=== PATIENT | female | born 1945 | race Caucasian/White ===

== ENCOUNTER 2019-07-16 19:42 | Emergency (ER) | payer MEDICARE, BC, SELFPAY ==
[2019-07-16] VITALS (13 sets, daily range): BP systolic 113–130; BP diastolic 73–102; PULSE 90–108; RESP 17–30; TEMP 36.7–37.1; O2SAT 91–94; BMI 29.0
--- NOTE | 2019-07-16 19:50 | ED_ITS ---
Entered by Natalee Potts, acting as scribe for HPI - SOB/Dyspnea General: Chief Complaint: Shortness of Breath/Dyspnea Stated Complaint: DIFFICULTY BREATHING Time Seen by Provider: 07/16/19 19:49 Source: patient Mode of arrival: ambulatory Limitations: no limitations History of Present Illness: HPI Narrative: 73 yo f came to the er for shortness of breath. Onset was today. Pt states that she she at home cooking supper and it started to get really bad, she states that she did treatments and that did not help at all. Pt states that she has not had a cough, fever, nausea or vomiting at this time. Pt states that she gets real sob when she has a uti. Pt states that she is on O2 at home, she uses 3 liters. MD elicited complaint: shortness of breath Onset (ago): day(s) (1729 today) Timing: intermittent Severity: moderate Exacerbating factors: exertion Relieving factors: oxygen and rest Associated symptoms: Reports orthopnea; Deny chest pain, fever(s), nausea, polyuria or vomiting Treatment prior to arrival: oxygen and other (albuterol) Related Data: Home oxygen amount: 3 liters Review of Systems General: Reports: 10 or more systems reviewed and unremarkable except in HPI and below Const: Denies: fever or chills Eyes: Denies: change in vision ENMT: Denies: throat pain Card: Reports: shortness of breath on exertion and shortness of breath when lying down; Denies: chest pain Resp: Reports: shortness of breath; Denies: productive cough GI: Denies: nausea, vomiting or diarrhea : Denies: difficulty urinating or painful urination Musc: Denies: neck pain Skin/Breast: Denies: rash or itching Neuro: Denies: headache Psych: Denies: anxiety Endo: Denies: excessive urination Francisco/Lymph: Denies: easy bruising All/Imm: Denies: hives or acute wheezing PFSH ED PFSH: Statuses (acute, chronic, etc) shown below reflect problem list status as previously entered and may not be historically accurate Medical History Afib (Acute) Anxiety and depression (Acute) ASVD (arteriosclerotic vascular disease) (Acute) CHF (congestive heart failure) (Acute) Chronic gastritis (Chronic) Constipation (Chronic) COPD (chronic obstructive pulmonary disease) (Acute) H/O deep venous thrombosis (Acute) Hypertension (Acute) Osteoarthritis of hip (Acute) Oxygen dependent (Acute) Salivary calculus (Acute) has had surgery in the past UTI (urinary tract infection) (Acute) Surgical History H/O colonoscopy (Acute) 2015 Dr. French H/O esophagogastroduodenoscopy (Acute) 2015 Dr. French H/O right knee surgery (Acute) History of hysterectomy (Acute) total Hx of cholecystectomy (Acute) Family History Sister Anesthesia complication Son Anesthesia complication Grandmother Heart disease Mother Aneurysm Denies family history of Bleeding disorder Social History Smoking and tobacco status: former smoker Alcohol intake: never Household members: significant other Marital status: / Current occupational status: retired Physical Exam Const: COMMON NORMALS: no apparent distress and oriented x3 GENERAL APPEARANCE: cooperative ORIENTATION/CONSCIOUSNESS: Yes awake, Yes oriented to person, Yes oriented to place and Yes oriented to time HENMT: COMMON NORMALS: external ears normal and external nose normal HEAD & SCALP: normal to inspection NOSE: external nose normal EXTERNAL EAR: Yes external ears normal MOUTH: oral and palatal mucosa normal THROAT: posterior oropharynx normal Eye: COMMON NORMALS: PERRL and EOMs intact bilaterally PUPIL: Yes PERRL Neck/C-Spine: COMMON NORMALS: full ROM GENERAL: Yes trachea midline Lymph: LYMPHATIC: no lymphadenopathy noted Resp: EFFORT & INSPECTION: Yes tachypneic and Yes respiratory distress OTHER: Decreased air movement no crackles Cardio: COMMON NORMALS: regular rate and regular rhythm RATE: regular rate RHYTHM: regular rhythm GI: COMMON NORMALS: normal to inspection, nondistended, normoactive bowel sounds and soft to palpation AUSCULTATION: Yes normoactive bowel sounds PALPATION: Yes soft PERCUSSION: normal to percussion : COMMON NORMALS: Yes no CVA tenderness BLADDER/KIDNEY EXAM: Yes no CVA tenderness Back/Pelvis: COMMON NORMALS: no CVA tenderness Extremity: GENERAL: Yes normal exam except as noted Neuro: COMMON NORMALS: oriented x3 SENSORIUM/ORIENTATION: Yes oriented to person, Yes oriented to place and Yes oriented to time CRANIAL NERVES: Yes CN normal except as noted Psych: COMMON NORMALS: mental status grossly normal Skin: COMMON NORMALS: no rashes or lesions noted GENERAL SKIN EXAM: no rashes or lesions noted Course Vital Signs: Vital signs: Vital Signs Temperature 98.1 F 07/16/19 22:11 Pulse Rate 94 07/16/19 22:11 Respiratory Rate 17 07/16/19 22:34 Blood Pressure 113/82 07/16/19 23:11 Pulse Oximetry 91 07/16/19 23:11 MDM - SOB/Dyspnea MDM Narrative: Medical decision making narrative: 2319 reevaluated patient she is breathing much better sat is 93 to 94% on 2 L home O2 which she is on at home as well. Informed her she does have a UTI. We will start her on cefuroxime because of her allergies to Cipro Macrobid and sulfa. She is comfortable no respiratory distress no wheezing. We will also continue on short course of steroids. Lab Data: Attestation: I reviewed the patient's lab results. Labs: Lab Results 07/16/19 07/16/19 07/16/19 Range/Units 20:23 20:31 20:43 WBC 10.2 H (4.0-10.0) 10^3/ uL RBC 5.02 (4.1-5.3) 10^6/u L Hgb 14.5 (11.5-15.3) g/dL Hct 45.2 (37.0-47.0) % MCV 90.0 (81-99) fL MCH 28.9 (28.0-34.0) pg MCHC 32.1 (30.0-36.0) g/dL RDW 13.7 (12.1-15.1) % Plt Count 179 (130-400) 10^3/c mm MPV 9.8 (7.4-10.4) fL Total Counted 100 (0-100) Segmented Neutroph ils 86 % Band Neutrophils 3.0 % Lymphocytes (Manua l) 10 % Basophils (Manual) 1.0 % Absolute Basophils 0.1 (0.0-0.2) 10^3/c mm Smudge Cells 1+ H Platelet Estimate Normal (Normal) Giant Platelets Trace Anisocytosis Trace Specimen Type Arterial Sample Site Brachial, left ABG pH 7.43 (7.35-7.45) ABG pCO2 33.4 L (35-45) mmHg ABG pO2 59.5 L (80.0-100.0) mmH g ABG HCO3 22.4 (22-26) mmol/L ABG Base Excess -1.1 (-2.0-2.0) mmol/ L Reuben Test Pos Hematocrit 46.0 (37-47) % O2 Liters/Min 3.0 % Furnace Mechanic ID harkr Sodium (136-145) mmol/L Potassium (3.5-5.1) mmol/L Chloride (98-107) mmol/L Carbon Dioxide (22-29) mmol/L Anion Gap (5-19) BUN (8-23) mg/dL Creatinine (0.5-0.9) mg/dL Glucose (74-106) mg/dL Calcium (8.8-10.2) mg/Dl Total Bilirubin (0.15-1.2) mg/dL AST (0-32) U/L ALT (0-33) U/L Alkaline Phosphata se (35-105) IU/L Total Protein (6.6-8.7) g/dL Albumin (3.5-5.2) g/dL Globulin (1.3-4.6) g/dL Urine Color Yellow (Yellow) Urine Appearance Cloudy (CLEAR) Urine pH 5 (5-7) Ur Specific Gravit y 1.015 (1.005-1.030) Urine Protein Trace (Negative) Urine Glucose (UA) Norm (Normal) Urine Ketones Negative (Negative) Urine Occult Blood Neg (Negative) Urine Nitrate Positive H (Negative) Urine Bilirubin Neg (NEGATIVE) Urine Urobilinogen Norm (Negative) mg/dL Ur Leukocyte Carmen ase 1+ H (Negative) Urine RBC 0-4 H (0-2) /hpf Urine WBC >100 H (0-5) /hpf Ur Squamous Epith Cells 0-4 H (0-5) Urine Bacteria 2+ H (NONE) Influenza Type A A g (Negative) POC Influenza B Ag (Negative) 07/16/19 07/16/19 Range/Units 20:51 21:46 WBC (4.0-10.0) 10^3/ uL RBC (4.1-5.3) 10^6/u L Hgb (11.5-15.3) g/dL Hct (37.0-47.0) % MCV (81-99) fL MCH (28.0-34.0) pg MCHC (30.0-36.0) g/dL RDW (12.1-15.1) % Plt Count (130-400) 10^3/c mm MPV (7.4-10.4) fL Total Counted (0-100) Segmented Neutroph ils % Band Neutrophils % Lymphocytes (Manua l) % Basophils (Manual) % Absolute Basophils (0.0-0.2) 10^3/c mm Smudge Cells Platelet Estimate (Normal) Giant Platelets Anisocytosis Specimen Type Sample Site ABG pH (7.35-7.45) ABG pCO2 (35-45) mmHg ABG pO2 (80.0-100.0) mmH g ABG HCO3 (22-26) mmol/L ABG Base Excess (-2.0-2.0) mmol/ L Reuben Test Hematocrit (37-47) % O2 Liters/Min % Furnace Mechanic ID Sodium 137 (136-145) mmol/L Potassium 3.7 (3.5-5.1) mmol/L Chloride 102 (98-107) mmol/L Carbon Dioxide 22 (22-29) mmol/L Anion Gap 16.7 (5-19) BUN 17 (8-23) mg/dL Creatinine 0.8 (0.5-0.9) mg/dL Glucose 132 H (74-106) mg/dL Calcium 10.0 (8.8-10.2) mg/Dl Total Bilirubin 0.5 (0.15-1.2) mg/dL AST 18 (0-32) U/L ALT 18 (0-33) U/L Alkaline Phosphata se 86 (35-105) IU/L Total Protein 7.1 (6.6-8.7) g/dL Albumin 4.1 (3.5-5.2) g/dL Globulin 3.0 (1.3-4.6) g/dL Urine Color (Yellow) Urine Appearance (CLEAR) Urine pH (5-7) Ur Specific Gravit y (1.005-1.030) Urine Protein (Negative) Urine Glucose (UA) (Normal) Urine Ketones (Negative) Urine Occult Blood (Negative) Urine Nitrate (Negative) Urine Bilirubin (NEGATIVE) Urine Urobilinogen (Negative) mg/dL Ur Leukocyte Carmen ase (Negative) Urine RBC (0-2) /hpf Urine WBC (0-5) /hpf Ur Squamous Epith Cells (0-5) Urine Bacteria (NONE) Influenza Type A A g Negative (Negative) POC Influenza B Ag Negative (Negative) Imaging Data^: CXR: Attestation: I personally reviewed and interpreted this imaging study as follows: My impression: Normal chest no infiltrate EKG Data^: EKG 1: Attestation: I personally reviewed and interpreted this EKG as follows: EKG Interpretation Date: 07/16/19 EKG interpretation time: 20:45 Interpretation: Normal sinus rhythm rate 71 artifact secondary to respiratory pattern. Nonspecific ST changes Discharge Plan Discharge Patient Disposition: Home, Self-Care Clinical Impression: COPD exacerbation, Acute UTI Condition: Stable Prescriptions: New cefuroxime axetil 250 mg tablet 250 mg PO BID 7 Days Qty: 14 RF: 0 prednisone 20 mg tablet 20 mg PO BID 5 Days Qty: 10 RF: 0 No Action furosemide 20 mg tablet 20 mg PO QAM RF: 0 diclofenac sodium 75 mg tablet,delayed release (DR/EC) 75 mg PO BID RF: 0 pantoprazole [Protonix] 40 mg tablet,delayed release (DR/EC) 40 mg PO ONCE RF: 0 albuterol sulfate [Ventolin HFA] 90 mcg/actuation HFA aerosol inhaler 2 puff INHALATION Q6H PRNRF: 0 atenolol 50 mg tablet 25 mg PO ONCE RF: 0 clonazepam 0.5 mg tablet 0.25 mg PO ONCE PRNRF: 0 Discharge Orders: Discharge Order (Routine); Ordered 07/16/19 Ordered By: Maryse Hatch Referrals: Gem Bess DO [Primary Care Provider] - Patient Instructions: COPD, Urinary Tract Infection in Women (ED) Activity Restrictions/Additional Instructions: Return to the ER if worse in any way. Be sure to follow-up with your primary care doctor, call Friday for first available appointment tell them that it is an ER follow-up for COPD exacerbation and UTI. Coding Level of Care Code ED Research Editor for Chg Fwd Exam Problem Focused The documentation recorded by the Delroy echeverria Stephanie Lyn, accurately reflects the service I personally performed and the decisions made by , Maryse Hatch MD Jul 16, 2019 19:42
--- NOTE | 2019-07-16 19:57 | ECG_ITS ---
Measurements Intervals [place] Rate: 91 P: 107 WI: 170 QRS: 19 QRSD: 83 T: 89 QT: 357 QTc: 440 SINUS RHYTHM Nonspecific T wave changes Compared to ECG 01/04/2019 00:56:24 First degree AV block no longer present Electronically Signed On 07-17-2019 16:43:55 PLASTICS NURSE by Efrain Avelar M.D. [email or web address]
--- NOTE | 2019-07-16 19:57 | XRR_ITS ---
PROCEDURE INFORMATION: Exam: XR Chest, 1 View Exam date and time: 07/16/2019 8:05 PM Age: 73 years old Clinical indication: Shortness of breath; Additional info: SOA TECHNIQUE: Imaging protocol: XR of the chest Views: 1 view. COMPARISON: CR Chest 1 [place] [id number] 06/09/2019 6:16 PM FINDINGS: Lungs: Unremarkable. No consolidation. Unchanged hyperinflation with fibrosis of the lungs. Unchanged calcified granulomas. Pleural space: Unremarkable. No pleural effusion. No pneumothorax. Heart/Mediastinum: Unremarkable. No cardiomegaly. Bones/joints: Unremarkable. XR/XR chest 1V portable [id number] IMPRESSION: No acute findings.
[2019-07-16 20:38] LABS: Hematocrit 45.2 % (37.0-47.0); Hemoglobin 14.5 g/dL (11.5-15.3); Mean Corpuscular HGB Conc 32.1 g/dL (30.0-36.0); Mean Corpuscular Hemoglobin 28.9 pg (28.0-34.0); Mean Platelet Volume 9.8 fL (7.4-10.4); Platelet Count 179 10^3/cmm (130-400); Red Blood Count 5.02 10^6/uL (4.1-5.3); Red Cell Distribution Width 13.7 % (12.1-15.1); White Blood Count 10.2 10^3/uL (4.0-10.0)
[2019-07-16] MEDS: ipratropium-albuterol 3 mL Neb INHALATION ×2 (20:42→21:06)
--- NOTE | 2019-07-16 20:43 | PC.NURSE ---
Patient has been placed on vehicle monitor technician, blood pressure, and pulse ox
[2019-07-16 20:54] LABS: ABG PCO2 33.4 mmHg (35-45); ABG PH Result 7.43 (7.35-7.45); Base Excess ABG -1.1 mmol/L (-2.0-2.0); Blood Gas Allen Test Pos; Blood Gas Sample Site Brachial, left; Blood Gas Sample Type Arterial; HCO3 ABG 22.4 mmol/L (22-26); PO2 ABG 59.5 mmHg (80.0-100.0)
[2019-07-16 21:12] LABS: Urine Appearance Cloudy (CLEAR); Urine Color Yellow (Yellow)
[2019-07-16 21:13] LABS: Add Urine Microscopic? YES; Bilirubin Urine Neg (NEGATIVE); Blood Urine Neg (Negative); Glucose Urine UA Norm (Normal); Ketones Urine Negative (Negative); Leukocyte Esterase Urine 1+ (Negative); Nitrate Urine Positive (Negative); Protein Urine Trace (Negative); Specific Gravity, Urine 1.015 (1.005-1.030); Urobilinogen Urine Norm (Negative); pH Urine 5 (5-7)
[2019-07-16 21:14] LABS: Add Urine Culture? Yes; Bacteria Urine 2+; RBC Urine 0-4 /hpf (0-2); Squamous Epithelial Cell Urine 0-4 (0-5); WBC Urine >100 /hpf (0-5)
[2019-07-16 21:17] LABS: Alanine Aminotransferase 18 U/L (0-33); Albumin Level 4.1 g/dL (3.5-5.2); Alkaline Phosphatase 86 IU/L (35-105); Anion Gap 16.7 (5-19); Aspartate Amino Transferase 18 U/L (0-32); Blood Urea Nitrogen 17 mg/dL (8-23); Carbon Dioxide 22 mmol/L (22-29); Chloride 102 mmol/L (98-107); Glucose 132 mg/dL (74-106); Potassium 3.7 mmol/L (3.5-5.1); Sodium 137 mmol/L (136-145); Total Bilirubin 0.5 mg/dL (0.15-1.2); Total Protein 7.1 g/dL (6.6-8.7)
[2019-07-16 21:26] LABS: Absolute Segmented Neutrophil 8.7 10/cmm (1.6-7.1); Band Neutrophils Absolute 0.3 10^3/cmm (0.0-1.2); Basophils Absolute 0.1 10^3/cmm (0.0-0.2); Lymphocytes 10 %; Segmented Neutrophils 86 %; Total Cells Counted 100 (0-100)
[2019-07-16 21:27] LABS: Anisocytosis Trace; Smudge Cells 1+
[2019-07-16 21:28] LABS: Giant Platelets Trace; Platelet Estimate Normal (Normal)
--- NOTE | 2019-07-16 22:17 | PC.NURSE ---
urine output 300ml
[2019-07-16 22:57] LABS: Influenza A by IFA Negative (Negative)
[2019-07-16 22:58] LABS: Influenza B by IFA Negative (Negative)
[2019-07-16] MEDS: cefUROXime 250 mg Tablet PO (23:40)
[2019-07-17 13:43] LABS: Oxygen Device NC
== END 2019-07-16 23:41 | disposition home or self-care (01) ==
PROVIDERS: Emergency Provider Emergency Medicine; Family Provider Family Medicine; PCP Family Medicine
DX: J44.1 Chronic obstructive pulmonary disease with (acute) exacerbation (principal); N39.0 Urinary tract infection, site not specified; I48.91 Unspecified atrial fibrillation; I11.0 Hypertensive heart disease with heart failure; I50.9 Heart failure, unspecified; Z87.440 Personal history of urinary (tract) infections; Z87.891 Personal history of nicotine dependence
CPT/HCPCS: 36600; 71045; 80053; 81003; 82803; 85007; 85027; 87086; 87804; 93005; 94640; 96374; 96375; 99283; J2930

== ENCOUNTER → 2019-08-03 11:43 | Outpatient (BNVA) | payer MEDICARE, BC, SELFPAY | PROVIDERS: Family Provider Family Medicine; PCP Family Medicine; Visit Provider Nurse Practitioner Family | DX: N39.0 Urinary tract infection, site not specified (principal); J44.1 Chronic obstructive pulmonary disease with (acute) exacerbation | CPT/HCPCS: 81003; 87077; 87086; 87186 ==

== ENCOUNTER → 2019-08-12 12:22 | Outpatient (BNVA) | payer MEDICARE, BC, SELFPAY | PROVIDERS: Family Provider Family Medicine; PCP Family Medicine; Visit Provider Nurse Practitioner Family | DX: N39.0 Urinary tract infection, site not specified (principal) | CPT/HCPCS: 81001; 87077; 87086; 87186 ==

== ENCOUNTER → 2019-09-09 11:24 | Outpatient (BNVA) | payer MEDICARE, BC, SELFPAY | PROVIDERS: Family Provider Family Medicine; PCP Family Medicine; Visit Provider Family Medicine | DX: N39.0 Urinary tract infection, site not specified (principal) | CPT/HCPCS: 81003; 87077; 87086; 87186 ==

== ENCOUNTER 2019-09-12 15:11 | Emergency (ER) | payer MEDICARE, BC, SELFPAY ==
[2019-09-12 15:21] VITALS: BP 146/89; PULSE 98; RESP 24; TEMP 36.8; O2SAT 92; BMI 29.8
--- NOTE | 2019-09-12 15:28 | XR_ITS ---
WS: [id number] CHEST XRAY TECHNIQUE: Portable chest. CLINICAL INFORMATION: cough COMPARISON: July 16, 2019 FINDINGS: Heart: Cardiomegaly. Lungs: Lungs are clear. No consolidation or pleural effusion. Chronic emphysematous changes. Bones: Normal visualized bony structures. XR/XR chest 1V portable [id number] IMPRESSION: No acute chest findings
--- NOTE | 2019-09-12 15:28 | ED_ITS ---
Entered by Albania Salas, acting as scribe for Miesha Vaca HPI - SOB/Dyspnea General: Chief Complaint: Shortness of Breath/Dyspnea Stated Complaint: SOB Time Seen by Provider: 09/12/19 15:27 Source: patient Mode of arrival: wheelchair Limitations: no limitations History of Present Illness: HPI Narrative: 73 yo Female presents to ED with complaint of shortness of breath. Pt states that she is normally on 2 liters of oxygen at home. Pt states that she is on 3 liters now. Pt states that she has a lot of phlegm but she isn't getting it up. Pt states that she has been running a low fever. Pt states that her shortness of breath started days ago but just got worse today. MD elicited complaint: shortness of breath and cough Pertinent past history: COPD Onset (ago): day(s) Context: recent illness Timing: progressively worsening Severity: severe Exacerbating factors: lying flat, exertion and coughing Relieving factors: oxygen, bronchodilators and upright position Known history of: COPD Associated symptoms: Reports chest congestion, cough and fever(s); Deny abdominal pain, chest pain, dizziness, extremity pain, nausea, polydipsia or vomiting Treatment prior to arrival: oxygen Related Data: Home oxygen amount: 2 liters Review of Systems General: Reports: other (negative unless marked) Const: Reports: fever Eyes: Denies: change in vision or blurry vision ENMT: Denies: throat pain, painful swallowing, hoarseness, ear pain, ear discharge, Change in hearing or nasal discharge Card: Denies: chest pain Resp: Reports: shortness of breath, non-productive cough and chest congestion GI: Denies: abdominal pain, nausea, vomiting, vomiting blood, coffee grounds in vomit, diarrhea, constipation, cramping, blood in stool or black tarry stool : Denies: flank pain, painful urination, urinary frequency, urinary urgency, decreased urine ouput, urinary incontinence or blood in urine Musc: Denies: neck pain, back pain, extremity pain, extremity swelling, joint pain, joint swelling, joint warmth or joint stiffness Skin/Breast: Denies: rash, skin tenderness or yellow skin Neuro: Denies: headache, numbness in extremities, weakness in extremities, changes in sensation, lack of coordination, difficulty walking, dizziness, vertigo or confusion Endo: Denies: excessive thirst, tired all the time, cold intolerance, excessive sweating, flushing or hot flashes [place]/Lymph: Denies: easy bruising, easy bleeding, petechiae or enlarged lymph nodes All/Imm: Denies: hives, throat swelling, tongue swelling, facial swelling or acute wheezing PFSH ED PFSH: Medical History Afib Anxiety and depression ASVD (arteriosclerotic vascular disease) CHF (congestive heart failure) Chronic gastritis Constipation COPD (chronic obstructive pulmonary disease) H/O deep venous thrombosis Hypertension Osteoarthritis of hip Oxygen dependent Salivary calculus has had surgery in the past Surgical History H/O colonoscopy 2015 Dr. French H/O esophagogastroduodenoscopy 2015 Dr. French H/O right knee surgery History of hysterectomy total Hx of cholecystectomy Family History Sister Anesthesia complication Son Anesthesia complication Grandmother Heart disease Mother Aneurysm Denies family history of Bleeding disorder Social History Smoking and tobacco status: former smoker Alcohol intake: never Household members: significant other Marital status: / Current occupational status: retired History of recent travel: No Physical Exam Const: COMMON NORMALS: no apparent distress, oriented x3, no limitations, healthy appearing and well nourished EXAM LIMITATIONS: no altered mental status GENERAL APPEARANCE: cooperative, well kempt and well developed ORIENTATION/CONSCIOUSNESS: Yes awake HENMT: COMMON NORMALS: normocephalic, head/scalp atraumatic, hearing grossly normal bilaterally, external ears normal, EAC's normal, external nose normal and moist oral mucous membranes HEAD & SCALP: normal to inspection, normocephalic and atraumatic FACE & SINUS: normal facial exam and face symmetric NOSE: external nose normal and nares normal EXTERNAL EAR: Yes external ears normal EXTERNAL AUDITORY CANAL: EAC's normal MOUTH: oral and palatal mucosa normal and tongue normal Eye: COMMON NORMALS: PERRL, EOMs intact bilaterally, conjunctivae normal and no scleral icterus GENERAL EYE: normal appearance of both eyes and normal light reflex CONJUNCTIVA: Yes conjunctivae normal SCLERA: sclerae normal CORNEA: Yes corneas normal PUPIL: Yes PERRL DIRECT OPHTHALMOSCOPY: Yes normal light reflex Neck/C-Spine: COMMON NORMALS: full ROM, no lymphadenopathy, supple, no meningeal signs and no JVD GENERAL: Yes normal visual inspection and Yes trachea midline CERVICAL SPINE: Yes cervical ROM normal Chest: COMMONS NORMALS: inspection of chest normal and palpation of chest normal Resp: COMMON NORMALS: normal respiratory effort, no retractions, no use of accessory muscles and clear to auscultation bilaterally EFFORT & INSPECTION: Yes able to speak in complete sentences AUSCULTATION: clear to auscultation bilaterally Cardio: COMMON NORMALS: no JVD, regular rate, regular rhythm, S1 normal heart sound, S2 normal heart sound, no gallops, no clicks, no murmurs and no rub JUGULAR VENOUS DISTENTION: no JVD RATE: regular rate RHYTHM: regular rhythm HEART SOUNDS: S1 normal and S2 normal GI: COMMON NORMALS: soft to palpation, non-tender, no hepatosplenomegaly and no masses INSPECTION: Yes normal to inspection PALPATION: Yes soft and Yes no hepatosplenomegaly : COMMON NORMALS: Yes no CVA tenderness BLADDER/KIDNEY EXAM: Yes no CVA tenderness Back/Pelvis: COMMON NORMALS: no CVA tenderness, thoracic and lumbar spine normal to inspection, no thoracic nor lumbar tenderness and thoraco-lumbar ROM normal Extremity: COMMON NORMALS: normal to inspection, full ROM, normal capillary refill, no joint enlargement, no clubbing, cyanosis or edema and no calf tenderness Neuro: COMMON NORMALS: oriented x3, CN's II-XII intact bilaterally, moves all extremities, no focal motor deficits and no sensory deficits noted MENINGEAL SIGNS: Yes no meningeal signs Psych: COMMON NORMALS: mental status grossly normal, thought process normal, cooperative, affect normal, speech normal and activity/motor behavior normal APPEARANCE: Yes well kempt SPEECH: Yes normal speech THOUGHT PROCESS: normal thought process Skin: COMMON NORMALS: no rashes or lesions noted, skin turgor normal, no jaundice, no petechiae and no mottling GENERAL SKIN EXAM: no rashes or lesions noted and turgor normal Course Vital Signs: Vital signs: Vital Signs Temperature 98.3 F 09/12/19 15:21 Pulse Rate 98 09/12/19 18:10 Respiratory Rate 18 09/12/19 18:06 Blood Pressure 146/89 09/12/19 15:21 Pulse Oximetry 93 09/12/19 18:06 MDM - SOB/Dyspnea MDM Narrative: Medical decision making narrative: Patient comes in complaining of shortness of breath. She is had a dry cough. She feels like she is had a fever at home as well. She says she feels like she has congestion in her chest that she just cannot get out. She is tremendously better here after a short run of BiPAP with nebulizer treatments. Her EKG has some slight changes but her troponins are unremarkable. She is refusing admission for cardiac evaluation. Clinically she looks much better from her COPD and she wants to go home. She is encouraged to return should her symptoms change or worsen but at this time she is adamant she wants to be discharged. Patient states that she has a UTI and was tested and found to have this in the office but she was placed on Macrobid which she is allergic to so she stopped it. She has allergic to cephalosporins as well as for quinolones and sulfa's. I will give her a dose of fosfomycin to treat her UTI and I will also place her on Zithromax for her COPD exacerbation. Lab Data: Attestation: I reviewed the patient's lab results. Labs: Lab Results 09/12/19 09/12/19 09/12/19 Range/Units 15:43 15:43 15:43 WBC 5.4 (4.0-10.0) 10^3/ uL RBC 4.84 (4.1-5.3) 10^6/u L Hgb 14.0 (11.5-15.3) g/dL Hct 44.2 (37.0-47.0) % MCV 91.3 (81-99) fL MCH 28.9 (28.0-34.0) pg MCHC 31.7 (30.0-36.0) g/dL RDW 13.1 (12.1-15.1) % Plt Count 149 (130-400) 10^3/c mm MPV 9.8 (7.4-10.4) fL Neut % (Auto) 73.7 % Lymph % (Auto) 12.9 % [place] % (Auto) 11.1 % Eos % (Auto) 1.7 % Baso % (Auto) 0.4 % Neut # (Auto) 4.0 (1.8-7.7) 10^3/u L Lymph # (Auto) 0.7 L (0.8-4.8) 10^3/u L [place] # (Auto) 0.6 (0.2-0.9) 10^3/u L Eos # (Auto) 0.1 (0.0-0.8) 10^3/u L Baso # (Auto) 0.0 (0.0-0.1) 10^3/u L Nucleated RBC % (a uto) 0 % Nucleated RBCs # 0.0 /100WBC Sodium 138 (136-145) mmol/L Potassium 3.5 (3.5-5.1) mmol/L Chloride 100 (98-107) mmol/L Carbon Dioxide 24 (22-29) mmol/L Anion Gap 17.5 (5-19) BUN 12 (8-23) mg/dL Creatinine 0.8 (0.5-0.9) mg/dL Glucose 91 (65-115) mg/dL Calculated Osmolal ity 282 L (285-295) mOsm/k g Lactic Acid 1.0 (0.5-2.2) mmol/L Calcium 9.5 (8.5-10.5) mg/dL Total Bilirubin 0.3 (0.15-1.2) mg/dL AST 23 (0-32) U/L ALT 22 (0-33) U/L Alkaline Phosphata se 74 (35-105) IU/L Troponin T Baselin e (0-10) ng/mL Troponin T 120 Min [place] (0-10) ng/mL Delta Troponin T (0-10) ABS# NT-Pro-B Natriuret Pep 581 H (0-125) pg/mL Total Protein 7.4 (6.6-8.7) g/dL Albumin 3.8 (3.5-5.2) g/dL Globulin 3.6 (1.3-4.6) g/dL Influenza Type A A g (Negative) POC Influenza B Ag (Negative) 09/12/19 09/12/19 09/12/19 Range/Units 15:43 16:51 17:47 WBC (4.0-10.0) 10^3/ uL RBC (4.1-5.3) 10^6/u L Hgb (11.5-15.3) g/dL Hct (37.0-47.0) % MCV (81-99) fL MCH (28.0-34.0) pg MCHC (30.0-36.0) g/dL RDW (12.1-15.1) % Plt Count (130-400) 10^3/c mm MPV (7.4-10.4) fL Neut % (Auto) % Lymph % (Auto) % [place] % (Auto) % Eos % (Auto) % Baso % (Auto) % Neut # (Auto) (1.8-7.7) 10^3/u L Lymph # (Auto) (0.8-4.8) 10^3/u L [place] # (Auto) (0.2-0.9) 10^3/u L Eos # (Auto) (0.0-0.8) 10^3/u L Baso # (Auto) (0.0-0.1) 10^3/u L Nucleated RBC % (a uto) % Nucleated RBCs # /100WBC Sodium (136-145) mmol/L Potassium (3.5-5.1) mmol/L Chloride (98-107) mmol/L Carbon Dioxide (22-29) mmol/L Anion Gap (5-19) BUN (8-23) mg/dL Creatinine (0.5-0.9) mg/dL Glucose (65-115) mg/dL Calculated Osmolal ity (285-295) mOsm/k g Lactic Acid (0.5-2.2) mmol/L Calcium (8.5-10.5) mg/dL Total Bilirubin (0.15-1.2) mg/dL AST (0-32) U/L ALT (0-33) U/L Alkaline Phosphata se (35-105) IU/L Troponin T Baselin e 10 (0-10) ng/mL Troponin T 120 Min [place] 9.84 (0-10) ng/mL Delta Troponin T -0.16 L (0-10) ABS# NT-Pro-B Natriuret Pep (0-125) pg/mL Total Protein (6.6-8.7) g/dL Albumin (3.5-5.2) g/dL Globulin (1.3-4.6) g/dL Influenza Type A A g Negative (Negative) POC Influenza B Ag Negative (Negative) Imaging Data^: CXR: My impression: Cardiomegaly with prominent interstitial markings. Similar to previous. EKG Data^: EKG 1: Attestation: I personally reviewed and interpreted this EKG as follows: EKG Interpretation Date: 09/12/19 EKG interpretation time: 15:45 Prior EKG tracings: available for review Interpretation: Normal sinus rhythm at 93 beats a minute, normal intervals, no blocks, nonspecific ST and T wave changes, baseline wandering artifact. Similar to previous. EKG 2: Attestation: I personally reviewed and interpreted this EKG as follows: EKG Interpretation Date: 09/12/19 EKG interpretation time: 17:41 Interpretation: Normal sinus rhythm at 100 beats a minute, nonspecific ST-T wave changes, unchanged from previous. Discharge Plan Discharge Patient Disposition: Home, Self-Care Clinical Impression: Acute exacerbation of chronic obstructive airways disease Condition: Stable Prescriptions: New ipratropium-albuterol 0.5 mg-3 mg(2.5 mg base)/3 mL solution for nebulization 3 ml INHALATION Q6H Qty: 180 RF: 0 prednisone 10 mg tablets,dose pack See Rx Instructions .ROUTE .COMPLEX Qty: 21 RF: 0 Zithromax Z-Magdiel 250 mg tablet See Rx Instructions .ROUTE .COMPLEX Qty: 6 RF: 0 fosfomycin tromethamine 3 gram packet 3 gm PO Q3D Qty: 2 RF: 0 No Action pantoprazole 20 mg tablet,delayed release (DR/EC) 20 mg PO DAILY RF: 0 furosemide 20 mg tablet 20 mg PO QAM RF: 0 diclofenac sodium 75 mg tablet,delayed release (DR/EC) 75 mg PO BID RF: 0 albuterol sulfate [Ventolin HFA] 90 mcg/actuation HFA aerosol inhaler 2 puff INHALATION Q6H PRN (Reason: Shortness Of Breath) RF: 0 clonazepam 0.5 mg tablet 0.25 mg PO DAILY PRN (Reason: Anxiety) RF: 0 atenolol 50 mg tablet 25 mg PO DAILY RF: 0 Discharge Orders: Discharge Order (Routine); Ordered 09/12/19 Ordered By: Miesha Vaca Referrals: Lambert,Gem, DO [Primary Care Provider] - 1-3 days Discharge Diet: Advance as tolerated Discharge Activity: Increase activity as tolerated Patient Instructions: Chronic Obstructive Pulmonary Disease (ED) Activity Restrictions/Additional Instructions: Please return to the ER immediately for any of the signs or symptoms listed on your discharge instruction sheets, worsening/changing of your symptoms, you are not getting better as quickly as expected, or for ANY other cause or concerns. You have been offered further evaluation and care including admission to the hospital for evaluation of your heart and further treatment of your COPD but you have declined. If your symptoms change or worsen in any way or you simply change your mind you are more than welcome to return to the ER for recheck. Coding Level of Care Code ED Granulating Machine Operator for Chg Fwd Exam Comprehensive The documentation recorded by the Maritza echeverria Carmen, accurately reflects the service I personally performed and the decisions made by , Miesha Vaca Sep 12, 2019 15:11
--- NOTE | 2019-09-12 15:28 | ECG_ITS ---
Measurements Intervals [place] Rate: 93 P: 81 NC: 196 QRS: 37 QRSD: 85 T: 97 QT: 327 QTc: [address] DEVIATION AND MODERATE T-WAVE ABNORMALITY, CONSIDER LATERAL ISCHEMIA [-0.1+ mV mV T WAVE IN I/aVL/V5/V6] Compared to ECG 07/16/2019 20:38:21 Possible ischemia now present T-wave abnormality still present Electronically Signed On 09-12-2019 19:51:05 CDT by Lukas Steiner M.D. [id number] f
[2019-09-12 15:50] LABS: Basophils % 0.4 %; Eosinophils # 0.1 10^3/uL (0.0-0.8); Eosinophils % 1.7 %; Hematocrit 44.2 % (37.0-47.0); Lymphocytes # 0.7 10^3/uL (0.8-4.8); Lymphocytes % 12.9 %; Mean Corpuscular HGB Conc 31.7 g/dL (30.0-36.0); Mean Corpuscular Hemoglobin 28.9 pg (28.0-34.0); Mean Corpuscular Volume 91.3 fL (81-99); Mean Platelet Volume 9.8 fL (7.4-10.4); Monocytes # 0.6 10^3/uL (0.2-0.9); Monocytes % 11.1 %; Neutrophils % 73.7 %; Nucleated Red Blood Cells % 0 %; Platelet Count 149 10^3/cmm (130-400); Red Blood Count 4.84 10^6/uL (4.1-5.3); Red Cell Distribution Width 13.1 % (12.1-15.1); White Blood Count 5.4 10^3/uL (4.0-10.0)
[2019-09-12 15:58] VITALS: PULSE 94; PULSE 98; RESP 18; RESP 33; O2SAT 94; O2SAT 98
[2019-09-12] MEDS: ipratropium-albuterol 3 mL Neb 9 ML INHALATION (15:58)
[2019-09-12] MEDS: doxycycline 100 MG in sodium chloride 0.9% (plus) 100 ML IV (16:05)
[2019-09-12 16:15] LABS: Troponin(5th) Baseline 10 ng/mL (0-10)
[2019-09-12 16:19] LABS: Alanine Aminotransferase 22 U/L (0-33); Albumin Level 3.8 g/dL (3.5-5.2); Alkaline Phosphatase 74 IU/L (35-105); Anion Gap 17.5 (5-19); Blood Urea Nitrogen 12 mg/dL (8-23); Calcium 9.5 mg/dL (8.5-10.5); Carbon Dioxide 24 mmol/L (22-29); Chloride 100 mmol/L (98-107); Globulin 3.6 g/dL (1.3-4.6); Glucose 91 mg/dL (65-115); NT Pro B Type Natriuretic Pept 581 pg/mL (0-125); Osmolality Calculated 282 mOsm/kg (285-295); Potassium 3.5 mmol/L (3.5-5.1); Sodium 138 mmol/L (136-145); Total Bilirubin 0.3 mg/dL (0.15-1.2); Total Protein 7.4 g/dL (6.6-8.7)
[2019-09-12 16:25] VITALS: PULSE 102
[2019-09-12 16:27] LABS: Aspartate Amino Transferase 23 U/L (0-32)
[2019-09-12 17:22] LABS: Influenza A by IFA Negative (Negative); Influenza B by IFA Negative (Negative)
--- NOTE | 2019-09-12 17:28 | ECG_ITS ---
Measurements Intervals [place] Rate: 100 P: 68 CO: 186 QRS: 26 QRSD: 84 T: 81 QT: 329 QTc: [address] DEVIATION AND MODERATE T-WAVE ABNORMALITY, CONSIDER LATERAL ISCHEMIA [-0.1+ mV mV T WAVE IN I/aVL/V5/V6] Compared to ECG 07/16/2019 20:38:21 Possible ischemia now present Sinus rhythm no longer present T-wave abnormality still present Electronically Signed On 09-12-2019 19:52:00 CDT by Lukas Steiner M.D. [id number] hood
[2019-09-12] MEDS: predniSONE 20 mg Tablet 60 MG PO (17:32)
[2019-09-12 18:06] VITALS: PULSE 99; RESP 18; O2SAT 93
[2019-09-12] MEDS: levalbuterol 1.25 mg/3 mL Neb INHALATION (18:06)
[2019-09-12 18:10] VITALS: PULSE 98
[2019-09-12 18:13] LABS: Troponin 5 2HR 9.84 ng/mL (0-10)
[2019-09-12 18:17] LABS: Troponin 5 2HR Delta -0.16 ABS# (0-10)
[2019-09-12 18:50] VITALS: BP 120/74; PULSE 107; RESP 24; TEMP 37.3; O2SAT 95
[2019-09-14 16:50] LABS: ABG PCO2 38.2 mmHg (35-45); ABG PH Result 7.44 (7.35-7.45); Arterial Blood Gas Hematocrit 44.8 % (37-47); Base Excess ABG 1.5 mmol/L (-2.0-2.0); Blood Gas LPM 2.5 %; Blood Gas Sample Site Brachial, left; Blood Gas Sample Type Arterial; HCO3 ABG 25.7 mmol/L (22-26); Oxygen Device NC; PO2 ABG 67.4 mmHg (80.0-100.0)
== END 2019-09-12 18:51 | disposition home or self-care (01) ==
PROVIDERS: Emergency Provider Emergency Medicine; Family Provider Family Medicine; PCP Family Medicine
DX: J44.1 Chronic obstructive pulmonary disease with (acute) exacerbation (principal); N39.0 Urinary tract infection, site not specified; I48.91 Unspecified atrial fibrillation; I11.0 Hypertensive heart disease with heart failure; I50.9 Heart failure, unspecified; Z87.891 Personal history of nicotine dependence; Z88.2 Allergy status to sulfonamides; Z88.1 Allergy status to other antibiotic agents; Z99.81 Dependence on supplemental oxygen
CPT/HCPCS: 12345; 36415; 36600; 71045; 80053; 82803; 83605; 83880; 84484; 85025; 87040; 87804; 93005; 94640; 96365; 96375; 99283; 99285; J2930; J3490; J7050; J7512; J7614

== ENCOUNTER → 2019-11-09 10:41 | Outpatient (BNVA) | payer MEDICARE, BC, SELFPAY | PROVIDERS: Family Provider Family Medicine; PCP Family Medicine; Visit Provider Family Medicine | DX: J44.9 Chronic obstructive pulmonary disease, unspecified (principal); I10 Essential (primary) hypertension | CPT/HCPCS: 80048 ==

== ENCOUNTER → 2019-11-23 12:53 | Outpatient (BNVA) | payer MEDICARE, BC, SELFPAY | PROVIDERS: Family Provider Family Medicine; PCP Family Medicine; Visit Provider Family Medicine | DX: N30.00 Acute cystitis without hematuria (principal); K29.50 Unspecified chronic gastritis without bleeding | CPT/HCPCS: 80053; 81000; 87077; 87086; 87186 ==

== ENCOUNTER 2019-12-29 12:46 | Outpatient (CLI) | payer MEDICARE, BC, SELFPAY ==
[2019-12-29 13:50] VITALS: O2SAT 92
--- NOTE | 2019-12-29 14:15 | USCV_ITS ---
Mary Carmen Fuller Age: 74 Gender: F : 1945 Exam Date: 12/29/2019 13:41 Ordering Phys: Evert Ryan MD Technologist: Jennifer Bowen Exam Location: [facility] [place] Indication: shortness of breath BP: / HR: 62 Rhythm: Sinus Technical Quality: Adequate MEASUREMENTS (Male / Female) Normal Values 2D ECHO LV Diastolic Diameter PLAX 4.6 cm 4.2 - 5.9 / 3.9 - 5.3 cm LV Systolic Diameter PLAX 2.9 cm IVS Diastolic Thickness 0.9 cm 0.6 - 1.0 / 0.6 - 0.9 cm IVS Systolic Thickness 1.4 cm LVPW Diastolic Thickness 1.0 cm 0.6 - 1.0 / 0.6 - 0.9 cm LVPW Systolic Thickness 1.4 cm LVOT Diameter 2.0 cm LV Ejection Fraction 2D Teich 66.1 % LV Ejection Fraction MOD 2C 54.2 % LV Ejection Fraction 2C AL 55.7 % LA Diameter 3.2 cm LA Width 3.7 cm LA Height 5.7 cm RA Width 3.3 cm RA Height 4.8 cm M-MODE LV Diastolic Diameter MM 4.2 cm 4.2 - 5.9 / 3.9 - 5.3 cm LV Systolic Diameter MM 3.3 cm LV Ejection Fraction MM Teich 42.6 % IVS Diastolic Thickness MM 1.1 cm 0.6 - 1.0 / 0.6 - 0.9 cm IVS Systolic Thickness MM 0.9 cm LVPW Diastolic Thickness MM 0.8 cm 0.6 - 1.0 / 0.6 - 0.9 cm LVPW Systolic Thickness MM 1.3 cm Aortic Annulus Diameter 4.1 cm LA Ao Ratio MM 0.8 MV E Point Septal Separation 0.5 cm DOPPLER AV Peak Velocity 108.0 cm/s LVOT Peak Velocity 116.0 cm/s AV Area Cont Eq vti 3.5 cm squared AV Area Cont Eq pk 3.5 cm squared MV Peak Velocity 101.0 cm/s MV Area PHT 5.0 cm squared Mitral E to A Ratio 0.9 MV E' Velocity 6.0 cm/s Mitral E to MV E' Ratio 11.5 Mitral E to LV E' Lateral Ratio 12.5 Mitral E to LV E' Septal Ratio 10.9 TR Peak Velocity 276.0 cm/s TR Peak Gradient 30.4 mmHg Right Atrial Pressure 8.0 mmHg Pulmonary Artery Systolic Pressu 38.5 mmHg PV Peak Velocity 79.0 cm/s RV Acceleration Time 0.1 s FINDINGS Left Ventricle Normal left ventricular cavity size. Normal left ventricular systolic function. No regional wall motion abnormalities. Left ventricular ejection fraction is estimated at 60 %. Grade I/IV diastolic dysfunction (abnormal relaxation filling pattern), normal to mildly elevated filling pressures. Right Ventricle The right ventricle is normal in size and function. Mild pulmonary hypertension, RVSP 38.5 mmHg. Right Atrium Moderately increased right atrial size. Left Atrium The left atrium is normal in size. Mitral Valve Thickened mitral valve. No mitral valve stenosis. Moderate mitral valve regurgitation. Aortic Valve Moderate aortic valve calcification. No aortic valve stenosis. Mild aortic valve regurgitation. Tricuspid Valve [id number] tricuspid valve regurgitation. Pulmonic Valve Structurally normal pulmonic valve without significant stenosis. There is no pulmonic regurgitation. Pericardium Normal pericardium without effusion. Aorta Normal ascending aorta dimension. CONCLUSIONS 1-Normal left ventricular cavity size. Normal left ventricular systolic function. No regional wall motion abnormalities. Left ventricular ejection fraction is estimated at 60 %. Grade I/IV diastolic dysfunction (abnormal relaxation filling pattern), normal to mildly elevated filling pressures. 5-Bevj-aa-moderate tricuspid valve regurgitation. 3-Moderate aortic valve calcification. No aortic valve stenosis. Mild aortic valve regurgitation. 4-Thickened mitral valve. No mitral valve stenosis. Moderate mitral valve regurgitation. 5-The right ventricle is normal in size and function. Mild pulmonary hypertension, RVSP 38.5 mmHg. 6-There is no pericardial effusion. 7-Right atrial pressure is around 5 mm of mercury. 8-No significant change since the prior echocardiogram study of 10/28/2012. Lukas Steiner MD (Electronically Signed) Final Date: 29 December 2019 18:02 S
== END 2019-12-29 12:47 | disposition home or self-care (01) ==
LOC: RT 12:49
PROVIDERS: PCP Family Medicine; Visit Provider Internal Medicine Critical Care Medicine
DX: I50.9 Heart failure, unspecified (principal); J43.1 Panlobular emphysema; R06.02 Shortness of breath; I08.3 Combined rheumatic disorders of mitral, aortic and tricuspid valves; I27.20 Pulmonary hypertension, unspecified
CPT/HCPCS: 93306

== ENCOUNTER 2020-01-11 13:00 | Outpatient (CLI) | payer MEDICARE, BC, SELFPAY | END 2020-01-11 13:01 | disposition home or self-care (01) | LOC: SLEEP 01-13 10:03 | PROVIDERS: PCP Family Medicine; Visit Provider Internal Medicine Critical Care Medicine | DX: J44.9 Chronic obstructive pulmonary disease, unspecified (principal) | CPT/HCPCS: 94762 ==

== ENCOUNTER 2020-01-20 08:34 | Outpatient (CLI) | payer MEDICARE, BC, SELFPAY ==
--- NOTE | 2020-01-20 08:43 | MM_ITS ---
WS: [id number] Bilateral screening digital mammogram, 01/20/2020 Clinical Data: SCREENING Comparison: 10/28/2018, 10/27/2017, 10/22/2016, 10/12/2015, 09/30/2014, 09/29/2013, 11/11/2011, 10/12/2010, 08/21, 08/12/2008, 06/09/2007, 09/02/2006, 07/17/2006. Findings: The breast parenchymal pattern shows fibroglandular tissue. No spiculated masses or clustered calcifi cations are seen. There are no secondary signs of carcinoma. MM/[place] [id number] Impression: 1. Negative bilateral mammogram unchanged. 2. Recommend annual screening mammograms. BIRADS: 1-Negative FOLLOW UP: 1 Year Follow-up The CAD relay checker was used.
== END 2020-01-20 08:35 | disposition home or self-care (01) ==
LOC: RADSHAW 08:34
PROVIDERS: PCP Family Medicine; Visit Provider Family Medicine
DX: Z12.31 Encounter for screening mammogram for malignant neoplasm of breast (principal)
CPT/HCPCS: 77067

== ENCOUNTER → 2020-01-24 11:46 | Outpatient (BNVA) | payer MEDICARE, BC, SELFPAY | PROVIDERS: PCP Family Medicine; Visit Provider Urology | DX: N30.00 Acute cystitis without hematuria (principal) | CPT/HCPCS: 80053; 81001; 87077; 87086; 87186 ==

== ENCOUNTER → 2020-05-16 10:45 | Outpatient (BNVA) | payer MEDICARE, BC, SELFPAY | PROVIDERS: PCP Family Medicine; Visit Provider Nurse Practitioner Family | DX: N39.0 Urinary tract infection, site not specified (principal) | CPT/HCPCS: 81003 ==

== ENCOUNTER 2020-07-23 09:08 | Emergency (ER) | payer OTHER, SELFPAY ==
[2020-07-23 09:13] VITALS: BP 109/75; PULSE 76; RESP 18; TEMP 36.4; O2SAT 94; BMI 29.0
[2020-07-23 09:21] VITALS: BP 109/75; PULSE 70; RESP 16; O2SAT 96
--- NOTE | 2020-07-23 09:22 | XRR_ITS ---
PROCEDURE INFORMATION: Exam: XR Chest, 1 View Exam date and time: 07/23/2020 9:27 AM Age: 74 years old Clinical indication: Chest pain; Type not specified; Additional info: Cp TECHNIQUE: Imaging protocol: XR of the chest Views: 1 view. COMPARISON: CR XR chest 1V portable [id number] 09/12/2019 3:28 PM FINDINGS: Lungs: Unremarkable. No consolidation. Pleural space: Unremarkable. No pleural effusion. No pneumothorax. Heart/Mediastinum: Unremarkable. No cardiomegaly. Bones/joints: Unremarkable. XR/XR chest 1V portable [id number] IMPRESSION: No acute findings.
--- NOTE | 2020-07-23 09:23 | ECG_ITS ---
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 Measurements Intervals [place] Rate: 70 P: 74 [place]: 207 QRS: 54 QRSD: 99 T: 108 QT: 399 QTc: 431 Interpretive Statements SINUS RHYTHM LOW QRS VOLTAGE IN PRECORDIAL LEADS [QRS DEFLECTION < 1.0 mV IN CHEST LEADS] MODERATE ST DEPRESSION [0.05+ mV ST DEPRESSION] Compared to ECG 09/12/2019 17:41:43 Low QRS voltage now present ST (T wave) deviation now present Sinus tachycardia no longer present T-wave abnormality no longer present Possible ischemia no longer present Electronically Signed On 07-23-2020 20:19:50 OSTOMY RN by Efrain Avelar M.D. [id number] f
--- NOTE | 2020-07-23 09:34 | ED_ITS ---
HPI - Chest Pain General: Chief Complaint: Chest Pain Stated Complaint: CHEST TIGHTNESS, POSS HEART ATTACK ON FRIDAY Time Seen by Provider: 07/23/20 09:27 History of Present Illness: HPI narrative: The patient is a 74-year-old female who comes to the ER complaining of midsternal chest pain yesterday which was heavy and sharp in nature. The pain lasted for about 5 minutes and spontaneously resolved. She ate 2 aspirins at that time but sought no medical attention. This morning she said she also did not feel well and had multiple achy complaints such as back pain but says she did not feel well and was worried about her heart so she came to the ER for evaluation. She took a 325 mg aspirin prior to arrival. She is also suffering from a UTI taking cefdinir and has chronic COPD with 2 L nasal cannula as needed as needed activity. She denies cardiac history but says she does see Dr. Crabtree and has had a stress test approximately 2 years ago but she cannot remember the dates clearly. She says she also admits shortness of breath which is worse than usual but denies chest pain in the ER. MD complaint: chest heaviness Timing of current episode: episodic Prior episodes: No Onset: during rest and during exertion Pain location: substernal Pain radiation: none Severity: moderate Quality: heaviness and sharp Relieving factors: nothing Exacerbating factors: nothing Context: recent illness Associated symptoms: Deny abdominal pain, dyspnea or palpitations Treatment prior to arrival: aspirin Review of Systems General: Reports: 10 or more systems reviewed and unremarkable except in HPI and below Const: Denies: fatigue Eyes: Denies: change in vision, blurry vision or eye redness ENMT: Denies: throat pain, swelling of lips/tongue, ear or mastoid pain or nasal congestion Card: Denies: chest pain, palpitations, irregular heart rhythm, edema, dyspnea on exertion or orthopnea Resp: Denies: dyspnea, productive cough or non-productive cough GI: Denies: abdominal pain, diarrhea or GI cramping : Denies: flank pain, difficulty voiding, urinary frequency or urinary urgency Musc: Reports: back pain; Denies: neck pain, extremity pain, joint pain, joint redness, limited range of motion or muscle weakness Skin/Breast: Denies: rash, pruritus, erythema, skin pain or skin tenderness Neuro: Denies: headache(s), numbness in extremities, weakness in extremities, sensory changes, difficulty walking, dizziness, confusion or Slurred speech present Psych: Denies: anxiety or depression Endo: Denies: polyuria All/Imm: Denies: urticaria, throat swelling or tongue swelling PFSH ED PFSH: Medical History (Updated 07/23/20 @ 12:52 by Carlos Vera MD) Afib Anxiety and depression ASVD (arteriosclerotic vascular disease) CHF (congestive heart failure) Chronic gastritis Constipation COPD (chronic obstructive pulmonary disease) H/O deep venous thrombosis Hypertension Osteoarthritis of hip Oxygen dependent Salivary calculus has had surgery in the past Surgical History H/O colonoscopy 2015 Dr. French H/O esophagogastroduodenoscopy 2015 Dr. French H/O right knee surgery History of hysterectomy total Hx of cholecystectomy Family History Sister Anesthesia complication Son Anesthesia complication Grandmother Heart disease Mother Aneurysm Denies family history of Bleeding disorder Social History Smoking and tobacco status: former smoker Quit status (tobacco): has quit using tobacco Year quit tobacco: 1999 - 1PPD x 48 Years Second hand smoke exposure: No Alcohol intake: never Lives independently: Yes Household members: significant other Housing: House Marital status: / Current occupational status: retired History of recent travel: No Current gender identity: Female Physical Exam Const: COMMON NORMALS: no acute distress, average body habitus, patient oriented x3, no limitations, healthy appearing, alert and well nourished GENERAL APPEARANCE: cooperative, comfortable, well kempt and well developed ORIENTATION/CONSCIOUSNESS: Yes awake, Yes oriented to person, Yes oriented to place and Yes oriented to time HENMT: COMMON NORMALS: normocephalic, external ears normal and Normal external nose present HEAD & SCALP: normal to inspection and normocephalic NOSE: Normal external nose present EXTERNAL EAR: Yes external ears normal MOUTH: Normal oral and palatal mucosa present THROAT: posterior oropharynx normal Eye: COMMON NORMALS: Equal, round and reactive pupils present and EOMs intact bilaterally GENERAL EYE: appearance normal, both eyes and all related structures PUPIL: Yes Equal, round and reactive pupils present Neck/C-Spine: COMMON NORMALS: full ROM, no lymphadenopathy, no meningeal signs and no JVD GENERAL: Yes normal visual inspection Lymph: LYMPHATIC: no lymphadenopathy noted Chest: COMMONS NORMALS: normal inspection of the chest and normal palpation of entire chest wall Resp: COMMON NORMALS: normal respiratory effort, No retractions, No use of accessory muscles, clear to auscultation bilaterally and percussion normal EFFORT & INSPECTION: Yes able to speak in complete sentences AUSCULTATION: clear to auscultation bilaterally PERCUSSION: percussion normal Cardio: COMMON NORMALS: no JVD, regular rate, regular rhythm, S1 normal heart sound present, S2 normal heart sound present and Peripheral pulses 2+ throughout RATE: regular rate RHYTHM: regular rhythm HEART SOUNDS: S1 normal heart sound present and S2 normal heart sound present PERIPHERAL PULSES: Peripheral pulses 2+ throughout GI: COMMON NORMALS: Normal to inspection, nondistended, normoactive bowel sounds present, Soft to palpation, non-tender and no masses INSPECTION: Yes normal to inspection PALPATION: Yes Soft to palpation : COMMON NORMALS: Yes no CVA tenderness BLADDER/KIDNEY EXAM: Yes no CVA tenderness Back/Pelvis: COMMON NORMALS: no CVA tenderness, thoracic and lumbar spine normal to inspection, no thoracic nor lumbar tenderness and thoraco-lumbar ROM normal Extremity: COMMON NORMALS: normal to inspection, full ROM, capillary refill normal, no joint enlargement and no pedal edema GENERAL: Yes normal exam except as noted Neuro: COMMON NORMALS: patient oriented x3, CN's II-XII intact bilaterally, moves all extremities, no focal motor deficits, no sensory deficits noted and gait normal SENSORIUM/ORIENTATION: Yes alert, Yes oriented to person, Yes oriented to place and Yes oriented to time MENINGEAL SIGNS: Yes no meningeal signs Psych: COMMON NORMALS: mental status grossly normal, Normal thought process present, cooperative, normal affect and speech normal APPEARANCE: Yes well kempt ATTITUDE: Yes calm SPEECH: Yes normal speech THOUGHT PROCESS: Normal thought process present Skin: COMMON NORMALS: no rashes or lesions noted GENERAL SKIN EXAM: no rashes or lesions noted Course Vital Signs: Vital signs: Vital Signs Temperature 97.5 F L 07/23/20 09:13 Pulse Rate 65 07/23/20 12:50 Respiratory Rate 16 07/23/20 12:50 Blood Pressure 122/75 07/23/20 12:50 Pulse Oximetry 98 07/23/20 12:50 MDM - Chest Pain MDM Narrative: Medical decision making narrative: Her real chief complaint was shortness of breath. It is likely a COPD exacerbation. She was given prednisone and discharged with a steroid pack. She has an albuterol inhaler at home she can use and she wears oxygen. Recommended continuing to take those things as directed and follow-up with primary care physician in a couple days to monitor improvement of symptoms. Her chest pain is slightly atypical and possibly from coughing related to the COPD exacerbation. Recommended outpatient follow-up with cardroom attendant which she has an appointment within a week with Dr. Crabtree which is an appropriate time for follow-up. She may return to the ER with worsening symptoms of shortness of breath, chest pain, or any other worrisome symptoms. Lab Data: Labs: Lab Results 07/23/20 07/23/20 07/23/20 Range/Units 09:43 09:43 09:43 WBC 7.4 (4.0-10.0) 10^3/ uL RBC 5.20 (4.1-5.3) 10^6/u L Hgb 15.7 H (11.5-15.3) g/dL Hct 49.0 H (37.0-47.0) % MCV 94.2 (81-99) fL MCH 30.2 (28.0-34.0) pg MCHC 32.0 (30.0-36.0) g/dL RDW 12.8 (12.1-15.1) % Plt Count 200 (130-400) 10^3/c mm MPV 9.9 (7.4-10.4) fL Neut % (Auto) 61.0 % Lymph % (Auto) 28.0 % Kimble % (Auto) 7.7 % Eos % (Auto) 2.3 % Baso % (Auto) 0.7 % Neut # (Auto) 4.54 (1.8-7.7) 10^3/u L Lymph # (Auto) 2.1 (0.8-4.8) 10^3/u L Kimble # (Auto) 0.6 (0.2-0.9) 10^3/u L Eos # (Auto) 0.2 (0.0-0.8) 10^3/u L Baso # (Auto) 0.1 (0.0-0.1) 10^3/u L Nucleated RBC % (a uto) 0 % Nucleated RBCs # 0.0 /100WBC PT 12.20 (12.1-14.9) SECO NDS INR 0.88 (0.8-1.2) D-Dimer 0.52 (0-0.59) ug/mIFE U Sodium 140 (136-145) mmol/L Potassium 4.5 (3.5-5.1) mmol/L Chloride 103 (98-107) mmol/L Carbon Dioxide 27 (22-29) mmol/L Anion Gap 14.5 (5-19) BUN 19 (8-23) mg/dL Creatinine 0.8 (0.5-0.9) mg/dL GFR Calculation Not Reportable Glucose 120 H (65-115) mg/dL Calculated Osmolal ity 293 (285-295) mOsm/k g Calcium 9.4 (8.5-10.5) mg/dL Total Bilirubin 0.4 (0.15-1.2) mg/dL AST 21 (0-32) U/L ALT 21 (0-33) U/L Alkaline Phosphata se 81 (35-105) IU/L Troponin T Baselin e (0-10) ng/L Troponin T 120 Min [place] (0-10) ng/L Delta Troponin T (0-10) ABS# NT-Pro-B Natriuret Pep 154 H (0-125) pg/mL Total Protein 7.0 (6.6-8.7) g/dL Albumin 4.2 (3.5-5.2) g/dL Globulin 2.8 (1.3-4.6) g/dL Urine Color (Yellow) Urine Appearance (CLEAR) Urine pH (5-7) Ur Specific Gravit y (1.005-1.030) Urine Protein (Negative) Urine Glucose (UA) (Normal) Urine Ketones (Negative) Urine Blood (Negative) Urine Nitrate (Negative) Urine Bilirubin (Negative) Urine Urobilinogen (Negative) mg/dL Ur Leukocyte Carmen ase (Negative) SARS-CoV-2 Ag (Rap id) (Negative) 07/23/20 07/23/20 07/23/20 Range/Units 09:43 10:12 10:30 WBC (4.0-10.0) 10^3/ uL RBC (4.1-5.3) 10^6/u L Hgb (11.5-15.3) g/dL Hct (37.0-47.0) % MCV (81-99) fL MCH (28.0-34.0) pg MCHC (30.0-36.0) g/dL RDW (12.1-15.1) % Plt Count (130-400) 10^3/c mm MPV (7.4-10.4) fL Neut % (Auto) % Lymph % (Auto) % Kimble % (Auto) % Eos % (Auto) % Baso % (Auto) % Neut # (Auto) (1.8-7.7) 10^3/u L Lymph # (Auto) (0.8-4.8) 10^3/u L Kimble # (Auto) (0.2-0.9) 10^3/u L Eos # (Auto) (0.0-0.8) 10^3/u L Baso # (Auto) (0.0-0.1) 10^3/u L Nucleated RBC % (a uto) % Nucleated RBCs # /100WBC PT (12.1-14.9) SECO NDS INR (0.8-1.2) D-Dimer (0-0.59) ug/mIFE U Sodium (136-145) mmol/L Potassium (3.5-5.1) mmol/L Chloride (98-107) mmol/L Carbon Dioxide (22-29) mmol/L Anion Gap (5-19) BUN (8-23) mg/dL Creatinine (0.5-0.9) mg/dL GFR Calculation Glucose (65-115) mg/dL Calculated Osmolal ity (285-295) mOsm/k g Calcium (8.5-10.5) mg/dL Total Bilirubin (0.15-1.2) mg/dL AST (0-32) U/L ALT (0-33) U/L Alkaline Phosphata se (35-105) IU/L Troponin T Baselin e 12 H (0-10) ng/L Troponin T 120 Min [place] (0-10) ng/L Delta Troponin T (0-10) ABS# NT-Pro-B Natriuret Pep (0-125) pg/mL Total Protein (6.6-8.7) g/dL Albumin (3.5-5.2) g/dL Globulin (1.3-4.6) g/dL Urine Color Straw (Yellow) Urine Appearance Clear (CLEAR) Urine pH 5 (5-7) Ur Specific Gravit y 1.015 (1.005-1.030) Urine Protein Neg (Negative) Urine Glucose (UA) Norm (Normal) Urine Ketones Negative (Negative) Urine Blood Neg (Negative) Urine Nitrate Negative (Negative) Urine Bilirubin Neg (Negative) Urine Urobilinogen Norm (Negative) mg/dL Ur Leukocyte Carmen ase Negative (Negative) SARS-CoV-2 Ag (Rap id) Negative (Negative) 07/23/20 Range/Units 11:43 WBC (4.0-10.0) 10^3/ uL RBC (4.1-5.3) 10^6/u L Hgb (11.5-15.3) g/dL Hct (37.0-47.0) % MCV (81-99) fL MCH (28.0-34.0) pg MCHC (30.0-36.0) g/dL RDW (12.1-15.1) % Plt Count (130-400) 10^3/c mm MPV (7.4-10.4) fL Neut % (Auto) % Lymph % (Auto) % Kimble % (Auto) % Eos % (Auto) % Baso % (Auto) % Neut # (Auto) (1.8-7.7) 10^3/u L Lymph # (Auto) (0.8-4.8) 10^3/u L Kimble # (Auto) (0.2-0.9) 10^3/u L Eos # (Auto) (0.0-0.8) 10^3/u L Baso # (Auto) (0.0-0.1) 10^3/u L Nucleated RBC % (a uto) % Nucleated RBCs # /100WBC PT (12.1-14.9) SECO NDS INR (0.8-1.2) D-Dimer (0-0.59) ug/mIFE U Sodium (136-145) mmol/L Potassium (3.5-5.1) mmol/L Chloride (98-107) mmol/L Carbon Dioxide (22-29) mmol/L Anion Gap (5-19) BUN (8-23) mg/dL Creatinine (0.5-0.9) mg/dL GFR Calculation Glucose (65-115) mg/dL Calculated Osmolal ity (285-295) mOsm/k g Calcium (8.5-10.5) mg/dL Total Bilirubin (0.15-1.2) mg/dL AST (0-32) U/L ALT (0-33) U/L Alkaline Phosphata se (35-105) IU/L Troponin T Baselin e (0-10) ng/L Troponin T 120 Min [place] 10.68 H (0-10) ng/L Delta Troponin T -1.32 L (0-10) ABS# NT-Pro-B Natriuret Pep (0-125) pg/mL Total Protein (6.6-8.7) g/dL Albumin (3.5-5.2) g/dL Globulin (1.3-4.6) g/dL Urine Color (Yellow) Urine Appearance (CLEAR) Urine pH (5-7) Ur Specific Gravit y (1.005-1.030) Urine Protein (Negative) Urine Glucose (UA) (Normal) Urine Ketones (Negative) Urine Blood (Negative) Urine Nitrate (Negative) Urine Bilirubin (Negative) Urine Urobilinogen (Negative) mg/dL Ur Leukocyte Carmen ase (Negative) SARS-CoV-2 Ag (Rap id) (Negative) Discharge Plan Discharge Patient Disposition: Home Clinical Impression: COPD (chronic obstructive pulmonary disease), Chest pain Condition: Stable Prescriptions: New Medrol (Magdiel) 4 mg tablets,dose pack See Rx Instructions .ROUTE .COMPLEX Qty: 21 RF: 0 No Action fluticasone propionate [Flonase Allergy Relief] 50 mcg/actuation spray,suspension 1 spray INTRANASAL DAILY@0800 RF: 0 albuterol sulfate 2.5 mg/0.5 mL solution for nebulization 10 mg INHALATION Q4H PRN (Reason: copd) RF: 0 furosemide 20 mg tablet 10 mg PO DAILY@0800 RF: 0 dicyclomine 20 mg tablet 20 mg PO QID Qty: 360 RF: 1 Zyrtec 10 mg Tablet 10 mg PO DAILY PRN (Reason: Allergy Symptoms) RF: 0 Stool Softener (docusate bob) 240 mg Capsule 240 mg PO DAILY PRN (Reason: Constipation) RF: 0 atenolol 25 mg tablet 25 mg PO DAILY@1800 RF: 0 Norvasc 2.5 mg tablet 2.5 mg PO DAILY@0700 RF: 0 pantoprazole 40 mg tablet,delayed release (DR/EC) 40 mg PO DAILY@0800 RF: 0 diclofenac sodium 50 mg tablet,delayed release (DR/EC) 50 mg PO BID@0800 RF: 0 cefdinir 300 mg capsule 300 mg PO BID@0800,1800 RF: 0 Discharge Orders: Discharge ED (Routine); Ordered 07/23/20 Ordered By: Carlos Vera Referrals: Gem Bess DO [Primary Care Provider] - Discharge Diet: Advance as tolerated Discharge Activity: Resume usual activity Patient Instructions: Chronic Obstructive Pulmonary Disease (ED) Activity Restrictions/Additional Instructions: You are likely not feeling well because you are having a COPD exacerbation. Please take the prednisone and continue taking your antibiotics for your UTI until it is done. The reason you are having chest pain is unclear though it is possibly from coughing. It is still recommended to follow-up with a cardroom attendant and get an stress test or echocardiogram whenever they decide at the time of the visit. You may return to the ER at any time for further evaluation of your chest pain or any other worrisome symptoms. Please use the albuterol inhaler you have at home to help you with shortness of breath and continue to use your oxygen as you regularly do. If you get short of breath please come at anytime Coding Level of Care Code ED Sales Representative [employer]ing for [employer] Fwd Exam Comprehensive
[2020-07-23 10:12] LABS: Basophils # 0.1 10^3/uL (0.0-0.1); Basophils % 0.7 %; Eosinophils # 0.2 10^3/uL (0.0-0.8); Eosinophils % 2.3 %; Hemoglobin 15.7 g/dL (11.5-15.3); Lymphocytes # 2.1 10^3/uL (0.8-4.8); Mean Corpuscular Hemoglobin 30.2 pg (28.0-34.0); Mean Corpuscular Volume 94.2 fL (81-99); Mean Platelet Volume 9.9 fL (7.4-10.4); Monocytes # 0.6 10^3/uL (0.2-0.9); Monocytes % 7.7 %; Neutrophils # 4.54 10^3/uL (1.8-7.7); Nucleated Red Blood Cells % 0 %; Platelet Count 200 10^3/cmm (130-400); Red Cell Distribution Width 12.8 % (12.1-15.1); White Blood Count 7.4 10^3/uL (4.0-10.0)
[2020-07-23 10:39] LABS: Add Urine Microscopic? NO
[2020-07-23 10:40] LABS: INR 0.88 (0.8-1.2)
[2020-07-23 10:42] LABS: D Dimer 0.52 ug/mIFEU (0-0.59)
--- NOTE | 2020-07-23 10:43 | PC.NURSE ---
Read and agree with assessment.
[2020-07-23 10:50] LABS: Troponin(5th) Baseline 12 ng/L (0-10)
[2020-07-23 10:59] LABS: Alanine Aminotransferase 21 U/L (0-33); Albumin Level 4.2 g/dL (3.5-5.2); Alkaline Phosphatase 81 IU/L (35-105); Aspartate Amino Transferase 21 U/L (0-32); Blood Urea Nitrogen 19 mg/dL (8-23); Calcium 9.4 mg/dL (8.5-10.5); Carbon Dioxide 27 mmol/L (22-29); Chloride 103 mmol/L (98-107); Creatinine Clr Calc Pharmacy 68.4757; Globulin 2.8 g/dL (1.3-4.6); Glucose 120 mg/dL (65-115); NT Pro B Type Natriuretic Pept 154 pg/mL (0-125); Osmolality Calculated 293 mOsm/kg (285-295); Sodium 140 mmol/L (136-145); Total Bilirubin 0.4 mg/dL (0.15-1.2)
[2020-07-23 11:02] LABS: Anion Gap 14.5 (5-19)
[2020-07-23 11:03] LABS: Potassium 4.5 mmol/L (3.5-5.1)
[2020-07-23 11:04] LABS: Bilirubin Urine Neg (Negative); Blood Urine Neg (Negative); Glucose Urine UA Norm (Normal); Ketones Urine Negative (Negative); Leukocyte Esterase Urine Negative (Negative); Nitrate Urine Negative (Negative); Protein Urine Neg (Negative); Specific Gravity, Urine 1.015 (1.005-1.030); Urine Appearance Clear (CLEAR); Urine Color Straw (Yellow); Urobilinogen Urine Norm (Negative); pH Urine 5 (5-7)
[2020-07-23 11:18] LABS: SARS Covid-2 Antigen Negative (Negative)
--- NOTE | 2020-07-23 11:23 | ECG_ITS ---
[facility] Test Date: 2020-07-23 Pat Name: Mary Carmen Fluler Department: Room: Gender: Female Moshgiach: : 1945 Requested By: Carlos Vera Order Number: [id number] Joi MD: Efrain Avelar M.D. Measurements Intervals [place] Rate: 63 P: 78 MA: 204 QRS: 30 QRSD: 90 T: 103 QT: 425 QTc: 437 Interpretive Statements SINUS RHYTHM LOW QRS VOLTAGE IN PRECORDIAL LEADS [QRS DEFLECTION < 1.0 mV IN CHEST LEADS] MODERATE ST DEPRESSION [0.05+ mV ST DEPRESSION] ABNORMAL QRS-T ANGLE [QRS-T AXIS DIFFERENCE > 60] Compared to ECG 07/23/2020 09:17:47 No significant changes Electronically Signed On 07-23-2020 20:31:55 BRAILLE TYPIST by Efrain Avelar M.D. [id number]
[2020-07-23 12:33] VITALS: BP 122/75; PULSE 63; RESP 16; O2SAT 98
[2020-07-23 12:45] LABS: Troponin 5 2HR 10.68 ng/L (0-10)
[2020-07-23] MEDS: predniSONE 20 mg Tablet 40 MG PO (12:49)
[2020-07-23 12:50] VITALS: BP 122/75; PULSE 65; RESP 16; O2SAT 98
[2020-07-23 12:51] LABS: Troponin 5 2HR Delta -1.32 ABS# (0-10)
== END 2020-07-23 13:01 | disposition home or self-care (01) ==
PROVIDERS: Emergency Provider Family Medicine; PCP Family Medicine
DX: J44.9 Chronic obstructive pulmonary disease, unspecified (principal); R07.9 Chest pain, unspecified; I48.91 Unspecified atrial fibrillation; I11.0 Hypertensive heart disease with heart failure; I50.9 Heart failure, unspecified; Z87.891 Personal history of nicotine dependence
CPT/HCPCS: 12345; 36415; 71045; 80053; 81003; 83880; 84484; 85025; 85378; 85610; 87426; 93005; 99283; 99284; J7512

== ENCOUNTER → 2020-08-29 10:04 | Outpatient (BNVA) | payer OTHER, SELFPAY | PROVIDERS: PCP Family Medicine; Visit Provider Family Medicine | DX: R39.11 Hesitancy of micturition (principal) | CPT/HCPCS: 81000; 87077; 87086; 87184 ==

== ENCOUNTER 2020-11-05 14:27 | Emergency (ER) | payer MEDICARE, SELFPAY ==
--- NOTE | 2020-11-05 14:34 | ECG_ITS ---
[facility] Test Date: 2020-11-05 Pat Name: Mary Carmen Fuller Department: Room: Gender: Female Mysql Database Developer: : 1945 Requested By: Carlos Vera Order Number: [id number] Joi MD: GYPSY DUDLEY Measurements Intervals [place] Rate: 72 P: 113 ND: 194 QRS: 46 QRSD: 85 T: 87 QT: 394 QTc: 432 Interpretive Statements SINUS RHYTHM NONSPECIFIC ST & T-WAVE ABNORMALITY Compared to ECG 07/23/2020 11:26:29 T-wave abnormality now present ST (T wave) deviation no longer present Electronically Signed On 11-05-2020 22:23:17 CDT by GYPSY DUDLEY [id number]
--- NOTE | 2020-11-05 14:34 | XRR_ITS ---
PROCEDURE INFORMATION: Exam: XR Chest Exam date and time: 11/05/2020 2:49 PM Age: 75 years old Clinical indication: Chest pain; Additional info: Cp TECHNIQUE: Imaging protocol: XR of the chest. Views: 1 view. COMPARISON: CR (CHEST, ) 07/23/2020 9:25 AM FINDINGS: Lungs: There is scarring and/or atelectasis at the right lung base. Pleural spaces: Unremarkable. No pleural effusion. No pneumothorax. Heart/Mediastinum: Possible cardiomegaly. Heart size not optimally evaluated with a single AP view of the chest. Vasculature: Prominent aortic arch is similar to the prior study. Bones/joints: Unremarkable. XR/XR chest 1V portable [id number] IMPRESSION: Possible cardiomegaly.Heart size not optimally evaluated with a single AP view of the chest.
[2020-11-05 14:40] VITALS: BP 127/76; PULSE 75; RESP 24; TEMP 36.6; O2SAT 95; BMI 30.7
[2020-11-05 15:06] LABS: Basophils # 0.1 10^3/uL (0.0-0.1); Basophils % 0.7 %; Eosinophils # 0.2 10^3/uL (0.0-0.8); Eosinophils % 2.7 %; Hematocrit 46.8 % (37.0-47.0); Hemoglobin 15.6 g/dL (11.5-15.3); Lymphocytes % 26.9 %; Mean Corpuscular HGB Conc 33.3 g/dL (30.0-36.0); Mean Corpuscular Hemoglobin 30.8 pg (28.0-34.0); Mean Corpuscular Volume 92.3 fL (81-99); Mean Platelet Volume 9.8 fL (7.4-10.4); Monocytes # 0.6 10^3/uL (0.2-0.9); Monocytes % 7.8 %; Neutrophils # 4.51 10^3/uL (1.8-7.7); Neutrophils % 61.8 %; Nucleated Red Blood Cells % 0 %; Platelet Count 198 10^3/cmm (130-400); Red Blood Count 5.07 10^6/uL (4.1-5.3); Red Cell Distribution Width 12.8 % (12.1-15.1); White Blood Count 7.3 10^3/uL (4.0-10.0)
[2020-11-05 15:32] VITALS: PULSE 72
[2020-11-05 15:32] LABS: Troponin(5th) Baseline 10 ng/L (0-10)
[2020-11-05 15:38] LABS: D Dimer 0.39 ug/mIFEU (0-0.59)
[2020-11-05 15:41] LABS: Alanine Aminotransferase 16 U/L (0-33); Albumin Level 4.2 g/dL (3.5-5.2); Alkaline Phosphatase 72 IU/L (35-105); Blood Urea Nitrogen 16 mg/dL (8-23); Calcium 9.1 mg/dL (8.5-10.5); Carbon Dioxide 28 mmol/L (22-29); Chloride 106 mmol/L (98-107); Creatinine Clr Calc Pharmacy 69.2627; Globulin 2.4 g/dL (1.3-4.6); Glucose 119 mg/dL (65-115); NT Pro B Type Natriuretic Pept 187 pg/mL (0-125); Osmolality Calculated 298 mOsm/kg (285-295); Sodium 143 mmol/L (136-145); Total Bilirubin 0.3 mg/dL (0.15-1.2); Total Protein 6.6 g/dL (6.6-8.7)
[2020-11-05 15:49] LABS: Anion Gap 13.4 (5-19); Aspartate Amino Transferase 21 U/L (0-32); Potassium 4.4 mmol/L (3.5-5.1)
[2020-11-05] MEDS: ipratropium-albuterol 3 mL Neb INHALATION (16:11)
[2020-11-05 16:13] VITALS: PULSE 65; RESP 18; O2SAT 97
[2020-11-05 16:18] VITALS: PULSE 76
--- NOTE | 2020-11-05 16:34 | ECG_ITS ---
[facility] Test Date: 2020-11-05 Pat Name: Mary Carmen Fuller Department: Room: Gender: Female [employer] Architect: : 1945 Requested By: Carlos Vera Order Number: [id number] Reading MD: GYPSY DUDLEY Measurements Intervals [place] Rate: 66 P: 74 SC: 188 QRS: 32 QRSD: 87 T: 91 QT: 395 QTc: 414 Interpretive Statements SINUS RHYTHM NONSPECIFIC T-WAVE ABNORMALITY Compared to ECG 11/05/2020 14:37:27 No significant changes Electronically Signed On 11-05-2020 22:26:30 CDT by GYPSY DUDLEY [id number]
[2020-11-05 17:19] LABS: Troponin 5 2HR 9.07 ng/L (0-10)
[2020-11-05 17:21] LABS: Troponin 5 2HR Delta -0.93 ABS# (0-10)
[2020-11-05 17:24] LABS: Add Urine Microscopic? YES; Bilirubin Urine Neg (Negative); Blood Urine Neg (Negative); Glucose Urine UA Norm (Normal); Ketones Urine Negative (Negative); Leukocyte Esterase Urine Trace (Negative); Nitrate Urine Negative (Negative); Protein Urine Neg (Negative); Specific Gravity, Urine 1.015 (1.005-1.030); Urine Appearance Clear (CLEAR); Urine Color Straw (Yellow); Urobilinogen Urine Norm (Negative); pH Urine 5 (5-7)
[2020-11-05 17:25] LABS: Add Urine Culture? No; Bacteria Urine TRACE /hpf
[2020-11-05 17:53] VITALS: BP 134/74; PULSE 71; RESP 18; O2SAT 98
--- NOTE | 2020-11-05 17:53 | W.ED.CHESTPA ---
HPI - Chest Pain General: Chief Complaint: Chest Pain Stated Complaint: cp Time Seen by Provider: 11/05/20 14:34 History of Present Illness: HPI narrative: The patient is a 75-year-old female with past medical history COPD, hypertension, COPD on 2 L chronically, smoker, gastritis, frequent UTIs being treated with a cephalosporin currently. She comes to the ER complaining of mid back pain that radiated anteriorly towards her chest. The pain resolved prior to her getting it in ER bed. She has COPD and also feels short of breath and wheezy. After a nebulization she began to ask for discharge. She follows with cardiology and has a stress test scheduled for later this month. The chest pain was not related to exertion and did not come with her shortness of breath. Shortness of breath developed after she arrived and the chest pain had already resolved. She says it felt sharp and it went away quickly. Associated symptoms: Reports dyspnea; Deny abdominal pain or palpitations Review of Systems General: Reports: 10 or more systems reviewed and unremarkable except in HPI and below Const: Denies: fatigue Eyes: Denies: change in vision, blurry vision or eye redness ENMT: Denies: throat pain, swelling of lips/tongue, ear or mastoid pain or nasal congestion Card: Denies: chest pain, palpitations, irregular heart rhythm, edema, dyspnea on exertion or orthopnea Resp: Reports: dyspnea; Denies: productive cough or non-productive cough GI: Denies: abdominal pain, diarrhea or GI cramping : Denies: flank pain, difficulty voiding, urinary frequency or urinary urgency Musc: Denies: neck pain, back pain, extremity pain, joint pain, joint redness, limited range of motion or muscle weakness Skin/Breast: Denies: rash, pruritus, erythema, skin pain or skin tenderness Neuro: Denies: headache(s), numbness in extremities, weakness in extremities, sensory changes, difficulty walking, dizziness, confusion or Slurred speech present Psych: Denies: anxiety or depression Endo: Denies: polyuria All/Imm: Denies: urticaria, throat swelling or tongue swelling PFSH ED PFSH: Medical History Afib Anxiety and depression ASVD (arteriosclerotic vascular disease) CHF (congestive heart failure) Chronic gastritis Constipation COPD (chronic obstructive pulmonary disease) H/O deep venous thrombosis Hypertension Osteoarthritis of hip Oxygen dependent Salivary calculus has had surgery in the past Surgical History H/O colonoscopy 2015 Dr. French H/O esophagogastroduodenoscopy 2015 Dr. French H/O right knee surgery History of hysterectomy total Hx of cholecystectomy Family History Sister Anesthesia complication Son Anesthesia complication Grandmother Heart disease Mother Aneurysm Denies family history of Bleeding disorder Social History Smoking and tobacco status: former smoker Quit status (tobacco): has quit using tobacco Year quit tobacco: 1999 - 1PPD x 48 Years Second hand smoke exposure: No Alcohol intake: never Lives independently: Yes Household members: significant other Housing: House Marital status: / Current occupational status: retired History of recent travel: No Current gender identity: Female Physical Exam Const: COMMON NORMALS: no acute distress, average body habitus, patient oriented x3, no limitations, healthy appearing, alert and well nourished GENERAL APPEARANCE: cooperative, comfortable, well kempt and well developed ORIENTATION/CONSCIOUSNESS: Yes awake, Yes oriented to person, Yes oriented to place and Yes oriented to time HENMT: COMMON NORMALS: normocephalic, external ears normal and Normal external nose present HEAD & SCALP: normal to inspection and normocephalic NOSE: Normal external nose present EXTERNAL EAR: Yes external ears normal MOUTH: Normal oral and palatal mucosa present THROAT: posterior oropharynx normal Eye: COMMON NORMALS: Equal, round and reactive pupils present and EOMs intact bilaterally GENERAL EYE: appearance normal, both eyes and all related structures PUPIL: Yes Equal, round and reactive pupils present Neck/C-Spine: COMMON NORMALS: full ROM, no lymphadenopathy, no meningeal signs and no JVD GENERAL: Yes normal visual inspection Lymph: LYMPHATIC: no lymphadenopathy noted Chest: COMMONS NORMALS: normal inspection of the chest and normal palpation of entire chest wall Resp: COMMON NORMALS: normal respiratory effort, No retractions, No use of accessory muscles, clear to auscultation bilaterally and percussion normal EFFORT & INSPECTION: Yes able to speak in complete sentences AUSCULTATION: clear to auscultation bilaterally and wheezes PERCUSSION: percussion normal Cardio: COMMON NORMALS: no JVD, regular rate, regular rhythm, S1 normal heart sound present, S2 normal heart sound present and Peripheral pulses 2+ throughout RATE: regular rate RHYTHM: regular rhythm HEART SOUNDS: S1 normal heart sound present and S2 normal heart sound present PERIPHERAL PULSES: Peripheral pulses 2+ throughout GI: COMMON NORMALS: Normal to inspection, nondistended, normoactive bowel sounds present, Soft to palpation, non-tender and no masses INSPECTION: Yes normal to inspection PALPATION: Yes Soft to palpation : COMMON NORMALS: Yes no CVA tenderness BLADDER/KIDNEY EXAM: Yes no CVA tenderness Back/Pelvis: COMMON NORMALS: no CVA tenderness, thoracic and lumbar spine normal to inspection, no thoracic nor lumbar tenderness and thoraco-lumbar ROM normal Extremity: COMMON NORMALS: normal to inspection, full ROM, capillary refill normal, no joint enlargement and no pedal edema GENERAL: Yes normal exam except as noted Neuro: COMMON NORMALS: patient oriented x3, CN's II-XII intact bilaterally, moves all extremities, no focal motor deficits, no sensory deficits noted and gait normal SENSORIUM/ORIENTATION: Yes alert, Yes oriented to person, Yes oriented to place and Yes oriented to time MENINGEAL SIGNS: Yes no meningeal signs Psych: COMMON NORMALS: mental status grossly normal, Normal thought process present, cooperative, normal affect and speech normal APPEARANCE: Yes well kempt ATTITUDE: Yes calm SPEECH: Yes normal speech THOUGHT PROCESS: Normal thought process present Skin: COMMON NORMALS: no rashes or lesions noted GENERAL SKIN EXAM: no rashes or lesions noted Course Vital Signs: Vital signs: Vital Signs Temperature 97.9 F 11/05/20 14:40 Pulse Rate 71 11/05/20 17:53 Respiratory Rate 18 11/05/20 17:53 Blood Pressure 134/74 11/05/20 17:53 Pulse Oximetry 98 11/05/20 17:53 MDM - Chest Pain MDM Narrative: Medical decision making narrative: The patient came in complaining of a short episode of back pain that radiated to her chest which was atypical in nature however it resolved prior to her getting in a ED room. While she was here she developed shortness of breath and wheezing. She was given a nebulization and requested for discharge. Her EKG showed sinus rhythm with no ST changes. Troponin normal x2. Her chest pain was atypical in nature. She conveniently has a stress test scheduled for later this month. I suggested she call her ad operations specialist tomorrow to discuss that she had chest pain in the ER and return to the ER with any return of the chest pain. She was discharged with albuterol and a Medrol Dosepak. She is currently taking a cephalosporin for a UTI and I recommended she continue taking that as well. Lab Data: Labs: Lab Results 11/05/20 11/05/20 11/05/20 Range/Units 14:55 14:55 14:55 WBC 7.3 (4.0-10.0) 10^3/ uL RBC 5.07 (4.1-5.3) 10^6/u L Hgb 15.6 H (11.5-15.3) g/dL Hct 46.8 (37.0-47.0) % MCV 92.3 (81-99) fL MCH 30.8 (28.0-34.0) pg MCHC 33.3 (30.0-36.0) g/dL RDW 12.8 (12.1-15.1) % Plt Count 198 (130-400) 10^3/c mm MPV 9.8 (7.4-10.4) fL Neut % (Auto) 61.8 % Lymph % (Auto) 26.9 % [place] % (Auto) 7.8 % Eos % (Auto) 2.7 % Baso % (Auto) 0.7 % Neut # (Auto) 4.51 (1.8-7.7) 10^3/u L Lymph # (Auto) 2.0 (0.8-4.8) 10^3/u L [place] # (Auto) 0.6 (0.2-0.9) 10^3/u L Eos # (Auto) 0.2 (0.0-0.8) 10^3/u L Baso # (Auto) 0.1 (0.0-0.1) 10^3/u L Nucleated RBC % (a uto) 0 % Nucleated RBCs # 0.0 /100WBC D-Dimer 0.39 (0-0.59) ug/mIFE U Sodium 143 (136-145) mmol/L Potassium 4.4 (3.5-5.1) mmol/L Chloride 106 (98-107) mmol/L Carbon Dioxide 28 (22-29) mmol/L Anion Gap 13.4 (5-19) BUN 16 (8-23) mg/dL Creatinine 0.8 (0.5-0.9) mg/dL GFR Calculation Not Reportable Glucose 119 H (65-115) mg/dL Calculated Osmolal ity 298 H (285-295) mOsm/k g Calcium 9.1 (8.5-10.5) mg/dL Total Bilirubin 0.3 (0.15-1.2) mg/dL AST 21 (0-32) U/L ALT 16 (0-33) U/L Alkaline Phosphata se 72 (35-105) IU/L Troponin T Baselin e (0-10) ng/L Troponin T 120 Min [place] (0-10) ng/L Delta Troponin T (0-10) ABS# NT-Pro-B Natriuret Pep 187 H (0-125) pg/mL Total Protein 6.6 (6.6-8.7) g/dL Albumin 4.2 (3.5-5.2) g/dL Globulin 2.4 (1.3-4.6) g/dL Urine Color (Yellow) Urine Appearance (CLEAR) Urine pH (5-7) Ur Specific Gravit y (1.005-1.030) Urine Protein (Negative) Urine Glucose (UA) (Normal) Urine Ketones (Negative) Urine Blood (Negative) Urine Nitrate (Negative) Urine Bilirubin (Negative) Urine Urobilinogen (Negative) mg/dL Ur Leukocyte [place] (Negative) Urine RBC (0-2) /hpf Urine WBC (0-5) /hpf Ur Squamous Epith Cells (0-5) /hpf Amorphous Sediment Urine Bacteria (NONE) /hpf 11/05/20 11/05/20 11/05/20 Range/Units 14:55 16:34 16:56 WBC (4.0-10.0) 10^3/ uL RBC (4.1-5.3) 10^6/u L Hgb (11.5-15.3) g/dL Hct (37.0-47.0) % MCV (81-99) fL MCH (28.0-34.0) pg MCHC (30.0-36.0) g/dL RDW (12.1-15.1) % Plt Count (130-400) 10^3/c mm MPV (7.4-10.4) fL Neut % (Auto) % Lymph % (Auto) % [place] % (Auto) % Eos % (Auto) % Baso % (Auto) % Neut # (Auto) (1.8-7.7) 10^3/u L Lymph # (Auto) (0.8-4.8) 10^3/u L [place] # (Auto) (0.2-0.9) 10^3/u L Eos # (Auto) (0.0-0.8) 10^3/u L Baso # (Auto) (0.0-0.1) 10^3/u L Nucleated RBC % (a uto) % Nucleated RBCs # /100WBC D-Dimer (0-0.59) ug/mIFE U Sodium (136-145) mmol/L Potassium (3.5-5.1) mmol/L Chloride (98-107) mmol/L Carbon Dioxide (22-29) mmol/L Anion Gap (5-19) BUN (8-23) mg/dL Creatinine (0.5-0.9) mg/dL GFR Calculation Glucose (65-115) mg/dL Calculated Osmolal ity (285-295) mOsm/k g Calcium (8.5-10.5) mg/dL Total Bilirubin (0.15-1.2) mg/dL AST (0-32) U/L ALT (0-33) U/L Alkaline Phosphata se (35-105) IU/L Troponin T Baselin e 10 (0-10) ng/L Troponin T 120 Min [place] 9.07 (0-10) ng/L Delta Troponin T -0.93 L (0-10) ABS# NT-Pro-B Natriuret Pep (0-125) pg/mL Total Protein (6.6-8.7) g/dL Albumin (3.5-5.2) g/dL Globulin (1.3-4.6) g/dL Urine Color Straw (Yellow) Urine Appearance Clear (CLEAR) Urine pH 5 (5-7) Ur Specific Gravit y 1.015 (1.005-1.030) Urine Protein Neg (Negative) Urine Glucose (UA) Norm (Normal) Urine Ketones Negative (Negative) Urine Blood Neg (Negative) Urine Nitrate Negative (Negative) Urine Bilirubin Neg (Negative) Urine Urobilinogen Norm (Negative) mg/dL Ur Leukocyte [place] Trace H (Negative) Urine RBC None (0-2) /hpf Urine WBC 5-10 H (0-5) /hpf Ur Squamous Epith Cells 5-10 H (0-5) /hpf Amorphous Sediment Not Reportable Urine Bacteria Trace (NONE) /hpf Discharge Plan Discharge Patient Disposition: Home Clinical Impression: COPD (chronic obstructive pulmonary disease), Chest pain Condition: Stable Prescriptions: New Medrol (Magdiel) 4 mg tablets,dose pack See Rx Instructions .ROUTE .COMPLEX Qty: 21 RF: 0 albuterol sulfate 90 mcg/actuation HFA aerosol inhaler 2 inh inhalation Q6H PRN (Reason: shortness of breath or wheezing) Qty: 8.5 RF: 0 No Action fluticasone propionate [Flonase Allergy Relief] 50 mcg/actuation spray,suspension 1 spray INTRANASAL DAILY@0800 RF: 0 albuterol sulfate 2.5 mg/0.5 mL solution for nebulization 10 mg INHALATION Q4H PRN (Reason: copd) RF: 0 dicyclomine 20 mg tablet 20 mg PO QID Qty: 360 RF: 1 multivitamin Tablet 1 tab PO DAILY@0800 RF: 0 budesonide-formoterol [Symbicort] 160-4.5 mcg/actuation HFA aerosol inhaler 2 puff inhalation BID 30 Days Qty: 10.2 RF: 3 albuterol sulfate 90 mcg/actuation HFA aerosol inhaler 2 puff inhalation Q6H PRN (Reason: shortness of breath or wheezing) Qty: 8.5 RF: 4 atenolol 25 mg tablet 25 mg PO DAILY@1800 Qty: 90 RF: 0 pantoprazole 40 mg tablet,delayed release (DR/EC) 40 mg PO DAILY@0800 Qty: 90 RF: 1 furosemide 20 mg tablet 20 mg PO DAILY@0800 Qty: 90 RF: 0 cetirizine [Zyrtec] 10 mg Tablet 10 mg PO DAILY PRN (Reason: Allergy Symptoms) RF: 0 docusate calcium [Stool Softener (docusate bob)] 240 mg Capsule 240 mg PO DAILY PRN (Reason: Constipation) RF: 0 potassium chloride 10 mEq capsule, extended release 10 meq PO DAILY@0800 RF: 0 Incruse Ellipta 62.5 mcg/actuation blister with device 1 inh inhalation DAILY@0800 RF: 0 Discharge Orders: Discharge ED (Routine); Ordered 11/05/20 Ordered By: Carlos Vera Referrals: Gem Bess DO [Primary Care Provider] - Discharge Diet: Advance as tolerated Discharge Activity: Resume usual activity Patient Instructions: Chest Pain (ED), Chronic Obstructive Pulmonary Disease (ED), Opioid Safety Activity Restrictions/Additional Instructions: You have had an episode of chest pain which has resolved before he got to the room. You have also complained of shortness of breath and we have given you a nebulization which is improved to that. These likely represent your COPD causing your problem. I will discharge you with a steroid pack and albuterol inhaler to help with the symptoms. Please return to the ER with any more symptoms of chest pain and follow-up with cardiology. Please call your ad operations specialist tomorrow morning to discuss that you have been to the ER and had an episode of chest pain. It is convenient that you have a stress test scheduled later this month and please make sure you show up for that 1. Again discussed this with your ad operations specialist tomorrow and return to the ER with worsening symptoms. Coding Level of Care Code ED Airveyor Operator for Wale Serrano
== END 2020-11-05 18:06 | disposition home or self-care (01) ==
PROVIDERS: Emergency Provider Family Medicine; PCP Family Medicine
DX: R07.9 Chest pain, unspecified (principal); J44.9 Chronic obstructive pulmonary disease, unspecified; I48.91 Unspecified atrial fibrillation; I11.0 Hypertensive heart disease with heart failure; I50.9 Heart failure, unspecified; Z99.81 Dependence on supplemental oxygen; Z87.891 Personal history of nicotine dependence
CPT/HCPCS: 36415; 71045; 80053; 81001; 83880; 84484; 85025; 85378; 93005; 94640; 96374; 99284; 99291; J2930

== ENCOUNTER → 2020-11-08 09:36 | Outpatient (BNVA) | payer MEDICARE, SELFPAY | PROVIDERS: PCP Family Medicine; Visit Provider Internal Medicine Cardiovascular Disease | DX: R07.9 Chest pain, unspecified (principal); I50.9 Heart failure, unspecified; I11.0 Hypertensive heart disease with heart failure | CPT/HCPCS: 80048; 83735; 83880 ==

== ENCOUNTER 2020-12-24 08:22 | Emergency (ER) | payer MEDICARE, SELFPAY ==
[2020-12-24 08:42] VITALS: BP 129/84; PULSE 73; RESP 18; TEMP 36.7; O2SAT 91; BMI 30.7
[2020-12-24 08:59] VITALS: BP 127/84; PULSE 64; RESP 16; O2SAT 95
--- NOTE | 2020-12-24 09:06 | ECG_ITS ---
[facility] Test Date: 2020-12-24 Pat Name: Mary Carmen Fuller Department: Room: Gender: Female Dietitian Chief: : 1945 Requested By: Dimitrios Villela Order Number: [id number] Reading MD: Efrain Avelar M.D. Measurements Intervals [place] Rate: 66 P: 81 WI: 194 QRS: 9 QRSD: 89 T: 69 QT: 417 QTc: 438 Interpretive Statements SINUS RHYTHM NONSPECIFIC T-WAVE ABNORMALITY Poor R wave progression Compared to ECG 11/05/2020 16:48:38 No significant changes Electronically Signed On 12-24-2020 19:08:55 CDT by Efrain Avelar M.D. [email or web address]
--- NOTE | 2020-12-24 09:06 | XRR_ITS ---
PROCEDURE INFORMATION: Exam: XR Chest Exam date and time: 12/24/2020 9:06 AM Age: 75 years old Clinical indication: Dyspnea; Additional info: Weakness TECHNIQUE: Imaging protocol: XR of the chest. Views: 1 view. COMPARISON: CR XR chest 1V portable [id number] 11/05/2020 2:45 PM FINDINGS: Lungs: Emphysema Mild interstitial prominence lung bases suggested. Lungs are otherwise well aerated. Pleural spaces: Unremarkable. No pleural effusion. No pneumothorax. Heart/Mediastinum: Unremarkable. No cardiomegaly. Bones/joints: Unremarkable. XR/XR chest 1V portable [id number] IMPRESSION: Mild interstitial prominence lung bases suggested. Lungs are otherwise well aerated.
--- NOTE | 2020-12-24 09:12 | CTR_ITS ---
PROCEDURE INFORMATION: Exam: CT Abdomen And Pelvis With Contrast Exam date and time: 12/24/2020 9:12 AM Age: 75 years old Clinical indication: Abdominal pain; Generalized; Prior surgery; Surgery date: 6+ months; Surgery type: Gb; Additional info: Abdominal pain and bloating TECHNIQUE: Imaging protocol: Computed tomography of the abdomen and pelvis with contrast. Radiation optimization: All CT scans at this facility use at least one of these dose optimization techniques: automated exposure control; mA and/or kV adjustment per patient size (includes targeted exams where dose is matched to clinical indication); or iterative reconstruction. Contrast material: OMNIPAQUE 300; Contrast volume: 95 ml; Contrast route: INTRAVENOUS (IV); COMPARISON: CT Abdomen/Pelvis w IV* [id number] 06/24/2019 8:07 PM RADIATION DOSE METRICS: Total DLP (mGy-cm): 1617.84 FINDINGS: Lungs: visualized portions of the lung bases normal. Liver: Normal. No mass. Gallbladder and bile ducts: Surgical clips are present in the region of the gallbladder fossa. Pancreas: Normal. No ductal dilation. Spleen: Normal. No splenomegaly. Adrenal glands: Normal. No mass. Kidneys and ureters: Scarring right kidney 1 cm cyst lower pole right kidney Scarring right kidney Stomach and bowel: Periampullary diverticulum. Appendix: No evidence of appendicitis. Intraperitoneal space: No free fluid within the pelvis or within the dependent portions of the peritoneum. Vasculature: Calcification of the aorta. Flow within the superior mesenteric artery, celiac trunk and inferior mesenteric arteries. Atheromatous disease including mural thrombus within the aorta Lymph nodes: Numerous small subcentimeter lymph nodes in the aorta caval region. Urinary bladder: Unremarkable as visualized. Reproductive: Prior hysterectomy. Bones/joints: osseous structures are unremarkable other than mild degenerative disk disease. No fracture. Soft tissues: Unremarkable. Other findings: No acute intra-abdominal process. No inflammatory process. No obstruction. CT/CT abdomen pelvis w con* [id number] IMPRESSION: 1. No acute intra-abdominal process. No inflammatory process. No obstruction. 2. No free fluid within the pelvis or within the dependent portions of the peritoneum. COMMENTS: Consistent with the [employer]'s Incidental Findings Committee white paper (J Am Jason Radiol 2018): Any incidental renal lesion less than 1 cm or classified as too small to characterize, or any incidental cystic renal lesion characterized as simple-appearing, is likely benign. No follow-up imaging is recommended for these lesions per consensus recommendations based on imaging criteria. Radiation Dose CTDIVOL = (mGy): DLP = 1617.84 (mGy-cm)
--- NOTE | 2020-12-24 09:13 | ED_ITS ---
HPI - Weakness General: Chief complaint: Weakness Stated complaint: weakness Time Seen by Provider: 12/24/20 09:06 History of Present Illness: HPI Narrative: This pleasant lady states that her abdomen is hurting since yesterday. She has been feeling weak all week long. Said she has had multiple bowel movements last couple days. Does have a history of irritable bowel syndrome. Also is having some urinary hesitancy. Said this usually happens when she has a bladder infection but she did not feel like she does. She has been able to eat and drink fine but she says her abdomen is what is really bothering her. Complaint: generalized weakness Onset (ago): day(s) Duration: constant and progressively worsening Severity: similar to previous episodes Associated symptoms: Reports dysuria; Denies chest pain, chills, easy bruising, fever(s), headache(s), nausea or vomiting Review of Systems Const: Denies: fever(s), chills or body aches Eyes: Denies: change in vision or blurry vision ENMT: Denies: throat pain or nasal congestion Card: Denies: chest pain or dyspnea on exertion Resp: Denies: dyspnea, productive cough or non-productive cough GI: Reports: abdominal pain; Denies: nausea or vomiting : Reports: dysuria, urinary frequency and urinary hesitancy Musc: Denies: extremity pain Skin/Breast: Denies: rash Neuro: Denies: headache(s) Psych: Denies: anxiety or depression Francisco/Lymph: Denies: easy bruising PFSH ED PFSH: Medical History Afib Anxiety and depression ASVD (arteriosclerotic vascular disease) CHF (congestive heart failure) Chronic gastritis Constipation COPD (chronic obstructive pulmonary disease) H/O deep venous thrombosis Hypertension Osteoarthritis of hip Oxygen dependent Salivary calculus has had surgery in the past Surgical History H/O colonoscopy 2015 Dr. French H/O esophagogastroduodenoscopy 2016 Dr. French H/O right knee surgery History of hysterectomy total Hx of cholecystectomy Family History Sister Anesthesia complication Son Anesthesia complication Grandmother Heart disease Mother Aneurysm Denies family history of Bleeding disorder Social History Smoking and tobacco status: former smoker Quit status (tobacco): has quit using tobacco Year quit tobacco: 1999 - 1PPD x 48 Years Second hand smoke exposure: No Alcohol intake: never Lives independently: Yes Household members: significant other Housing: House Marital status: / Current occupational status: retired History of recent travel: No Current gender identity: Female Physical Exam Const: COMMON NORMALS: no acute distress, average body habitus and patient oriented x3 HENMT: COMMON NORMALS: normocephalic HEAD & SCALP: normal to inspection and normocephalic FACE & SINUS: normal facial exam Eye: COMMON NORMALS: conjunctivae normal GENERAL EYE: appearance normal, both eyes and all related structures CONJUNCTIVA: Yes conjunctivae normal Neck/C-Spine: COMMON NORMALS: no JVD Chest: COMMONS NORMALS: normal inspection of the chest Resp: COMMON NORMALS: normal respiratory effort and clear to auscultation bilaterally AUSCULTATION: clear to auscultation bilaterally Cardio: COMMON NORMALS: no JVD, regular rate and regular rhythm RATE: regular rate RHYTHM: regular rhythm GI: COMMON NORMALS: Normal to inspection, nondistended, normoactive bowel sounds present PALPATION: Yes Tenderness to palpation present (GI) (Generalized) Extremity: COMMON NORMALS: normal to inspection and full ROM Neuro: COMMON NORMALS: patient oriented x3 Course Vital Signs: Vital signs: Vital Signs Temperature 98.0 F 12/24/20 08:42 Pulse Rate 63 12/24/20 10:41 Respiratory Rate 16 12/24/20 10:41 Blood Pressure 139/78 12/24/20 10:41 Pulse Oximetry 94 12/24/20 10:41 MDM - Weakness MDM Narrative: Medical decision making narrative: Labs radiology negative for any concerns. Patient did much better with the Reglan. Prescription will be given patient will follow primary care provider and discuss ongoing treatment of irritable bowel syndrome Lab Data: Labs: Lab Results 12/24/20 12/24/20 12/24/20 Range/Units 09:03 09:10 09:10 WBC 6.2 (4.0-10.0) 10^3/ uL RBC 5.46 H (4.1-5.3) 10^6/u L Hgb 16.3 H (11.5-15.3) g/dL Hct 49.6 H (37.0-47.0) % MCV 90.8 (81-99) fL MCH 29.9 (28.0-34.0) pg MCHC 32.9 (30.0-36.0) g/dL RDW 12.9 (12.1-15.1) % Plt Count 186 (130-400) 10^3/c mm MPV 9.7 (7.4-10.4) fL Neut % (Auto) 59.5 % Lymph % (Auto) 30.6 % [place] % (Auto) 6.9 % Eos % (Auto) 2.2 % Baso % (Auto) 0.5 % Neut # (Auto) 3.71 (1.8-7.7) 10^3/u L Lymph # (Auto) 1.9 (0.8-4.8) 10^3/u L [place] # (Auto) 0.4 (0.2-0.9) 10^3/u L Eos # (Auto) 0.1 (0.0-0.8) 10^3/u L Baso # (Auto) 0.0 (0.0-0.1) 10^3/u L Nucleated RBC % (a uto) 0 % Nucleated RBCs # 0.0 /100WBC Sodium 142 (136-145) mmol/L Potassium 4.3 (3.5-5.1) mmol/L Chloride 105 (98-107) mmol/L Carbon Dioxide 31 H (22-29) mmol/L Anion Gap 10.3 (5-19) BUN 16 (8-23) mg/dL Creatinine 0.8 (0.5-0.9) mg/dL GFR Calculation Not Reportable Glucose 97 (65-115) mg/dL Calculated Osmolal ity 295 (285-295) mOsm/k g Lactate (0.5-2.2) mmol/L Calcium 9.1 (8.5-10.5) mg/dL Total Bilirubin 0.6 (0.15-1.2) mg/dL AST 17 (0-32) U/L ALT 16 (0-33) U/L Alkaline Phosphata se 72 (35-105) IU/L Total Protein 7.1 (6.6-8.7) g/dL Albumin 4.1 (3.5-5.2) g/dL Globulin 3.0 (1.3-4.6) g/dL Urine Color Yellow (Yellow) Urine Appearance Clear (CLEAR) Urine pH 5 (5-7) Ur Specific Gravit y 1.005 (1.005-1.030) Urine Protein Neg (Negative) Urine Glucose (UA) Norm (Normal) Urine Ketones Negative (Negative) Urine Blood Neg (Negative) Urine Nitrate Negative (Negative) Urine Bilirubin Neg (Negative) Urine Urobilinogen Norm (Negative) mg/dL Ur Leukocyte Carmen ase Negative (Negative) 12/24/20 Range/Units 09:10 WBC (4.0-10.0) 10^3/ uL RBC (4.1-5.3) 10^6/u L Hgb (11.5-15.3) g/dL Hct (37.0-47.0) % MCV (81-99) fL MCH (28.0-34.0) pg MCHC (30.0-36.0) g/dL RDW (12.1-15.1) % Plt Count (130-400) 10^3/c mm MPV (7.4-10.4) fL Neut % (Auto) % Lymph % (Auto) % [place] % (Auto) % Eos % (Auto) % Baso % (Auto) % Neut # (Auto) (1.8-7.7) 10^3/u L Lymph # (Auto) (0.8-4.8) 10^3/u L [place] # (Auto) (0.2-0.9) 10^3/u L Eos # (Auto) (0.0-0.8) 10^3/u L Baso # (Auto) (0.0-0.1) 10^3/u L Nucleated RBC % (a uto) % Nucleated RBCs # /100WBC Sodium (136-145) mmol/L Potassium (3.5-5.1) mmol/L Chloride (98-107) mmol/L Carbon Dioxide (22-29) mmol/L Anion Gap (5-19) BUN (8-23) mg/dL Creatinine (0.5-0.9) mg/dL GFR Calculation Glucose (65-115) mg/dL Calculated Osmolal ity (285-295) mOsm/k g Lactate 0.8 (0.5-2.2) mmol/L Calcium (8.5-10.5) mg/dL Total Bilirubin (0.15-1.2) mg/dL AST (0-32) U/L ALT (0-33) U/L Alkaline Phosphata se (35-105) IU/L Total Protein (6.6-8.7) g/dL Albumin (3.5-5.2) g/dL Globulin (1.3-4.6) g/dL Urine Color (Yellow) Urine Appearance (CLEAR) Urine pH (5-7) Ur Specific Gravit y (1.005-1.030) Urine Protein (Negative) Urine Glucose (UA) (Normal) Urine Ketones (Negative) Urine Blood (Negative) Urine Nitrate (Negative) Urine Bilirubin (Negative) Urine Urobilinogen (Negative) mg/dL Ur Leukocyte Carmen ase (Negative) EKG Data^: EKG 1: EKG interpretation date: 12/24/20 EKG interpretation time: 09:25 Computer generated interpretation: Sinus rhythm ventricular rate 66 bpm SC interval 194 ms QRS duration 89 ms QT intervals 417 ms Discharge Plan Discharge Patient Disposition: Home Clinical Impression: History of IBS Condition: Stable Prescriptions: New Reglan 5 mg tablet 5 mg PO Q6H PRN (Reason: nausea . abdominal pain) Qty: 14 RF: 0 No Action fluticasone propionate [Flonase Allergy Relief] 50 mcg/actuation spray,suspension 1 spray INTRANASAL DAILY@0800 RF: 0 albuterol sulfate 2.5 mg/0.5 mL solution for nebulization 10 mg INHALATION Q4H PRN (Reason: copd) RF: 0 dicyclomine 20 mg tablet 20 mg PO QID Qty: 360 RF: 1 pantoprazole 40 mg tablet,delayed release (DR/EC) 40 mg PO DAILY@0800 Qty: 90 RF: 1 furosemide 20 mg tablet 20 mg PO DAILY@0800 Qty: 90 RF: 0 atenolol 25 mg tablet 25 mg PO DAILY@1800 Qty: 90 RF: 0 budesonide-formoterol [Symbicort] 160-4.5 mcg/actuation HFA aerosol inhaler See Rx Instructions .ROUTE .COMPLEX Qty: 10.2 RF: 3 cetirizine [Zyrtec] 10 mg Tablet 10 mg PO DAILY PRN (Reason: Allergy Symptoms) RF: 0 docusate calcium [Stool Softener (docusate bob)] 240 mg Capsule 240 mg PO DAILY PRN (Reason: Constipation) RF: 0 potassium chloride 10 mEq capsule, extended release 10 meq PO DAILY@0800 RF: 0 Incruse Ellipta 62.5 mcg/actuation blister with device 1 inh inhalation DAILY@0800 RF: 0 albuterol sulfate 90 mcg/actuation HFA aerosol inhaler 2 inh inhalation Q6H PRN (Reason: shortness of breath or wheezing) Qty: 8.5 RF: 0 Discharge Orders: Discharge ED (Routine); Ordered 12/24/20 Ordered By: Dimitrios Villela Referrals: Gem Bess DO [Primary Care Provider] - Discharge Diet: Usual diet Discharge Activity: Resume usual activity Patient Instructions: Irritable Bowel Syndrome (ED) Activity Restrictions/Additional Instructions: Follow-up with medical provider as directed. Take medications as prescribed. Return to the ER or your medical provider if condition worsens. Please read and understand discharge instructions. If any questions ask please. Coding Level of Care Code ED Quality Review Specialist for Wale Fwd Exam Comprehensive
[2020-12-24 09:20] LABS: Add Urine Microscopic? NO; Charge for UA Resulting for Rev
[2020-12-24] MEDS: metoclopramide 5 mg/mL SDV 2 mL 10 MG IVP (09:23)
[2020-12-24 09:38] LABS: Blood Urine Neg (Negative); Glucose Urine UA Norm (Normal); Ketones Urine Negative (Negative); Nitrate Urine Negative (Negative); Protein Urine Neg (Negative); Specific Gravity, Urine 1.005 (1.005-1.030); Urine Appearance Clear (CLEAR); Urine Color Yellow (Yellow); pH Urine 5 (5-7)
[2020-12-24 09:39] LABS: Basophils % 0.5 %; Eosinophils # 0.1 10^3/uL (0.0-0.8); Eosinophils % 2.2 %; Hematocrit 49.6 % (37.0-47.0); Hemoglobin 16.3 g/dL (11.5-15.3); Lymphocytes # 1.9 10^3/uL (0.8-4.8); Lymphocytes % 30.6 %; Mean Corpuscular HGB Conc 32.9 g/dL (30.0-36.0); Mean Corpuscular Hemoglobin 29.9 pg (28.0-34.0); Mean Corpuscular Volume 90.8 fL (81-99); Mean Platelet Volume 9.7 fL (7.4-10.4); Monocytes # 0.4 10^3/uL (0.2-0.9); Monocytes % 6.9 %; Neutrophils # 3.71 10^3/uL (1.8-7.7); Neutrophils % 59.5 %; Nucleated Red Blood Cells % 0 %; Platelet Count 186 10^3/cmm (130-400); Red Blood Count 5.46 10^6/uL (4.1-5.3); Red Cell Distribution Width 12.9 % (12.1-15.1); White Blood Count 6.2 10^3/uL (4.0-10.0)
[2020-12-24 09:39] LABS: Bilirubin Urine Neg (Negative); Leukocyte Esterase Urine Negative (Negative); Urobilinogen Urine Norm (Negative)
[2020-12-24 09:48] LABS: Alanine Aminotransferase 16 U/L (0-33); Albumin Level 4.1 g/dL (3.5-5.2); Alkaline Phosphatase 72 IU/L (35-105); Anion Gap 10.3 (5-19); Aspartate Amino Transferase 17 U/L (0-32); Blood Urea Nitrogen 16 mg/dL (8-23); Calcium 9.1 mg/dL (8.5-10.5); Carbon Dioxide 31 mmol/L (22-29); Chloride 105 mmol/L (98-107); Creatinine Clr Calc Pharmacy 69.2627; Glucose 97 mg/dL (65-115); Osmolality Calculated 295 mOsm/kg (285-295); Potassium 4.3 mmol/L (3.5-5.1); Sodium 142 mmol/L (136-145); Total Bilirubin 0.6 mg/dL (0.15-1.2); Total Protein 7.1 g/dL (6.6-8.7)
[2020-12-24 09:49] LABS: Lactate (Lactic Acid level) 0.8 mmol/L (0.5-2.2)
--- NOTE | 2020-12-24 10:21 | PC.NURSE ---
PT TAKEN TO CT.
[2020-12-24] MEDS: iohexol 300 mg/mL 100 mL Btl IV (10:28)
[2020-12-24 10:41] VITALS: BP 139/78; PULSE 63; RESP 16; O2SAT 94
== END 2020-12-24 12:26 | disposition home or self-care (01) ==
PROVIDERS: Emergency Provider Nurse Practitioner Family; PCP Family Medicine
DX: R53.1 Weakness (principal); K58.9 Irritable bowel syndrome, unspecified; I11.0 Hypertensive heart disease with heart failure; I50.9 Heart failure, unspecified; J44.9 Chronic obstructive pulmonary disease, unspecified; Z99.81 Dependence on supplemental oxygen; Z87.891 Personal history of nicotine dependence
CPT/HCPCS: 71045; 74177; 80053; 81003; 83605; 85025; 93005; 96374; 99283; J2765; Q9967

== ENCOUNTER → 2020-12-27 09:07 | Outpatient (BNVA) | payer MEDICARE, SELFPAY | PROVIDERS: PCP Family Medicine; Visit Provider Family Medicine Adult Medicine | DX: N39.0 Urinary tract infection, site not specified (principal); R39.11 Hesitancy of micturition; K58.9 Irritable bowel syndrome, unspecified; Z87.19 Personal history of other diseases of the digestive system; I10 Essential (primary) hypertension; R19.5 Other fecal abnormalities | CPT/HCPCS: 80053; 81000 ==

== ENCOUNTER → 2021-01-23 10:25 | Outpatient (BNVA) | payer MEDICARE, SELFPAY | PROVIDERS: PCP Family Medicine; Visit Provider Urology | DX: N39.0 Urinary tract infection, site not specified (principal) | CPT/HCPCS: 81003 ==

== ENCOUNTER 2021-02-23 09:22 | Outpatient (CLI) | payer MEDICARE, SELFPAY ==
--- NOTE | 2021-02-23 09:27 | MM_ITS ---
WS: [id number] Bilateral screening digital mammogram, 02/23/2021 Clinical Data: SCREENING Comparison: 04/21/2020, 10/28/2018, 10/27/2014, 10/22/2016, 10/12/2015, 09/30/2014, 09/01/2013, 11/11/2011, , 08/21/2009, 2005 2008, 06/09/2007, 09/02/2006, 07/17/2006. Findings: The breast parenchymal pattern shows fibroglandular tissue No spiculated masses or clustered calcific ations are seen. There are no secondary signs of carcinoma. MM/[place] [id number] Impression: 1. Negative bilateral mammogram unchanged. 2. Recommend annual screening mammograms. BIRADS: 1-Negative FOLLOW UP: 1 Year Follow-up The CAD formula checker was used.
== END 2021-02-23 09:23 | disposition home or self-care (01) ==
PROVIDERS: PCP Family Medicine; Visit Provider Family Medicine
DX: Z12.31 Encounter for screening mammogram for malignant neoplasm of breast (principal)
CPT/HCPCS: 77067

== ENCOUNTER → 2021-03-13 10:31 | Outpatient (BNVA) | payer MEDICARE, SELFPAY | PROVIDERS: PCP Family Medicine; Visit Provider Family Medicine Adult Medicine | DX: E04.1 Nontoxic single thyroid nodule (principal); R25.2 Cramp and spasm; G47.62 Sleep related leg cramps | CPT/HCPCS: 84439; 84443 ==

== ENCOUNTER → 2021-03-21 13:19 | Outpatient (BNVA) | payer MEDICARE, SELFPAY | PROVIDERS: PCP Family Medicine; Visit Provider Nurse Practitioner Family | DX: N39.0 Urinary tract infection, site not specified (principal) | CPT/HCPCS: 81003; 87086 ==

== ENCOUNTER → 2021-04-05 13:36 | Outpatient (BNVA) | payer MEDICARE, SELFPAY | PROVIDERS: PCP Family Medicine; Visit Provider Nurse Practitioner Family | DX: N30.00 Acute cystitis without hematuria (principal) | CPT/HCPCS: 81003 ==

== ENCOUNTER → 2021-05-09 09:38 | Outpatient (BNVA) | payer MEDICARE, SELFPAY | PROVIDERS: PCP Family Medicine; Visit Provider Urology | DX: N39.0 Urinary tract infection, site not specified (principal) | CPT/HCPCS: 81003 ==

== ENCOUNTER → 2021-05-18 12:24 | Outpatient (BNVA) | payer MEDICARE, SELFPAY | PROVIDERS: PCP Family Medicine; Visit Provider Family Medicine | DX: I10 Essential (primary) hypertension (principal) | CPT/HCPCS: 80053; 81000; 85025 ==

== ENCOUNTER 2021-05-25 09:26 | Emergency (ER) | payer MEDICARE, SELFPAY ==
[2021-05-25 09:36] VITALS: BP 153/88; PULSE 72; RESP 23; TEMP 36.4; O2SAT 94; BMI 30.8
--- NOTE | 2021-05-25 09:49 | CT_ITS ---
WS: [id number] CT ABDOMEN AND PELVIS WITH CONTRAST HISTORY: worsening abd pain over 10 days TECHNIQUE: Imaging performed of the abdomen and pelvis with IV contrast. Single phase imaging of the abdomen. Coronal and sagittal reformats are submitted. All CT scans at [facility] use at [facility] one of these dose optimization techniques: automated exposure control; mA and/or kV adjustment per patient size (includes targeted exams where dose is matched to clinical indication); or iterative re construction. IV CONTRAST: Omnipaque 300; 95 mL IV. Oral contrast: No DLP: 1518.38 mGy.cm COMPARISON: 12/24/2020 Lower thorax: Subsegmental atelectasis at the RIGHT lung base. Heart is normal size. Small hiatal her shayy. Liver/biliary system: Normal size with no intrahepatic dilatation. Gallbladder: Status post cholecystectomy. Pancreas: Normal size pancreas and pancreatic duct. No adjacent inflammation. Spleen: Normal size spleen. No mass or infarct. Adrenal glands: Normal. Right kidney: Mild atrophy with a few areas of cortical thinning. Benign stable 13 mm cyst in the low er pole. Left kidney: Mild atrophy with a few too small to characterize hypodensities. No obstruction. Aorta: Atherosclerotic plaque. There is intimal thickening along the posterior aorta similar to the p rior study. Lymphadenopathy: None. Free fluid: None. GI tract: The appendix is not identified but there are no secondary findings of appendicitis. Moderat e fecal retention. There are numerous diverticula in the descending and sigmoid colon. No acute infla mmation. Focal outpouching extending medially from the sigmoid colon measures 2.5 cm consistent with a large diverticulum filled with fecal material. Abdominal wall: Unremarkable abdominal wall. No hernia. Pelvis: Prior hysterectomy. No pelvic mass or fluid. Urinary bladder is normal. Bones: Mild increase in the lumbar lordosis. Mild narrowing of the hip joints. CT/CT abdomen pelvis w con* [id number] IMPRESSION: 1. No acute abdominal or pelvic abnormalities are identified. 2. Status post cholecystectomy and hysterectomy. 3. Moderate atherosclerotic plaque, both noncalcified and calcified plaque wit hin the aorta, similar to 12/24/2020. 4. Large sigmoid diverticulum filled with fecal material. No obstruction or in flammation at this time. 5. Extensive descending and sigmoid diverticulosis without acute diverticuliti s.
--- NOTE | 2021-05-25 09:49 | XR_ITS ---
WS: [id number] Exam: XR chest 1V portable [id number] Date/Time of Exam: 05/25/2021 9:53 AM Reason For Exam: copd, abdominal pain Comparison 12/24/2020. The lungs are hyperinflated and clear. Heart size is top limits normal. The mediastinum and bony thor ax are unremarkable. No pleural effusions. XR/XR chest 1V portable [id number] IMPRESSION: 1. Pulmonary hyperinflation which might indicate obstructive lung disease. No a cute process.
--- NOTE | 2021-05-25 09:51 | ECG_ITS ---
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 Measurements Intervals [place] Rate: 61 P: 96 IN: 193 QRS: 36 QRSD: 80 T: 87 QT: 409 QTc: 415 Interpretive Statements SINUS RHYTHM Compared to ECG 12/24/2020 09:21:24 T-wave abnormality no longer present Poor R-wave progression no longer present Electronically Signed On 05-25-2021 16:06:53 RETAIL PHARMACY MANAGER by Justina Crabtree M.D. [id number]
--- NOTE | 2021-05-25 09:53 | W.ED.ABDPA2 ---
HPI - Abdominal Pain General: Chief Complaint: Abdominal Pain Stated Complaint: Upper abdominal pain for multiple days Time Seen by Provider: 05/25/21 09:49 History of Present Illness: HPI narrative: Patient complains about intermittent abdominal discomfort over the last 10 days. States bowels are working very well. Did have a couple bowel movements this morning and has been having some diarrhea. Denies any increased shortness of breath chest pain fever chills. Is currently being treated for chronic UTI. MD elicited complaint: abdominal pain Pertinent past history: constipation and other (Chronic UTI and COPD) Onset (ago): day(s) Pain Consistency: intermittent Location: Diffuse Severity: mild Quality: fullness and other (Bloating) Radiation: none Exacerbating factors: eating Relieving factors: nothing Associated Symptoms: Reports constipation, diarrhea and nausea; Denies chills and fever(s) Review of Systems Const: Denies: fever(s), chills or body aches Eyes: Denies: change in vision or blurry vision ENMT: Denies: throat pain or nasal congestion Card: Denies: chest pain or dyspnea on exertion Resp: Reports: dyspnea (Chronic in nature); Denies: productive cough or non-productive cough GI: Reports: abdominal pain, nausea, diarrhea and constipation Musc: Denies: extremity pain Skin/Breast: Denies: rash Neuro: Denies: headache(s) Psych: Denies: anxiety or depression Francisco/Lymph: Denies: easy bruising PFSH ED PFSH: Medical History Acute cystitis Afib Anxiety and depression ASVD (arteriosclerotic vascular disease) CHF (congestive heart failure) Chronic gastritis Chronic respiratory failure with hypoxia Constipation COPD (chronic obstructive pulmonary disease) H/O deep venous thrombosis Hypertension Loose bowel movements Nocturnal hypoxia Nocturnal leg cramps Oral pharyngeal candidiasis Osteoarthritis of hip Oxygen dependent Perineal irritation Pulmonary nodule Salivary calculus has had surgery in the past Thyroid nodule Tinea of perianal region Surgical History H/O colonoscopy 2016 Dr. French H/O esophagogastroduodenoscopy 2016 Dr. French H/O right knee surgery History of hysterectomy total Hx of cholecystectomy Family History Sister Anesthesia complication Son Anesthesia complication Grandmother Heart disease Mother Aneurysm Denies family history of Bleeding disorder Social History Smoking and tobacco status: former smoker Quit status (tobacco): has quit using tobacco Year quit tobacco: 1999 - 1PPD x 48 Years Second hand smoke exposure: No Alcohol intake: never Housing: House Marital status: / Current occupational status: retired History of recent travel: No Physical Exam Const: COMMON NORMALS: no acute distress, average body habitus and patient oriented x3 HENMT: COMMON NORMALS: normocephalic HEAD & SCALP: normal to inspection and normocephalic FACE & SINUS: normal facial exam Eye: COMMON NORMALS: conjunctivae normal GENERAL EYE: appearance normal, both eyes and all related structures CONJUNCTIVA: Yes conjunctivae normal Neck/C-Spine: COMMON NORMALS: no JVD Chest: COMMONS NORMALS: normal inspection of the chest Resp: COMMON NORMALS: normal respiratory effort and clear to auscultation bilaterally AUSCULTATION: clear to auscultation bilaterally Cardio: COMMON NORMALS: no JVD, regular rate and regular rhythm RATE: regular rate RHYTHM: regular rhythm GI: AUSCULTATION: Yes Hypoactive bowel sounds present PALPATION: Yes Tenderness to palpation present (GI) (Upper abdomen) PERCUSSION: tympanic to percussion Extremity: COMMON NORMALS: normal to inspection and full ROM Neuro: COMMON NORMALS: patient oriented x3 Course Vital Signs: Vital signs: Vital Signs Temperature 97.6 F 05/25/21 09:36 Pulse Rate 76 05/25/21 10:20 Respiratory Rate 18 05/25/21 10:20 Blood Pressure 153/88 05/25/21 09:36 Pulse Oximetry 90 05/25/21 10:20 MDM - Abdominal Pain MDM Narrative: Medical decision making narrative: Patient comes in with abdominal bloating and discomfort over the last 10 days its been intermittent. Patient just started with MiraLAX yesterday and had 3 soft bowel movements today. Patient says she does feel a bit better. Patient currently on antibiotics for chronic UTI per Dr. Selby's office. Patient is 90 fever chills vomiting. Laboratory studies were negative CT just shows fecal material in the large sigmoid diverticulum no inflammation noted no evidence acute diverticulitis. Patient encouraged high-fiber diet drink plenty liquids follow-up primary care provider take prescription as directed as needed. Lab Data: Labs: Lab Results 05/25/21 05/25/21 05/25/21 10:05 10:05 10:20 WBC 8.5 10^3/uL 10^3/ uL (4.0-10.0) RBC 5.05 10^6/uL 10^6 /uL (4.1-5.3) Hgb 15.0 g/dL g/dL (11.5-15.3) Hct 46.7 % % (37.0-47.0) MCV 92.5 fl fl (81-99) MCH 29.7 pg pg (28.0-34.0) MCHC 32.1 g/dL g/dL (30.0-36.0) RDW 13.2 % % (12.1-15.1) Plt Count 205 10^3/cmm 10^3 /cmm (130-400) MPV 9.7 fL fL (7.4-10.4) Neut % (Auto) 62.4 % % Lymph % (Auto) 26.1 % % [place] % (Auto) 8.0 % % Eos % (Auto) 2.7 % % Baso % (Auto) 0.6 % % Neut # (Auto) 5.27 10^3/uL 10^3 /uL (1.8-7.7) Lymph # (Auto) 2.2 10^3/uL 10^3/ uL (0.8-4.8) [place] # (Auto) 0.7 10^3/uL 10^3/ uL (0.2-0.9) Eos # (Auto) 0.2 10^3/uL 10^3/ uL (0.0-0.8) Baso # (Auto) 0.1 10^3/uL 10^3/ uL (0.0-0.1) Nucleated RBC % (a uto) 0 % % Nucleated RBCs # 0.0 /100WBC /100W BC Sodium 142 mmol/L mmol/L (136-145) Potassium 4.5 mmol/L mmol/L (3.5-5.1) Chloride 106 mmol/L mmol/L (98-107) Carbon Dioxide 28 mmol/L mmol/L (22-29) Anion Gap 12.5 (5-19) BUN 15 mg/dL mg/dL (8-23) Creatinine 0.8 mg/dL mg/dL (0.5-0.9) GFR Calculation Not Reportable Glucose 82 mg/dL mg/dL (65-115) Calculated Osmolal ity 294 mOsm/kg mOsm/ kg (285-295) Calcium 9.2 mg/dL mg/dL (8.5-10.5) Total Bilirubin 0.3 mg/dL mg/dL (0.15-1.2) AST 20 U/L U/L (0-32) ALT 18 U/L U/L (0-33) Alkaline Phosphata se 72 IU/L IU/L (35-105) Total Protein 6.7 g/dL g/dL (6.6-8.7) Albumin 4.0 g/dL g/dL (3.5-5.2) Globulin 2.7 g/dL g/dL (1.3-4.6) Lipase 38 U/L U/L (13-60) Urine Color Straw (Yellow) Urine Appearance Clear (CLEAR) Urine pH 6 (5-7) Ur Specific Gravit y 1.010 (1.005-1.030) Urine Protein Neg (Negative) Urine Glucose (UA) Norm (Normal) Urine Ketones Negative (Negative) Urine Blood Neg (Negative) Urine Nitrate Negative (Negative) Urine Bilirubin Neg (Negative) Urine Urobilinogen Norm mg/dL mg/dL (Negative) Ur Leukocyte Carmen ase Negative (Negative) EKG Data ^: EKG 1: EKG interpretation date: 05/25/21 EKG interpretation time: 10:33 Computer generated interpretation: Normal sinus rhythm. Ventricular rate 61 bpm [place] interval 193 ms QRS durations 80 ms QT is 409 ms Discharge Plan Discharge Patient Disposition: Home Clinical Impression: Constipation Qualifiers: Constipation type: slow transit constipation Qualified Code(s): K59.01 - Slow transit constipation Condition: Stable Prescriptions: New lactulose 20 gram/30 mL solution 20 g PO DAILY PRN (Reason: constipation) Qty: 1200 RF: 0 No Action fluticasone propionate [Flonase Allergy Relief] 50 mcg/actuation spray,suspension 1 - 2 spray INTRANASAL DAILY PRN (Reason: Allergy Symptoms) RF: 0 Incruse Ellipta 62.5 mcg/actuation blister with device 1 inh inhalation DAILY@0800 Qty: 30 RF: 5 magnesium oxide 400 mg magnesium tablet 400 mg PO DAILY RF: 0 fluconazole [Diflucan] 150 mg tablet 150 mg PO Q3D Qty: 4 RF: 0 clotrimazole 1 % cream 1 applic topical BID 28 Days Qty: 90 RF: 0 doxycycline hyclate 100 mg tablet 100 mg PO BID Qty: 60 RF: 2 dicyclomine 20 mg tablet 20 mg PO QID Qty: 360 RF: 1 atenolol 25 mg tablet 25 mg PO DAILY@1800 90 Days Qty: 90 RF: 0 pantoprazole 40 mg tablet,delayed release (DR/EC) 40 mg PO DAILY@0800 Qty: 90 RF: 0 cetirizine [Zyrtec] 10 mg Tablet 10 mg PO DAILY PRN (Reason: Allergy Symptoms) RF: 0 albuterol sulfate 2.5 mg /3 mL (0.083 %) Solution For Nebulization 2.5 mg INHALATION Q4H PRN (Reason: Shortness Of Breath) RF: 0 diclofenac sodium 50 mg tablet,delayed release (DR/EC) 50 mg PO DAILY RF: 0 Probiotic 1 cap PO DAILY RF: 0 albuterol sulfate 90 mcg/actuation HFA aerosol inhaler 2 puff inhalation Q6H PRN (Reason: Shortness Of Breath) RF: 0 Symbicort 160-4.5 mcg/actuation HFA aerosol inhaler 2 puff inhalation BID RF: 0 Discharge Orders: Discharge ED (Routine); Ordered 05/25/21 Ordered By: Dimitrios Villela Referrals: Gem Bess DO [Primary Care Provider] - Discharge Diet: As Directed Discharge Activity: Resume usual activity Patient Instructions: Constipation (ED) Activity Restrictions/Additional Instructions: Make sure you drink plenty of liquids. Eat a high-fiber diet. Use prescription laxity for next 3 to 4 days. Follow-up your family medical provider or return here if worsening symptoms. Coding Level of Care Code ED Housekeeping Aide for Justyng Fwd Exam Comprehensive
[2021-05-25] MEDS: iohexol 300 mg/mL 100 mL Btl IV (10:12)
[2021-05-25 10:13] LABS: Basophils # 0.1 10^3/uL (0.0-0.1); Basophils % 0.6 %; Eosinophils # 0.2 10^3/uL (0.0-0.8); Eosinophils % 2.7 %; Hematocrit 46.7 % (37.0-47.0); Lymphocytes # 2.2 10^3/uL (0.8-4.8); Lymphocytes % 26.1 %; Mean Corpuscular HGB Conc 32.1 g/dL (30.0-36.0); Mean Corpuscular Hemoglobin 29.7 pg (28.0-34.0); Mean Corpuscular Volume 92.5 fl (81-99); Mean Platelet Volume 9.7 fL (7.4-10.4); Monocytes # 0.7 10^3/uL (0.2-0.9); Neutrophils # 5.27 10^3/uL (1.8-7.7); Neutrophils % 62.4 %; Nucleated Red Blood Cells % 0 %; Platelet Count 205 10^3/cmm (130-400); Red Blood Count 5.05 10^6/uL (4.1-5.3); Red Cell Distribution Width 13.2 % (12.1-15.1); White Blood Count 8.5 10^3/uL (4.0-10.0)
[2021-05-25 10:20] VITALS: PULSE 76; RESP 18; O2SAT 90
[2021-05-25] MEDS: sodium chloride 0.9% 1,000 ML 999 ML IV (10:27)
[2021-05-25 10:29] LABS: Alanine Aminotransferase 18 U/L (0-33); Alkaline Phosphatase 72 IU/L (35-105); Anion Gap 12.5 (5-19); Aspartate Amino Transferase 20 U/L (0-32); Blood Urea Nitrogen 15 mg/dL (8-23); Calcium 9.2 mg/dL (8.5-10.5); Carbon Dioxide 28 mmol/L (22-29); Chloride 106 mmol/L (98-107); Globulin 2.7 g/dL (1.3-4.6); Glucose 82 mg/dL (65-115); Lipase 38 U/L (13-60); Osmolality Calculated 294 mOsm/kg (285-295); Potassium 4.5 mmol/L (3.5-5.1); Sodium 142 mmol/L (136-145); Total Bilirubin 0.3 mg/dL (0.15-1.2); Total Protein 6.7 g/dL (6.6-8.7)
[2021-05-25] MEDS: ondansetron 2 mg/ML SDV 2 mL 4 MG IVP (10:29)
[2021-05-25 10:30] LABS: Add Urine Microscopic? NO; Charge for UA Resulting for Rev
[2021-05-25 10:35] LABS: Bilirubin Urine Neg (Negative); Blood Urine Neg (Negative); Glucose Urine UA Norm (Normal); Ketones Urine Negative (Negative); Leukocyte Esterase Urine Negative (Negative); Nitrate Urine Negative (Negative); Protein Urine Neg (Negative); Urine Appearance Clear (CLEAR); Urine Color Straw (Yellow); Urobilinogen Urine Norm (Negative); pH Urine 6 (5-7)
== END 2021-05-25 12:19 | disposition home or self-care (01) ==
PROVIDERS: Emergency Provider Nurse Practitioner Family; PCP Family Medicine
DX: K59.01 Slow transit constipation (principal); I11.0 Hypertensive heart disease with heart failure; I50.9 Heart failure, unspecified; J44.9 Chronic obstructive pulmonary disease, unspecified; Z99.81 Dependence on supplemental oxygen; Z87.891 Personal history of nicotine dependence
CPT/HCPCS: 71045; 74177; 80053; 81003; 83690; 85025; 93005; 96361; 96374; 99284; J2405; J7030; Q9967

== ENCOUNTER → 2021-07-23 15:12 | Outpatient (BNVA) | payer MEDICARE, SELFPAY | PROVIDERS: PCP Family Medicine; Visit Provider Nurse Practitioner Family | DX: R30.0 Dysuria (principal); N39.0 Urinary tract infection, site not specified | CPT/HCPCS: 81003 ==

== ENCOUNTER → 2021-09-18 10:17 | Outpatient (BNVA) | payer MEDICARE, SELFPAY | PROVIDERS: PCP Family Medicine; Visit Provider Family Medicine | DX: K58.9 Irritable bowel syndrome, unspecified (principal); I10 Essential (primary) hypertension; J44.9 Chronic obstructive pulmonary disease, unspecified | CPT/HCPCS: 80053; 80061; 84443; 85025 ==

== ENCOUNTER → 2021-10-04 09:40 | Outpatient (BNVA) | payer MEDICARE, SELFPAY | PROVIDERS: PCP Family Medicine; Visit Provider Urology | DX: R39.11 Hesitancy of micturition (principal) | CPT/HCPCS: 81003 ==

== ENCOUNTER → 2021-10-05 10:18 | Outpatient (BNVA) | payer MEDICARE, SELFPAY | PROVIDERS: PCP Family Medicine; Visit Provider Family Medicine | DX: M25.532 Pain in left wrist (principal) | CPT/HCPCS: 73110 ==

== ENCOUNTER → 2021-11-19 09:41 | Outpatient (BNVA) | payer MEDICARE, SELFPAY | PROVIDERS: PCP Family Medicine; Visit Provider Internal Medicine Critical Care Medicine | DX: J44.9 Chronic obstructive pulmonary disease, unspecified (principal); J96.11 Chronic respiratory failure with hypoxia; Z87.891 Personal history of nicotine dependence; Z99.81 Dependence on supplemental oxygen | CPT/HCPCS: 99214 ==

== ENCOUNTER → 2021-11-29 13:23 | Outpatient (BNVA) | payer MEDICARE, SELFPAY | PROVIDERS: PCP Family Medicine; Visit Provider Nurse Practitioner Family | DX: K62.5 Hemorrhage of anus and rectum (principal); R19.5 Other fecal abnormalities; K29.50 Unspecified chronic gastritis without bleeding | CPT/HCPCS: 81003; 87077; 87086; 87186; 99203 ==

== ENCOUNTER 2021-12-01 09:29 | Emergency (ER) | payer MEDICARE, SELFPAY ==
[2021-12-01 09:36] VITALS: BP 137/86; PULSE 72; RESP 15; TEMP 36.7; O2SAT 94; BMI 30.9
--- NOTE | 2021-12-01 09:52 | CTR_ITS ---
PROCEDURE INFORMATION: Exam: CT Abdomen And Pelvis With Contrast Exam date and time: 12/01/2021 11:41 AM Age: 76 years old Clinical indication: Right-sided abdominal pain. Prior cholecystectomy and hernia repair. TECHNIQUE: Imaging protocol: Computed tomography of the abdomen and pelvis with contrast. Radiation optimization: All CT scans at this facility use at least one of these dose optimization techniques: automated exposure control; mA and/or kV adjustment per patient size (includes targeted exams where dose is matched to clinical indication); or iterative reconstruction. Contrast material: OMNIPAQUE 300; Contrast volume: 50 ml; Contrast route: INTRAVENOUS (IV); COMPARISON: CT abdomen pelvis w con* [id number] 05/25/2021 10:08 AM RADIATION DOSE METRICS: Total DLP (mGy-cm): 1512.46 FINDINGS: Lungs: Subsegmental atelectasis or scarring at the lung bases. Coronary arterial calcifications are noted. No pericardial effusion. No hiatal hernia. There is aneurysmal dilatation of the distal thoracic aorta measuring 4.1 x 3.9 cm. There is no gross evidence of rupture or dissection. Liver: The liver is enlarged measuring 18.2 cm. Gallbladder and bile ducts: The gallbladder has been removed. Extrahepatic biliary ductal dilatation is noted. This is common following cholecystectomy. Pancreas: There is mild dilatation of the pancreatic duct measuring up to 4.8 mm. Spleen: The spleen is unremarkable. Adrenal glands: The adrenal glands are unremarkable. Kidneys and ureters: Minimal prominence of the renal collecting system, bilaterally. There is no obstructive stone or lesion identified. There is an indeterminate lesion in the lower pole of the right kidney measuring 1.8 cm. This appears similar since at least December 2020. This is likely benign. Stomach and bowel: Prominent duodenal diverticulum. Colonic diverticulosis with slight stranding adjacent to a large sigmoid diverticulum. This could reflect early/mild diverticulitis. No perforation. No abscess. Appendix: The appendix is not identified. Intraperitoneal space: No free intraperitoneal air is seen. Vasculature: There is an infrarenal abdominal aortic aneurysm measuring 3.2 x 3.2 cm. There is eccentric atheromatous plaque in the aneurysm sac. There is no gross evidence of rupture or gross dissection. Lymph nodes: A periportal lymph node measures 1.1 x 2.2 cm. Urinary bladder: Mild prominence of the bladder wall. Trace gas in the bladder may reflect instrumentation. Correlate with urinalysis to assess for cystitis. Reproductive: Status post hysterectomy. 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 No acute fracture is seen. CT/CT abdomen pelvis w con* [id number] IMPRESSION: 1. Colonic diverticulosis with slight stranding adjacent to a large sigmoid diverticulum. This could reflect early/mild diverticulitis. No perforation. No abscess. 2. There is aneurysmal dilatation of the distal thoracic aorta measuring 4.1 x 3.9 cm. There is no gross evidence of rupture or dissection. There is an infrarenal abdominal aortic aneurysm measuring 3.2 x 3.2 cm. There is eccentric atheromatous plaque in the aneurysm sac. There is no gross evidence of rupture or gross dissection. 3. Mild prominence of the bladder wall. Trace gas in the bladder may reflect instrumentation. Correlate with urinalysis to assess for cystitis. 4. Minimal prominence of the renal collecting system, bilaterally. There is no obstructive stone or lesion identified. 5. There is mild dilatation of the pancreatic duct measuring up to 4.8 mm. No definite obstructive mass is identified. Recommend nonemergent pancreatic protocol MR abdomen with and without contrast with concurrent MRCP to further assess. 6. There is an indeterminate lesion in the lower pole of the right kidney measuring 1.8 cm. This appears similar since at least December 2020. This is likely benign. This will likely be better assessed on MRI. 7. Coronary artery disease.
[2021-12-01 10:08] VITALS: BP 119/80; PULSE 67; RESP 16; O2SAT 98
[2021-12-01] MEDS: ondansetron 2 mg/ML SDV 2 mL 4 MG IVP (10:16)
[2021-12-01] MEDS: ketorolac 30 mg/mL INJ 15 MG IVP (10:16)
[2021-12-01] MEDS: sodium chloride 0.9% 1,000 ML 999 ML IV (10:17)
[2021-12-01 10:43] LABS: Basophils % 0.6 %; Eosinophils # 0.2 10^3/uL (0.0-0.8); Eosinophils % 2.6 %; Hematocrit 49.7 % (37.0-47.0); Hemoglobin 16.1 g/dL (11.5-15.3); Lymphocytes # 1.6 10^3/uL (0.8-4.8); Mean Corpuscular HGB Conc 32.4 g/dL (30.0-36.0); Mean Corpuscular Hemoglobin 29.8 pg (28.0-34.0); Mean Corpuscular Volume 91.9 fl (81-99); Mean Platelet Volume 11.2 fL (7.4-10.4); Monocytes # 0.5 10^3/uL (0.2-0.9); Monocytes % 7.2 %; Neutrophils # 4.62 10^3/uL (1.8-7.7); Neutrophils % 66.3 %; Nucleated Red Blood Cells % 0 %; Platelet Count 181 10^3/cmm (130-400); Red Blood Count 5.41 10^6/uL (4.1-5.3)
[2021-12-01 10:59] LABS: Alanine Aminotransferase 17 U/L (0-33); Albumin Level 4.2 g/dL (3.5-5.2); Alkaline Phosphatase 85 IU/L (35-105); Blood Urea Nitrogen 19 mg/dL (8-23); Calcium 9.7 mg/dL (8.5-10.5); Carbon Dioxide 27 mmol/L (22-29); Chloride 104 mmol/L (98-107); Globulin 3.6 g/dL (1.3-4.6); Glucose 97 mg/dL (65-115); Lipase 36 U/L (13-60); Osmolality Calculated 296 mOsm/kg (285-295); Sodium 142 mmol/L (136-145); Total Bilirubin 0.3 mg/dL (0.15-1.2); Total Protein 7.8 g/dL (6.6-8.7)
[2021-12-01 11:00] LABS: Lactate (Lactic Acid level) 0.7 mmol/L (0.5-2.2)
[2021-12-01 11:01] LABS: Add Urine Microscopic? YES; Bilirubin Urine Neg (Negative); Blood Urine Neg (Negative); Glucose Urine UA Norm (Normal); Ketones Urine Negative (Negative); Leukocyte Esterase Urine Trace (Negative); Nitrate Urine Positive (Negative); Protein Urine Neg (Negative); Specific Gravity, Urine 1.025 (1.005-1.030); Urine Appearance Hazy (CLEAR); Urine Color Yellow (Yellow); Urobilinogen Urine Norm (Negative); pH Urine 5 (5-7)
[2021-12-01 11:02] LABS: Bacteria Urine 4+ /hpf; WBC Urine 25-40 /hpf (0-5)
[2021-12-01 11:03] LABS: Add Urine Culture? Yes
--- NOTE | 2021-12-01 11:13 | ED_ITS ---
HPI - Nausea/Vomiting/Diarrhea General: Chief complaint: Nausea/Vomiting/Diarrhea Stated complaint: SOB; Nausea Time Seen by Provider: 12/01/21 09:45 History of Present Illness: Patient comes in with abdominal pain, nausea, vomiting, and diarrhea. States that it started over the last couple of days. States she has a history of chronic abdominal pain, however this is different. She states it is epigastric, sharp, constant. Associated nausea: Yes Associated symtoms: Reports nausea; Denies anxiety, change in vision, chest pain, dysuria, headache(s) or palpitations Review of Systems Const: Denies: fever(s) or body aches Eyes: Denies: change in vision or blurry vision ENMT: Denies: throat pain or odynophagia Card: Denies: chest pain or palpitations Resp: Denies: dyspnea or productive cough GI: Reports: abdominal pain, nausea, vomiting and diarrhea : Denies: flank pain or dysuria Musc: Denies: neck pain or back pain Skin/Breast: Denies: rash or pruritus Neuro: Denies: headache(s) or numbness in extremities Psych: Denies: anxiety or change in appetite Endo: Denies: polyuria or excessive sweating PFSH ED PFSH: Medical History Acute cystitis Afib Anxiety and depression ASVD (arteriosclerotic vascular disease) Cellulitis of fifth toe of right foot CHF (congestive heart failure) Chronic gastritis Chronic respiratory failure with hypoxia Constipation COPD (chronic obstructive pulmonary disease) Corns of multiple toes H/O deep venous thrombosis Hypertension Loose bowel movements Nocturnal hypoxia Nocturnal leg cramps Oral pharyngeal candidiasis Osteoarthritis of hip Oxygen dependent Perineal irritation Pulmonary nodule Salivary calculus has had surgery in the past Thyroid nodule Tinea of perianal region Surgical History H/O colonoscopy 2015 Dr. French H/O esophagogastroduodenoscopy 2016 Dr. French H/O right knee surgery History of hysterectomy total Hx of cholecystectomy Family History Sister Anesthesia complication Son Anesthesia complication Grandmother Heart disease Mother , at age 73 Aneurysm Father , age 73 Cancer stomach Denies family history of Bleeding disorder Social History Smoking and tobacco status: never smoked Quit status (tobacco): has quit using tobacco Year quit tobacco: 1999 - 1PPD x 48 Years Second hand smoke exposure: No Alcohol intake: never Household members: significant other Housing: House Marital status: / Current occupational status: retired History of recent travel: No Physical Exam Const: COMMON NORMALS: no acute distress, patient oriented x3, healthy appearing and alert HENMT: COMMON NORMALS: normocephalic and atraumatic HEAD & SCALP: normocephalic and atraumatic Eye: COMMON NORMALS: Equal, round and reactive pupils present and EOMs intact bilaterally PUPIL: Yes Equal, round and reactive pupils present Neck/C-Spine: COMMON NORMALS: full ROM and supple Resp: COMMON NORMALS: normal respiratory effort, No retractions and No use of accessory muscles Cardio: COMMON NORMALS: regular rate and regular rhythm RATE: regular rate RHYTHM: regular rhythm GI: OTHER: Epigastric tenderness to palpation, abdomen soft, nondistended Back/Pelvis: COMMON NORMALS: thoracic and lumbar spine normal to inspection and no thoracic nor lumbar tenderness Extremity: COMMON NORMALS: normal to inspection and full ROM Neuro: COMMON NORMALS: patient oriented x3 SENSORIUM/ORIENTATION: Yes alert Psych: COMMON NORMALS: mental status grossly normal and cooperative Skin: COMMON NORMALS: no rashes or lesions noted and no wounds GENERAL SKIN EXAM: no rashes or lesions noted Course Vital Signs: Vital signs: Vital Signs Temperature 98.0 F 12/01/21 09:36 Pulse Rate 67 12/01/21 10:08 Respiratory Rate 16 12/01/21 10:08 Blood Pressure 119/80 12/01/21 10:08 Pulse Oximetry 98 12/01/21 10:08 MDM - Nausea/Vomiting/Diarrhea Medical Decision Making Patient comes in with abdominal pain, nausea, vomiting, and diarrhea. States that it started over the last couple of days. 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 She states it is epigastric, sharp, constant. On physical exam she has epigastric tenderness to palpation. Will check labs, give IV fluids, treat nausea with IV Zofran, CT scan, and reassess. On reassessment I talked to the patient about the test results. We will place her on Augmentin for diverticulitis and her UTI, and discharged with precautions return for worsening or changing symptoms. The patient states she knows about the aneurysms. Lab Data : 12/01/21 10:09 12/01/21 10:09 Radiology Impressions Abdomen/Pelvis CT 12/01/21 09:52 IMPRESSION: 1. Colonic diverticulosis with slight stranding adjacent to a large sigmoid diverticulum. This could reflect early/mild diverticulitis. No perforation. No abscess. 2. There is aneurysmal dilatation of the distal thoracic aorta measuring 4.1 x 3.9 cm. There is no gross evidence of rupture or dissection. There is an infrarenal abdominal aortic aneurysm measuring 3.2 x 3.2 cm. There is eccentric atheromatous plaque in the aneurysm sac. There is no gross evidence of rupture or gross dissection. 3. Mild prominence of the bladder wall. Trace gas in the bladder may reflect instrumentation. Correlate with urinalysis to assess for cystitis. 4. Minimal prominence of the renal collecting system, bilaterally. There is no obstructive stone or lesion identified. 5. There is mild dilatation of the pancreatic duct measuring up to 4.8 mm. No definite obstructive mass is identified. Recommend nonemergent pancreatic protocol MR abdomen with and without contrast with concurrent MRCP to further assess. 6. There is an indeterminate lesion in the lower pole of the right kidney measuring 1.8 cm. This appears similar since at least December 2020. This is likely benign. This will likely be better assessed on MRI. 7. Coronary artery disease. ADDENDUM: 12/01/21 1212 Findings discussed with Elijah Multani at 12/01/2021 12:09 PM CDT. Laboratory Results WBC 7.0 10^3/uL (4.0-10.0) 12/01/21 10:09 RBC 5.41 10^6/uL (4.1-5.3) H 12/01/21 10:09 Hgb 16.1 g/dL (11.5-15.3) H 12/01/21 10:09 Hct 49.7 % (37.0-47.0) H 12/01/21 10:09 MCV 91.9 fl (81-99) 12/01/21 10:09 MCH 29.8 pg (28.0-34.0) 12/01/21 10:09 MCHC 32.4 g/dL (30.0-36.0) 12/01/21 10:09 RDW 13.0 % (12.1-15.1) 12/01/21 10:09 Plt Count 181 10^3/cmm (130-400) 12/01/21 10:09 MPV 11.2 fL (7.4-10.4) H 12/01/21 10:09 Neut % (Auto) 66.3 % 12/01/21 10:09 Lymph % (Auto) 23.0 % 12/01/21 10:09 Alger % (Auto) 7.2 % 12/01/21 10:09 Eos % (Auto) 2.6 % 12/01/21 10:09 Baso % (Auto) 0.6 % 12/01/21 10:09 Neut # (Auto) 4.62 10^3/uL (1.8-7.7) 12/01/21 10:09 Lymph # (Auto) 1.6 10^3/uL (0.8-4.8) 12/01/21 10:09 Alger # (Auto) 0.5 10^3/uL (0.2-0.9) 12/01/21 10:09 Eos # (Auto) 0.2 10^3/uL (0.0-0.8) 12/01/21 10:09 Baso # (Auto) 0.0 10^3/uL (0.0-0.1) 12/01/21 10:09 Nucleated RBC % (auto) 0 % 12/01/21 10:09 Nucleated RBCs # 0.0 /100WBC 12/01/21 10:09 Sodium 142 mmol/L (136-145) 12/01/21 10:09 Potassium 4.6 mmol/L (3.5-5.1) 12/01/21 10:09 Chloride 104 mmol/L (98-107) 12/01/21 10:09 Carbon Dioxide 27 mmol/L (22-29) 12/01/21 10:09 Anion Gap 15.6 (5-19) 12/01/21 10:09 BUN 19 mg/dL (8-23) 12/01/21 10:09 Creatinine 0.9 mg/dL (0.5-0.9) 12/01/21 10:09 GFR Calculation Not Reportable 12/01/21 10:09 Glucose 97 mg/dL (65-115) 12/01/21 10:09 Calculated Osmolality 296 mOsm/kg (285-295) H 12/01/21 10:09 Lactate 0.7 mmol/L (0.5-2.2) 12/01/21 10:09 Calcium 9.7 mg/dL (8.5-10.5) 12/01/21 10:09 Total Bilirubin 0.3 mg/dL (0.15-1.2) 12/01/21 10:09 AST 23 U/L (0-32) 12/01/21 10:09 ALT 17 U/L (0-33) 12/01/21 10:09 Alkaline Phosphatase 85 IU/L (35-105) 12/01/21 10:09 Total Protein 7.8 g/dL (6.6-8.7) 12/01/21 10:09 Albumin 4.2 g/dL (3.5-5.2) 12/01/21 10:09 Globulin 3.6 g/dL (1.3-4.6) 12/01/21 10:09 Lipase 36 U/L (13-60) 12/01/21 10:09 Urine Color Yellow (Yellow) 12/01/21 10:09 Urine Appearance Hazy (CLEAR) A 12/01/21 10:09 Urine pH 5 (5-7) 12/01/21 10:09 Ur Specific Vanderbilt 1.025 (1.005-1.030) 12/01/21 10:09 Urine Protein Neg (Negative) 12/01/21 10:09 Urine Glucose (UA) Norm (Normal) 12/01/21 10:09 Urine Ketones Negative (Negative) 12/01/21 10:09 Urine Blood Neg (Negative) 12/01/21 10:09 Urine Nitrate Positive (Negative) H 12/01/21 10:09 Urine Bilirubin Neg (Negative) 12/01/21 10:09 Urine Urobilinogen Norm mg/dL (Negative) 12/01/21 10:09 Ur Leukocyte Esterase Trace (Negative) H 12/01/21 10:09 Urine RBC None /hpf (0-2) 12/01/21 10:09 Urine WBC 25-40 /hpf (0-5) H 12/01/21 10:09 Ur Squamous Epith Cells 5-10 /hpf (0-5) H 12/01/21 10:09 Amorphous Sediment Not Reportable 12/01/21 10:09 Urine Bacteria 4+ /hpf (NONE) H 12/01/21 10:09 Discharge Plan Discharge Patient Disposition: Home Clinical Impression: Diverticulitis, UTI (urinary tract infection) Condition: Stable Prescriptions: New ondansetron 4 mg tablet,disintegrating 4 mg PO TID PRN (Reason: nausea and vomiting) Qty: 20 0RF Augmentin 500-125 mg tablet 1 tab PO BID Qty: 14 0RF No Action fluticasone propionate [Flonase Allergy Relief] 50 mcg/actuation spray,suspension 1 - 2 spray INTRANASAL DAILY PRN (Reason: Allergy Symptoms) 0RF Rx Instructions: administer into each nostril budesonide-formoterol [Symbicort] 160-4.5 mcg/actuation HFA aerosol inhaler 2 puff inhalation BID 30 Days Qty: 10.2 6RF Incruse Ellipta 62.5 mcg/actuation blister with device 1 inh inhalation Q24H 30 Days Qty: 30 6RF loratadine [Allergy Relief (loratadine)] 10 mg tablet 10 mg PO DAILY 0RF nystatin 100,000 unit/gram cream 1 applic topical BID Qty: 30 1RF dicyclomine 20 mg tablet 20 mg PO QID 0RF fosfomycin tromethamine [Monurol] 3 gram packet 1 packet PO Q3D Qty: 3 1RF diclofenac sodium 50 mg tablet,delayed release (DR/EC) See Rx Instructions .ROUTE .COMPLEX Qty: 60 2RF Dose Instruction: TAKE 1 TABLET BY MOUTH TWO TIMES DAILY Rx Instructions: TAKE 1 TABLET BY MOUTH TWO TIMES DAILY doxycycline hyclate 100 mg capsule See Rx Instructions .ROUTE .COMPLEX Qty: 60 2RF Dose Instruction: TAKE ONE CAPSULE BY MOUTH TWICE DAILY Rx Instructions: TAKE ONE CAPSULE BY MOUTH TWICE DAILY diclofenac sodium [Voltaren Arthritis Pain] 1 % gel 2 g topical QID Qty: 100 1RF Rx Instructions: apply to single elbow, wrist or hand; for hand includes palm/fingers/back of hand pantoprazole 40 mg tablet,delayed release (DR/EC) 40 mg PO DAILY@0800 Qty: 90 0RF clotrimazole 1 % cream 1 applic topical BID 28 Days Qty: 90 0RF albuterol sulfate 90 mcg/actuation HFA aerosol inhaler 2 puff inhalation Q6H PRN (Reason: Shortness Of Breath) Qty: 8.5 5RF atenolol 25 mg tablet 25 mg PO DAILY@1800 90 Days Qty: 90 1RF albuterol sulfate 2.5 mg /3 mL (0.083 %) Solution For Nebulization 2.5 mg INHALATION Q4H PRN (Reason: Shortness Of Breath) 0RF Probiotic 1 cap PO DAILY 0RF lactulose 20 gram/30 mL solution 20 g PO DAILY PRN (Reason: constipation) Qty: 1200 0RF Discharge Orders: Discharge ED (Routine); Ordered 12/01/21 Ordered By: Elijah Multani Referrals: Dolly Peralta MD [Primary Care Provider] - Patient Instructions: Diverticulitis (ED) Coding Level of Care Code ED Medical Assistant Prn for Chg Fwd Exam Comprehensive
[2021-12-01 11:14] LABS: Anion Gap 15.6 (5-19)
[2021-12-01 11:15] LABS: Aspartate Amino Transferase 23 U/L (0-32); Potassium 4.6 mmol/L (3.5-5.1)
[2021-12-01] MEDS: iohexol 300 mg/mL 100 mL Btl IV (11:45)
[2021-12-01 12:40] VITALS: BP 149/81; PULSE 68; O2SAT 91
== END 2021-12-01 12:41 | disposition home or self-care (01) ==
PROVIDERS: Emergency Provider Emergency Medicine; PCP Family Medicine
DX: K57.92 Diverticulitis of intestine, part unspecified, without perforation or abscess without bleeding (principal); N39.0 Urinary tract infection, site not specified; R11.2 Nausea with vomiting, unspecified; R10.9 Unspecified abdominal pain; Z90.49 Acquired absence of other specified parts of digestive tract
CPT/HCPCS: 74177; 80053; 81001; 83605; 83690; 85025; 87077; 87086; 87186; 96361; 96374; 96375; 99284; J1885; J2405; J7030; Q9967

== ENCOUNTER → 2022-01-08 09:05 | Outpatient (BNVA) | payer MEDICARE, SELFPAY | PROVIDERS: PCP Family Medicine; Visit Provider Urology | DX: N30.80 Other cystitis without hematuria (principal); R30.0 Dysuria | CPT/HCPCS: 52000; 81003; 87086; 99214 ==

== ENCOUNTER 2022-01-10 06:53 | Day surgery (SDC) | payer MEDICARE, SELFPAY ==
[2022-01-09 10:22] VITALS: BMI 30.7
[2022-01-10 07:22] VITALS: BP 132/83; PULSE 66; RESP 20; TEMP 36.1; O2SAT 95
[2022-01-10] MEDS: sodium chloride 0.9% 1,000 ML 30 ML IV (07:39)
--- NOTE | 2022-01-10 08:01 | P.HP_ITS ---
Same Day Surgery H&P Indication for Procedure/HPI DATE OF PROCEDURE: January 10, 2022 CHIEF COMPLAINT/INDICATIONFOR SURGICAL PROCEDURE: Blood in stool PREOP DIAGNOSIS: Blood in stool PLANNED PROCEDURE: Operation Date: 01/10/22 08:30 Proposed Procedures p EGD(Not Applicable) - Javid Weinberg MD s Colonoscopy(Not Applicable) - Javid Weinberg MD 11/29/2021 This is a pleasant 76 years old female patient with history of obesity and associated multiple medical comorbidities.? In the form of UTI, candidiasis of breast, left wrist pain, rectus diastases, vaginal candidiasis, dysuria, nocturnal leg cramps, thyroid nodule, tinea perianal region, generalized anxiety disorder, urinary hesitancy, bradycardia, A. fib, IBS, osteoarthritis of hip, use taking tube dysfunction, congestive heart failure, hypertension, recurrent UTI, COPD and chronic gastritis. Patient is referred to my practice with history of blood in stool.? That has been for quite some time had a colonoscopy back in 2016 and polyps were found.? Patient does not require blood transfusion. 01/10/2022 Patient comes today for diagnostic EGD and colonoscopy because of blood in stool ROS All systems have been reviewed negative except as for the above or per problem list. Medications/Allergies* Home Medications Medication Instructions Recorded Confirmed Type fluticasone propionate 50 1 - 2 spray INTRANASAL DAILY PRN 12/01/19 01/09/22 His tory mcg/actuation nasal spray,suspension (Flonase Allergy Relief) Probiotic 1 cap PO DAILY 05/25/21 01/09/22 History albuterol sulfate 2.5 mg INHALATION Q4H PRN 05/25/21 01/09/22 History loratadine 10 mg tablet (Allergy 10 mg PO DAILY 09/18/21 01/09/22 History Relief (loratadine)) dicyclomine 20 mg tablet 20 mg PO QID PRN 11/29/21 01/09/22 History conjugated estrogens 0.625 mg/gram 0.625 mg TOPICAL DAILY PRN 01/09/22 01/09/22 History vaginal cream diclofenac sodium 1 % topical gel 2 g TOPICAL QID PRN 01/09/22 01/09/22 History (Voltaren Arthritis Pain) diclofenac sodium 50 mg 50 mg PO BID PRN 01/09/22 01/10/22 History tablet,delayed release Allergies/Adverse Reactions Allergy/AdvReac Type Severity Reaction Status Date / Time cefuroxime Allergy Intermediate Shortness Verified 01/10/22 08:02 of breath, lightheadedness fluticasone furoate Allergy Intermediate Unknown Verified 01/10/22 08:02 [From Trelegy Ellipta] umeclidinium Allergy Intermediate Unknown Verified 01/10/22 08:02 [From Trelegy Ellipta] vilanterol Allergy Intermediate Unknown Verified 01/10/22 08:02 [From Trelegy Ellipta] methenamine Allergy Mild ALGY-Difficulty Verified 01/10/22 08:02 Breathing ciprofloxacin [From Cipro] Allergy ADR/ALGY-Fl Verified 01/10/22 08:02 ushing codeine Allergy ALGY-Rash Verified 01/10/22 08:02 nitrofurantoin Allergy ALGY-Difficulty Verified 01/10/22 08:02 [From Macrobid] Breathing Weivvog-XHI-OdS Reductase Allergy ALGY-Joint Verified 01/10/22 08:02 Inhibitor Pain [Tpmbmvz-Mjz-Ibk Reductase Inhibitor] Sulfa (Sulfonamide Allergy ALGY-Difficulty Verified 01/10/22 08:02 Antibiotics) Breathing lisinopril AdvReac Mild cough Verified 01/10/22 08:02 losartan AdvReac Mild diarrhea Verified 01/10/22 08:02 amoxicillin [From Augmentin] AdvReac SHORT OF Verified 01/10/22 08:02 BREATH clavulanic acid AdvReac SHORT OF Verified 01/10/22 08:02 [From Augmentin] BREATH Current Medications: Generic Name Dose Route Start Last Admin Trade Name Freq PRN Reason Stop Dose Admin Sodium Chloride 1,000 mls @ 30 mls/hr 01/10/22 07:15 01/10/22 07:39 Sodium Chloride 0.9% IV 01/11/22 07:14 30 mls/hr .Q24H NATHALIA Administration Pertinent History/Comorbid Conditions* Medical History (Updated 01/08/22 @ 10:06 by Hipolito Selby MD) Acute cystitis Afib Anxiety and depression ASVD (arteriosclerotic vascular disease) Cellulitis of fifth toe of right foot CHF (congestive heart failure) Chronic gastritis Chronic respiratory failure with hypoxia Constipation COPD (chronic obstructive pulmonary disease) Corns of multiple toes H/O deep venous thrombosis Hypertension Loose bowel movements Nocturnal hypoxia Nocturnal leg cramps Oral pharyngeal candidiasis Osteoarthritis of hip Oxygen dependent Perineal irritation Pulmonary nodule Salivary calculus has had surgery in the past Thyroid nodule Tinea of perianal region Surgical History (Updated 07/08/19 @ 14:47 by Scout Narayanan MD) H/O colonoscopy 2015 Dr. French H/O esophagogastroduodenoscopy 2016 Dr. French H/O right knee surgery History of hysterectomy total Hx of cholecystectomy Family History (Updated 10/04/21 @ 09:53 by Kiersten Preston LPN) Father, age 73 Mother, at age 73 Aneurysm Mother Heart disease Grandmother Anesthesia complication Sister Son Cancer Father stomach Denies family history of Bleeding disorder Social History Smoking and tobacco status: never smoked Quit status (tobacco): has quit using tobacco Year quit tobacco: 1999 - 1PPD x 48 Years Second hand smoke exposure: No Alcohol intake: never Household members: significant other Housing: House Marital status: / Current occupational status: retired History of recent travel: No Pertinent Exam Findings alert, oriented x 3, regular rate & rhythm and procedure specific exam findings (Abdominal exam nontender nondistended soft) Recommendations Surgery/Procedure today (EGD and colonoscopy with possible biopsy) Coding Level of Care Code Acute Machine Cloth Trimmer for Justyng Fwd
--- NOTE | 2022-01-10 08:05 | ANES.PREANE2 ---
Pre-Anesthetic Assessment Height/Weight: Height 1.68 m Weight 86.183 kg Temp Pulse Resp BP Pulse Ox 97 F L 66 20 H 132/83 95 01/10/22 07:22 01/10/22 07:22 01/10/22 07:22 01/10/22 07:22 01/10/22 07:22 Preop Diagnosis: Blood in stool Operation Date: 01/10/22 08:30 Proposed Procedures p EGD(Not Applicable) - Javid Weinberg MD s Colonoscopy(Not Applicable) - Javid Weinberg MD Familial anesthetic complications: none Was Beta Fabio taken within 24 hours: Yes Was Clonidine taken within 24 hours: N/A Last intake: Intake Last Liquid Date 01/09/22 Last Liquid Time 20:30 Last Solid Date 01/08/22 Last Solid Time 17:00 Social No alcohol and No tobacco (h/o smoking) Exam alert, oriented x 3, clear to auscultation bilaterally and regular rate & rhythm Airway Submandibular: within normal limits Cervical ROM: within normal limits Mallampati: Class II Dentition: false Pulmonary Chronic Obstructive Pulmonary Disease (Home O2 2L) CV/HEM Atrial Fibrillation, Anemia, Arrythmia, Congestive Heart Failure and Hypertension GI Gastroesophageal Reflux Disease Neuropsych Anxiety Anesthetic Plan ASA status: 3 Anesthesia: MAC Medications/Allergies Home Medications Medication Instructions Recorded Confirmed Last Taken Type fluticasone propionate 50 1 - 2 spray INTRANASAL DAILY PRN 12/01/19 01/09/22 01/09/22 History mcg/actuation nasal spray,suspension (Flonase Allergy Relief) Probiotic 1 cap PO DAILY 05/25/21 01/09/22 01/08/22 History albuterol sulfate 2.5 mg INHALATION Q4H PRN 05/25/21 01/09/22 01/09/22 History lactulose 20 gram/30 mL oral 20 g (30 mL) PO DAILY PRN #1200 ml 05/25/21 01/09/22 Unknown Rx solution loratadine 10 mg tablet (Allergy 10 mg PO DAILY 09/18/21 01/09/22 01/08/22 History Relief (loratadine)) pantoprazole 40 mg tablet,delayed 40 mg PO DAILY@0800 #90 tab 10/10/21 01/09/22 01/08/22 Rx release albuterol sulfate 90 mcg/actuation 2 puff INHALATION Q6H PRN #8.5 g 11/08/21 01/09/22 01/09/22 Rx aerosol inhaler budesonide-formoterol HFA 160 2 puff INHALATION BID 30 Days 11/19/21 01/09/22 01/09/22 Rx mcg-4.5 mcg/actuation aerosol #10.2 g inhaler (Symbicort) umeclidinium 62.5 mcg/actuation 1 inh INHALATION Q24H 30 Days #30 11/19/21 01/09/22 Unknown Rx blister powder for inhalation ea (Incruse Ellipta) dicyclomine 20 mg tablet 20 mg PO QID PRN 11/29/21 01/09/22 01/08/22 History atenolol 25 mg tablet 25 mg PO DAILY@1800 90 Days #90 tab 11/30/21 01/09/22 01/09/22 Rx budesonide 160 mcg-glycopyr 9 2 inh INHALATION BID #10.7 g 12/05/21 01/09/22 01/09/22 Rx mcg-formot 4.8 mcg/actuation HFA inhaler (Breztri Aerosphere) fosfomycin tromethamine 3 gram 1 packet PO Q3D #10 ea 01/08/22 01/09/22 01/08/22 Rx oral packet (Monurol) conjugated estrogens 0.625 mg/gram 0.625 mg TOPICAL DAILY PRN 01/09/22 01/09/22 01/08/22 History vaginal cream diclofenac sodium 1 % topical gel 2 g TOPICAL QID PRN 01/09/22 01/09/22 Unknown History (Voltaren Arthritis Pain) diclofenac sodium 50 mg 50 mg PO BID PRN 01/09/22 01/10/22 01/09/22 History tablet,delayed release Allergies Allergy/AdvReac Type Severity Reaction Status Date / Time cefuroxime Allergy Intermediate Shortness Verified 01/10/22 08:02 of breath, lightheadedness fluticasone furoate Allergy Intermediate Unknown Verified 01/10/22 08:02 [From Trelegy Ellipta] umeclidinium Allergy Intermediate Unknown Verified 01/10/22 08:02 [From Trelegy Ellipta] vilanterol Allergy Intermediate Unknown Verified 01/10/22 08:02 [From Trelegy Ellipta] methenamine Allergy Mild ALGY-Difficulty Verified 01/10/22 08:02 Breathing ciprofloxacin [From Cipro] Allergy ADR/ALGY-Fl Verified 01/10/22 08:02 ushing codeine Allergy ALGY-Rash Verified 01/10/22 08:02 nitrofurantoin Allergy ALGY-Difficulty Verified 01/10/22 08:02 [From Macrobid] Breathing Ltfxgtt-RNI-AgI Reductase Allergy ALGY-Joint Verified 01/10/22 08:02 Inhibitor Pain [Dlazpzk-Qen-Wrw Reductase Inhibitor] Sulfa (Sulfonamide Allergy ALGY-Difficulty Verified 01/10/22 08:02 Antibiotics) Breathing lisinopril AdvReac Mild cough Verified 01/10/22 08:02 losartan AdvReac Mild diarrhea Verified 01/10/22 08:02 amoxicillin [From Augmentin] AdvReac SHORT OF Verified 01/10/22 08:02 BREATH clavulanic acid AdvReac SHORT OF Verified 01/10/22 08:02 [From Augmentin] BREATH Current Medications Generic Name Dose Route Start Last Admin Trade Name Freq PRN Reason Stop Dose Admin Sodium Chloride 1,000 mls @ 30 mls/hr 01/10/22 07:15 01/10/22 07:39 Sodium Chloride 0.9% IV 01/11/22 07:14 30 mls/hr .Q24H NATHALIA Administration PFSH Anesthesia Medical History Acute cystitis Afib Anxiety and depression ASVD (arteriosclerotic vascular disease) Cellulitis of fifth toe of right foot CHF (congestive heart failure) Chronic gastritis Chronic respiratory failure with hypoxia Constipation COPD (chronic obstructive pulmonary disease) Corns of multiple toes H/O deep venous thrombosis Hypertension Loose bowel movements Nocturnal hypoxia Nocturnal leg cramps Oral pharyngeal candidiasis Osteoarthritis of hip Oxygen dependent Perineal irritation Pulmonary nodule Salivary calculus has had surgery in the past Thyroid nodule Tinea of perianal region Surgical History H/O colonoscopy 2015 Dr. French H/O esophagogastroduodenoscopy 2016 Dr. French H/O right knee surgery History of hysterectomy total Hx of cholecystectomy Family History Sister Anesthesia complication Son Anesthesia complication Grandmother Heart disease Mother , at age 73 Aneurysm Father , age 73 Cancer stomach Denies family history of Bleeding disorder Social History Smoking and tobacco status: never smoked Quit status (tobacco): has quit using tobacco Year quit tobacco: 1999 - PD x 48 Years Second hand smoke exposure: No Alcohol intake: never Household members: significant other Housing: House Marital status: / Current occupational status: retired History of recent travel: No Data Anesthesia Cardiac Studies: Echocardiogram Ultrasound 12/29/19
[2022-01-10 09:00] VITALS: BP 121/66; PULSE 64; RESP 16; TEMP 36.1; O2SAT 93
--- NOTE | 2022-01-10 09:03 | ANE.PACU2 ---
Inpatient post-anesthesia follow up: Airway intact: Yes Vital signs: Temperature 97 F Pulse Rate 66 Respiratory Rate 20 Blood Pressure 132/83 Pulse Oximetry 95 Oxygen Delivery Me thod Nasal Cannula Oxygen Flow Rate 2 Fraction of Inspir ed Oxygen Hydration adequate: Yes Nausea and vomiting: No Pain level: 1 Mental status: Baseline
== END 2022-01-10 09:30 | disposition home or self-care (01) ==
PROVIDERS: PCP Family Medicine; Visit Provider Surgery
PROC: 0DJ08ZZ Inspection of Upper Intestinal Tract, Via Natural or Artificial Opening Endoscopic (ICD-10-PCS; CPT 43235; principal; 2022-01-10 08:30)
PROC: 0DJD8ZZ Inspection of Lower Intestinal Tract, Via Natural or Artificial Opening Endoscopic (ICD-10-PCS; CPT 45378; 2022-01-10 08:30)
DX: K92.1 Melena (principal); K29.70 Gastritis, unspecified, without bleeding; K57.30 Diverticulosis of large intestine without perforation or abscess without bleeding; Z86.010 Personal history of colon polyps; I48.91 Unspecified atrial fibrillation; F41.9 Anxiety disorder, unspecified; F32.9 Major depressive disorder, single episode, unspecified; I11.0 Hypertensive heart disease with heart failure; I50.9 Heart failure, unspecified; J44.9 Chronic obstructive pulmonary disease, unspecified; Z86.718 Personal history of other venous thrombosis and embolism
CPT/HCPCS: 43239; 45378; 88305; J2704; J7030

== ENCOUNTER → 2022-01-17 16:21 | Outpatient (BNVA) | payer MEDICARE, SELFPAY | PROVIDERS: PCP Family Medicine; Visit Provider Surgery | DX: Z09 Encounter for follow-up examination after completed treatment for conditions other than malignant neoplasm (principal); K57.31 Diverticulosis of large intestine without perforation or abscess with bleeding; K29.50 Unspecified chronic gastritis without bleeding | CPT/HCPCS: 99212 ==

== ENCOUNTER → 2022-01-23 00:01 | Outpatient (BNVA) | payer MEDICARE, SELFPAY | PROVIDERS: PCP Family Medicine; Visit Provider Family Medicine | DX: L65.9 Nonscarring hair loss, unspecified (principal); A04.8 Other specified bacterial intestinal infections | CPT/HCPCS: 82607; 84443 ==

== ENCOUNTER → 2022-02-05 08:32 | Outpatient (BNVA) | payer MEDICARE, SELFPAY | PROVIDERS: PCP Family Medicine; Visit Provider Surgery | DX: A04.8 Other specified bacterial intestinal infections (principal); R19.7 Diarrhea, unspecified; K92.1 Melena | CPT/HCPCS: 87338; 99213 ==

== ENCOUNTER 2022-03-01 11:46 | Outpatient (CLI) | payer MEDICARE, SELFPAY ==
--- NOTE | 2022-03-01 11:59 | MM_ITS ---
WS: [id number] SCREENING DIGITAL BREAST TOMOSYNTHESIS MAMMOGRAM WITH CAD HISTORY: SCREENING COMPARISON: 10/12/2015, 02/23/2021 and 01/20/2020 Bilateral CC and MLO with tomosynthesis and synthetic mammography submitted. Computer aided detection analyzed. Breast composition: The breasts are heterogeneously dense, which may obscure small masses. Asymmetry in the upper outer quadrant of the RIGHT breast. May be superimposed fibroglandular densiti es but not seen on prior studies. There is also a new circumscribed nodule measuring 6 mm in the ante rior LEFT breast just posterior to the nipple. Mass in the central lateral RIGHT breast has decreased in size. Benign calcifications in each breast. MM/[place] [id number] IMPRESSION: BI-RADS: 0-Incomplete: Need additional imaging evaluation FOLLOW UP: Need Additional Imaging RIGHT breast: Spot compression views (CC and MLO). True ML. Ultrasound to follo w if abnormality persists. LEFT breast ultrasound, subareolar.
== END 2022-03-01 11:47 | disposition home or self-care (01) ==
LOC: RAD 11:48
PROVIDERS: PCP Family Medicine; Visit Provider Family Medicine
DX: Z12.31 Encounter for screening mammogram for malignant neoplasm of breast (principal)
CPT/HCPCS: 77063; 77067

== ENCOUNTER → 2022-03-15 10:50 | Outpatient (BNVA) | payer MEDICARE, SELFPAY | PROVIDERS: PCP Family Medicine; Visit Provider Urology | DX: R33.9 Retention of urine, unspecified (principal); N30.80 Other cystitis without hematuria | CPT/HCPCS: 81003; 99213 ==

== ENCOUNTER 2022-04-17 10:26 | Outpatient (CLI) | payer MEDICARE, SELFPAY ==
--- NOTE | 2022-04-17 10:46 | MM_ITS ---
WS: [id number] ADDITIONAL VIEWS RIGHT MAMMOGRAM WITH DIGITAL BREAST TOMOSYNTHESIS. Bilateral BREAST ULTRASOUND HISTORY: R92.8 - Other abnormal and inconclusive findings screening mammogram. COMPARISON: 03/01/2022, 02/23/2021 and 01/20/2020 RIGHT MAMMOGRAM: Spot compression views and true ML with digital breast tomosynthesis and SM. Asymmetry persists in the upper outer quadrant but nearly completely resolves. Ultrasound will be per formed. RIGHT BREAST ULTRASOUND 2-D and color Doppler imaging submitted. No soft tissue abnormality or mass is identified within the upper-outer quadrant of the RIGHT breast. There is a small cluster of cysts at 9:00, 2 cm from the nipple measuring 7 x 4 x 8 mm. LEFT breast ultrasound There is a small cyst posterior to the LEFT nipple measuring 4 x 5 x 5 mm. This corresponds to the ma mmographic abnormality. MM/[place] [id number] IMPRESSION: BI-RADS: 2-Benign FOLLOW UP: 1 Year Follow-up Patient to return to annual screening mammography.
== END 2022-04-17 10:27 | disposition home or self-care (01) ==
PROVIDERS: PCP Family Medicine; Visit Provider Family Medicine
DX: N60.02 Solitary cyst of left breast (principal)
CPT/HCPCS: 76642; 77061

== ENCOUNTER → 2022-04-22 14:11 | Outpatient (BNVA) | payer MEDICARE, SELFPAY | PROVIDERS: PCP Family Medicine; Visit Provider Family Medicine | DX: R53.1 Weakness (principal); N39.0 Urinary tract infection, site not specified | CPT/HCPCS: 81003 ==

== ENCOUNTER → 2022-04-24 15:55 | Outpatient (BNVA) | payer MEDICARE, SELFPAY | PROVIDERS: PCP Family Medicine; Visit Provider Urology | DX: N30.80 Other cystitis without hematuria (principal) | CPT/HCPCS: 87077; 87086; 87184 ==

== ENCOUNTER → 2022-05-17 09:07 | Outpatient (BNVA) | payer MEDICARE, SELFPAY | PROVIDERS: PCP Family Medicine; Visit Provider Internal Medicine Pulmonary Disease | DX: R07.9 Chest pain, unspecified (principal); I48.0 Paroxysmal atrial fibrillation; J44.9 Chronic obstructive pulmonary disease, unspecified; Z87.891 Personal history of nicotine dependence; I10 Essential (primary) hypertension; J96.11 Chronic respiratory failure with hypoxia; Z99.81 Dependence on supplemental oxygen | CPT/HCPCS: 99214 ==

== ENCOUNTER → 2022-05-21 15:31 | Outpatient (BNVA) | payer MEDICARE, SELFPAY | PROVIDERS: PCP Family Medicine; Visit Provider Nurse Practitioner Family | DX: N39.0 Urinary tract infection, site not specified (principal); R53.1 Weakness; R55 Syncope and collapse; H60.91 Unspecified otitis externa, right ear; J44.1 Chronic obstructive pulmonary disease with (acute) exacerbation; I10 Essential (primary) hypertension | CPT/HCPCS: 80053 ==

== ENCOUNTER → 2022-06-11 09:50 | Outpatient (BNVA) | payer MEDICARE, SELFPAY | PROVIDERS: PCP Family Medicine; Visit Provider Urology | DX: N30.80 Other cystitis without hematuria (principal) | CPT/HCPCS: 81003; 99213 ==

== ENCOUNTER → 2022-07-25 10:46 | Outpatient (BNVA) | payer MEDICARE, SELFPAY | PROVIDERS: PCP Family Medicine; Visit Provider Nurse Practitioner Family | DX: R10.13 Epigastric pain (principal) | CPT/HCPCS: 74018 ==

== ENCOUNTER 2022-08-20 09:00 | Outpatient (CLI) | payer MEDICARE, SELFPAY ==
--- NOTE | 2022-08-20 09:30 | CT_ITS ---
WS: [id number] CT SINUSES TECHNIQUE: Noncontrast CT of the paranasal sinuses with coronal and sagittal reformatted images. CLINICAL INFORMATION: chronic sinus infection COMPARISON: None. DLP: 378.[address] scans at [facility] use at least one of these dose optimization techniques: automated e xposure control; mA and/or kV adjustment per patient size (includes targeted exams where dose is matc hed to clinical indication); or iterative reconstruction. FINDINGS: Mild RIGHT to LEFT nasal septal deviation measuring 5 mm. Paranasal sinuses are well aerated. Normal posterior nasopharynx. Normal parapharyngeal fat. Mastoid air cells are well aerated. Cavernous carot id calcification. Mild narrowing of the ostiomeatal units bilaterally which remain patent. Frontal si nuses are well aerated. Frontal ethmoidal recesses are patent. Mild mucosal thickening ethmoid air ce lls. Cavernous carotid calcification. CT/CT sinus wo con* [id number] IMPRESSION: 1. Mild nasal septal deviation RIGHT to LEFT measuring 5 mm. 2. Paranasal sinuses are well aerated. 3. Mastoid air cells well aerated. Normal posterior nasopharynx. 4. Normal visualized soft tissues.
== END 2022-08-20 09:01 | disposition home or self-care (01) ==
LOC: RAD 09:02
PROVIDERS: PCP Family Medicine; Visit Provider Nurse Practitioner Family
DX: J32.9 Chronic sinusitis, unspecified (principal); J34.2 Deviated nasal septum
CPT/HCPCS: 70486

== ENCOUNTER 2022-10-26 16:20 | Emergency (ER) | payer MEDICARE, SELFPAY ==
[2022-10-26] VITALS (8 sets, daily range): BP systolic 137–175; BP diastolic 76–100; PULSE 65–82; RESP 18–21; TEMP 36.4; O2SAT 95–97
--- NOTE | 2022-10-26 16:26 | ECG_ITS ---
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 Measurements Intervals [place] Rate: 71 P: 80 NM: 195 QRS: 43 QRSD: 90 T: 89 QT: 391 QTc: 425 Interpretive Statements SINUS RHYTHM MINIMAL ST DEPRESSION [0.025+ mV ST DEPRESSION] Compared to ECG 05/25/2021 10:33:53 ST (T wave) deviation now present Electronically Signed On 10-27-2022 9:42:09 CDT by [place] M.D. [id number] f
--- NOTE | 2022-10-26 17:00 | ED_ITS ---
HPI - Chest Pain General: Chief Complaint: Chest Pain Stated Complaint: CP Time Seen by Provider: 10/26/22 17:00 History of Present Illness: Ms Fuller is a 77-year-old lady presented to the emergency department for abdominal symptoms. She reports onset approximately 1 week ago of constipation without known specific provoking event. She reports trying home treatment and on managed to have mostly liquid bowel movements however once again today and yesterday only and very very minimal stool output. She endorses generalized abdominal cramping, denies urinary symptoms, nausea, vomiting. She does have a history of cholecystectomy. No other specific changes in health, e xacerbating, or alleviating factors identified. Onset (ago): day(s) Onset: during rest Quality: fullness and other Review of Systems General: Reports: 10 or more systems reviewed and unremarkable except in HPI and below PFSH ED PFSH: Medical History Acute cystitis Afib Anxiety and depression ASVD (arteriosclerotic vascular disease) Cellulitis of fifth toe of right foot CHF (congestive heart failure) Chronic gastritis Chronic respiratory failure with hypoxia Constipation COPD (chronic obstructive pulmonary disease) Corns of multiple toes H/O deep venous thrombosis Hypertension Loose bowel movements Nocturnal hypoxia Nocturnal leg cramps Oral pharyngeal candidiasis Osteoarthritis of hip Oxygen dependent Perineal irritation Pulmonary nodule Salivary calculus has had surgery in the past Thyroid nodule Tinea of perianal region Surgical History H/O colonoscopy 2015 Dr. French H/O esophagogastroduodenoscopy 2016 Dr. French H/O right knee surgery History of hysterectomy total Hx of cholecystectomy Family History Sister Anesthesia complication Son Anesthesia complication Grandmother Heart disease Mother , at age 73 Aneurysm Father , age 73 Cancer stomach Denies family history of Bleeding disorder Social History Smoking and tobacco status: former smoker Quit status (tobacco): has quit using tobacco Year quit tobacco: 2009 - 1PPD x 48 Years Second hand smoke exposure: No Alcohol intake: never Substance/Drug Use: never Caregiver/support person: Yes Lives independently: Yes Household members: significant other Housing: House Marital status: / service: No Current occupational status: retired Do you think of yourself as: Straight/Heterosexual Current gender identity: Female Special shawna needs: No Agree to transfusion: Yes Physical Exam Const: COMMON NORMALS: alert GENERAL APPEARANCE: cooperative and well developed HENMT: COMMON NORMALS: normocephalic and atraumatic HEAD & SCALP: normocephalic and atraumatic Eye: COMMON NORMALS: conjunctivae normal CONJUNCTIVA: Yes conjunctivae normal SCLERA: sclerae normal Neck/C-Spine: COMMON NORMALS: supple GENERAL: Yes trachea midline Resp: COMMON NORMALS: clear to auscultation bilaterally EFFORT & INSPECTI ON: Yes able to speak in complete sentences AUSCULTATION: clear to auscultation bilaterally Cardio: COMMON NORMALS: regular rate and regular rhythm RATE: regular rate RHYTHM: regular rhythm GI: COMMON NORMALS: Soft to palpation PALPATION: Yes Soft to palpation, Yes Tenderness to palpation present (GI), No Guarding due to palpation present (GI) and No Rigid due to palpation Extremity: GENERAL: Yes normal exam except as noted and No edema Neuro: COMMON NORMALS: moves all extremities SENSORIUM/ORIENTATION: Yes alert and No Orientation impaired Psych: COMMON NORMALS: mental status grossly normal and Normal thought process present THOUGHT PROCESS: Normal thought process present Course Vital Signs: Vital signs: Vital Signs Temperature 97.6 F 10/26/22 16:24 Pulse Rate 69 10/26/22 20:01 Respiratory Rate 21 H 10/26/22 20:01 Blood Pressure 137/76 10/26/22 20:01 Pulse Oximetry 95 10/26/22 19:24 Oxygen Delivery Me thod Nasal Cannula 10/26/22 19:24 Oxygen Flow Rate 2 10/26/22 18:00 MDM - Chest Pain Medical Decision Making 77-year-old lady presenting due to abdominal symptoms. Patient is nontoxic in appearance and there is no evidence of acute surgical abdomen. Exam as above. EKG demonstrates sinus rhythm with first-degree AV block, normal axis and intervals with the exception of CO interval, no STEMI. Labs notable for mild hemoconcentration, no leukocytosis. Metabolic panel with dehydration reflected in hyponatremia and hypochloremia. Negative range delta troponin.. Urinalysis without evidence of urinary tract infection. Chest x-ray with no lobar consolidation or pneumothorax. CT abdomen pelvis with no acute finding. Incidental findings including renal lesion and aortic findings discussed with patient. Chief complaint erroneously entered as chest pain. Patient denies chest pain however may have reported to nurse, given discrepancy cardiac evaluation was included the low clinical suspicion upon further discussion with patient. Patient improved with RT treatment and IV fluids. Most likely etiology of symptoms is unclear, unspecified abdominal pain and dehydration. The results of ED evaluation were discussed with the patient including prescriptions and/or symptomatic cares (if applicable) including appropriate and responsible use, followup plan, and return precautions. The patient verbalized understanding and felt safe for discharge. Medical Records I reviewed the patient's medical records. Lab Data I reviewed the patient's lab results. 10/26/22 16:43 10/26/22 16:43 Radiology Impressions Abdomen/Pelvis CT 10/26/22 17:33 IMPRESSION: 1. No acute findings. 2. Diverticulosis of the colon without diverticulitis. 3. Slightly larger 1.9 cm indeterminate right renal lesion. Recommend non-emergent MRI without and with contrast or non-emergent CT without and with contrast. MRI is preferred for masses under 1.5 cm. 4. 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 COMMENTS: Consistent with the [employer]'s Incidental Findings Committee white paper (J Am Jason Radiol 2018): Any incidental renal lesion less than 1 cm or classified as too small to characterize, or any incidental cystic renal lesion characterized as simple-appearing, is likely benign. No follow-up imaging is recommended for these lesions per consensus recommendations based on imaging criteria. Chest X-Ray 10/26/22 18:30 IMPRESSION: No acute findings. Laboratory Results WBC 8.0 10^3/uL (4.0-10.0) 10/26/22 16:43 RBC 5.19 10^6/uL (4.1-5.3) 10/26/22 16:43 Hgb 15.4 g/dL (11.5-15.3) H 10/26/22 16:43 Hct 47.6 % (37.0-47.0) H 10/26/22 16:43 MCV 91.7 fl (81-99) 10/26/22 16:43 MCH 29.7 pg (28.0-34.0) 10/26/22 16:43 MCHC 32.4 g/dL (30.0-36.0) 10/26/22 16:43 RDW 13.0 % (12.1-15.1) 10/26/22 16:43 Plt Count 196 10^3/cmm (130-400) 10/26/22 16:43 MPV 9.9 fL (7.4-10.4) 10/26/22 16:43 Neut % (Auto) 62.6 % 10/26/22 16:43 Lymph % (Auto) 27.0 % 10/26/22 16:43 [place] % (Auto) 7.0 % 10/26/22 16:43 Eos % (Auto) 2.6 % 10/26/22 16:43 Baso % (Auto) 0.5 % 10/26/22 16:43 Neut # (Auto) 5.01 10^3/uL (1.8-7.7) 10/26/22 16:43 Lymph # (Auto) 2.2 10^3/uL (0.8-4.8) 10/26/22 16:43 [place] # (Auto) 0.6 10^3/uL (0.2-0.9) 10/26/22 16:43 Eos # (Auto) 0.2 10^3/uL (0.0-0.8) 10/26/22 16:43 Baso # (Auto) 0.0 10^3/uL (0.0-0.1) 10/26/22 16:43 Nucleated RBC % (auto) 0 % 10/26/22 16:43 Nucleated RBCs # 0.0 /100WBC 10/26/22 16:43 Sodium 130 mmol/L (136-145) L 10/26/22 16:43 Potassium 3.8 mmol/L (3.5-5.1) 10/26/22 16:43 Chloride 97 mmol/L (98-107) L 10/26/22 16:43 Carbon Dioxide 26 mmol/L (22-29) 10/26/22 16:43 Anion Gap 10.8 (5-19) 10/26/22 16:43 BUN 12 mg/dL (8-23) 10/26/22 16:43 Creatinine 0.6 mg/dL (0.5-0.9) 10/26/22 16:43 GFR Calculation Not Reportable 10/26/22 16:43 Glucose 98 mg/dL (65-115) 10/26/22 16:43 Calculated Osmolality 270 mOsm/kg (285-295) L 10/26/22 16:43 Lactate 0.9 mmol/L (0.5-2.2) 10/26/22 16:43 Calcium 9.3 mg/dL (8.5-10.5) 10/26/22 16:43 Total Bilirubin 0.3 mg/dL (0.15-1.2) 10/26/22 16:43 AST 18 U/L (0-32) 10/26/22 16:43 ALT 21 U/L (0-33) 10/26/22 16:43 Alkaline Phosphatase 72 U/L (35-105) 10/26/22 16:43 Troponin T Baseline 12 ng/L (0-10) H 10/26/22 16:43 Troponin T 120 Minute 10.14 ng/L (0-10) H 10/26/22 19:10 Delta Troponin T -1.86 ABS# (0-10) L 10/26/22 19:10 NT-Pro-B Natriuret Pep 235 pg/mL (0-450) 10/26/22 16:43 Total Protein 7.2 g/dL (6.6-8.7) 10/26/22 16:43 Albumin 4.2 g/dL (3.5-5.2) 10/26/22 16:43 Globulin 3.0 g/dL (1.3-4.6) 10/26/22 16:43 Lipase 35 U/L (13-60) 10/26/22 16:43 Urine Color Yellow (Yellow) 10/26/22 17:24 Urine Appearance Clear (CLEAR) 10/26/22 17:24 Urine pH 6.5 (5-7) 10/26/22 17:24 Ur Specific [place] 1.005 (1.005-1.030) 10/26/22 17:24 Urine Protein Neg (Negative) 10/26/22 17:24 Urine Glucose (UA) Norm (Normal) 10/26/22 17:24 Urine Ketones Negative (Negative) 10/26/22 17:24 Urine Blood Neg (Negative) 10/26/22 17:24 Urine Nitrate Negative (Negative) 10/26/22 17:24 Urine Bilirubin Neg (Negative) 10/26/22 17:24 Urine Urobilinogen Norm mg/dL (Negative) 10/26/22 17:24 Ur Leukocyte Esterase Negative (Negative) 10/26/22 17:24 Discharge Plan Discharge Patient Disposition: Home Clinical Impression: Abdominal pain, Dehydration Condition: Stable Prescriptions: No Action fluticasone propionate [Flonase Allergy Relief] 50 mcg/actuation spray,suspension 1 - 2 spray INTRANASAL DAILY PRN (Reason: Allergy Symptoms) Rx Instructions: administer into each nostril dicyclomine 20 mg tablet 20 mg PO QID budesonide 0.5 mg/2 mL suspension for nebulization 0.25 mg inhalation BID Qty: 60 6RF formoterol fumarate [Perforomist] 20 mcg/2 mL solution for nebulization 2 ml inhalation BID Qty: 120 6RF Yupelri 175 mcg/3 mL solution for nebulization 175 mcg inhalation DAILY Qty: 90 6RF prenat.vits,bob,mzc-dyrj-ntpsv Tablet 1 tab PO DAILY 90 Days Qty: 90 1RF Breztri Aerosphere 160-9-4.8 mcg/actuation HFA aerosol inhaler 2 inh inhalation BID Qty: 10.7 11RF diclofenac sodium 50 mg tablet,delayed release (DR/EC) 50 mg PO BID PRN (Reason: Pain) Qty: 60 3RF Hold Instructions: Resume on 01/16/22. Rx Instructions: TAKE 1 TABLET BY MOUTH TWO TIMES DAILY albuterol sulfate 2.5 mg /3 mL (0.083 %) solution for nebulization 2.5 mg INHALATION Q4H PRN (Reason: Shortness Of Breath) Qty: 90 0RF pantoprazole 40 mg tablet,delayed release (DR/EC) See Rx Instructions .ROUTE .COMPLEX Qty: 90 1RF Dose Instruction: TAKE ONE TABLET BY MOUTH daily AT 8:00am Rx Instructions: TAKE ONE TABLET BY MOUTH daily AT 8:00am atenolol 25 mg tablet See Rx Instructions .ROUTE .COMPLEX Qty: 90 1RF Dose Instruction: TAKE ONE TABLET BY MOUTH EVERY DAY AT 6pm Rx Instructions: TAKE ONE TABLET BY MOUTH EVERY DAY AT 6pm albuterol sulfate 90 mcg/actuation HFA aerosol inhaler 2 puff inhalation Q6H PRN (Reason: Shortness Of Breath) Qty: 8.5 5RF fosfomycin tromethamine 3 gram packet 1 packet PO Q3D Qty: 4 3RF cholecalciferol (vitamin D3) 50 mcg (2,000 unit) capsule 50 mcg PO DAILY 90 Days Qty: 90 1RF Probiotic 3 billion cell Capsule 3,000 mmu cells PO DAILY Qty: 0 Rx Instructions: administer with a meal clonazepam 0.5 mg tablet 0.5 mg PO BID PRN (Reason: Anxiety) conjugated estrogens 0.625 mg/gram cream 0.625 mg topical .TIW PRN (Reason: dryness) Rx Instructions: Massage a peas sized amount into the tissues 3 times week diclofenac sodium [Voltaren Arthritis Pain] 1 % gel 2 g topical QID PRN (Reason: Pain) Rx Instructions: apply to single elbow, wrist or hand; for hand includes palm/fingers/back of hand Discharge Orders: Discharge ED (Routine); Ordered 10/26/22 Ordered By: Dinesh Donahue Referrals: Dolly Peralta MD [Primary Care Provider] - Discharge Diet: Advance as tolerated and Clear Liquid Discharge Activity: Increase activity as tolerated Patient Instructions: Dehydration (ED), Abdominal Pain (ED) Activity Restrictions/Additional Instructions: Thank you for visiting the emergency department. You were seen and evaluated for abdominal pain with change in bowel habits. The exact cause of your symp toms is unclear however does not appear to need hospitalization at this time. You do have mild dehydration, please ensure that you are staying hydrated. Please follow-up with your primary care provider. Return to the emergency department for worsening or uncontrolled symptoms or anything else that you are concerned about and feel needs emergency department evaluation. Incidental findings on CT include: Slightly larger 1.9 cm indeterminate right renal lesion. Recommend non-emergent MRI without and with contrast or non-emergent CT without and with contrast. MRI is preferred for masses under 1.5 cm. 3.8 cm aneurysmal dilatation of the distal descending thoracic aorta. No dissect ion. 3.4 cm aneurysm of the proximal abdominal aorta. Further follow-up can be arranged by your primary care provider. Coding Level of Care Code ED Plate And Frame Filter Operator for Wale Serrano
[2022-10-26 17:14] LABS: Basophils % 0.5 %; Eosinophils # 0.2 10^3/uL (0.0-0.8); Eosinophils % 2.6 %; Hematocrit 47.6 % (37.0-47.0); Hemoglobin 15.4 g/dL (11.5-15.3); Lymphocytes # 2.2 10^3/uL (0.8-4.8); Mean Corpuscular HGB Conc 32.4 g/dL (30.0-36.0); Mean Corpuscular Hemoglobin 29.7 pg (28.0-34.0); Mean Corpuscular Volume 91.7 fl (81-99); Mean Platelet Volume 9.9 fL (7.4-10.4); Monocytes # 0.6 10^3/uL (0.2-0.9); Neutrophils # 5.01 10^3/uL (1.8-7.7); Neutrophils % 62.6 %; Nucleated Red Blood Cells % 0 %; Platelet Count 196 10^3/cmm (130-400); Red Blood Count 5.19 10^6/uL (4.1-5.3)
[2022-10-26 17:27] LABS: Alanine Aminotransferase 21 U/L (0-33); Albumin Level 4.2 g/dL (3.5-5.2); Alkaline Phosphatase 72 U/L (35-105); Anion Gap 10.8 (5-19); Aspartate Amino Transferase 18 U/L (0-32); Blood Urea Nitrogen 12 mg/dL (8-23); Calcium 9.3 mg/dL (8.5-10.5); Carbon Dioxide 26 mmol/L (22-29); Chloride 97 mmol/L (98-107); Glucose 98 mg/dL (65-115); Lipase 35 U/L (13-60); Osmolality Calculated 270 mOsm/kg (285-295); Potassium 3.8 mmol/L (3.5-5.1); Sodium 130 mmol/L (136-145); Total Bilirubin 0.3 mg/dL (0.15-1.2); Total Protein 7.2 g/dL (6.6-8.7)
[2022-10-26 17:27] LABS: Add Urine Microscopic? NO; Charge for UA Resulting for Rev
[2022-10-26 17:28] LABS: Lactate (Lactic Acid level) 0.9 mmol/L (0.5-2.2)
[2022-10-26 17:30] LABS: Bilirubin Urine Neg (Negative); Blood Urine Neg (Negative); Glucose Urine UA Norm (Normal); Ketones Urine Negative (Negative); Leukocyte Esterase Urine Negative (Negative); Nitrate Urine Negative (Negative); Protein Urine Neg (Negative); Specific Gravity, Urine 1.005 (1.005-1.030); Urine Appearance Clear (CLEAR); Urine Color Yellow (Yellow); Urobilinogen Urine Norm (Negative); pH Urine 6.5 (5-7)
--- NOTE | 2022-10-26 17:33 | CTR_ITS ---
PROCEDURE INFORMATION: Exam: CT Abdomen And Pelvis With Contrast Exam date and time: 10/26/2022 5:43 PM Age: 77 years old Clinical indication: Abdominal pain; Prior surgery; Surgery type: Hernia; Hyst; [place]; Additional info: Abd cramping, constipation/diarrhea, ? obstruction TECHNIQUE: Imaging protocol: Computed tomography of the abdomen and pelvis with contrast. Radiation optimization: All CT scans at this facility use at least one of these dose optimization techniques: automated exposure control; mA and/or kV adjustment per patient size (includes targeted exams where dose is matched to clinical indication); or iterative reconstruction. Contrast material: OMNI 350; Contrast volume: 100 ml; Contrast route: INTRAVENOUS (IV); REPORTING DATA: Count of CT and Cardiac NM exams in prior 12 months: This patient has received 2 known CTs and 0 known cardiac nuclear medicine studies in the 12 months prior to the current study. COMPARISON: CT abdomen pelvis w con* [id number] 12/01/2021 11:41 AM RADIATION DOSE METRICS: Total DLP (mGy-cm): 807.93 FINDINGS: Liver: Round hypodensity in the right liver lobe is too small to characterize but is most likely a cyst. Gallbladder and bile ducts: Cholecystectomy. The bile ducts are normal. Pancreas: Normal. No ductal dilation. Spleen: Normal. No splenomegaly. Adrenal glands: Normal. No mass. Kidneys and ureters: Slightly larger 1.9 cm cortical lesion in the inferior right kidney, Hounsfield units 26. Hypodensity in the left kidney is too small to characterize but is most likely a cyst. Stomach and bowel: Large duodenal diverticulum. Diverticulosis of the colon. No diverticulitis. The stomach and small bowel are otherwise unremarkable. No obstruction. Appendix: The appendix is not visualized. No secondary signs of appendicitis. Intraperitoneal space: Unremarkable. No free air. No significant fluid collection. Vasculature: 3.8 cm aneurysmal dilatation of the distal descending thoracic aorta. No dissection. 3.4 cm aneurysm of the proximal abdominal aorta. Arterial calcifications. Lymph nodes: Unremarkable. No enlarged lymph nodes. Urinary bladder: Unremarkable as visualized. Reproductive: The uterus is absent. Normal small ovaries. Bones/joints: Degenerative changes of the spine and left hip. No fracture. Soft tissues: Unremarkable. CT/CT abdomen pelvis w con* [id number] IMPRESSION: 1. No acute findings. 2. Diverticulosis of the colon without diverticulitis. 3. Slightly larger 1.9 cm indeterminate right renal lesion. Recommend non-emergent MRI without and with contrast or non-emergent CT without and with contrast. MRI is preferred for masses under 1.5 cm. 4. 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 COMMENTS: Consistent with the [employer]'s Incidental Findings Committee white paper (J Am Jason Radiol 2018): Any incidental renal lesion less than 1 cm or classified as too small to characterize, or any incidental cystic renal lesion characterized as simple-appearing, is likely benign. No follow-up imaging is recommended for these lesions per consensus recommendations based on imaging criteria.
[2022-10-26] MEDS: iohexol 350 mg/mL 500 mL Btl (per mL) IV (17:53)
[2022-10-26] MEDS: sodium chloride 0.9% 500 ML IV (18:03)
--- NOTE | 2022-10-26 18:30 | XRR_ITS ---
PROCEDURE INFORMATION: Exam: XR Chest Exam date and time: 10/26/2022 6:34 PM Age: 77 years old Clinical indication: Shortness of breath; Patient HX: Copd; Additional info: SOB TECHNIQUE: Imaging protocol: Radiologic exam of the chest. Views: 1 view. COMPARISON: CR XR chest 1V portable [id number] 05/25/2021 9:55 AM FINDINGS: Lungs: Emphysema. Chronic interstitial prominence in the lung bases. No consolidation. Pleural spaces: Unremarkable. No pleural effusion. No pneumothorax. Heart/Mediastinum: Mild cardiomegaly. Bones/joints: Unremarkable. XR/XR chest 1V portable [id number] IMPRESSION: No acute findings.
[2022-10-26] MEDS: albuterol 2.5 mg/3 mL Neb INHALATION (18:43)
[2022-10-26 19:07] LABS: Troponin(5th) Baseline 12 ng/L (0-10)
[2022-10-26 19:15] LABS: NT Pro B Type Natriuretic Pept 235 pg/mL (0-450)
--- NOTE | 2022-10-26 19:24 | PC.NURSE ---
Rounded on pt, pt sitting in bed with at bedside. Pt does not appear to be in distress and denies pain at this time. Pt denies any needs at this time.
--- NOTE | 2022-10-26 19:33 | ECG_ITS ---
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 Measurements Intervals [place] Rate: 70 P: 87 [place]: 210 QRS: 17 QRSD: 86 T: 90 QT: 398 QTc: 431 Interpretive Statements SINUS RHYTHM WITH FIRST DEGREE AV BLOCK Compared to ECG 10/26/2022 16:34:01 First degree AV block now present ST (T wave) deviation no longer present Electronically Signed On 10-27-2022 9:42:45 CDT by [place] M.D. [id number]
[2022-10-26 19:42] LABS: Troponin 5 2HR 10.14 ng/L (0-10)
[2022-10-26 19:56] LABS: Troponin 5 2HR Delta -1.86 ABS# (0-10)
== END 2022-10-26 20:04 | disposition home or self-care (01) ==
PROVIDERS: Emergency Provider Emergency Medicine; PCP Family Medicine
DX: R10.9 Unspecified abdominal pain (principal); E86.0 Dehydration; Z87.891 Personal history of nicotine dependence; K57.90 Diverticulosis of intestine, part unspecified, without perforation or abscess without bleeding; I11.0 Hypertensive heart disease with heart failure; I50.9 Heart failure, unspecified; J44.9 Chronic obstructive pulmonary disease, unspecified; Z99.81 Dependence on supplemental oxygen
CPT/HCPCS: 36415; 71045; 74177; 80053; 81003; 83605; 83690; 83880; 84484; 85025; 93005; 94640; 99285; J7040; J7613; Q9967

== ENCOUNTER → 2022-10-28 14:52 | Outpatient (BNVA) | payer MEDICARE, SELFPAY | PROVIDERS: PCP Family Medicine; Visit Provider Nurse Practitioner Family | DX: L40.9 Psoriasis, unspecified (principal); R53.1 Weakness; R53.83 Other fatigue | CPT/HCPCS: 80053; 82306; 82607; 82746 ==

== ENCOUNTER → 2022-11-13 10:32 | Outpatient (BNVA) | payer MEDICARE, SELFPAY | PROVIDERS: PCP Family Medicine; Visit Provider Internal Medicine Pulmonary Disease | DX: J44.9 Chronic obstructive pulmonary disease, unspecified (principal); Z87.891 Personal history of nicotine dependence; J96.11 Chronic respiratory failure with hypoxia; Z99.81 Dependence on supplemental oxygen | CPT/HCPCS: 99214 ==

== ENCOUNTER 2022-11-18 13:01 | Emergency (ER) | payer MEDICARE, SELFPAY ==
--- NOTE | 2022-11-18 13:13 | ECG_ITS ---
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 Measurements Intervals [place] Rate: 72 P: -4 [place]: 142 QRS: 17 QRSD: 89 T: 150 QT: 382 QTc: 418 Interpretive Statements SINUS RHYTHM NONSPECIFIC ST & T-WAVE ABNORMALITY INTERPRETATION BASED ON A DEFAULT AGE OF 40 YEARS Compared to ECG 10/26/2022 19:33:35 T-wave abnormality now present First degree AV block no longer present Electronically Signed On 11-19-2022 0:09:46 CDT by Efrain Avelar M.D. [id number]
[2022-11-18 13:18] VITALS: BP 120/74; PULSE 72; TEMP 36.4; O2SAT 93; BMI 29.0
== END 2022-11-18 14:30 | disposition left against medical advice (07) ==
PROVIDERS: Emergency Provider Family Medicine; PCP Nurse Practitioner Family
DX: Z53.21 Procedure and treatment not carried out due to patient leaving prior to being seen by health care provider (principal)
CPT/HCPCS: 93005

== ENCOUNTER 2022-11-22 10:41 | Outpatient (CLI) | payer MEDICARE, SELFPAY ==
--- NOTE | 2022-11-22 11:15 | CT_ITS ---
WS: [id number] LDCT LUNG CANCER SCREENING HISTORY: lung screen TECHNIQUE: Axial imaging performed from the apices to 1 cm below the costophrenic angles. Coronal and sagittal reformats are submitted with axial MIP series. All CT scans at [facility] use at least one of these dose optimization techniques: automated exposure control; mA and/or kV adjustment per patient size (includes targeted exams where dose is matched to clinical indication); or iterativ e reconstruction. DLP: 87.02 mGy.cm DIvol: Mean CTDIvol: 1.90 (mGy) COMPARISON: 10/13/2018 Diagnostic quality: Satisfactory Lungs: Severe centrilobular emphysema. No pulmonary nodule or mass. No endobronchial lesions. Heart: Mild cardiomegaly. Scattered coronary artery calcifications. No effusion. Other findings: Mild atherosclerosis aorta with ectasia. Minimal prominence of the ascending aorta to 4.2 cm. Pulmonary artery is mildly prominent. No adenopathy. No adrenal mass. CT/CT lung screening [id number] IMPRESSION: LUNG-RADS: 1-Negative FOLLOW UP: 12 Month: Continue annual screening with LDCT OTHER FINDINGS (S MODIFIER): None.
== END 2022-11-22 10:42 | disposition home or self-care (01) ==
LOC: RAD 10:45
PROVIDERS: PCP Nurse Practitioner Family; Visit Provider Internal Medicine Pulmonary Disease
DX: Z12.2 Encounter for screening for malignant neoplasm of respiratory organs (principal); J43.2 Centrilobular emphysema; Z87.891 Personal history of nicotine dependence
CPT/HCPCS: 71271

== ENCOUNTER → 2022-12-12 09:23 | Outpatient (BNVA) | payer MEDICARE, SELFPAY | PROVIDERS: PCP Nurse Practitioner Family; Visit Provider Urology | DX: N39.0 Urinary tract infection, site not specified (principal) | CPT/HCPCS: 81003; 99213 ==

== ENCOUNTER → 2022-12-16 10:20 | Outpatient (BNVA) | payer MEDICARE, SELFPAY | PROVIDERS: PCP Nurse Practitioner Family; Visit Provider Family Medicine | DX: I10 Essential (primary) hypertension (principal); Z13.6 Encounter for screening for cardiovascular disorders; I48.0 Paroxysmal atrial fibrillation; Z00.00 Encounter for general adult medical examination without abnormal findings | CPT/HCPCS: 80053; 80061; 84443 ==

== ENCOUNTER 2023-03-31 10:27 | Outpatient (CLI) | payer MEDICARE, SELFPAY ==
--- NOTE | 2023-03-31 10:45 | MM_ITS ---
WS: [id number] BILATERAL SCREENING DIGITAL TOMOSYNTHESIS MAMMOGRAM WITH CAD HISTORY: SCREENING COMPARISON: 04/17/2022 and 03/01/2022 and 02/23/2021 Bilateral CC and MLO views with tomosynthesis and synthetic mammography submitted. Computer aided det ection analyzed. Breast composition: The breasts are heterogeneously dense, which may obscure small masses. No suspici ous masses, microcalcifications or architectural distortion. Benign, stable masses and calcifications within each breast. IMPRESSION: MM/[place] [id number] BI-RADS: 2-Benign FOLLOW UP: 1 Year Follow-up
== END 2023-03-31 10:28 | disposition home or self-care (01) ==
PROVIDERS: PCP Nurse Practitioner Family; Visit Provider Family Medicine
DX: Z12.31 Encounter for screening mammogram for malignant neoplasm of breast (principal)
CPT/HCPCS: 77063; 77067

== ENCOUNTER → 2023-04-09 09:45 | Outpatient (BNVA) | payer MEDICARE, SELFPAY | PROVIDERS: PCP Nurse Practitioner Family; Visit Provider Nurse Practitioner Family | DX: Z87.440 Personal history of urinary (tract) infections (principal); I10 Essential (primary) hypertension; K21.9 Gastro-esophageal reflux disease without esophagitis; R60.9 Edema, unspecified; R14.0 Abdominal distension (gaseous); N39.0 Urinary tract infection, site not specified | CPT/HCPCS: 80053; 80061 ==

== ENCOUNTER 2023-04-15 09:53 | Emergency (ER) | payer MEDICARE, SELFPAY ==
[2023-04-15 09:53] VITALS: BP 168/105; PULSE 64; RESP 23; TEMP 36.7; O2SAT 97; BMI 29.0
--- NOTE | 2023-04-15 09:54 | XRR_ITS ---
PROCEDURE INFORMATION: Exam: XR Chest Exam date and time: 04/15/2023 10:29 AM Age: 77 years old Clinical indication: Pain; Angina pectoris; Additional info: Cp TECHNIQUE: Imaging protocol: Radiologic exam of the chest. Views: 1 view. COMPARISON: 1. CT lung screening [id number] 11/22/2022 11:00 AM 2. CR XR chest 1V portable [id number] 10/26/2022 6:34 PM 3. CR XR chest 1V portable [id number] 05/25/2021 9:55 AM FINDINGS: Lungs: Emphysema. Mild linear atelectasis versus scarring in the lung bases. No consolidation. Pleural spaces: Unremarkable. No pleural effusion. No pneumothorax. Heart/Mediastinum: Stable cardiomegaly. Bones/joints: Degenerative changes along the spine and acromioclavicular joints. XR/XR chest 1V portable [id number] IMPRESSION: No acute findings.
--- NOTE | 2023-04-15 09:59 | ECG_ITS ---
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 Measurements Intervals [place] Rate: 63 P: 51 [place]: 189 QRS: 49 QRSD: 85 T: 90 QT: 417 QTc: 430 Interpretive Statements SINUS RHYTHM WITH OCCASIONAL VENTRICULAR PREMATURE COMPLEXES MODERATE T-WAVE ABNORMALITY, CONSIDER ANTERIOR ISCHEMIA [-0.1+ mV T-WAVE IN V3/V4] Compared to ECG 11/18/2022 13:13:16 Ventricular premature complex(es) now present Possible ischemia now present T-wave abnormality still present Electronically Signed On 04-15-2023 11:45:44 CDT by Willem Guadarrama M.D. [id number]
--- NOTE | 2023-04-15 10:05 | ED_ITS ---
HPI - SOB/Dyspnea General: Chief Complaint: Shortness of Breath/Dyspnea Stated Complaint: chest pain/back pain Time Seen by Provider: 04/15/23 09:56 Source: patient Mode of arrival: ambulatory History of Present Illness: HPI Narrative: 77-year-old female presents emergency room complaining of shortness of breath difficulty breathing. She has a history of COPD she is chronically on 2 L by nasal cannula she is increased that to 4 L on arrival here. She having some chest and back pain this began yesterday morning around 2:30 AM she did several nebulizers yesterday that seem to relieve it. The chest. Began this morning. She has no known history of coronary artery disease. She is states its mostly radiates into her back. Patient has significan use of accessory respiratory muscles audible wheezing. She denies a significant change in baseline cough however. No fever sweats or chills. MD elicited complaint: shortness of breath and cough Pertinent past history: COPD Onset (ago): day(s) (1) Timing: constant Severity: severe Exacerbating factors: exertion and coughing Relieving factors: oxygen, rest and bronchodilators Known history of: COPD Associated symptoms: Reports chest congestion, chest pain and cough; Deny abdominal pain, diaphoresis, dizziness, extremity pain, fever(s), hemoptysis, lightheadedness, myalgias, nausea, orthopnea, palpitations, paresthesias, polydipsia, polyuria, rash, sense of impending doom, syncope, vomi ting or other Treatment prior to arrival: oxygen and bronchodilator Review of Systems Const: Reports: fatigue and malaise; Denies: fever(s), chills or diaphoresis Card: Reports: chest pain; Denies: palpitations, irregular heart rhythm, edema, lightheadedness, syncope or orthopnea Resp: Reports: dyspnea, non-productive cough, wheezing and chest congestion; Denies: hemoptysis GI: Denies: abdominal pain, nausea or vomiting : Denies: flank pain, dysuria, urinary frequency or urinary urgency Musc: Reports: back pain; Denies: neck pain or extremity pain Skin/Breast: Denies: rash Neuro: Denies: dizziness Endo: Denies: polyuria or polydipsia PFS ED PFSH: Medical History Acute cystitis Afib Anxiety and depression ASVD (arteriosclerotic vascular disease) Cellulitis of fifth toe of right foot CHF (congestive heart failure) Chronic gastritis Chronic respiratory failure with hypoxia Constipation COPD (chronic obstructive pulmonary disease) Corns of multiple toes H/O deep venous thrombosis Hypertension Loose bowel movements Nocturnal hypoxia Nocturnal leg cramps Oral pharyngeal candidiasis Osteoarthritis of hip Oxygen dependent Perineal irritation Pulmonary nodule Salivary calculus has had surgery in the past Thyroid nodule Tinea of perianal region Surgical History H/O colonoscopy 2015 Dr. French H/O esophagogastroduodenoscopy 2015 Dr. French H/O right knee surgery History of hysterectomy total Hx of cholecystectomy Family History Sister Anesthesia complication Son Anesthesia complication Grandmother Heart disease Mother , at age 73 Aneurysm Father , age 73 Cancer stomach Denies family history of Bleeding disorder Social History Smoking and tobacco status: former smoker Quit status (tobacco): has quit using tobacco Year quit tobacco: 2009 - 1PPD x 48 Years Second hand smoke exposure: No Alcohol intake: never Substance/Drug Use: never Caregiver/support person: Yes Lives independently: Yes Household members: significant other Housing: House Marital status: / service: No Current occupational status: retired Do you think of yourself as: Straight/Heterosexual Current gender identity: Female Special shawna needs: No Agree to transfusion: Yes Physical Exam Const: GENERAL APPEARANCE: cooperative and comfortable ORIENTATION/CONSCIOUSNESS: Yes awake, Yes oriented to person, Yes oriented to place and Yes oriented to time HENMT: COMMON NORMALS: normocephalic, atraumatic and hearing grossly normal bilaterally HEAD & SCALP: normocephalic and atraumatic Resp: EFFORT & INSPECTION: Yes uses accessory muscles AUSCULTATION: rhonchi and wheezes Cardio: COMMON NORMALS: regular rate, regular rhythm and No murmurs present (Cardio) RATE: regular rate RHYTHM: regular rhythm GI: COMMON NORMALS: Soft to palpation and No hepatosplenomegaly present AUSCULTATION: Yes normoactive bowel sounds PALPATION: Yes Soft to palpation, No Tenderness to palpation present (GI), No Guarding due to palpation present (GI) and Yes No hepatosplenomegaly present Extremity: COMMON NORMALS: normal to inspection, capillary refill normal, no clubbing, cyanosis or edema, no calf tenderness and no pedal edema Neuro: SENSORIUM/ORIENTATION: Yes oriented to person, Yes oriented to place and Yes oriented to time Skin: COMMON NORMALS: no rashes or lesions noted GENERAL SKIN EXAM: no rashes or lesions noted Course Vital Signs: Vital signs: Vital Signs Temperature 98.1 F 04/15/23 09:53 Pulse Rate 61 04/15/23 11:04 Respiratory Rate 15 04/15/23 11:04 Blood Pressure 129/76 04/15/23 11:04 Pulse Oximetry 97 04/15/23 11:04 Oxygen Delivery Me thod Room Air 04/15/23 11:04 Oxygen Flow Rate 2 04/15/23 10:17 MDM - SOB/Dyspnea Medical Decision Making Patient significantly improved after dexamethasone and nebulizer. She is back to her baseline O2 liters per minute. We will discharge her home with DuoNebs to use as needed start oral steroids tomorrow we will switch her from clindamycin to doxycycline. She was prescribed Diflucan yesterday continue to take as prescribed it was given to her once daily for 7 days. Differential Diagnosis Likely acute exacerbation of chronic obstructive airways disease, congestive heart failure and community acquired pneumonia Medical Records I reviewed the patient's medical records. Lab Data I reviewed the patient's lab results. 04/15/23 10:06 04/15/23 10:06 Labs/Radiology: Radiology Impressions Chest X-Ray 04/15/23 09:54 IMPRESSION: No acute findings. Laboratory Results WBC 7.10 10^3/uL (3.29-11.43) 04/15/23 10:06 RBC 5.25 10^6/uL (3.85-5.65) 04/15/23 10:06 Hgb 15.80 g/dL (11.27-16.99) 04/15/23 10:06 Hct 49.3 % (36-47) H 04/15/23 10:06 MCV 93.9 fl (85-98) 04/15/23 10:06 MCH 30.1 pg (27-33) 04/15/23 10:06 MCHC 32.0 g/dL (30-55) 04/15/23 10:06 RDW 13.2 % (12.1-15.1) 04/15/23 10:06 Plt Count 166 10^3/cmm (157-399) 04/15/23 10:06 MPV 9.2 fL (7.4-10.4) 04/15/23 10:06 Neut % (Auto) 67.2 % 04/15/23 10:06 Lymph % (Auto) 19.9 % 04/15/23 10:06 [place] % (Auto) 9.3 % 04/15/23 10:06 Eos % (Auto) 2.8 % 04/15/23 10:06 Baso % (Auto) 0.7 % 04/15/23 10:06 Neut # (Auto) 4.77 10^3/uL (1.8-7.7) 04/15/23 10:06 Lymph # (Auto) 1.4 10^3/uL (0.8-4.8) 04/15/23 10:06 [place] # (Auto) 0.7 10^3/uL (0.2-0.9) 04/15/23 10:06 Eos # (Auto) 0.2 10^3/uL (0.0-0.8) 04/15/23 10:06 Baso # (Auto) 0.1 10^3/uL (0.0-0.1) 04/15/23 10:06 Nucleated RBC % (auto) 0 % 04/15/23 10:06 Nucleated RBCs # 0.0 /100WBC 04/15/23 10:06 Specimen Type Arterial 04/15/23 10:19 Sample Site Brachial, left 04/15/23 10:19 ABG pH 7.39 (7.35-7.45) 04/15/23 10:19 ABG pCO2 47.3 mmHg (35-45) H 04/15/23 10:19 ABG pO2 74.0 mmHg (80.0-100.0) L 04/15/23 10:19 ABG HCO3 28.4 mmol/L (22-26) H 04/15/23 10:19 ABG O2 Saturation 95.7 04/15/23 10:19 ABG Base Excess 2.5 mmol/L (-2.0-2.0) H 04/15/23 10:19 Reuben Test Pos 04/15/23 10:19 A-a O2 Gradient 8.7 mmHg (5-10) 04/15/23 10:19 Hematocrit 46.6 % (37-47) 04/15/23 10:19 Hgb O2 Saturation 94.0 % (95-100) L 04/15/23 10:19 Carboxyhemoglobin 1.4 %THgb (0.4-20.1) 04/15/23 10:19 Methemoglobin 0.4 % (0.4-1.5) 04/15/23 10:19 Total Hemoglobin 15.2 g/dL (12-16) 04/15/23 10:19 Sodium 139.0 mmol/L (131-143) 04/15/23 10:19 Potassium 3.8 mmol/L (3.5-5.0) 04/15/23 10:19 Glucose 106.0 mg/dL (70-115) 04/15/23 10:19 Ionized Calcium 1.3 mmol/L (1.1-1.4) 04/15/23 10:19 O2 Delivery Device Nc 04/15/23 10:19 O2 Liters/Min 2.0 % 04/15/23 10:19 FiO2 28.0 % 04/15/23 10:19 Hand Bootmaker ID Cak 04/15/23 10:19 Sodium 141 mmol/L (136-145) 04/15/23 10:06 Potassium 4.5 mmol/L (3.5-5.1) 04/15/23 10:06 Chloride 104 mmol/L (98-107) 04/15/23 10:06 Carbon Dioxide 30 mmol/L (22-29) H 04/15/23 10:06 Anion Gap 11.5 (5-19) 04/15/23 10:06 BUN 13 mg/dL (8-23) 04/15/23 10:06 Creatinine 0.8 mg/dL (0.5-0.9) 04/15/23 10:06 GFR Calculation Not Reportable 04/15/23 10:06 Glucose 98 mg/dL (65-115) 04/15/23 10:06 Calculated Osmolality 292 mOsm/kg (285-295) 04/15/23 10:06 Calcium 9.3 mg/dL (8.5-10.5) 04/15/23 10:06 Total Bilirubin 0.6 mg/dL (0.15-1.2) 04/15/23 10:06 AST 24 U/L (0-32) 04/15/23 10:06 ALT 24 U/L (0-33) 04/15/23 10:06 Alkaline Phosphatase 67 U/L (35-105) 04/15/23 10:06 Troponin T Baseline 12 ng/L (0-10) H 04/15/23 10:06 NT-Pro-B Natriuret Pep 437 pg/mL (0-450) 04/15/23 10:06 Total Protein 7.1 g/dL (6.6-8.7) 04/15/23 10:06 Albumin 4.0 g/dL (3.5-5.2) 04/15/23 10:06 Globulin 3.1 g/dL (1.3-4.6) 04/15/23 10:06 Lipase 36 U/L (13-60) 04/15/23 10:06 All radiology interpretation(s) finalized by discharge Discharge Plan Discharge Patient Disposition: Home Clinical Impression: Acute exacerbation of chronic obstructive airways disease Condition: Stable Prescriptions: New doxycycline hyclate 100 mg capsule 100 mg PO BID 10 Days Qty: 20 0RF prednisone 20 mg tablet 20 mg PO TID Qty: 15 0RF Rx Instructions: 1 p.o. 3 times daily x3 days, 1 p.o. twice daily x2 days, 1 p.o. daily x2 days ipratropium-albuterol 0.5 mg-3 mg(2.5 mg base)/3 mL solution for nebulization 3 ml inhalation Q4H PRN (Reason: shortness of breath or wheezing) Qty: 180 0RF Discontinued clindamycin HCl 300 mg capsule 300 mg PO TID 7 Days Qty: 21 0RF Rx Instructions: for 7 days (rx filled 04/14/23) No Action fluticasone propionate [Flonase Allergy Relief] 50 mcg/actuation spray,suspension 1 - 2 spray INTRANASAL DAILY PRN (Reason: Allergy Symptoms) Rx Instructions: administer into each nostril omeprazole 40 mg capsule,delayed release(DR/EC) 40 mg PO BID 90 Days Qty: 180 0RF ascorbic acid (vitamin C) 1,000 mg capsule 1 g PO QAM fluconazole [Diflucan] 100 mg tablet 100 mg PO DAILY 7 Days Qty: 7 0RF Rx Instructions: FOR 7 DAYS (RX FILLED 04/14/23) prednisone 5 mg tablets,dose pack See Rx Instructions PO PER PKG DIR Qty: 21 0RF Rx Instructions: PO PER PKG DIR (NOT STARTED OF 04/15/23) atenolol 25 mg tablet 25 mg PO BID 90 Days Qty: 180 0RF clonazepam 0.5 mg tablet 0.5 mg PO BID PRN (Reason: Anxiety) 30 Days Qty: 60 0RF albuterol sulfate 2.5 mg /3 mL (0.083 %) solution for nebulization 2.5 mg INHALATION Q4H PRN (Reason: Shortness Of Breath) Qty: 90 0RF albuterol sulfate 90 mcg/actuation HFA aerosol inhaler 2 puff inhalation Q6H PRN (Reason: Shortness Of Breath) Qty: 8.5 5RF diclofenac sodium 1 % gel See Rx Instructions .ROUTE .COMPLEX Qty: 100 1RF Dose Instruction: APPLY TWO grams topically FOUR TIMES DAILY, APPLY TO single elbow, wrist OR HAND; FOR HAND includes palm/fingers/back of HAND Rx Instructions: APPLY TWO GRAMS TOPICALLY FOUR TIMES DAILY NEEDED, APPLY TO single elbow, wrist OR HAND; FOR HAND includes palm/fingers/back of HAND conjugated estrogens 0.625 mg/gram cream See Rx Instructions .ROUTE .COMPLEX Rx Instructions: apply as directed two to three times a week Tylenol Ex Str Rapid Release 500 mg Tablet 1,000 mg PO Q6H PRN (Reason: Pain) M- Plus 27 mg iron- 1 mg tablet 1 tab PO DAILY PRN (Reason: UNKNOWN) Probiotic Blend 2 billion cell-50 mg Capsule 1 cap PO DAILY Rx Instructions: give with meal/snack Breztri Aerosphere 160-9-4.8 mcg/actuation HFA aerosol inhaler 2 inh INHALATION BID bumetanide 2 mg tablet 2 mg PO BID PRN (Reason: Edema) Carafate 1 gram tablet 1 g PO TID PRN (Reason: UNKNOWN) dicyclomine 20 mg tablet 20 mg PO QID budesonide 0.5 mg/2 mL suspension for nebulization 0.5 mg inhalation Q12H PRN (Reason: copd) diclofenac sodium 50 mg tablet,delayed release (DR/EC) 50 mg PO DAILY@12 clobetasol 0.05 % ointment 1 applic topical DAILY PRN (Reason: Rash) Rx Instructions: apply daily till rash is gone. cholecalciferol (vitamin D3) 50 mcg (2,000 unit) capsule 50 mcg PO QAM Phazyme 500 mg capsule 500 mg PO QAM Discharge Orders: Discharge ED (Routine); Ordered 04/15/23 Ordered By: Matthias Whittington Referrals: Janette Whittaker NP [Primary Care Provider] - Discharge Diet: Usual diet Discharge Activity: Increase activity as tolerated Patient Instructions: COPD (Chronic Obstructive Pulmonary Disease) (ED), Opioid Safety, Pain Management Activity Restrictions/Additional Instructions: Follow-up with your doctor in 2 to 3 days Coding Level of Care Code ED Manager Proposal for Wale Serrano
[2023-04-15] MEDS: dexamethasone 10 mg/mL INJ IVP (10:10)
[2023-04-15 10:14] LABS: Basophils # 0.1 10^3/uL (0.0-0.1); Basophils % 0.7 %; Eosinophils # 0.2 10^3/uL (0.0-0.8); Eosinophils % 2.8 %; Hematocrit 49.3 % (36-47); Lymphocytes # 1.4 10^3/uL (0.8-4.8); Lymphocytes % 19.9 %; Mean Corpuscular Hemoglobin 30.1 pg (27-33); Mean Corpuscular Volume 93.9 fl (85-98); Mean Platelet Volume 9.2 fL (7.4-10.4); Monocytes # 0.7 10^3/uL (0.2-0.9); Monocytes % 9.3 %; Neutrophils # 4.77 10^3/uL (1.8-7.7); Neutrophils % 67.2 %; Nucleated Red Blood Cells % 0 %; Platelet Count 166 10^3/cmm (157-399); Red Blood Count 5.25 10^6/uL (3.85-5.65); Red Cell Distribution Width 13.2 % (12.1-15.1)
[2023-04-15] MEDS: ipratropium-albuterol 3 mL Neb INHALATION (10:15)
[2023-04-15 10:17] VITALS: PULSE 67; RESP 22; O2SAT 97
[2023-04-15 10:26] VITALS: PULSE 62
[2023-04-15 10:30] LABS: ABG PCO2 47.3 mmHg (35-45); ABG PH Result 7.39 (7.35-7.45); Alveolar-Arterial Oxygen Gradi 8.7 mmHg (5-10); Arterial Blood Gas Hematocrit 46.6 % (37-47); Base Excess ABG 2.5 mmol/L (-2.0-2.0); Blood Gas Allen Test Pos; Blood Gas Operator Identificat CAK; Blood Gas Sample Site Brachial, left; Blood Gas Sample Type Arterial; Carboxyhemoglobin 1.4 %THgb (0.4-20.1); HCO3 ABG 28.4 mmol/L (22-26); Ionized Calcium Level - ABG 1.3 mmol/L (1.1-1.4); Methemoglobin 0.4 % (0.4-1.5); Oxygen Device NC; Oxygen Saturation ABG 95.7; Potassium Level - ABG 3.8 mmol/L (3.5-5.0); Total Hemoglobin 15.2 g/dL (12-16)
[2023-04-15 10:38] LABS: Troponin(5th) Baseline 12 ng/L (0-10)
[2023-04-15 10:45] LABS: Alanine Aminotransferase 24 U/L (0-33); Alkaline Phosphatase 67 U/L (35-105); Anion Gap 11.5 (5-19); Aspartate Amino Transferase 24 U/L (0-32); Blood Urea Nitrogen 13 mg/dL (8-23); Calcium 9.3 mg/dL (8.5-10.5); Carbon Dioxide 30 mmol/L (22-29); Chloride 104 mmol/L (98-107); Globulin 3.1 g/dL (1.3-4.6); Glucose 98 mg/dL (65-115); Lipase 36 U/L (13-60); NT Pro B Type Natriuretic Pept 437 pg/mL (0-450); Osmolality Calculated 292 mOsm/kg (285-295); Potassium 4.5 mmol/L (3.5-5.1); Sodium 141 mmol/L (136-145); Total Bilirubin 0.6 mg/dL (0.15-1.2); Total Protein 7.1 g/dL (6.6-8.7)
--- NOTE | 2023-04-15 11:00 | PC.PHAR ---
PT STATES SHE TAKES CARE OF HER OWN MEDICATIONS-PT STATES THE DR INCREASED HER ATENOLOL 25MG TO BID EXT SHOWS LAST FILLED 01/31/23 90D/S 25MG DAILY-PT STATES SHE TAKES BUMETANIDE 2MG BID PRN EXT SHOWS LAST FILLED 01/06/23 30D/S 2MG BID-PT STATES SHE HASNT STARTED THE PREDNISONE DOSE [place] WRITTEN ON 04/14/23-PT STATES THE DR TOLD HER TO RESTART THE ESTROGEN CREAM PT STATES SHE IS USING TWO TO THREE TIMES A WEEK-PT STATES SHE TAKES DICLOFENAC 50MG DAILY AT NOON EXT SHOWS LAST FILLED 03/24/23 30D/S 50MG BID PRN-PT STATES SHE TAKES HER CARAFATE 1G TID PRN EXT SHOWS LAST FILLED 1G TID 04/09/23 30D/S-PT STATES SHE STILL USES BREZTRI EXT SHOWS LAST FILLED 08/26/22 30D/S-PT STATES SHE FINISHED FOSFOMYCIN 04/10/23 RX FILLED 03/31/23 9D/S-NOTES ARE MADE IN THE PHARMACY COMMENTS
[2023-04-15 11:04] VITALS: BP 129/76; PULSE 61; RESP 15; O2SAT 97
== END 2023-04-15 11:38 | disposition home or self-care (01) ==
PROVIDERS: Emergency Medicine; Emergency Provider Family Medicine; PCP Nurse Practitioner Family
DX: J44.1 Chronic obstructive pulmonary disease with (acute) exacerbation (principal); Z87.891 Personal history of nicotine dependence; I11.0 Hypertensive heart disease with heart failure; I50.9 Heart failure, unspecified; Z99.81 Dependence on supplemental oxygen
CPT/HCPCS: 36600; 71045; 80051; 80053; 82330; 82805; 83690; 83880; 84484; 85025; 93005; 94640; 96374; 99285; J1100

== ENCOUNTER → 2023-05-06 09:44 | Outpatient (BNVA) | payer MEDICARE, SELFPAY | PROVIDERS: PCP Nurse Practitioner Family; Visit Provider Otolaryngology | DX: R43.2 Parageusia (principal); R43.0 Anosmia | CPT/HCPCS: 99203; 99204 ==

== ENCOUNTER 2023-05-13 07:36 | Outpatient (CLI) | payer MEDICARE, SELFPAY ==
--- NOTE | 2023-05-13 08:00 | CT_ITS ---
WS: [id number] CT PARANASAL SINUSES HISTORY: anosmia and sinus TECHNIQUE: Contiguous 2.0 mm axial images obtained through the sinuses. Images are reconstructed in s agittal and coronal planes. All CT scans at [facility] use at least one of these dose optimiz ation techniques: automated exposure control; mA and/or kV adjustment per patient size (includes targ eted exams where dose is matched to clinical indication); or iterative reconstruction. DLP: 353.64 mGy.cm COMPARISON: None available. Frontal sinuses: Normal. Sphenoid sinus: Normal Ethmoid sinuses: Normal. Maxillary sinus: Normal. No air-fluid levels. Ostiomeatal unit: Patent. Very slight leftward deviation of the nasal septum. Mild flattening of the condylar heads of the mandible from chronic TMJ disease. Moderate plaque in the cavernous carotid arteries IMPRESSION: 1. No air-fluid levels within the paranasal sinuses. 2. No mass or mucoperiosteal thickening. 3. Patent ostiomeatal units.
== END 2023-05-13 07:37 | disposition home or self-care (01) ==
LOC: RAD 07:36
PROVIDERS: PCP Nurse Practitioner Family; Visit Provider Otolaryngology
DX: R43.0 Anosmia (principal); R43.2 Parageusia
CPT/HCPCS: 70486

== ENCOUNTER → 2023-05-28 15:06 | Outpatient (BNVA) | payer MEDICARE, SELFPAY | PROVIDERS: PCP Nurse Practitioner Family; Visit Provider Nurse Practitioner Family | DX: N39.0 Urinary tract infection, site not specified (principal) | CPT/HCPCS: 81000 ==

== ENCOUNTER → 2023-06-16 10:28 | Outpatient (BNVA) | payer MEDICARE, SELFPAY | PROVIDERS: PCP Nurse Practitioner Family; Visit Provider Nurse Practitioner Family | DX: N39.0 Urinary tract infection, site not specified (principal) | CPT/HCPCS: 87077; 87086; 87184 ==

== ENCOUNTER → 2023-09-03 09:40 | Outpatient (BNVA) | payer MEDICARE, SELFPAY | PROVIDERS: PCP Nurse Practitioner Family; Visit Provider Family Medicine | DX: I10 Essential (primary) hypertension (principal); R30.0 Dysuria; F41.1 Generalized anxiety disorder; J44.9 Chronic obstructive pulmonary disease, unspecified | CPT/HCPCS: 80053; 80061; 81000; 84443; 85025 ==

== ENCOUNTER → 2023-10-14 13:31 | Outpatient (BNVA) | payer MEDICARE, SELFPAY | PROVIDERS: PCP Family Medicine; Visit Provider Family Medicine | DX: R35.0 Frequency of micturition (principal); R05.9 Cough, unspecified | CPT/HCPCS: 81003; 87400; 87426 ==

== ENCOUNTER → 2023-11-05 16:07 | Outpatient (BNVA) | payer MEDICARE, SELFPAY | PROVIDERS: PCP Family Medicine; Visit Provider Nurse Practitioner Family | DX: I48.0 Paroxysmal atrial fibrillation (principal); I10 Essential (primary) hypertension; T78.40XA Allergy, unspecified, initial encounter | CPT/HCPCS: 80053; 80061; 82785; 84443; 85025; 86001; 86003 ==

== ENCOUNTER → 2023-11-25 15:40 | Outpatient (BNVA) | payer MEDICARE, SELFPAY | PROVIDERS: PCP Family Medicine; Visit Provider Family Medicine | DX: R35.0 Frequency of micturition (principal); R05.9 Cough, unspecified | CPT/HCPCS: 81000; 87400; 87426 ==

== ENCOUNTER 2023-12-30 08:56 | Outpatient (CLI) | payer MEDICARE, SELFPAY ==
--- NOTE | 2023-12-30 09:30 | CTR_ITS ---
PROCEDURE INFORMATION: Exam: CT Abdomen And Pelvis With Contrast Exam date and time: 12/30/2023 10:02 AM Age: 78 years old Clinical indication: Abdominal pain; Prior surgery; Surgery date: 6+ months; Surgery type: Gb, partial hyst; Patient HX: Epigastric pain and bloating x 15 years, getting worse, constipation; Additional info: R10.9 - unspecified abdominal pain TECHNIQUE: Imaging protocol: Computed tomography of the abdomen and pelvis with contrast. Radiation optimization: All CT scans at this facility use at least one of these dose optimization techniques: automated exposure control; mA and/or kV adjustment per patient size (includes targeted exams where dose is matched to clinical indication); or iterative reconstruction. Contrast material: OMNI 350; Contrast volume: 100 ml; Contrast route: INTRAVENOUS (IV); COMPARISON: CT abdomen pelvis w con* [id number] 10/26/2022 5:43 PM RADIATION DOSE METRICS: Total DLP (mGy-cm): 621.57 FINDINGS: Liver: Normal. No mass. Gallbladder and biliary ducts: Previous cholecystectomy. Pancreas: Normal. No ductal dilation. Spleen: Normal. No splenomegaly. Adrenal glands: Normal. No mass. Kidneys and ureters: Exophytic cyst involving lower pole of right kidney as previously. No further surveillance is warranted. Stomach and bowel: Colonic diverticulosis without evidence of diverticulitis. Appendix: No evidence of appendicitis. Intraperitoneal space: Unremarkable. No free air. No significant fluid collection. Vasculature: Increase in mural hematoma involving distal descending thoracic aorta and abdominal aorta in comparison to 10/26/2022. 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 Lymph nodes: Unremarkable. No enlarged lymph nodes. Urinary bladder: Unremarkable as visualized. Reproductive: Unremarkable as visualized. Bones/joints: Unremarkable. No acute fracture. Soft tissues: Unremarkable. CT/CT abdomen pelvis w con* [id number] IMPRESSION: 1. Increase in mural hematoma involving distal descending thoracic aorta and abdominal aorta in comparison to 10/26/2022. 2. No acute abnormality of abdominal viscera.
[2023-12-30] MEDS: iohexol 350 mg/mL 500 mL Btl (per mL) PO (09:52)
--- NOTE | 2023-12-30 10:00 | CT_ITS ---
WS: [id number] LDCT LUNG CANCER SCREENING TECHNIQUE: Noncontrast CT of the chest with coronal and sagittal reformatted images. CLINICAL INFORMATION: Cancer Screen COMPARISON: None. DLP: 84.28 mGy.cm DIvol: Mean CTDIvol: 1.70 (mGy) All CT scans at [facility] use at least one of these dose optimization techniques: automat ed exposure control; mA and/or kV adjustment per patient size (includes targeted exams where dose is matched to clinical indication); or iterative reconstruction. FINDINGS: Advanced centrilobular emphysematous changes. No new suspicious pulmonary parenchymal abnormalities. Cardiomegaly. Coronary calcification. Ectatic calcified aorta. Ascending thoracic aorta measures 4.2 cm unchanged. No basilar hilar lymphadenopathy. Adrenal glands are normal. Normal GE junction. Mild t horacic kyphosis. CT/CT lung screening [id number] IMPRESSION: LUNG-RADS: 2-Benign Appearance or Behavior FOLLOW UP: 12 Month: Continue annual screening with LDCT
[2023-12-30] MEDS: iohexol 350 mg/mL 500 mL Btl (per mL) IV (10:07)
== END 2023-12-30 08:57 | disposition home or self-care (01) ==
LOC: RAD 08:56
PROVIDERS: PCP Family Medicine; Visit Provider Family Medicine
DX: Z12.2 Encounter for screening for malignant neoplasm of respiratory organs (principal); R10.9 Unspecified abdominal pain; Z87.891 Personal history of nicotine dependence; J43.2 Centrilobular emphysema; I51.7 Cardiomegaly; I77.819 Aortic ectasia, unspecified site
CPT/HCPCS: 71271; 74177; Q9967

== ENCOUNTER → 2024-01-26 11:03 | Outpatient (BNVA) | payer MEDICARE, SELFPAY | PROVIDERS: PCP Family Medicine; Visit Provider Family Medicine | DX: N90.89 Other specified noninflammatory disorders of vulva and perineum (principal) | CPT/HCPCS: 86592; 86695; 86696; 87491; 87591 ==

== ENCOUNTER → 2024-02-03 11:49 | Outpatient (BNVA) | payer MEDICARE, SELFPAY | PROVIDERS: PCP Family Medicine; Visit Provider Family Medicine | DX: Z13.6 Encounter for screening for cardiovascular disorders (principal); I10 Essential (primary) hypertension; I48.0 Paroxysmal atrial fibrillation | CPT/HCPCS: 80053; 80061; 84443; 85025 ==

== ENCOUNTER → 2024-03-01 11:29 | Outpatient (BNVA) | payer MEDICARE, SELFPAY | PROVIDERS: PCP Family Medicine; Visit Provider Family Medicine | DX: R53.83 Other fatigue (principal); I48.0 Paroxysmal atrial fibrillation; L40.9 Psoriasis, unspecified | CPT/HCPCS: 82306; 82607; 83540; 85025 ==

== ENCOUNTER 2024-03-10 08:47 | Observation (INO) | payer MEDICARE, SELFPAY ==
[2024-03-10] VITALS (23 sets, daily range): BP systolic 129–180; BP diastolic 72–123; PULSE 58–78; RESP 13–28; TEMP 36.4–36.6; O2SAT 92–98; BMI 28.2; BMI 29.0
--- NOTE | 2024-03-10 08:50 | XR_ITS ---
WS: [id number] Examination: XR chest 1V portable [id number] Reason for Exam: chest pain Date: 03/10/2024 Comparison: 04/15/2023 Findings: The cardiac silhouette is significantly enlarged. The lungs appear hyperinflated There is no pulmonary edema or large pleural effusion. There is no dense consolidation. Basilar scarr ing is suspected. XR/XR chest 1V portable [id number] Impression: There is significant cardiomegaly without evidence of edema. Chronic changes ar e present.
--- NOTE | 2024-03-10 08:50 | ECG_ITS ---
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 Measurements Intervals [place] Rate: 62 P: 85 [place]: 220 QRS: 57 QRSD: 95 T: 79 QT: 428 QTc: 437 Interpretive Statements SINUS RHYTHM WITH FIRST DEGREE AV BLOCK Nonspecific T wave changes Compared to ECG 04/15/2023 09:59:02 First degree AV block now present Ventricular premature complex(es) no longer present Possible ischemia is still present Electronically Signed On 03-10-2024 17:36:26 CDT by Efrain Avelar M.D. [id number]
[2024-03-10] MEDS: aspirin 81 mg Chew Tablet 324 MG PO (09:00)
[2024-03-10 09:09] LABS: Basophils % 0.5 %; Eosinophils # 0.2 10^3/uL (0.0-0.8); Eosinophils % 2.5 %; Hematocrit 46.8 % (36-47); Lymphocytes # 1.9 10^3/uL (0.8-4.8); Lymphocytes % 25.2 %; Mean Corpuscular HGB Conc 32.3 g/dL (30-55); Mean Corpuscular Hemoglobin 30.2 pg (27-33); Mean Corpuscular Volume 93.6 fl (85-98); Mean Platelet Volume 9.7 fL (7.4-10.4); Monocytes # 0.7 10^3/uL (0.2-0.9); Neutrophils # 4.72 10^3/uL (1.8-7.7); Neutrophils % 62.5 %; Nucleated Red Blood Cells % 0 %; Platelet Count 210 10^3/cmm (157-399); Red Cell Distribution Width 13.8 % (12.1-15.1); White Blood Count 7.55 10^3/uL (3.29-11.43)
[2024-03-10 09:27] LABS: Alanine Aminotransferase 15 U/L (0-33); Albumin Level 3.8 g/dL (3.5-5.2); Alkaline Phosphatase 84 U/L (35-105); Blood Urea Nitrogen 11 mg/dL (8-23); Calcium 8.9 mg/dL (8.5-10.5); Carbon Dioxide 25 mmol/L (22-29); Chloride 104 mmol/L (98-107); Globulin 3.2 g/dL (1.3-4.6); Glucose 98 mg/dL (65-115); Osmolality Calculated 291 mOsm/kg (285-295); Sodium 141 mmol/L (136-145); Total Bilirubin 0.5 mg/dL (0.15-1.2); Troponin(5th) Baseline 13 ng/L (0-10)
[2024-03-10 09:48] LABS: Anion Gap 16.6 (5-19); Aspartate Amino Transferase 20 U/L (0-32); Potassium 4.6 mmol/L (3.5-5.1)
--- NOTE | 2024-03-10 09:50 | ED_ITS ---
HPI - Chest Pain 2 General: Chief Complaint: Chest Pain Stated Complaint: CP Time Seen by Provider: 03/10/24 08:50 History of Present Illness: 78-year-old female presents emergency ro om complaining of headache and severe shortness of breath. Some mild chest discomfort but that has resolved she had only lasted a few seconds. She denies any shortness of breath she has limited swelling in her legs she has some chronic orthopnea but has not really changed. She is chronically on 3 L by nasal cannula and is had increased to 4 L. No chest pain at this time no abdominal pain no dysuria urgency or frequency or fevers. No productive cough. Associated symptoms: Reports dyspnea; Deny abdominal pain or fever(s) Related Data Home Medications Medication Instructions Recorded Confirmed ascorbic acid (vitamin C) 1,000 mg 1 g PO QAM 12/12/22 03/10/24 capsule acetaminophen 500 mg tablet 1,000 mg PO Q6H PRN Pain 04/15/23 03/10/24 albuterol sulfate 90 mcg/actuation 2 puff inhalation Q6H PRN 03/10/24 03/10/24 aerosol inhaler Shortness Of Breath aspirin 81 mg tablet,delayed 81 mg PO DAILY 03/10/24 03/10/24 release atenolol 50 mg tablet 50 mg PO BID 03/10/24 03/10/24 budesonide 160 mcg-glycopyr 9 2 inh inhalation BID 03/10/24 03/10/24 mcg-formot 4.8 mcg/actuation HFA inhaler (Breztri Aerosphere) diclofenac sodium 1 % topical gel See Rx Instructions .Route 03/10/24 03/10/24 .COMPLEX PRN joint pain dicyclomine 20 mg tablet 20 mg PO QID PRN spasticity 03/10/24 03/10/24 pantoprazole 40 mg tablet,delayed 40 mg PO BID 03/10/24 03/10/24 release Previous Rx's Medication Instructions Recorded albuterol sulfate 2.5 mg/3 mL 2.5 mg (3 mL) inhalation Q4H PRN 05/29/22 (0.083 %) solution for nebulization Shortness Of Breath #90 mL diclofenac sodium 50 mg 50 mg PO DAILY@12 #60 tabs 01/06/24 tablet,delayed release clonazepam 0.5 mg tablet 0.5 mg PO BID PRN Anxiety 30 days 01/09/24 #60 tabs ipratropium 0.5 mg-albuterol 3 mg 3 ml inhalation Q4H PRN wheezing 03/01/24 (2.5 mg base)/3 mL nebulization #90 mL soln sertraline 50 mg tablet (Zoloft) 50 mg PO DAILY #30 tabs 03/01/24 Allergies Allergy/AdvReac Type Severity Reaction Status Date / Time cefuroxime Allergy Intermediate Shortness Verified 03/10/24 08:58 of breath, lightheadedness fluticasone furoate Allergy Intermediate Unknown Verified 03/10/24 08:58 [From Trelegy Ellipta] umeclidinium Allergy Intermediate Unknown Verified 03/10/24 08:58 [From Trelegy Ellipta] vilanterol Allergy Intermediate Unknown Verified 03/10/24 08:58 [From Trelegy Ellipta] methenamine Allergy Mild ALGY-Difficulty Verified 03/10/24 08:58 Breathing cephalexin Allergy ALGY-Difficulty Verified 03/10/24 08:58 Breathing ciprofloxacin [From Cipro] Allergy ADR/ALGY-Fl Verified 03/10/24 08:58 ushing clindamycin Allergy ADR-Gastrointestinal Verified 03/10/24 08:58 Upset codeine Allergy ALGY-Rash Verified 03/10/24 08:58 levofloxacin [From Levaquin] Allergy ALGY-Difficulty Verified 03/10/24 08:58 Breathing nitrofurantoin Allergy ALGY-Difficulty Verified 03/10/24 08:58 [From Macrobid] Breathing Jtjudsg-BSI-LwF Reductase Allergy ALGY-Joint Verified 03/10/24 08:58 Inhibitor Pain [Jnwtrgj-Keb-Unn Reductase Inhibitor] Sulfa (Sulfonamide Allergy ALGY-Difficulty Verified 03/10/24 08:58 Antibiotics) Breathing fosfomycin AdvReac Intermediate ADR-Gastrointestinal Verified 03/10/24 08:58 Upset lisinopril AdvReac Mild cough Verified 03/10/24 08:58 losartan AdvReac Mild diarrhea Verified 03/10/24 08:58 amoxicillin [From Augmentin] AdvReac SHORT OF Verified 03/10/24 08:58 BREATH clavulanic acid AdvReac SHORT OF Verified 03/10/24 08:58 [From Augmentin] BREATH erythromycin AdvReac Severe ALGY-Difficulty Uncoded 03/10/24 08:58 Breathing Review of Systems 2 Const: Denies: fever(s) or chills Card: Denies: chest pain Resp: Reports: dyspnea, non-productive cough and wheezing GI: Denies: abdominal pain : Denies: dysuria, urinary frequency or urinary urgency Musc: Denies: neck pain or back pain Skin/Breast: Denies: rash PFSH ED 2 PFSH: Medical History COPD exacerbation Abdominal pain of unknown cause Enrolled in chronic care management Cellulitis of fifth toe of right foot Corns of multiple toes Nocturnal leg cramps Thyroid nodule Tinea of perianal region Loose bowel movements Oral pharyngeal candidiasis Chronic respiratory failure with hypoxia Pulmonary nodule Nocturnal hypoxia Perineal irritation Acute cystitis Salivary calculus has had surgery in the past Constipation Anxiety and depression Oxygen dependent ASVD (arteriosclerotic vascular disease) Afib Osteoarthritis of hip COPD (chronic obstructive pulmonary disease) CHF (congestive heart failure) Chronic gastritis Hypertension H/O deep venous thrombosis Surgical History H/O colonoscopy 2016 Dr. French H/O esophagogastroduodenoscopy 2016 Dr. French Hx of cholecystectomy History of hysterectomy total H/O right knee surgery Family History Sister Anesthesia complication Son Anesthesia complication Grandmother Heart disease Mother , at age 73 Aneurysm Father , age 73 Cancer stomach Denies family history of Bleeding disorder Social History Smoking and tobacco/nicotine status: never used tobacco/nicotine Quit status (tobacco/nicotine): has quit using Year quit tobacco: 2009 - 1PPD x 48 Years Second hand smoke exposure: No Alcohol intake: never Substance/Drug Use: never Caregiver/support person: Yes Lives independently: Yes Household members: significant other Housing: House Marital status: / service: No Current occupational status: retired Do you think of yourself as: Straight/Heterosexual Current gender identity: Female Special shawna needs: No Agree to transfusion: Yes Female Reproductive History: Para: 4 Physical Exam 2 Const: GENERAL APPEARANCE: cooperative ORIENTATION/CONSCIOUSNESS: Yes awake, Yes oriented to person, Yes oriented to place and Yes oriented to time HENMT: COMMON NORMALS: normocephalic, atraumatic and hearing grossly normal bilaterally HEAD & SCALP: normocephalic and atraumatic Resp: EFFORT & INSPECTION: Yes tachypneic AUSCULTATION: wheezes Cardio: COMMON NORMALS: regular rate, regular rhythm and No murmurs present (Cardio) RATE: regular rate RHYTHM: regular rhythm GI: COMMON NORMALS: Soft to palpation and No hepatosplenomegaly present A USCULTATION: Yes normoactive bowel sounds PALPATION: Yes Soft to palpation, No Tenderness to palpation present (GI), No Guarding due to palpation present (GI) and Yes No hepatosplenomegaly present Extremity: COMMON NORMALS: normal to inspection, capillary refill normal, no clubbing, cyanosis or edema, no calf tenderness and no pedal edema Neuro: SENSORIUM/ORIENTATION: Yes oriented to person, Yes oriented to place and Yes oriented to time Skin: COMMON NORMALS: no rashes or lesions noted GENERAL SKIN EXAM: no rashes or lesions noted Course 2 Vital Signs: Vital signs: Vital Signs Temperature 97.8 F 03/10/24 08:49 Pulse Rate 63 03/10/24 10:55 Respiratory Rate 15 03/10/24 10:55 Blood Pressure 149/121 03/10/24 10:55 Pulse Oximetry 96 03/10/24 10:55 Oxygen Delivery Me thod Nasal Cannula 03/10/24 10:33 Oxygen Flow Rate 5 03/10/24 10:33 MDM - Chest Pain Medical Decision Making Exacerbation of COPD. Chest x-ray read as no acute. Looks like there is some increased markings at the base with the patient is rotated. Blood pressure has improved. Medications were given. Wheezing did improve with nebulizers. Will admit for COPD exacerbation blood pressure control discussed with hospitalist orders written Medical Records I reviewed the patient's medical records. Lab Data I reviewed the patient's lab results. 03/10/24 08:57 03/10/24 08:57 Radiology Impressions Chest X-Ray 03/10/24 08:50 Impression: There is significant cardiomegaly without evidence of edema. Chronic changes are present. Laboratory Results WBC 7.55 10^3/uL (3.29-11.43) 03/10/24 08:57 RBC 5.00 10^6/uL (3.85-5.65) 03/10/24 08:57 Hgb 15.10 g/dL (11.27-16.99) 03/10/24 08:57 Hct 46.8 % (36-47) 03/10/24 08:57 MCV 93.6 fl (85-98) 03/10/24 08:57 MCH 30.2 pg (27-33) 03/10/24 08:57 MCHC 32.3 g/dL (30-55) 03/10/24 08:57 RDW 13.8 % (12.1-15.1) 03/10/24 08:57 Plt Count 210 10^3/cmm (157-399) 03/10/24 08:57 MPV 9.7 fL (7.4-10.4) 03/10/24 08:57 Neut % (Auto) 62.5 % 03/10/24 08:57 Lymph % (Auto) 25.2 % 03/10/24 08:57 [place] % (Auto) 9.0 % 03/10/24 08:57 Eos % (Auto) 2.5 % 03/10/24 08:57 Baso % (Auto) 0.5 % 03/10/24 08:57 Neut # (Auto) 4.72 10^3/uL (1.8-7.7) 03/10/24 08:57 Lymph # (Auto) 1.9 10^3/uL (0.8-4.8) 03/10/24 08:57 [place] # (Auto) 0.7 10^3/uL (0.2-0.9) 03/10/24 08:57 Eos # (Auto) 0.2 10^3/uL (0.0-0.8) 03/10/24 08:57 Baso # (Auto) 0.0 10^3/uL (0.0-0.1) 03/10/24 08:57 Nucleated RBC % (auto) 0 % 03/10/24 08:57 Nucleated RBCs # 0.0 /100WBC 03/10/24 08:57 Sodium 141 mmol/L (136-145) 03/10/24 08:57 Potassium 4.6 mmol/L (3.5-5.1) 03/10/24 08:57 Chloride 104 mmol/L (98-107) 03/10/24 08:57 Carbon Dioxide 25 mmol/L (22-29) 03/10/24 08:57 Anion Gap 16.6 (5-19) 03/10/24 08:57 BUN 11 mg/dL (8-23) 03/10/24 08:57 Creatinine 0.7 mg/dL (0.5-0.9) 03/10/24 08:57 GFR Calculation Not Reportable 03/10/24 08:57 Glucose 98 mg/dL (65-115) 03/10/24 08:57 Calculated Osmolality 291 mOsm/kg (285-295) 03/10/24 08:57 Calcium 8.9 mg/dL (8.5-10.5) 03/10/24 08:57 Total Bilirubin 0.5 mg/dL (0.15-1.2) 03/10/24 08:57 AST 20 U/L (0-32) 03/10/24 08:57 ALT 15 U/L (0-33) 03/10/24 08:57 Alkaline Phosphatase 84 U/L (35-105) 03/10/24 08:57 Troponin T Baseline 13 ng/L (0-10) H 03/10/24 08:57 Troponin T 120 Minute 11.74 ng/L (0-10) H 03/10/24 10:45 Delta Troponin T -1.26 ABS# (0-10) L 03/10/24 10:45 Total Protein 7.0 g/dL (6.6-8.7) 03/10/24 08:57 Albumin 3.8 g/dL (3.5-5.2) 03/10/24 08:57 Globulin 3.2 g/dL (1.3-4.6) 03/10/24 08:57 Urine Color Yellow (Yellow) 03/10/24 10:05 Urine Appearance Clear (CLEAR) 03/10/24 10:05 Urine pH 6.0 (5-7) 03/10/24 10:05 Ur Specific [place] 1.012 (1.005-1.030) 03/10/24 10:05 Urine Protein Trace (Negative) A 03/10/24 10:05 Urine Glucose (UA) Negative (Normal) 03/10/24 10:05 Urine Ketones Negative (Negative) 03/10/24 10:05 Urine Blood Negative (Negative) 03/10/24 10:05 Urine Nitrate Negative (Negative) 03/10/24 10:05 Urine Bilirubin Negative (Negative) 03/10/24 10:05 Urine Urobilinogen 2.0 mg/dL (Negative) H 03/10/24 10:05 Ur Leukocyte Esterase 1+ (Negative) A 03/10/24 10:05 Urine RBC 0-4 /hpf (0-2) H 03/10/24 10:05 Urine WBC 5-10 /hpf (0-5) H 03/10/24 10:05 Ur Squamous Epith Cells 5-10 /hpf (0-5) H 03/10/24 10:05 Amorphous Sediment Not Reportable 03/10/24 10:05 Urine Bacteria Trace /hpf (NONE) 03/10/24 10:05 Hyaline Casts 0-4 /lpf H 03/10/24 10:05 Urine Mucus Trace /hpf 03/10/24 10:05 All radiology interpretation(s) finalized by discharge Discharge Plan Discharge Patient Disposition: Admitted As Inpatient Clinical Impression: COPD exacerbation, Hypertension Condition: Stable Prescriptions: No Action ascorbic acid (vitamin C) 1,000 mg capsule 1 g PO QAM sertraline [Zoloft] 50 mg tablet 50 mg PO DAILY Qty: 30 3RF ipratropium-albuterol 0.5 mg-3 mg(2.5 mg base)/3 mL solution for nebulization 3 ml inhalation Q4H PRN (Reason: wheezing) Qty: 90 0RF albuterol sulfate 2.5 mg /3 mL (0.083 %) solution for nebulization 2.5 mg INHALATION Q4H PRN (Reason: Shortness Of Breath) Qty: 90 0RF diclofenac sodium 50 mg tablet,delayed release (DR/EC) 50 mg PO DAILY@12 Qty: 60 2RF clonazepam 0.5 mg tablet 0.5 mg PO BID PRN (Reason: Anxiety) 30 Days Qty: 60 0RF acetaminophen [Tylenol Ex Str Rapid Release] 500 mg Tablet 1,000 mg PO Q6H PRN (Reason: Pain) Aspir-81 81 mg Tablet,Delayed Release (Dr/Ec) 81 mg PO DAILY pantoprazole 40 mg tablet,delayed release (DR/EC) 40 mg PO BID dicyclomine 20 mg tablet 20 mg PO QID PRN (Reason: spasticity) albuterol sulfate 90 mcg/actuation HFA aerosol inhaler 2 puff inhalation Q6H PRN (Reason: Shortness Of Breath) atenolol 50 mg tablet 50 mg PO BID diclofenac sodium 1 % gel See Rx Instructions .ROUTE .COMPLEX PRN (Reason: joint pain) Rx Instructions: APPLY TWO GRAMS TOPICALLY FOUR TIMES DAILY NEEDED, APPLY TO single elbow, wrist OR HAND; FOR HAND includes palm/fingers/back of HAND Breztri Aerosphere 160-9-4.8 mcg/actuation HFA aerosol inhaler 2 inh inhalation BID Referrals: Dolly Peralta MD [Primary Care Provider] - Coding Level of Care Code ED Pocket Setter Lockstitch for Wale Serrano
[2024-03-10 10:15] LABS: Charge for UA Resulting for Rev
[2024-03-10] MEDS: hyDRALAzine 20 mg/mL INJ 1 mL 5 MG IVP (10:16)
[2024-03-10] MEDS: amlodipine 5 mg Tablet PO (10:16)
[2024-03-10 10:23] LABS: Bilirubin Urine Negative (Negative); Blood Urine Negative (Negative); Glucose Urine UA Negative (Normal); Ketones Urine Negative (Negative); Leukocyte Esterase Urine 1+ (Negative); Nitrate Urine Negative (Negative); Protein Urine Trace (Negative); Specific Gravity, Urine 1.012 (1.005-1.030); Urine Appearance Clear (CLEAR); Urine Color Yellow (Yellow)
[2024-03-10 10:28] LABS: UA Manual Slide Review YES; UA Slide Review UA Slide Review Perf
[2024-03-10] MEDS: ipratropium-albuterol 3 mL Neb INHALATION ×3 (10:29→20:29)
[2024-03-10 10:32] LABS: Add Urine Culture? No; Bacteria Urine TRACE /hpf; Hyaline Casts Urine 0-4 /lpf; Mucus Urine TRACE /hpf; RBC Urine 0-4 /hpf (0-2)
--- NOTE | 2024-03-10 10:43 | ECG_ITS ---
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 Measurements Intervals [place] Rate: 67 P: 93 [place]: 212 QRS: 65 QRSD: 87 T: 98 QT: 393 QTc: 416 Interpretive Statements SINUS RHYTHM WITH FIRST DEGREE AV BLOCK MODERATE ST DEPRESSION [0.05+ mV ST DEPRESSION] Compared to ECG 03/10/2024 08:50:48 ST (T wave) deviation now present Electronically Signed On 03-10-2024 17:44:19 CDT by Efrain Avelar M.D. [id number]
[2024-03-10 11:12] LABS: Troponin 5 2HR 11.74 ng/L (0-10)
[2024-03-10 11:13] LABS: Troponin 5 2HR Delta -1.26 ABS# (0-10)
--- NOTE | 2024-03-10 11:43 | PC.PHAR ---
pt states is not taking the Sertraline 50mg from Dolly Peralta.
[2024-03-10] MEDS: methylPREDNISolone sod succ 125 mg/2 mL INJ IVP (12:29)
--- NOTE | 2024-03-10 12:31 | P.HP_ITS ---
Providers/Chief Complaint 2 Primary Care Provider: Dolly Peralta MD Chief Complaint: CP History of Present Illness Mary Carmen Fuller is a 78 year old female presented to hospital for worsening of shortness of breath. She uses 3 L of oxygen at baseline carries history of CHF. She has multiple listed allergies. No active chest pain. CBC BMP unremarkable in the ER, troponin without significant delta EKG without ischemic or infarctive changes. Chest x-ray showing mild congestion. Patient is stating that her shortness of breath has been getting worse for last few months but it has gotten worse in last 2 weeks No fever nausea vomiting or chest pain. Patient is endorsing swelling of her legs, does not take Lasix at baseline. In the ER she was given treatment for wheezing at the time of evaluation she is doing well on 4 L nasal cannula without any active wheeze. I have requested IV Lasix 20 mg & echo Review of Systems 2 Const: Reports: chills Eyes: Denies: change in vision ENMT: Denies: throat pain Card: Denies: chest pain Resp: Reports: dyspnea GI: Denies: abdominal pain : Denies: flank pain Musc: Denies: neck pain Skin/Breast: Denies: rash Medications/Allergies Home Medications Medication Instructions Recorded Confirmed Last Taken Type albuterol sulfate 2.5 mg/3 mL 2.5 mg (3 mL) inhalation Q4H PRN 05/29/22 03/10/24 Unknown Rx (0.083 %) solution for nebulization Shortness Of Breath #90 mL ascorbic acid (vitamin C) 1,000 mg 1 g PO QAM 12/12/22 03/10/24 Unknown History capsule acetaminophen 500 mg tablet 1,000 mg PO Q6H PRN Pain 04/15/23 03/10/24 Unknown History diclofenac sodium 50 mg 50 mg PO DAILY@12 #60 tabs 01/06/24 03/10/24 03/09/24 Rx tablet,delayed release clonazepam 0.5 mg tablet 0.5 mg PO BID PRN Anxiety 30 days 01/09/24 03/10/24 Unknown Rx #60 tabs ipratropium 0.5 mg-albuterol 3 mg 3 ml inhalation Q4H PRN wheezing 03/01/24 03/10/24 Unknown Rx (2.5 mg base)/3 mL nebulization #90 mL soln sertraline 50 mg tablet (Zoloft) 50 mg PO DAILY #30 tabs 03/01/24 03/10/24 Unknown Rx albuterol sulfate 90 mcg/actuation 2 puff inhalation Q6H PRN 03/10/24 03/10/24 Unknown History aerosol inhaler Shortness Of Breath aspirin 81 mg tablet,delayed 81 mg PO DAILY 03/10/24 03/10/24 03/10/24 History release atenolol 50 mg tablet 50 mg PO BID 03/10/24 03/10/24 03/10/24 History budesonide 160 mcg-glycopyr 9 2 inh inhalation BID 03/10/24 03/10/24 Unknown History mcg-formot 4.8 mcg/actuation HFA inhaler (Breztri Aerosphere) diclofenac sodium 1 % topical gel See Rx Instructions .Route 03/10/24 03/10/24 Unknown History .COMPLEX PRN joint pain dicyclomine 20 mg tablet 20 mg PO QID PRN spasticity 03/10/24 03/10/24 Unknown History pantoprazole 40 mg tablet,delayed 40 mg PO BID 03/10/24 03/10/24 03/10/24 History release Allergies Allergy/AdvReac Type Severity Reaction Status Date / Time cefuroxime Allergy Intermediate Shortness Verified 03/10/24 08:58 of breath, lightheadedness fluticasone furoate Allergy Intermediate Unknown Verified 03/10/24 08:58 [From Trelegy Ellipta] umeclidinium Allergy Intermediate Unknown Verified 03/10/24 08:58 [From Trelegy Ellipta] vilanterol Allergy Intermediate Unknown Verified 03/10/24 08:58 [From Trelegy Ellipta] methenamine Allergy Mild ALGY-Difficulty Verified 03/10/24 08:58 Breathing cephalexin Allergy ALGY-Difficulty Verified 03/10/24 08:58 Breathing ciprofloxacin [From Cipro] Allergy ADR/ALGY-Fl Verified 03/10/24 08:58 ushing clindamycin Allergy ADR-Gastrointestinal Verified 03/10/24 08:58 Upset codeine Allergy ALGY-Rash Verified 03/10/24 08:58 levofloxacin [From Levaquin] Allergy ALGY-Difficulty Verified 03/10/24 08:58 Breathing nitrofurantoin Allergy ALGY-Difficulty Verified 03/10/24 08:58 [From Macrobid] Breathing Bdfwaif-QWV-IgM Reductase Allergy ALGY-Joint Verified 03/10/24 08:58 Inhibitor Pain [Idfrmsi-Cgd-Aix Reductase Inhibitor] Sulfa (Sulfonamide Allergy ALGY-Difficulty Verified 03/10/24 08:58 Antibiotics) Breathing fosfomycin AdvReac Intermediate ADR-Gastrointestinal Verified 03/10/24 08:58 Upset lisinopril AdvReac Mild cough Verified 03/10/24 08:58 losartan AdvReac Mild diarrhea Verified 03/10/24 08:58 amoxicillin [From Augmentin] AdvReac SHORT OF Verified 03/10/24 08:58 BREATH clavulanic acid AdvReac SHORT OF Verified 03/10/24 08:58 [From Augmentin] BREATH erythromycin AdvReac Severe ALGY-Difficulty Uncoded 03/10/24 08:58 Breathing PFSH Acute 2 PFSH: Medical History COPD exacerbation Abdominal pain of unknown cause Enrolled in chronic care management Cellulitis of fifth toe of right foot Corns of multiple toes Nocturnal leg cramps Thyroid nodule Tinea of perianal region Loose bowel movements Oral pharyngeal candidiasis Chronic respiratory failure with hypoxia Pulmonary nodule Nocturnal hypoxia Perineal irritation Acute cystitis Salivary calculus has had surgery in the past Constipation Anxiety and depression Oxygen dependent ASVD (arteriosclerotic vascular disease) Afib Osteoarthritis of hip COPD (chronic obstructive pulmonary disease) CHF (congestive heart failure) Chronic gastritis Hypertension H/O deep venous thrombosis Surgical History H/O colonoscopy 2016 Dr. French H/O esophagogastroduodenoscopy 2016 Dr. French Hx of cholecystectomy History of hysterectomy total H/O right knee surgery Family History Sister Anesthesia complication Son Anesthesia complication Grandmother Heart disease Mother , at age 73 Aneurysm Father , age 73 Cancer stomach Denies family history of Bleeding disorder Social History Smoking and tobacco/nicotine status: never used tobacco/nicotine Quit status (tobacco/nicotine): has quit using Year quit tobacco: 2009 - 1PPD x 48 Years Second hand smoke exposure: No Alcohol intake: never Substance/Drug Use: never Caregiver/support person: Yes Lives independently: Yes Household members: significant other Housing: House Marital status: / service: No Current occupational status: retired Do you think of yourself as: Straight/Heterosexual Current gender identity: Female Special shawna needs: No Agree to transfusion: Yes Female Reproductive History: Para: 4 Vitals/I&O/Wt Last Vital Signs Temp 97.8 F 03/10/24 08:49 Pulse 63 03/10/24 10:55 Resp 15 03/10/24 10:55 BP 149/121 03/10/24 10:55 Pulse Ox 96 03/10/24 10:55 O2 Del Method Nasal Cannula 03/10/24 10:33 O2 Flow Rate 5 03/10/24 10:33 Weight last 48 hrs Weight 79.379 kg Physical Exam 2 Narrative: Clinically patient does not look fluid overloaded Lower extremity mild swelling No active wheezing Currently on 4 L nasal cannula Sitting on the bedside commode No active chest pain or shortness of breath Pleasant cooperative Nonfocal neuroexam is at the bedside Data 03/10/24 08:57 03/10/24 08:57 A&P Assessment and plan (1) COPD exacerbation: (2) Allergies: Qualifiers: Encounter type: initial encounter Qualified Code(s): T78.40XA - Allergy, unspecified, initial encounter (3) SAMRA (generalized anxiety disorder): (4) Situational anxiety: (5) Hypertension: Qualifiers: Hypertension type: essential hypertension Qualified Code(s): I10 - Essential (primary) hypertension Plan Mild COPD exacerbation Currently requiring 4 L of oxygen, uses 3 L of oxygen at home Combination of cardiac and COPD with wheezing Add steroids Add anti-inflammatory medication/antibiotic azithromycin Mild CHF exacerbation new onset, Endorsing orthopnea and PND Will request echo I do not have a previous echo to report EF Will give her low-dose Lasix Multiple drug allergies listed and reviewed Generalized anxiety disorder continue anxiolytics Full code Cardiac diet DVT prophylaxis added Attestations 2 Medical Necessity Statement*: Anticipating discharge within 48 hours Diagnoses COPD exacerbation J44.1 Allergy, initial encounter T78.40XA Encounter type: initial encounter SAMRA (generalized anxiety disorder) F41.1 Situational anxiety F41.8 Essential hypertension I10 Hypertension type: essential hypertension
[2024-03-10] MEDS: FUROsemide 10 mg/mL SDV 2mL 20 MG IVP (14:16)
--- NOTE | 2024-03-10 14:51 | ECG_ITS ---
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 Measurements Intervals [place] Rate: 65 P: 94 MI: 200 QRS: 56 QRSD: 85 T: 90 QT: 419 QTc: 437 Interpretive Statements SINUS RHYTHM Compared to ECG 03/10/2024 10:43:32 First degree AV block no longer present ST (T wave) deviation no longer present Electronically Signed On 03-10-2024 17:45:02 CDT by Efrain Avelar M.D. [id number]
[2024-03-10 15:31] LABS: Troponin 5 6HR 11.19 ng/L (0-10)
[2024-03-10 15:33] LABS: Troponin 5 6HR Delta -1.81 ng/L (0-12)
--- NOTE | 2024-03-10 15:41 | USCV_ITS ---
Mary Carmen Fuller Age: 78 Gender: F : 1945 Exam Date: 03/10/2024 16:33 Ordering Phys: Lukas Calloway MD Technologist: CT [place] [facility] [place]: chf BP: 111 / 79 HR: 65 Rhythm: Sinus Technical Quality: Adequate MEASUREMENTS (Male / Female) Normal Values 2D ECHO LVOT Diameter 2.1 cm LV Ejection Fraction MOD 4C 70.3 % LV Ejection Fraction MOD 2C 68.5 % LV Ejection Fraction 2C AL 68.9 % LA Diameter 3.4 cm RA Systolic Volume 4C AL 76.6 ml RA Systolic Volume 4C MOD 73.7 ml LA Sys Volume AL 45.2 cm cubed LA Sys Volume Index AL 22.9 cm cubed/m squared Aorta at Sinotubular Diameter 3.5 cm IVC Diameter 2.3 cm DOPPLER AV Peak Velocity 120.0 cm/s LVOT Peak Velocity 115.0 cm/s AV Area Cont Eq vti 3.6 cm squared AV Area Cont Eq pk 3.2 cm squared MV Peak Velocity 98.0 cm/s MV Area PHT 3.7 cm squared Mitral E to A Ratio 1.1 TR Peak Velocity 260.0 cm/s TR Peak Gradient 27.0 mmHg TV Peak E Velocity 55.0 cm/s Right Atrial Pressure 8.0 mmHg Pulmonary Artery Systolic Pressu 35.0 mmHg PV Peak Velocity 91.5 cm/s FINDINGS Left Ventricle Left ventricle is normal in size. LV systolic function is normal with EF of 55 to 60%. No regional wall motion abnormalities are seen. Right Ventricle Normal in size and function Right Atrium Dilated Left Atrium Normal in size Mitral Valve Mild mitral annular calcification. Mild mitral regurgitation. Aortic Valve Structurally normal aortic valve. No significant stenosis or regurgitation. Tricuspid Valve Mild tricuspid regurgitation. Insufficient TR jet to calculate RVSP. Pulmonic Valve Not well visualized Pericardium Normal Aorta Normal in size IVC Not well visualized CONCLUSIONS LV systolic function is normal with EF of 55 to 60%. Right atrial dilation. Mild mitral regurgitation. Mild tricuspid regurgitation. Compared to prior echocardiogram from 2019, no significant changes are seen Willem Guadarrama MD (Electronically Signed) Final Date: 11 March 2024 09:26 S
[2024-03-10 16:59] LABS: Vitamin B12 398 pg/mL (232-1245)
[2024-03-10] MEDS: enoxaparin 40 mg/0.4 mL Syringe SUBCUT (17:11)
[2024-03-10] MEDS: atenolol 50 mg Tablet PO (17:11)
[2024-03-10] MEDS: pantoprazole DR 40 mg Tablet PO (17:11)
[2024-03-10] MEDS: CLONazepam 0.5 mg Tablet PO (20:25)
[2024-03-10] MEDS: methylPREDNISolone sod succ 40 mg/mL INJ IVP (20:27)
--- NOTE | 2024-03-10 20:34 | XRR_ITS ---
PROCEDURE INFORMATION: Exam: XR Chest Exam date and time: 03/10/2024 8:57 PM Age: 78 years old Clinical indication: Shortness of breath; Additional info: SOB TECHNIQUE: Imaging protocol: Radiologic exam of the chest. Views: 1 view. COMPARISON: CR XR chest 1V portable [id number] 03/10/2024 9:14 AM FINDINGS: Lungs: Hyperinflated lungs with flattening of the hemidiaphragms. Grossly similar patchy opacities in the bilateral lower lobe. Pleural spaces: No pleural effusion. No pneumothorax. Heart/Mediastinum: Stable cardiomegaly. Bones/joints: No acute findings. XR/XR chest 1V portable [id number] IMPRESSION: 1. Similar patchy opacities in the bilateral lower lobe could represent chronic interstitial changes with small superimposed infiltrate difficult to exclude. 2. Background COPD/emphysema.
[2024-03-10 20:49] LABS: ABG PCO2 50.9 mmHg (35-45); ABG PH Result 7.37 (7.35-7.45); Arterial Blood Gas Hematocrit 49.9 % (37-47); Base Excess ABG 2.7 mmol/L (-2.0-2.0); Blood Gas Sample Site Brachial, right; Blood Gas Sample Type Arterial; HCO3 ABG 29.3 mmol/L (22-26); Oxygen Device BIPAP; PO2 FiO2 Ratio Arterial Blood 297
[2024-03-10 21:13] LABS: NT Pro B Type Natriuretic Pept 775 pg/mL (0-450); Procalcitonin 0.04 ng/mL (0-0.5)
[2024-03-10 21:24] LABS: C Reactive Protein 9.4 mg/L (0.0-4.9)
--- NOTE | 2024-03-10 21:37 | PC.NURSE ---
Respiratory Distress: LOZENGE MAKER HELPER came to notify policy writer at 2029 that the pt oxygen would not come up above 90%. Upon entering the room found the pt to be sitting up in bed on her NC and appeared to be very short of breath. Tachypenic, unable to speak except in single words, writhing from side to side. O2 was 89%, placed on oxy mask at 6L and notified respiratory. Very diminished lung sounds noted by pt care nurse. Scheduled solu-medrol given. Breathing treatment given. Physician notified and orders received for Lasix, Bipap, ABG, CXR, olivera. Pt is resting more comfortable now on Bipap, family is at the bedside.
--- NOTE | 2024-03-10 21:44 | CTR_ITS ---
PROCEDURE INFORMATION: Exam: CTA Chest With Contrast Exam date and time: 03/10/2024 10:39 PM Age: 78 years old Clinical indication: Shortness of breath; Additional info: Acute hypoxia TECHNIQUE: Imaging protocol: Computed tomographic angiography of the chest with contrast. Exam focused on the arteries. 3D rendering (Not supervised by radiologist): MIP and/or 3D reconstructed images were created by the technologist. Radiation optimization: All CT scans at this facility use at least one of these dose optimization techniques: automated exposure control; mA and/or kV adjustment per patient size (includes targeted exams where dose is matched to clinical indication); or iterative reconstruction. Contrast material: OMNI 350; Contrast volume: 80 ml; Contrast route: INTRAVENOUS (IV); COMPARISON: 1. CT lung screening 12/30/2023 10:[address] abdomen and pelvis dated 12/30/2023. RADIATION DOSE METRICS: Total DLP (mGy-cm): 427.25 FINDINGS: Pulmonary arteries: No pulmonary emboli. Aorta: Thoracic aortic aneurysm x 4.4 cm. Persistent and similar mural hematoma involving the anterior aspect of the distal descending thoracic aorta and abdominal aorta compared to prior exam from 12/30/2023. There is also a component posteriorly at the descending thoracic aorta which is only partially visualized on the prior exam. Lungs: Similar background of emphysema with bilateral thickening. No mass or consolidation. Pleural spaces: No pneumothorax. No pleural effusion. Heart: Cardiomegaly. No significant pericardial effusion. Lymph nodes: No enlarged lymph nodes. Bones/joints: No acute fracture. Soft tissues: Unremarkable. CT/CT angio chest PE protcl [id number] IMPRESSION: 1. No pulmonary embolism. 2. Persistent mural hematoma involving the descending thoracic and abdominal aortas. 3. Background of emphysema with bronchial wall thickening. Correlate for bronchitis. COMMENTS: The presence of pulmonary emphysema on CT is an independent risk factor for lung cancer. In the absence of a history or active diagnosis of lung cancer, it is recommended that this patient with emphysema be evaluated for enrollment in a low dose CT lung cancer screening program.
[2024-03-10] MEDS: FUROsemide 10 mg/mL SDV 4mL 40 MG IVP (22:06)
[2024-03-10 22:18] LABS: D Dimer 1.33 ug/mLFEU (0-0.59)
[2024-03-10] MEDS: iohexol 350 mg/mL 500 mL Btl (per mL) IV (22:50)
[2024-03-11] VITALS (9 sets, daily range): BP systolic 105–125; BP diastolic 68–80; PULSE 65–77; RESP 17–24; TEMP 36.3–36.6; O2SAT 94–97
[2024-03-11 00:15] LABS: Adenovirus Not Detected (NOT DETECT); Chlamydia Pneumoniae Not Detected (NOT DETECT); Coronavirus 229E,HKU1,NL63,OC4 Not Detected (NOT DETECT); Human Metapneumovirus Not Detected (NOT DETECT); Human Rhinovirus/Enterovirus Not Detected (NOT DETECT); Influenza A Not Detected (NOT DETECT); Influenza A H1 Not Detected (NOT DETECT); Influenza A H1-2009 Not Detected (NOT DETECT); Influenza A H3 Not Detected (NOT DETECT); Influenza B Not Detected (NOT DETECT); Mycoplasma Pneumoniae Not Detected (NOT DETECT); Parainfluenza Virus Type 1 Not Detected (NOT DETECT); Parainfluenza Virus Type 2 Not Detected (NOT DETECT); Parainfluenza Virus Type 3 Not Detected (NOT DETECT); Parainfluenza Virus Type 4 Not Detected (NOT DETECT); Respiratory Syncytial Virus A Not Detected (NOT DETECT); Respiratory Syncytial Virus B Not Detected (NOT DETECT); SARS-COV-2 Not Detected (NOT DETECT)
[2024-03-11] MEDS: ipratropium-albuterol 3 mL Neb INHALATION (01:53)
[2024-03-11 03:49] LABS: Basophils % 0.1 %; Hematocrit 47.9 % (36-47); Lymphocytes % 13.6 %; Mean Corpuscular HGB Conc 32.4 g/dL (30-55); Mean Corpuscular Hemoglobin 29.8 pg (27-33); Mean Corpuscular Volume 91.9 fl (85-98); Mean Platelet Volume 9.4 fL (7.4-10.4); Monocytes # 0.2 10^3/uL (0.2-0.9); Monocytes % 2.4 %; Neutrophils # 5.86 10^3/uL (1.8-7.7); Neutrophils % 83.6 %; Nucleated Red Blood Cells % 0 %; Platelet Count 210 10^3/cmm (157-399); Red Blood Count 5.21 10^6/uL (3.85-5.65); Red Cell Distribution Width 13.8 % (12.1-15.1); White Blood Count 7.01 10^3/uL (3.29-11.43)
[2024-03-11 04:10] LABS: Anion Gap 16.8 (5-19); Blood Urea Nitrogen 19 mg/dL (8-23); C Reactive Protein 8.4 mg/L (0.0-4.9); Carbon Dioxide 27 mmol/L (22-29); Chloride 102 mmol/L (98-107); Creatinine Clr Calc Pharmacy 57.2201; Glucose 148 mg/dL (65-115); Magnesium 2.1 mg/dL (1.7-2.3); Osmolality Calculated 299 mOsm/kg (285-295); Potassium 3.8 mmol/L (3.5-5.1); Sodium 142 mmol/L (136-145)
[2024-03-11] MEDS: acetaminophen 500 mg Tablet PO (07:52)
[2024-03-11] MEDS: CLONazepam 0.5 mg Tablet PO (08:55)
[2024-03-11] MEDS: pantoprazole DR 40 mg Tablet PO (08:55)
[2024-03-11] MEDS: aspirin 81 mg EC Tablet PO (08:55)
[2024-03-11] MEDS: methylPREDNISolone sod succ 40 mg/mL INJ IVP (08:56)
[2024-03-11] MEDS: atenolol 50 mg Tablet PO (08:56)
--- NOTE | 2024-03-11 09:48 | P.PN_ITS ---
Subjective 2 Subjective: Overnight patient became short of breath, BiPAP was applied, CT chest did not show any PE or pneumonia or heart failure It is showing mural thrombus with thoracic aortic aneurysm 4.4 cm, in October it was around 3.4 cm secondary to change in dimensions I have reached out to cardiothoracic/vascular surgery at [facility] Awaiting their phone call, uploaded images PMHx of paroxysmal atrial fibrillation diagnosed in 2012 on event monitor not on anticoagulating agent for unknown reason, hypertension since 2007, with h/o cardiac catheterization in 2012- was told to have no blockages- by Dr Buchanan Brief synopsis: 78-year-old female with history of advan ekaterina COPD, uses 3 L of oxygen at baseline, ex-smoker, history of thoracic AA, 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 that was detected in October of this year, CTA chest done today showing 4.4 cm dimensions with mural thrombus, patient has remained hemodynamically stable no drop in hemoglobin, she has been kept off anticoagulating agent, she is not endorsing any chest pain, her main complaint at the time of admission to the hospital was shortness of breath which was related to COPD and mild CHF exacerbation she was given 1 dose of Lasix in the ER along DuoNeb, IV steroids, she has multiple drug allergies, her blood pressure is 118/68 mmHg, heart rate below 80, afebrile, currently on OxyMask 3 to 4 L Vitals/I&O/Wt Last Vital Signs Temp 97.8 F 03/11/24 08:00 Pulse 77 03/11/24 08:00 Resp 24 H 03/11/24 08:00 BP 118/68 03/11/24 08:00 Pulse Ox 97 03/11/24 08:00 O2 Del Method Oxymask 03/11/24 08:00 O2 Flow Rate 4 03/11/24 08:00 FiO2 40 03/11/24 00:35 03/10/24 03/11/24 03/11/24 22:59 06:59 14:59 Intake Total 600 / 600 Output Total 300 / 300 1200 / 1500 Balance 300 / 300 -1200 / -900 Weight last 48 hrs Weight 78.982 kg Weight 81.448 kg Weight 79.379 kg Physical Exam 2 Narrative: Patient is on OxyMask No active sign of shortness of breath or chest pain No radial radial delay Blood pressure is stable No active wheezing Diminished airflow bilaterally No conversational dyspnea Family at the bedside Sarcopenia muscle mass loss Nonfocal neuroexam S1, S2 Urinary Catheter Management: [place]: Cath Placed During This Visit: yes Reason for Continuing Indwelling Catheter: Accurate Measurement of Urinary Output in Critically Ill Patients Urinary Catheter Date of Insertion: 03/10/24 Urinary Catheter Time of Insertion: 20:30 Data 03/11/24 03:34 03/11/24 03:34 A&P Assessment and plan (1) SAMRA (generalized anxiety disorder): (2) Panic attack due to exceptional stress: (3) Hypertension: Qualifiers: Hypertension type: essential hypertension Qualified Code(s): I10 - Essential (primary) hypertension (4) CHF (congestive heart failure): Qualifiers: Heart failure type: diastolic Heart failure chronicity: chronic Qualified Code(s): I50.32 - Chronic diastolic (congestive) heart failure (5) COPD exacerbation: (6) Thoracic aortic aneurysm: Plan Acute COPD exacerbation Patient required BiPAP overnight Continue steroids and DuoNeb CTA chest did not show any PE or significant pneumonia related changes COVID-negative At home uses 3 L currently requiring 4 L via oxime mask Mild CHF preserved ejection fraction heart failure exacerbation Continue low-dose diuresis Clinically patient does not look extremely fluid overloaded EF 55 to 60% Thoracic aortic aneurysm Changing dimensions Reached out to [facility] cardiothoracic/vascular surgery Awaiting phone call We have uploaded images to the cloud She is hemodynamically stable No active chest pain History of paroxysmal A-fib currently she is in sinus rhythm off anticoagulating agent SCDs: For DVT prophylaxis Generalized anxiety would use anxiolytics on as-needed basis Full code Patient and family updated about my concerns related to thoracic aortic aneurysm Attestations 2 Medical Necessity Statement*: Continue medical management Diagnoses SAMRA (generalized anxiety disorder) F41.1 Panic attack due to exceptional stress F41.0; F43.0 Essential hypertension I10 Hypertension type: essential hypertension Chronic diastolic congestive heart failure I50.32 Heart failure type: diastolic Heart failure chronicity: chronic COPD exacerbation J44.1 Thoracic aortic aneurysm I71.20
--- NOTE | 2024-03-11 10:08 | PC.CHAP ---
Pastoral Care Encounter/Spiritual Assessment Type of Contact [] Declined flour worker visit [] Patient/Family/Request visit [] Outpatient visit [] Follow-up visit [] Physician referral [] Code/Alert [x] Routine visit [] Staff referral [] Actively dying [] Patient sleeping [x] Family support [] [] Out of room [] Palliative care [] [] Receiving care in room [] Pre-surgical visit [] Trauma [] Long length of stay [] ICU visit [] Other: Relational/Emotional Strength [x] Patient feels connected with others/family/visitors/staff [] Distress [] Loneliness/isolation [] Abandonment Spirituality of Patient [x] Person of Tamera [] Attends Protestant of their Tamera [x] Believes in Prayer [] Reads Bible or Shinto materials [] There are Spiritual issues to be addressed Dag Coater Interventions [x] Prayer [x] Active listening [] Non-anxious presence [x] Spiritual/emotional support [] Crisis/trauma care [] Spiritual counseling [] Bereavement support [] Provided bereavement packet [] Provided Bible/devotional materials [] Provided toy/stuffed animal, coloring book to patient or family member [] Provided Communion [] Anointing/[place] [] Salvation [x] Completed spiritual assessment [] Other: Impact on Illness or Injury [] Angry [] Fearful [] Anxious [] Often cries [] Exhaustion [] Unable to work [] Unable to attend hinduism [] Unable to walk/stand [] Unable to read [] Unable to drive [] Unable to eat/drink [] Unable to sleep [] Unable to be with family [] Patient intubated [] Other: Summary Time spent with patient 5 min
--- NOTE | 2024-03-11 12:17 | PM.DCS ---
Discharge Providers Date of Admission: 03/10/24 15:10 Date of Discharge: March 11, 2024 Attending Provider at Admission: Lukas Calloway MD Attending Provider at Discharge: Lukas Calloway MD Primary Care Provider: Dolly Peralta MD Diagnoses at Discharge Discharge Diagnosis (1) SAMRA (generalized anxiety disorder): Status: Acute (2) Panic attack due to exceptional stress: Status: Acute (3) Hypertension: Status: Chronic Qualifiers: Hypertension type: essential hypertension Qualified Code(s): I10 - Essential (primary) hypertension (4) CHF (congestive heart failure): Status: Chronic Qualifiers: Heart failure type: diastolic Heart failure chronicity: chronic Qualified Code(s): I50.32 - Chronic diastolic (congestive) heart failure (5) COPD exacerbation: Status: Acute (6) Thoracic aortic aneurysm: Status: Acute Reason for Visit Reason for Visit: CP Hospital Course Hospital Course 78-year-old female with history of advanced COPD, uses 3 L of oxygen at baseline, ex-smoker, history of thoracic AA, 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 that was detected in October of this year, CTA chest done today showing 4.4 cm dimensions with mural thrombus, patient has remained hemodynamically stable no drop in hemoglobin, she has been kept off anticoagulating agent, she is not endorsing any chest pain, her main complaint at the time of admission to the hospital was shortness of breath which was related to COPD and mild CHF exacerbation she was given 1 dose of Lasix in the ER along DuoNeb, IV steroids, she has multiple drug allergies, her blood pressure is 118/68 mmHg, heart rate below 80, afebrile, currently on OxyMask 3 to 4 L [facility] reviewd images and recommended Outpatient evaluation with Dr. Myers. Pt does not qualify for bipap at this time Physical Exam Urinary Catheter Management: [place]: Cath Placed During This Visit: yes Reason for Continuing Indwelling Catheter: Accurate Measurement of Urinary Output in Critically Ill Patients Urinary Catheter Date of Insertion: 03/10/24 Urinary Catheter Time of Insertion: 20:30 Discharge Data Studies Completed and Pending Completed Studies During Hospitalization Category Date Time Status CT angio chest PE protcl [id number] Stat Cat Scan 03/10/24 21:44 Completed XR chest 1V portable [id number] Routine Exams 03/10/24 20:34 Completed XR chest 1V portable [id number] Stat Exams 03/10/24 08:50 Completed CV. echo complete* [id number] Routine Ultrasound 03/10/24 15:41 Completed Pending at discharge Category Date Time Status Basic Metabolic Panel AM LABS Lab 03/12/24 04:00 Ordered Complete Blood Count w/Auto AM LABS Lab 03/12/24 04:00 Ordered Radiology Impressions Chest X-Ray 03/10/24 20:34 IMPRESSION: 1. Similar patchy opacities in the bilateral lower lobe could represent chronic interstitial changes with small superimposed infiltrate difficult to exclude. 2. Background COPD/emphysema. Chest CTA 03/10/24 21:44 IMPRESSION: 1. No pulmonary embolism. 2. Persistent mural hematoma involving the descending thoracic and abdominal aortas. 3. Background of emphysema with bronchial wall thickening. Correlate for bronchitis. COMMENTS: The presence of pulmonary emphysema on CT is an independent risk factor for lung cancer. In the absence of a history or active diagnosis of lung cancer, it is recommended that this patient with emphysema be evaluated for enrollment in a low dose CT lung cancer screening program. Laboratory Results WBC 7.01 10^3/uL (3.29-11.43) 03/11/24 03:34 RBC 5.21 10^6/uL (3.85-5.65) 03/11/24 03:34 Hgb 15.50 g/dL (11.27-16.99) 03/11/24 03:34 Hct 47.9 % (36-47) H 03/11/24 03:34 MCV 91.9 fl (85-98) 03/11/24 03:34 MCH 29.8 pg (27-33) 03/11/24 03:34 MCHC 32.4 g/dL (30-55) 03/11/24 03:34 RDW 13.8 % (12.1-15.1) 03/11/24 03:34 Plt Count 210 10^3/cmm (157-399) 03/11/24 03:34 MPV 9.4 fL (7.4-10.4) 03/11/24 03:34 Neut % (Auto) 83.6 % 03/11/24 03:34 Lymph % (Auto) 13.6 % 03/11/24 03:34 [place] % (Auto) 2.4 % 03/11/24 03:34 Eos % (Auto) 0.0 % 03/11/24 03:34 Baso % (Auto) 0.1 % 03/11/24 03:34 Neut # (Auto) 5.86 10^3/uL (1.8-7.7) 03/11/24 03:34 Lymph # (Auto) 1.0 10^3/uL (0.8-4.8) 03/11/24 03:34 [place] # (Auto) 0.2 10^3/uL (0.2-0.9) 03/11/24 03:34 Eos # (Auto) 0.0 10^3/uL (0.0-0.8) 03/11/24 03:34 Baso # (Auto) 0.0 10^3/uL (0.0-0.1) 03/11/24 03:34 Nucleated RBC % (auto) 0 % 03/11/24 03:34 Nucleated RBCs # 0.0 /100WBC 03/11/24 03:34 D-Dimer 1.33 ug/mLFEU (0-0.59) H 03/10/24 21:45 Specimen Type Arterial 03/10/24 20:39 Sample Site Brachial, right 03/10/24 20:39 ABG pH 7.37 (7.35-7.45) 03/10/24 20:39 ABG pCO2 50.9 mmHg (35-45) H 03/10/24 20:39 ABG pO2 119.0 mmHg (80.0-100.0) H 03/10/24 20:39 ABG PO2/FiO2 Ratio 297 03/10/24 20:39 ABG HCO3 29.3 mmol/L (22-26) H 03/10/24 20:39 ABG Base Excess 2.7 mmol/L (-2.0-2.0) H 03/10/24 20:39 Reuben Test N/a 03/10/24 20:39 Hematocrit 49.9 % (37-47) H 03/10/24 20:39 O2 Delivery Device Bipap 03/10/24 20:39 FiO2 40.0 % 03/10/24 20:39 Biodiesel Processing Technician ID [email or web address] 03/10/24 20:39 Sodium 142 mmol/L (136-145) 03/11/24 03:34 Potassium 3.8 mmol/L (3.5-5.1) 03/11/24 03:34 Chloride 102 mmol/L (98-107) 03/11/24 03:34 Carbon Dioxide 27 mmol/L (22-29) 03/11/24 03:34 Anion Gap 16.8 (5-19) 03/11/24 03:34 BUN 19 mg/dL (8-23) 03/11/24 03:34 Creatinine 0.9 mg/dL (0.5-0.9) 03/11/24 03:34 GFR Calculation Not Reportable 03/11/24 03:34 Glucose 148 mg/dL (65-115) H 03/11/24 03:34 Calculated Osmolality 299 mOsm/kg (285-295) H 03/11/24 03:34 Calcium 9.0 mg/dL (8.5-10.5) 03/11/24 03:34 Phosphorus 4.0 mg/dL (2.5-4.5) 03/11/24 03:34 Magnesium 2.1 mg/dL (1.7-2.3) 03/11/24 03:34 Total Bilirubin 0.5 mg/dL (0.15-1.2) 03/10/24 08:57 AST 20 U/L (0-32) 03/10/24 08:57 ALT 15 U/L (0-33) 03/10/24 08:57 Alkaline Phosphatase 84 U/L (35-105) 03/10/24 08:57 Troponin T Baseline 13 ng/L (0-10) H 03/10/24 08:57 Troponin T 120 Minute 11.74 ng/L (0-10) H 03/10/24 10:45 Delta Troponin T -1.26 ABS# (0-10) L 03/10/24 10:45 Troponin T Hi Sens 6Hr 11.19 ng/L (0-10) H 03/10/24 15:01 Troponin T Hi Sens 6Hr Delta -1.81 ng/L (0-12) L 03/10/24 15:01 C-Reactive Protein 8.4 mg/L (0.0-4.9) H 03/11/24 03:34 NT-Pro-B Natriuret Pep 775 pg/mL (0-450) H 03/10/24 15:01 Total Protein 7.0 g/dL (6.6-8.7) 03/10/24 08:57 Albumin 3.8 g/dL (3.5-5.2) 03/10/24 08:57 Globulin 3.2 g/dL (1.3-4.6) 03/10/24 08:57 Vitamin B12 398 pg/mL (232-1245) 03/10/24 15:01 Procalcitonin 0.04 ng/mL (0-0.5) 03/10/24 15:01 Urine Color Yellow (Yellow) 03/10/24 10:05 Urine Appearance Clear (CLEAR) 03/10/24 10:05 Urine pH 6.0 (5-7) 03/10/24 10:05 Ur Specific [place] 1.012 (1.005-1.030) 03/10/24 10:05 Urine Protein Trace (Negative) A 03/10/24 10:05 Urine Glucose (UA) Negative (Normal) 03/10/24 10:05 Urine Ketones Negative (Negative) 03/10/24 10:05 Urine Blood Negative (Negative) 03/10/24 10:05 Urine Nitrate Negative (Negative) 03/10/24 10:05 Urine Bilirubin Negative (Negative) 03/10/24 10:05 Urine Urobilinogen 2.0 mg/dL (Negative) H 03/10/24 10:05 Ur Leukocyte Esterase 1+ (Negative) A 03/10/24 10:05 Urine RBC 0-4 /hpf (0-2) H 03/10/24 10:05 Urine WBC 5-10 /hpf (0-5) H 03/10/24 10:05 Ur Squamous Epith Cells 5-10 /hpf (0-5) H 03/10/24 10:05 Amorphous Sediment Not Reportable 03/10/24 10:05 Urine Bacteria Trace /hpf (NONE) 03/10/24 10:05 Hyaline Casts 0-4 /lpf H 03/10/24 10:05 Urine Mucus Trace /hpf 03/10/24 10:05 Adenovirus (PCR) Not detected (NOT DETECT) 03/10/24 22:10 C. pneumoniae DNA (PCR) Not detected (NOT DETECT) 03/10/24 22:10 Coronavirus 229E (PCR) Not detected (NOT DETECT) 03/10/24 22:10 Human Metapneumovir PCR Not detected (NOT DETECT) 03/10/24 22:10 Influenza A (H1) PCR Not detected (NOT DETECT) 03/10/24 22:10 Influ A (H1/09) PCR Not detected (NOT DETECT) 03/10/24 22:10 Influenza A (H3) PCR Not detected (NOT DETECT) 03/10/24 22:10 Influenza Type A (PCR) Not detected (NOT DETECT) 03/10/24 22:10 Influenza Type B (PCR) Not detected (NOT DETECT) 03/10/24 22:10 M. pneumoniae (PCR) Not detected (NOT DETECT) 03/10/24 22:10 Parainfluenza 1 (PCR) Not detected (NOT DETECT) 03/10/24 22:10 Parainfluenza 2 (PCR) Not detected (NOT DETECT) 03/10/24 22:10 Parainfluenza 3 (PCR) Not detected (NOT DETECT) 03/10/24 22:10 Parainfluenza 4 (PCR) Not detected (NOT DETECT) 03/10/24 22:10 RSV Type A (PCR) Not detected (NOT DETECT) 03/10/24 22:10 RSV Type B (PCR) Not detected (NOT DETECT) 03/10/24 22:10 Entero/Rhino (PCR) Not detected (NOT DETECT) 03/10/24 22:10 SARS-CoV-2 (PCR) Not detected (NOT DETECT) 03/10/24 22:10 Vitals Last Vital Signs Temp 97.4 F L 03/11/24 11:55 Pulse 65 03/11/24 11:55 Resp 22 H 03/11/24 11:55 BP 105/72 03/11/24 11:55 Pulse Ox 97 03/11/24 11:55 O2 Del Method BiPAP 03/11/24 11:55 O2 Flow Rate 4 03/11/24 08:00 FiO2 40 03/11/24 10:17 Discharge Plan Discharge Patient Disposition: Home Condition: Stable Prescriptions: New methylprednisolone [Medrol (Magdiel)] 4 mg tablets,dose pack See Rx Instructions .ROUTE .COMPLEX Qty: 21 0RF Rx Instructions: orally per package directions Spiriva Respimat 2.5 mcg/actuation mist 2 inh inhalation DAILY Qty: 4 4RF Continued ascorbic acid (vitamin C) 1,000 mg capsule 1 g PO QAM sertraline [Zoloft] 50 mg tablet 50 mg PO DAILY Qty: 30 3RF albuterol sulfate 2.5 mg /3 mL (0.083 %) solution for nebulization 2.5 mg INHALATION Q4H PRN (Reason: Shortness Of Breath) Qty: 90 0RF diclofenac sodium 50 mg tablet,delayed release (DR/EC) 50 mg PO DAILY@12 Qty: 60 2RF clonazepam 0.5 mg tablet 0.5 mg PO BID PRN (Reason: Anxiety) 30 Days Qty: 60 0RF acetaminophen [Tylenol Ex Str Rapid Release] 500 mg Tablet 1,000 mg PO Q6H PRN (Reason: Pain) Aspir-81 81 mg Tablet,Delayed Release (Dr/Ec) 81 mg PO DAILY pantoprazole 40 mg tablet,delayed release (DR/EC) 40 mg PO BID dicyclomine 20 mg tablet 20 mg PO QID PRN (Reason: spasticity) albuterol sulfate 90 mcg/actuation HFA aerosol inhaler 2 puff inhalation Q6H PRN (Reason: Shortness Of Breath) atenolol 50 mg tablet 50 mg PO BID diclofenac sodium 1 % gel See Rx Instructions .ROUTE .COMPLEX PRN (Reason: joint pain) Rx Instructions: APPLY TWO GRAMS TOPICALLY FOUR TIMES DAILY NEEDED, APPLY TO single elbow, wrist OR HAND; FOR HAND includes palm/fingers/back of HAND ipratropium-albuterol 0.5 mg-3 mg(2.5 mg base)/3 mL solution for nebulization 3 ml inhalation Q4H PRN (Reason: wheezing) Qty: 90 3RF Changed Breztri Aerosphere 160-9-4.8 mcg/actuation HFA aerosol inhaler 2 inh inhalation BID Qty: 5.9 4RF Discharge Orders: Discharge Order (Routine); Ordered 03/11/24 Ordered By: Lukas Calloway Referrals: Ren Myers DO [Referring] - 1-3 days (T AA 4.4 cm) Giuliano Simmons MD [Referring] - None (AAA 4.4cm) Dolly Peralta MD [Primary Care Provider] - Nicol Kinney MD [Physician] - 1-3 days Discharge Diet: Cardiac Discharge Activity: Increase activity as tolerated Patient Instructions: Opioid Safety Activity Restrictions/Additional Instructions: Please call Dr Myers's office for anerysm evaluation Discharge Attestations Time Spent in Discharge Care*: greater than 30 min Quality Metrics Clinical Quality Measures [ No reported AMI, CVA or VTE this stay] Coding Level of Care Code Acute Code for Chg Fwd Diagnoses SAMRA (generalized anxiety disorder) F41.1 Panic attack due to exceptional stress F41.0; F43.0 Essential hypertension I10 Hypertension type: essential hypertension Chronic diastolic congestive heart failure I50.32 Heart failure type: diastolic Heart failure chronicity: chronic COPD exacerbation J44.1 Thoracic aortic aneurysm I71.20
== END 2024-03-11 15:12 | disposition home or self-care (01) ==
LOC: ER 13:01 → MEDSURG 21:59
PROVIDERS: Family Medicine; Admitting Provider Internal Medicine; Emergency Provider Family Medicine; PCP Family Medicine; Visit Provider Internal Medicine
DX: J44.1 Chronic obstructive pulmonary disease with (acute) exacerbation (principal); I11.0 Hypertensive heart disease with heart failure; I50.32 Chronic diastolic (congestive) heart failure; F41.1 Generalized anxiety disorder; F43.0 Acute stress reaction; I71.20 Thoracic aortic aneurysm, without rupture, unspecified; Z88.8 Allergy status to other drugs, medicaments and biological substances; Z88.2 Allergy status to sulfonamides; Z88.0 Allergy status to penicillin; Z88.1 Allergy status to other antibiotic agents; Z79.899 Other long term (current) drug therapy; Z79.82 Long term (current) use of aspirin; Z99.81 Dependence on supplemental oxygen
CPT/HCPCS: 36415; 36600; 51702; 71045; 71275; 80048; 80053; 81003; 81015; 82607; 82803; 83735; 83880; 84100; 84145; 84484; 85025; 85378; 86140; 87486; 87581; 87633; 93005; 93306; 94640; 94660; 94664; 96372; 96374; 96375; 96376; 99285; G0378; J0360; J1650; J1940; J2919

== ENCOUNTER → 2024-03-25 14:11 | Outpatient (BNVA) | payer MEDICARE, SELFPAY | PROVIDERS: PCP Family Medicine; Visit Provider Family Medicine | DX: N39.0 Urinary tract infection, site not specified (principal); R35.0 Frequency of micturition | CPT/HCPCS: 81003; 87086 ==

== ENCOUNTER 2024-04-01 09:52 | Outpatient (CLI) | payer MEDICARE, SELFPAY ==
--- NOTE | 2024-04-01 09:57 | MM_ITS ---
WS: [id number] BILATERAL SCREENING DIGITAL TOMOSYNTHESIS MAMMOGRAM WITH CAD HISTORY: SCREENING COMPARISON: 03/31/2023, 04/17/2022, Bilateral CC and MLO views with tomosynthesis and synthetic mammography submitted. Computer aided det ection analyzed. Breast composition: There are scattered areas of fibroglandular density. No suspicious masses, microc alcifications or architectural distortion. Asymmetry in the upper outer quadrant of the RIGHT breast remains stable over several prior years. No suspicious mass or calcification. MM/MM scr BI tomosynthesis [id number] IMPRESSION: BI-RADS: 2 - Benign. FOLLOW UP: 1 Year Follow-up
== END 2024-04-01 09:53 | disposition home or self-care (01) ==
LOC: RAD 09:53
PROVIDERS: PCP Family Medicine; Visit Provider Family Medicine
DX: Z12.31 Encounter for screening mammogram for malignant neoplasm of breast (principal); R92.323 Mammographic fibroglandular density, bilateral breasts; N64.89 Other specified disorders of breast
CPT/HCPCS: 77063; 77067

== ENCOUNTER 2024-04-01 19:49 | Observation (INO) | payer MEDICARE, SELFPAY ==
[2024-04-01 19:55] VITALS: BP 163/85; PULSE 63; RESP 18; TEMP 36.7; O2SAT 97; BMI 28.2
[2024-04-01 19:59] VITALS: PULSE 66; RESP 16; O2SAT 94
--- NOTE | 2024-04-01 20:08 | ED_ITS ---
HPI - Abdominal Pain 2 General: Chief Complaint: Abdominal Pain Stated Complaint: allergic reaction SOB Time Seen by Provider: 04/01/24 20:05 History of Present Illness: 78-year-old female with a history of num erous drug allergies, recurrent urinary tract infections and COPD who presents emergency room with concerns about an antibiotic she is taking for urinary tract infection. Apparently she was diagnosed with a pseudomonal UTI recently. She has a Levaquin allergy and her doctor put her on clindamycin with Benadryl. She said she took her first dose and now her stomach is rumbling and she is nauseous and she think she is about to start having diarrhea. Says she was told to come to the emergency room to get IV antibiotics if she did not tolerate Cipro. She has been having some dysuria. Related Data Home Medications Medication Instructions Recorded Confirmed ascorbic acid (vitamin C) 1,000 mg 1 g PO QAM 12/12/22 03/22/24 capsule acetaminophen 500 mg tablet 1,000 mg PO Q6H PRN Pain 04/15/23 03/22/24 albuterol sulfate 90 mcg/actuation 2 puff inhalation Q6H PRN 03/10/24 03/22/24 aerosol inhaler Shortness Of Breath aspirin 81 mg tablet,delayed 81 mg PO DAILY 03/10/24 03/22/24 release diclofenac sodium 1 % topical gel See Rx Instructions .Route 03/10/24 03/22/24 .COMPLEX PRN joint pain dicyclomine 20 mg tablet 20 mg PO QID PRN spasticity 03/10/24 03/22/24 Previous Rx's Medication Instructions Recorded albuterol sulfate 2.5 mg/3 mL 2.5 mg (3 mL) inhalation Q4H PRN 05/29/22 (0.083 %) solution for nebulization Shortness Of Breath #90 mL diclofenac sodium 50 mg 50 mg PO DAILY@12 #60 tabs 01/06/24 tablet,delayed release sertraline 50 mg tablet (Zoloft) 50 mg PO DAILY #30 tabs 03/01/24 budesonide 160 mcg-glycopyr 9 2 inh inhalation BID #5.9 grams 03/11/24 mcg-formot 4.8 mcg/actuation HFA inhaler (Breztri Super Derivativesphere) ipratropium 0.5 mg-albuterol 3 mg 3 ml inhalation Q4H PRN wheezing 03/11/24 (2.5 mg base)/3 mL nebulization #90 mL soln methylprednisolone 4 mg tablets in See Rx Instructions PO .COMPLEX 03/11/24 a dose pack (Medrol (Magdiel)) #21 ea tiotropium bromide 2.5 2 inh inhalation DAILY #4 grams 03/11/24 mcg/actuation mist for inhalation (Spiriva Respimat) clonazepam 0.5 mg tablet 0.5 mg PO BID PRN Anxiety 30 days 03/24/24 #60 tabs atenolol 50 mg tablet See Rx Instructions .Route 03/25/24 .COMPLEX #180 tabs fosfomycin tromethamine 3 gram 1 packet PO Q3D 3 doses #3 ea 03/25/24 oral packet pantoprazole 40 mg tablet,delayed 40 mg PO BID #60 tabs 03/26/24 release ciprofloxacin HCl 500 mg tablet 500 mg PO BID #10 tabs 03/31/24 Allergies Allergy/AdvReac Type Severity Reaction Status Date / Time cefuroxime Allergy Intermediate Shortness Verified 03/22/24 10:24 of breath, lightheadedness fluticasone furoate Allergy Intermediate Unknown Verified 03/22/24 10:24 [From Trelegy Ellipta] umeclidinium Allergy Intermediate Unknown Verified 03/22/24 10:24 [From Trelegy Ellipta] vilanterol Allergy Intermediate Unknown Verified 03/22/24 10:24 [From Trelegy Ellipta] methenamine Allergy Mild ALGY-Difficulty Verified 03/22/24 10:24 Breathing cephalexin Allergy ALGY-Difficulty Verified 03/22/24 10:24 Breathing clindamycin Allergy ADR-Gastrointestinal Verified 03/22/24 10:24 Upset codeine Allergy ALGY-Rash Verified 03/22/24 10:24 levofloxacin [From Levaquin] Allergy ALGY-Difficulty Verified 03/22/24 10:24 Breathing nitrofurantoin Allergy ALGY-Difficulty Verified 03/22/24 10:24 [From Macrobid] Breathing Copygfx-NVT-FmY Reductase Allergy ALGY-Joint Verified 03/22/24 10:24 Inhibitor Pain [Uwvprcy-Ioi-Ofl Reductase Inhibitor] Sulfa (Sulfonamide Allergy ALGY-Difficulty Verified 03/22/24 10:24 Antibiotics) Breathing fosfomycin AdvReac Intermediate ADR-Gastrointestinal Verified 03/22/24 10:24 Upset lisinopril AdvReac Mild cough Verified 03/22/24 10:24 losartan AdvReac Mild diarrhea Verified 03/22/24 10:24 amoxicillin [From Augmentin] AdvReac SHORT OF Verified 03/22/24 10:24 BREATH clavulanic acid AdvReac SHORT OF Verified 03/22/24 10:24 [From Augmentin] BREATH erythromycin AdvReac Severe ALGY-Difficulty Uncoded 03/10/24 08:58 Breathing Review of Systems 2 Narrative: Constitutional symptoms: Negative except as documented in HPI. Skin symptoms: Negative except as documented in HPI. Eye symptoms: Negative except as documented in HPI. ENMT symptoms: Negative except as documented in HPI. Respiratory symptoms: Negative except as documented in HPI. Cardiovascular symptoms: Negative except as documented in HPI. Gastrointestinal symptoms: Negative except as documented in HPI. Genitourinary symptoms: Negative except as documented in HPI. Musculoskeletal symptoms: Negative except as documented in HPI. Neurologic symptoms: Negative except as documented in HPI. Psychiatric symptoms: Negative except as documented in HPI. Endocrine symptoms: Negative except as documented in HPI. PFSH ED 2 PFSH: Medical History (Updated 04/01/24 @ 23:05 by Samanta Wiseman MD) CHF (congestive heart failure) Hypertension Thoracic aortic aneurysm COPD exacerbation Allergies Situational anxiety Panic attack due to exceptional stress SAMRA (generalized anxiety disorder) COPD exacerbation Abdominal pain of unknown cause Enrolled in chronic care management Cellulitis of fifth toe of right foot Corns of multiple toes Nocturnal leg cramps Thyroid nodule Tinea of perianal region Loose bowel movements Oral pharyngeal candidiasis Chronic respiratory failure with hypoxia Pulmonary nodule Nocturnal hypoxia Perineal irritation Acute cystitis Salivary calculus has had surgery in the past Constipation Anxiety and depression Oxygen dependent ASVD (arteriosclerotic vascular disease) Afib Osteoarthritis of hip COPD (chronic obstructive pulmonary disease) Chronic gastritis H/O deep venous thrombosis Surgical History H/O colonoscopy 2016 Dr. French H/O esophagogastroduodenoscopy 2016 Dr. French Hx of cholecystectomy History of hysterectomy total H/O right knee surgery Family History Sister Anesthesia complication Son Anesthesia complication Grandmother Heart disease Mother , at age 73 Aneurysm Father , age 73 Cancer stomach Denies family history of Bleeding disorder Social History Smoking and tobacco/nicotine status: never used tobacco/nicotine Quit status (tobacco/nicotine): has quit using Year quit tobacco: 2009 - 1PPD x 48 Years Second hand smoke exposure: No Alcohol intake: never Substance/Drug Use: never Caregiver/support person: Yes Lives independently: Yes Household members: significant other Housing: House Marital status: / service: No Current occupational status: retired Do you think of yourself as: Straight/Heterosexual Current gender identity: Female Special shawna needs: No Agree to transfusion: Yes Female Reproductive History: Para: 4 Physical Exam 2 Narrative: EXAM NARRATIVE: General: Alert, no acute distress. Skin: Warm, dry. Head: Normocephalic, atraumatic. Neck: Supple, trachea midline. Eye: Extraocular movements are intact. Ears, nose, mouth and throat: mucosa moist. Cardiovascular: Regular, Normal peripheral perfusion. Respiratory: Lungs are clear to auscultation, respirations are non-labored, breath sounds are equal, Symmetrical chest wall expansion. Gastrointestinal: Soft, Nontender, Non distended Musculoskeletal: Normal ROM, no deformity. Neurological: Alert and oriented, No focal neurological deficit observed. Psychiatric: Cooperative, appropriate mood & affect. Course 2 Vital Signs: Vital signs: Vital Signs Temperature 98.1 F 04/01/24 19:55 Pulse Rate 59 L 04/01/24 23:24 Respiratory Rate 18 04/01/24 23:24 Blood Pressure 164/97 04/01/24 23:24 Pulse Oximetry 92 04/01/24 23:24 Oxygen Delivery Me thod Room Air 04/01/24 21:00 Oxygen Flow Rate 4 04/01/24 19:55 MDM - Abdominal Pain Medical Decision Making Lab Review: Laboratory results were reviewed and interpreted by myself the emergency room physician. No leukocytosis. No anemia. No renal failure. Urine still does show some signs of infection. I reviewed the patient's medical record. Patient does have a fairly pansensitive pseudomonal urinary tract infection. This is sensitive to clinda and Merrem. Given that she is not tolerating clinda and getting her dose of Merrem here Reexamination: Patient remained stable. No increased work of breathing. No altered mental status. No focal motor deficits. Assessment and plan: Urinary tract infection Multiple drug allergies -I discussed the patient with the hospitalist on-call who is admitting the patient. - Discussed findings and plan with patient. Answered any questions. - All laboratory values were reviewed and interpreted personally by myself, the ER physician - All imaging was reviewed and interpreted personally by myself, the ER physician. - Evaluation and treatment of this problem were appropriate in the emergency setting Lab Data 04/01/24 20:35 04/01/24 20:35 Labs/Radiology: Laboratory Results WBC 7.63 10^3/uL (3.29-11.43) 04/01/24 20:35 RBC 5.06 10^6/uL (3.85-5.65) 04/01/24 20:35 Hgb 15.20 g/dL (11.27-16.99) 04/01/24 20:35 Hct 47.6 % (36-47) H 04/01/24 20:35 MCV 94.1 fl (85-98) 04/01/24 20:35 MCH 30.0 pg (27-33) 04/01/24 20:35 MCHC 31.9 g/dL (30-55) 04/01/24 20:35 RDW 13.8 % (12.1-15.1) 04/01/24 20:35 Plt Count 173 10^3/cmm (157-399) 04/01/24 20:35 MPV 9.7 fL (7.4-10.4) 04/01/24 20:35 Neut % (Auto) 55.5 % 04/01/24 20:35 Lymph % (Auto) 29.9 % 04/01/24 20:35 [place] % (Auto) 8.9 % 04/01/24 20:35 Eos % (Auto) 4.7 % 04/01/24 20:35 Baso % (Auto) 0.7 % 04/01/24 20:35 Neut # (Auto) 4.24 10^3/uL (1.8-7.7) 04/01/24 20:35 Lymph # (Auto) 2.3 10^3/uL (0.8-4.8) 04/01/24 20:35 [place] # (Auto) 0.7 10^3/uL (0.2-0.9) 04/01/24 20:35 Eos # (Auto) 0.4 10^3/uL (0.0-0.8) 04/01/24 20:35 Baso # (Auto) 0.1 10^3/uL (0.0-0.1) 04/01/24 20:35 Nucleated RBC % (auto) 0 % 04/01/24 20:35 Nucleated RBCs # 0.0 /100WBC 04/01/24 20:35 Sodium 140 mmol/L (136-145) 04/01/24 20:35 Potassium 4.0 mmol/L (3.5-5.1) 04/01/24 20:35 Chloride 104 mmol/L (98-107) 04/01/24 20:35 Carbon Dioxide 28 mmol/L (22-29) 04/01/24 20:35 Anion Gap 12.0 (5-19) 04/01/24 20:35 BUN 13 mg/dL (8-23) 04/01/24 20:35 Creatinine 0.7 mg/dL (0.5-0.9) 04/01/24 20:35 GFR Calculation Not Reportable 04/01/24 20:35 Glucose 107 mg/dL (65-115) 04/01/24 20:35 Calculated Osmolality 291 mOsm/kg (285-295) 04/01/24 20:35 Lactic Acid 1.0 mmol/L (0.5-2.2) 04/01/24 20:35 Calcium 9.2 mg/dL (8.5-10.5) 04/01/24 20:35 Total Bilirubin 0.4 mg/dL (0.15-1.2) 04/01/24 20:35 AST 18 U/L (0-32) 04/01/24 20:35 ALT 17 U/L (0-33) 04/01/24 20:35 Alkaline Phosphatase 69 U/L (35-105) 04/01/24 20:35 C-Reactive Protein 10.3 mg/L (0.0-4.9) H 04/01/24 20:35 Total Protein 7.0 g/dL (6.6-8.7) 04/01/24 20:35 Albumin 3.9 g/dL (3.5-5.2) 04/01/24 20:35 Globulin 3.1 g/dL (1.3-4.6) 04/01/24 20:35 Urine Color Yellow (Yellow) 04/01/24 20:25 Urine Appearance Clear (CLEAR) 04/01/24 20:25 Urine pH 6.5 (5-7) 04/01/24 20:25 Ur Specific [place] 1.007 (1.005-1.030) 04/01/24 20:25 Urine Protein Trace (Negative) A 04/01/24 20:25 Urine Glucose (UA) Negative (Normal) 04/01/24 20:25 Urine Ketones Negative (Negative) 04/01/24 20: Urine Blood 1+ (Negative) A 04/01/24 20: Urine Nitrate Negative (Negative) 04/01/24 20: Urine Bilirubin Negative (Negative) 04/01/24 20: Urine Urobilinogen 1.0 mg/dL (Negative) 04/01/24 20:25 Ur Leukocyte Esterase 1+ (Negative) A 04/01/24 20:25 Urine RBC 0-2 /hpf (0-2) 04/01/24 20:25 Urine WBC 11-20 /hpf (0-5) H 04/01/24 20:25 Ur Squamous Epith Cells 6-10 /hpf (0-5) 04/01/24 20:25 Amorphous Sediment Not Reportable 04/01/24 20:25 Urine Bacteria None seen /hpf (NONE) 04/01/24 20:25 Hyaline Casts 0.81 /lpf 04/01/24 20:25 No radiology studies performed this visit Discharge Plan Discharge Patient Disposition: Placed in Observation Admit Provider: Uriel Matthews Clinical Impression: Recurrent UTI, Multiple drug allergies, Pseudomonas infection Coding Level of Care Code ED Paper Stripper for Wale Serrano
[2024-04-01 20:29] VITALS: PULSE 65; RESP 18; O2SAT 95
[2024-04-01 20:52] LABS: Basophils # 0.1 10^3/uL (0.0-0.1); Basophils % 0.7 %; Eosinophils # 0.4 10^3/uL (0.0-0.8); Eosinophils % 4.7 %; Hematocrit 47.6 % (36-47); Lymphocytes # 2.3 10^3/uL (0.8-4.8); Lymphocytes % 29.9 %; Mean Corpuscular HGB Conc 31.9 g/dL (30-55); Mean Corpuscular Volume 94.1 fl (85-98); Mean Platelet Volume 9.7 fL (7.4-10.4); Monocytes # 0.7 10^3/uL (0.2-0.9); Monocytes % 8.9 %; Neutrophils # 4.24 10^3/uL (1.8-7.7); Neutrophils % 55.5 %; Nucleated Red Blood Cells % 0 %; Platelet Count 173 10^3/cmm (157-399); Red Blood Count 5.06 10^6/uL (3.85-5.65); Red Cell Distribution Width 13.8 % (12.1-15.1); White Blood Count 7.63 10^3/uL (3.29-11.43)
[2024-04-01 20:57] LABS: Alanine Aminotransferase 17 U/L (0-33); Albumin Level 3.9 g/dL (3.5-5.2); Alkaline Phosphatase 69 U/L (35-105); Aspartate Amino Transferase 18 U/L (0-32); Blood Urea Nitrogen 13 mg/dL (8-23); Calcium 9.2 mg/dL (8.5-10.5); Carbon Dioxide 28 mmol/L (22-29); Chloride 104 mmol/L (98-107); Globulin 3.1 g/dL (1.3-4.6); Glucose 107 mg/dL (65-115); Osmolality Calculated 291 mOsm/kg (285-295); Sodium 140 mmol/L (136-145); Total Bilirubin 0.4 mg/dL (0.15-1.2)
[2024-04-01 20:59] VITALS: BP 191/103; PULSE 57; RESP 20; O2SAT 97
[2024-04-01 21:00] VITALS: PULSE 61; RESP 19; O2SAT 95
[2024-04-01 21:17] LABS: C Reactive Protein 10.3 mg/L (0.0-4.9)
[2024-04-01 22:01] LABS: Bilirubin Urine Negative (Negative); Blood Urine 1+ (Negative); Glucose Urine UA Negative (Normal); Ketones Urine Negative (Negative); Leukocyte Esterase Urine 1+ (Negative); Nitrate Urine Negative (Negative); Protein Urine Trace (Negative); Specific Gravity, Urine 1.007 (1.005-1.030); Urine Appearance Clear (CLEAR); Urine Color Yellow (Yellow); pH Urine 6.5 (5-7)
[2024-04-01 22:05] LABS: Bacteria Urine None Seen /hpf; Hyaline Casts Urine 0.81 /lpf; RBC Urine 0-2 /hpf (0-2)
[2024-04-01 23:24] VITALS: BP 164/97; PULSE 59; RESP 18; O2SAT 92
[2024-04-01] MEDS: meropenem 500 mg SDV IVP (23:27)
--- NOTE | 2024-04-01 23:53 | XRR_ITS ---
PROCEDURE INFORMATION: Exam: XR Chest Exam date and time: 04/02/2024 12:51 AM Age: 78 years old Clinical indication: Dyspnea TECHNIQUE: Imaging protocol: Radiologic exam of the chest. Views: 1 view. COMPARISON: CT angio chest PE protcl [id number] 03/10/2024 10:39 PM FINDINGS: Lungs: Hyperinflated lungs with flattening of the hemidiaphragms. No consolidation. Pleural spaces: No pleural effusion. No pneumothorax. Heart/Mediastinum: Stable cardiomegaly. Bones/joints: No acute findings. XR/XR chest 1V portable [id number] IMPRESSION: Background of emphysema/COPD without consolidation.
[2024-04-02] VITALS (16 sets, daily range): BP systolic 112–164; BP diastolic 68–97; PULSE 59–87; RESP 15–20; TEMP 36.5–36.8; O2SAT 92–96
[2024-04-02 00:26] LABS: D Dimer 1.26 ug/mLFEU (0-0.59)
[2024-04-02 00:49] LABS: Covid PCR NEGATIVE (Negative); Influenza A NEGATIVE (Negative); Influenza B NEGATIVE (Negative); Respiratory Syncytial Virus Ce NEGATIVE (Negative)
--- NOTE | 2024-04-02 01:09 | CTR_ITS ---
PROCEDURE INFORMATION: Exam: CTA Chest With Contrast Exam date and time: 04/02/2024 1:25 AM Age: 78 years old Clinical indication: Dyspnea and shortness of breath; Additional info: Assess for pe TECHNIQUE: Imaging protocol: Computed tomographic angiography of the chest with contrast. Exam focused on the arteries. 3D rendering (Not supervised by radiologist): MIP and/or 3D reconstructed images were created by the technologist. Radiation optimization: All CT scans at this facility use at least one of these dose optimization techniques: automated exposure control; mA and/or kV adjustment per patient size (includes targeted exams where dose is matched to clinical indication); or iterative reconstruction. Contrast material: OMNI 350; Contrast volume: 75 ml; Contrast route: INTRAVENOUS (IV); COMPARISON: CT angio chest PE protcl [id number] 03/10/2024 10:39 PM RADIATION DOSE METRICS: Total DLP (mGy-cm): 409.17 FINDINGS: Pulmonary arteries: Enlargement of the pulmonary trunk which could be a manifestation of pulmonary hypertension. No pulmonary emboli. Aorta: Ascending thoracic aortic aneurysm x 4.3 cm. The intramural hematoma involving the descending thoracic and upper abdominal aortas are less conspicuous. Veins: Mild reflux of contrast within the hepatic veins. Lungs: Emphysema. No mass or consolidation. Mild bilateral diffuse bronchial wall thickening. Pleural spaces: No pneumothorax. No pleural effusion. Heart: Cardiomegaly. Lymph nodes: No enlarged lymph nodes. Bones/joints: No acute fracture. Soft tissues: Unremarkable. CT/CT angio chest PE protcl [id number] IMPRESSION: 1. No pulmonary embolism. 2. Background of emphysema/COPD with bilateral bronchial wall thickening. Correlate for bronchitis. 3. Cardiomegaly with findings suggesting a component right heart failure. 4. Stable ascending thoracic aortic aneurysm x 4.4 cm. Less conspicuity of the known descending thoracic and upper abdominal aortic intramural hematomas. COMMENTS: The presence of pulmonary emphysema on CT is an independent risk factor for lung cancer. In the absence of a history or active diagnosis of lung cancer, it is recommended that this patient with emphysema be evaluated for enrollment in a low dose CT lung cancer screening program.
--- NOTE | 2024-04-02 01:11 | USCV_ITS ---
Mary Carmen Fuller Age: 78 Gender: F : 1945 Exam Date: 04/02/2024 02:48 Ordering Phys: Uriel Matthews MD Technologist: LAMAR [place]am [place] [facility] [place]: assess for dvt HISTORY: assess for dvt PROCEDURES: Venous duplex imaging was performed in bilateral lower extremities. The following venous structures were evaluated: common femoral vein, profunda vein, proximal portion of the greater saphenous vein, superficial femoral vein, and the popliteal vein. In addition, the posterior tibial and peroneal veins were evaluated. Serial compression, augmentation maneuvers, and spectral Doppler flow evaluation were performed, which were normal. FINDINGS: Normal 2-D Doppler and augmentation and compressibility throughout the lower extremity venous structures. Additional imaging through the proximal calf veins also reveals no thrombus. Limited evaluation of the greater saphenous vein is patent with no thrombus. CONCLUSIONS No DVT bilateral lower extremities. Dr. Rayna Lara DO (Electronically Signed) Final Date: 02 April 2024 07:29 S
--- NOTE | 2024-04-02 01:13 | P.HP_ITS ---
Providers/Chief Complaint 2 Admitting Physician: Uriel Matthews Primary Care Provider: Dolly Peralta MD Chief Complaint: allergic reaction SOB History of Present Illness Pleasant 78-year-old any pleasant 78-year-old lady recently hospitalized for COPD and CHF exacerbation, developed symptomatic UTI with dysuria, frequency, was assessed by her PCP with urine culture obtained growing Pseudomonas she was started on ciprofloxacin of which she took 1 dose but did not tolerate the medication with nausea and vomiting which brought her to the hospital. She is also noted to have significant dyspnea with accessory muscle use with minimal exertion like transferring from gurney to the bed, with diminished air entry and wheezing on exam. She also reports lower extremity edema. She states also that there was possibly a clot found in her leg. Review of Systems 2 Const: Denies: fever(s), chills, body aches or malaise ENMT: Denies: throat pain Card: Reports: edema and other (Episode of chest pain with Cipro intolerance); Denies: pre-syncope or dyspnea on exertion Resp: Denies: dyspnea, productive cough, change in phlegm color or hemoptysis GI: Denies: abdominal pain, nausea, vomiting, diarrhea, constipation, hematochezia or melena : Reports: urinary frequency and urinary urgency; Denies: hematuria Musc: Denies: back pain, joint swelling or joint redness Skin/Breast: Denies: rash or new lesions Neuro: Denies: headache(s) Medications/Allergies Home Medications Medication Instructions Recorded Confirmed Last Taken Type albuterol sulfate 2.5 mg/3 mL 2.5 mg (3 mL) inhalation Q4H PRN 05/29/22 04/02/24 04/01/24 18:00 Rx (0.083 %) solution for nebulization Shortness Of Breath #90 mL ascorbic acid (vitamin C) 1,000 mg 1 g PO QAM 12/12/22 04/02/24 03/31/24 09:00 History capsule acetaminophen 500 mg tablet 1,000 mg PO Q6H PRN Pain 04/15/23 04/02/24 Unknown History diclofenac sodium 50 mg 50 mg PO DAILY@12 #60 tabs 01/06/24 04/02/24 03/31/24 09:00 Rx tablet,delayed release albuterol sulfate 90 mcg/actuation 2 puff inhalation Q6H PRN 03/10/24 04/02/24 04/02/24 00:00 History aerosol inhaler Shortness Of Breath dicyclomine 20 mg tablet 20 mg PO QID PRN spasticity 03/10/24 04/02/24 03/31/24 09:00 History budesonide 160 mcg-glycopyr 9 2 inh inhalation BID #5.9 grams 03/11/24 04/02/24 04/01/24 09:00 Rx mcg-formot 4.8 mcg/actuation HFA inhaler (Breztri Aerosphere) clonazepam 0.5 mg tablet 0.5 mg PO BID PRN Anxiety 30 days 03/24/24 04/02/24 03/30/24 09:00 Rx #60 tabs atenolol 50 mg tablet See Rx Instructions .Route 03/25/24 04/02/24 04/01/24 09:00 Rx .COMPLEX #180 tabs pantoprazole 40 mg tablet,delayed 40 mg PO BID #60 tabs 03/26/24 04/02/24 03/31/24 09:00 Rx release Allergies Allergy/AdvReac Type Severity Reaction Status Date / Time cefuroxime Allergy Intermediate Shortness Verified 03/22/24 10:24 of breath, lightheadedness fluticasone furoate Allergy Intermediate Unknown Verified 03/22/24 10:24 [From Trelegy Ellipta] umeclidinium Allergy Intermediate Unknown Verified 03/22/24 10:24 [From Trelegy Ellipta] vilanterol Allergy Intermediate Unknown Verified 03/22/24 10:24 [From Trelegy Ellipta] methenamine Allergy Mild ALGY-Difficulty Verified 03/22/24 10:24 Breathing cephalexin Allergy ALGY-Difficulty Verified 03/22/24 10:24 Breathing clindamycin Allergy ADR-Gastrointestinal Verified 03/22/24 10:24 Upset codeine Allergy ALGY-Rash Verified 03/22/24 10:24 levofloxacin [From Levaquin] Allergy ALGY-Difficulty Verified 03/22/24 10:24 Breathing nitrofurantoin Allergy ALGY-Difficulty Verified 03/22/24 10:24 [From Macrobid] Breathing Upbjfqa-URJ-JhN Reductase Allergy ALGY-Joint Verified 03/22/24 10:24 Inhibitor Pain [Xoqwfvc-Uqd-Avk Reductase Inhibitor] Sulfa (Sulfonamide Allergy ALGY-Difficulty Verified 03/22/24 10:24 Antibiotics) Breathing fosfomycin AdvReac Intermediate ADR-Gastrointestinal Verified 03/22/24 10:24 Upset lisinopril AdvReac Mild cough Verified 03/22/24 10:24 losartan AdvReac Mild diarrhea Verified 03/22/24 10:24 amoxicillin [From Augmentin] AdvReac SHORT OF Verified 03/22/24 10:24 BREATH clavulanic acid AdvReac SHORT OF Verified 03/22/24 10:24 [From Augmentin] BREATH erythromycin AdvReac Severe ALGY-Difficulty Uncoded 03/10/24 08:58 Breathing PFSH Acute 2 PFSH: Medical History CHF (congestive heart failure) Hypertension Thoracic aortic aneurysm COPD exacerbation Allergies Situational anxiety Panic attack due to exceptional stress SAMRA (generalized anxiety disorder) COPD exacerbation Abdominal pain of unknown cause Enrolled in chronic care management Cellulitis of fifth toe of right foot Corns of multiple toes Nocturnal leg cramps Thyroid nodule Tinea of perianal region Loose bowel movements Oral pharyngeal candidiasis Chronic respiratory failure with hypoxia Pulmonary nodule Nocturnal hypoxia Perineal irritation Acute cystitis Salivary calculus has had surgery in the past Constipation Anxiety and depression Oxygen dependent ASVD (arteriosclerotic vascular disease) Afib Osteoarthritis of hip COPD (chronic obstructive pulmonary disease) Chronic gastritis H/O deep venous thrombosis Surgical History H/O colonoscopy 2015 Dr. French H/O esophagogastroduodenoscopy 2016 Dr. French Hx of cholecystectomy History of hysterectomy total H/O right knee surgery Family History Sister Anesthesia complication Son Anesthesia complication Grandmother Heart disease Mother , at age 73 Aneurysm Father , age 73 Cancer stomach Denies family history of Bleeding disorder Social History Smoking and tobacco/nicotine status: never used tobacco/nicotine Quit status (tobacco/nicotine): has quit using Year quit tobacco: 2009 - 1PPD x 48 Years Second hand smoke exposure: No Alcohol intake: never Substance/Drug Use: never Caregiver/support person: Yes Lives independently: Yes Household members: significant other Housing: House Marital status: / service: No Current occupational status: retired Do you think of yourself as: Straight/Heterosexual Current gender identity: Female Special shawna needs: No Agree to transfusion: Yes Female Reproductive History: Para: 4 Vitals/I&O/Wt Last Vital Signs Temp 98.1 F 04/01/24 19:55 Pulse 59 L 04/02/24 00:39 Resp 18 04/02/24 00:39 BP 164/97 04/02/24 00:39 Pulse Ox 92 04/02/24 00:39 O2 Del Method Room Air 04/01/24 21:00 O2 Flow Rate 4 04/01/24 19:55 Weight last 48 hrs Weight 80.24 kg Weight 79.379 kg Physical Exam 2 Const: COMMON NORMALS: patient oriented x3 and alert GENERAL APPEARANCE: c ooperative ORIENTATION/CONSCIOUSNESS: Yes awake HENMT: COMMON NORMALS: oropharynx normal Neck/C-Spine: COMMON NORMALS: no JVD Resp: AUSCULTATION: wheezes and diminished lung sounds OTHER: Gets mildly dyspneic with long sentences. Cardio: COMMON NORMALS: no JVD, regular rhythm, S1 normal heart sound present, S2 normal heart sound present and No murmurs present (Cardio) RHYTHM: regular rhythm HEART SOUNDS: S1 normal heart sound present and S2 normal heart sound present GI: COMMON NORMALS: Normal to inspection, nondistended, normoactive bowel sounds present, Soft to palpation and non-tender PALPATION: Yes Soft to palpation Extremity: COMMON NORMALS: no joint enlargement GENERAL: Yes edema (1+) Neuro: COMMON NORMALS: patient oriented x3 and moves all extremities S ENSORIUM/ORIENTATION: Yes alert Skin: COMMON NORMALS: no rashes or lesions noted GENERAL SKIN EXAM: no rashes or lesions noted Data 04/01/24 20:35 04/01/24 20:35 A&P Assessment and plan (1) COPD with exacerbation: Moderate exacerbation of COPD with worsening hypoxia, normally on 3 L, he requiring 4 L, with severe dyspnea with minimal exertion transferring to the bed with tachypnea, accessory muscle use, gets dyspneic with longer sentences. Decreased air entry, wheezing on exam. Chest x-ray otherwise without suggestion of pneumonia on monitor progression, pending official read. However, also with elevated D-dimer on review, 1.26, reports also possible diagnosis of lower extremity thrombus recently, does report lower extremity edema. Assess CTA, discussed with her risk of contrast allergy or nephropathy. Assess lower extremity duplex. For COPD exacerbation discussed with her treatment with Solu-Medrol, also is covered with meropenem for UTI as below. Discussed with her DuoNebs which she states has had in the past without issue. Inhaled budesonide. He is not producing much sputum. (2) Complicated UTI (urinary tract infection): Reviewed vitals, CBC, CMP, UA, ED note, discussed with ED provider. UTI brought her into ER with symptomatic UTI, culture collected on outpatient side growing Pseudomonas which was pansensitive, was started on ciprofloxacin but could not tolerate after 1 dose with nausea and vomiting, had to discontinue medication. Multiple medication allergies making treatment difficult. Started on meropenem. Monitor for risk of seizure. Case management consultation, consider outpatient antibiotics to complete after discharge if otherwise improves and ready to discharge from standpoint of COPD exacerbation. (3) Hypoxia: As above with moderate COPD exacerbation, reassess volume status. Does have some lower extremity edema, recent hospitalization for CHF exacerbation. Otherwise no JVD distention, no crackles, does not appear to have significant pulmonary edema on chest x-ray my interpretation, pending official read. Will obtain NT proBNP. For now continue regular Lasix. (4) Elevated d-dimer: Elevated D-dimer, reports also possible diagnosis of lower extremity thrombus recently, does report lower extremity edema. Assess CTA, discussed with her risk of contrast allergy or nephropathy. Assess lower extremity duplex. Plan Recent hospitalization with CHF exacerbation: Currently with lower extremity edema. D-dimer is elevated. Assess for possible DVT. Does not otherwise seem significantly fluid overloaded. Continue regular Lasix. Multiple medication allergies: Should follow-up with [facility]ix consultant GERD: PPI A-fib: Appears to have history of atrial fibrillation, does not appear to be on anticoagulation. Has denied any issues with bleeding in the past on above discussion regarding D-dimer. Please visit with her regarding stroke risk and consider anticoagulation for stroke risk reduction. Continue atenolol. HTN: Continue atenolol, monitor blood pressure Other medical problems. Attestations 2 Medical Necessity Statement*: Place in observation for additional assessment and management of moderate COPD exacerbation, as well as treatment of complicated UTI with Pseudomonas in a lady with numerous antibiotic allergies or intolerances. and High MDM includes amount and/or complexity of data reviewed/ordered [ previous or external records, resulted lab(s)/test(s), ordered lab(s)/test(s), independent test interpretation and other healthcare professional discussion] and described risk of complication, morbidity or mortality of management as documented Diagnoses COPD with exacerbation J44.1 Complicated UTI (urinary tract infection) N39.0 Hypoxia R09.02 Elevated d-dimer R79.89
[2024-04-02] MEDS: iohexol 350 mg/mL 500 mL Btl (per mL) IV (01:36)
[2024-04-02] MEDS: acetaminophen 325 mg Tablet 650 MG PO ×2 (01:57→13:44)
[2024-04-02] MEDS: ipratropium-albuterol 3 mL Neb INHALATION ×4 (02:04→20:37)
[2024-04-02] MEDS: methylPREDNISolone sod succ 40 mg/mL INJ IVP ×2 (03:15→08:35)
[2024-04-02] MEDS: enoxaparin 40 mg/0.4 mL Syringe SUBCUT (03:15)
[2024-04-02] MEDS: FUROsemide 10 mg/mL SDV 4mL 40 MG IVP (05:41)
[2024-04-02] MEDS: meropenem 500 mg SDV IVP ×3 (06:25→23:34)
[2024-04-02] MEDS: atenolol 50 mg Tablet PO ×2 (08:35→16:56)
[2024-04-02] MEDS: pantoprazole DR 40 mg Tablet PO ×2 (08:35→16:56)
[2024-04-02] MEDS: budesonide 0.5 mg/2 mL Neb INHALATION ×2 (09:01→20:37)
--- NOTE | 2024-04-02 09:54 | PC.CHAP ---
Pastoral Care Encounter/Spiritual Assessment Type of Contact [] Declined permit specialist visit [] Patient/Family/Request visit [] Outpatient visit [] Follow-up visit [] Physician referral [] Code/Alert [x] Routine visit [] Staff referral [] Actively dying [] Patient sleeping [] Family support [] [] Out of room [] Palliative care [] [x] Receiving care in room [] Pre-surgical visit [] Trauma [] Long length of stay [] ICU visit [] Other: Relational/Emotional Strength [x] Patient feels connected with others/family/visitors/staff [] Distress [] Loneliness/isolation [] Abandonment Spirituality of Patient [] Person of Tamera [] Attends Jainism of their [place] [x] Believes in Prayer [] Reads Bible or Orthodoxy materials [] There are Spiritual issues to be addressed Back Padder Interventions [x] Prayer [x] Active listening [] Non-anxious presence [] Spiritual/emotional support [] Crisis/trauma care [] Spiritual counseling [] Bereavement support [] Provided bereavement packet [] Provided Bible/devotional materials [] Provided toy/stuffed animal, coloring book to patient or family member [] Provided Communion [] Anointing/[place] [] Salvation [] Completed spiritual assessment [] Other: Impact on Illness or Injury [] Angry [] Fearful [x] Anxious [] Often cries [] Exhaustion [] Unable to work [] Unable to attend yazdanism [] Unable to walk/stand [] Unable to read [] Unable to drive [] Unable to eat/drink [] Unable to sleep [] Unable to be with family [] Patient intubated [] Other: Summary first staff in room, prayer Time spent with patient 10min
--- NOTE | 2024-04-02 10:44 | P.PN_ITS ---
Subjective 2 Subjective: Patient admitted this morning by nursing informatics clinical analyst. Refer to H&P for further details. Patient seen and evaluated this morning. She states that her leg swelling is nearly resolved. We discussed her urinary tract infection and challenges regarding treatment, namely her multiple antibiotic allergies as well as the organism itself being Pseudomonas which is a challenging organism to treat with limited options. She is currently on meropenem and tolerating it well. She did not tolerate outpatient ciprofloxacin. She does have a known allergy to Levaquin as well. Patient would like to be able to get home soon as possible. We discussed that we would see what her treatment options were and get her home as quickly as safely possible. Medications: Reviewed: Yes Vitals/I&O/Wt Last Vital Signs Temp 98.1 F 04/02/24 07:10 Pulse 72 04/02/24 09:15 Resp 18 04/02/24 09:01 BP 126/80 04/02/24 07:10 Pulse Ox 92 04/02/24 09:01 O2 Del Method Nasal Cannula 04/02/24 09:01 O2 Flow Rate 2 04/02/24 09:01 04/01/24 04/02/24 04/02/24 22:59 06:59 14:59 Intake Total 360 / 360 236 / 236 Output Total 1200 / 1200 Balance -840 / -840 236 / 236 Weight last 48 hrs Weight 79.896 kg Weight 80.24 kg Weight 79.379 kg Physical Exam 2 Narrative: General: Patient is awake and alert. Very pleasant. Conversational. Head: Normocephalic. Atraumatic. EOM intact. Neck: No JVD. Cardiovascular: RRR. No gallops. No murmurs. Bilateral pedal edema. Lungs: Moderate air movement. Breath sounds are slightly diminished at bases. End expiratory wheezing is present. No rales or rhonchi. On 3 L nasal cannula support. Skin: No jaundice. No rashes. Abdomen: Normal bowel sounds, abdomen soft and nontender. Extremities: No cyanosis or clubbing. Musculoskeletal: No swollen or erythematous joints. Neurological: Moves all 4 extremities. No myoclonus. Data 04/01/24 20:35 04/01/24 20:35 A&P Assessment and plan (1) COPD with exacerbation: Acute COPD exacerbation likely secondary to acute bronchitis On broad-spectrum antibiotics with meropenem which will cover bronchitis Continue steroids Continue breathing treatments Continue supportive care (2) Complicated UTI (urinary tract infection): Acute complicated UTI Failed oral abx Continue Meropenem, discussed w/ case management regarding possible home IV abx w/ Meropenen Will proceed to try to set up on home IV abx w/ Merrem Proceed with midline placement (3) Hypoxia: Hypoxia has improved, now on baseline 3L oxygen this morning Treat underlying COPD as noted above (4) Elevated d-dimer: Chest CTA negative for PE Venous doppler ultrasound negative for DVT (5) Peripheral edema: Patient responded extremely well to Lasix this morning Will hold further IV diuresis Check echo Plan Multiple medication allergies: Should follow-up with cash posting specialist GERD: PPI Paroxysmal A-fib: Continue atenolol for rate control. Not currently on therapeutic AC. HTN: Continue atenolol, monitor blood pressure Attestations 2 Medical Necessity Statement*: Patient requires ongoing hospitalization for treatment of underlying COPD, IV antibiotics for both bronchitis and acute complicated urinary tract infection after failing oral antibiotics, and supportive care. Coding Level of Care Code Acute Code for [facility] Diagnoses COPD with exacerbation J44.1 Complicated UTI (urinary tract infection) N39.0 Hypoxia R09.02 Elevated d-dimer R79.89 Peripheral edema R60.0
--- NOTE | 2024-04-02 12:51 | PICC.NOTE ---
Midline placed to right basilic vein. Referred to vascular access nurse for Midline placement due to need for IV antibiotics x 7 days. Risks and benefits discussed and informed consent obtained from pt. Right arm assessed with right basilic vein measuring 5.4 mm, straight, and apparent best choice for placement. Using sterile technique and MST, right basilic vein accessed x 1 stick. Mid-arm circumference measured 10 cm from right AC 30 cm. Trimmed cath 10 cm with 0 cm external length noted. Line secured with stat-lock. Insertion site covered with Biopatch and TSM. Report given to charge nurse, SANDRA Pacheco.
[2024-04-03] VITALS (8 sets, daily range): BP systolic 112–128; BP diastolic 61–81; PULSE 64–74; RESP 16–21; TEMP 36.5–36.6; O2SAT 93–96
[2024-04-03] MEDS: enoxaparin 40 mg/0.4 mL Syringe SUBCUT (01:03)
[2024-04-03] MEDS: ipratropium-albuterol 3 mL Neb INHALATION ×2 (02:57→07:32)
[2024-04-03 05:14] LABS: Basophils % 0.2 %; Eosinophils # 0.1 10^3/uL (0.0-0.8); Eosinophils % 0.8 %; Hematocrit 44.5 % (36-47); Lymphocytes # 2.3 10^3/uL (0.8-4.8); Lymphocytes % 24.6 %; Mean Corpuscular HGB Conc 32.1 g/dL (30-55); Mean Corpuscular Hemoglobin 30.4 pg (27-33); Mean Corpuscular Volume 94.5 fl (85-98); Mean Platelet Volume 9.9 fL (7.4-10.4); Monocytes # 0.8 10^3/uL (0.2-0.9); Monocytes % 8.1 %; Nucleated Red Blood Cells % 0 %; Platelet Count 159 10^3/cmm (157-399); Red Blood Count 4.71 10^6/uL (3.85-5.65); Red Cell Distribution Width 13.5 % (12.1-15.1); White Blood Count 9.24 10^3/uL (3.29-11.43)
[2024-04-03 05:34] LABS: Anion Gap 12.3 (5-19); Blood Urea Nitrogen 18 mg/dL (8-23); Calcium 8.9 mg/dL (8.5-10.5); Carbon Dioxide 29 mmol/L (22-29); Chloride 101 mmol/L (98-107); Creatinine Clr Calc Pharmacy 63.7795; Glucose 131 mg/dL (65-115); Magnesium 2.1 mg/dL (1.7-2.3); Osmolality Calculated 292 mOsm/kg (285-295); Potassium 3.3 mmol/L (3.5-5.1); Sodium 139 mmol/L (136-145)
[2024-04-03] MEDS: meropenem 500 mg SDV IVP ×2 (06:35→14:04)
[2024-04-03] MEDS: budesonide 0.5 mg/2 mL Neb INHALATION (07:32)
[2024-04-03] MEDS: predniSONE 20 mg Tablet 40 MG PO (08:02)
[2024-04-03] MEDS: pantoprazole DR 40 mg Tablet PO (08:02)
[2024-04-03] MEDS: potassium chloride ER 20 mEq Tablet 40 MEQ PO (08:02)
[2024-04-03] MEDS: atenolol 50 mg Tablet PO (08:02)
--- NOTE | 2024-04-03 08:36 | PM.DCS ---
Discharge Providers Date of Admission: 04/01/24 23:15 Date of Discharge: April 03, 2024 Attending Provider at Admission: Uriel Matthews Attending Provider at Discharge: Danilo Whittaker MD Primary Care Provider: Dolly Peralta MD Diagnoses at Discharge Discharge Diagnosis (1) COPD with exacerbation: Status: Acute (2) Complicated UTI (urinary tract infection): Status: Acute (3) Hypoxia: Status: Acute (4) Elevated d-dimer: Status: Acute (5) Peripheral edema: Status: Acute Reason for Visit Reason for Visit: allergic reaction SOB Hospital Course Hospital Course Eric Fuller is a very pleasant 78-year-old female with a past medical history significant for COPD with chronic hypoxic respiratory failure, recurrent urinary tract infections, hypertension, and multiple other comorbidities who presented with nausea and vomiting. Patient had recently been diagnosed with recurrent urinary tract infection and started on ciprofloxacin. She did not tolerate the oral antibiotics due to intractable nausea and vomiting. She was therefore admitted to observation for IV antibiotics and further workup. Review of her urine culture showed Pseudomonas aeruginosa. Patient has a history of an allergy to levofloxacin. She did not tolerate ciprofloxacin orally. Therefore no oral option was amenable for treatment. Midline was placed. Patient will be treated with meropenem for at least 7 days. Patient discharged to home with IV antibiotics for which her family will help administer. Return precautions were discussed on day of discharge. Patient discharged home in stable condition. She is to follow-up with her primary provider within 1 week. Of note, patient also found to have COPD exacerbation upon presentation. She was treated with IV steroids and transition to prednisone. Patient was noted to have peripheral edema upon presentation. This resolved with IV diuresis. Recent echo was largely unremarkable. Presentation was not consistent with congestive heart failure exacerbation. Patient discharged with as needed Lasix for peripheral edema. Physical Exam Narrative: General: Patient is awake and alert. Very pleasant. Conversational. Head: Normocephalic. Atraumatic. EOM intact. Neck: No JVD. Cardiovascular: RRR. No gallops. No murmurs. No peripheral edema. Lungs: Clear to auscultation, no use of accessory muscles, no crackles or wheezes. Skin: No jaundice. No rashes. Abdomen: Normal bowel sounds, abdomen soft and nontender. Extremities: No cyanosis or clubbing. Musculoskeletal: No swollen or erythematous joints. Neurological: Moves all 4 extremities. No myoclonus. Discharge Data Studies Completed and Pending Completed Studies During Hospitalization Category Date Time Status CTA chest [CT angio chest PE protcl [id number]] Routine Cat Scan 04/02/24 01:09 Completed CXRP [XR chest 1V portable [id number]] Routine Exams 04/01/24 23:53 [place] [id number] Routine Ultrasound 04/02/24 01:11 Completed Pending at discharge Category Date Time Status Basic Metabolic Panel AM LABS Lab 04/04/24 04:00 Ordered Basic Metabolic Panel AM LABS Lab 04/05/24 04:00 Ordered Complete Blood Count w/Auto AM LABS Lab 04/04/24 04:00 Ordered Complete Blood Count w/Auto AM LABS Lab 04/05/24 04:00 Ordered Radiology Impressions Chest X-Ray 04/01/24 23:53 IMPRESSION: Background of emphysema/COPD without consolidation. Chest CTA 04/02/24 01:09 IMPRESSION: 1. No pulmonary embolism. 2. Background of emphysema/COPD with bilateral bronchial wall thickening. Correlate for bronchitis. 3. Cardiomegaly with findings suggesting a component right heart failure. 4. Stable ascending thoracic aortic aneurysm x 4.4 cm. Less conspicuity of the known descending thoracic and upper abdominal aortic intramural hematomas. COMMENTS: The presence of pulmonary emphysema on CT is an independent risk factor for lung cancer. In the absence of a history or active diagnosis of lung cancer, it is recommended that this patient with emphysema be evaluated for enrollment in a low dose CT lung cancer screening program. Laboratory Results WBC 9.24 10^3/uL (3.29-11.43) 04/03/24 04:41 RBC 4.71 10^6/uL (3.85-5.65) 04/03/24 04:41 Hgb 14.30 g/dL (11.27-16.99) 04/03/24 04:41 Hct 44.5 % (36-47) 04/03/24 04:41 MCV 94.5 fl (85-98) 04/03/24 04:41 MCH 30.4 pg (27-33) 04/03/24 04:41 MCHC 32.1 g/dL (30-55) 04/03/24 04:41 RDW 13.5 % (12.1-15.1) 04/03/24 04:41 Plt Count 159 10^3/cmm (157-399) 04/03/24 04:41 MPV 9.9 fL (7.4-10.4) 04/03/24 04:41 Neut % (Auto) 66.0 % 04/03/24 04:41 Lymph % (Auto) 24.6 % 04/03/24 04:41 Gaines % (Auto) 8.1 % 04/03/24 04:41 Eos % (Auto) 0.8 % 04/03/24 04:41 Baso % (Auto) 0.2 % 04/03/24 04:41 Neut # (Auto) 6.10 10^3/uL (1.8-7.7) 04/03/24 04:41 Lymph # (Auto) 2.3 10^3/uL (0.8-4.8) 04/03/24 04:41 Gaines # (Auto) 0.8 10^3/uL (0.2-0.9) 04/03/24 04:41 Eos # (Auto) 0.1 10^3/uL (0.0-0.8) 04/03/24 04:41 Baso # (Auto) 0.0 10^3/uL (0.0-0.1) 04/03/24 04:41 Nucleated RBC % (auto) 0 % 04/03/24 04:41 Nucleated RBCs # 0.0 /100WBC 04/03/24 04:41 D-Dimer 1.26 ug/mLFEU (0-0.59) H 04/01/24 20:35 Sodium 139 mmol/L (136-145) 04/03/24 04:41 Potassium 3.3 mmol/L (3.5-5.1) L 04/03/24 04:41 Chloride 101 mmol/L (98-107) 04/03/24 04:41 Carbon Dioxide 29 mmol/L (22-29) 04/03/24 04:41 Anion Gap 12.3 (5-19) 04/03/24 04:41 BUN 18 mg/dL (8-23) 04/03/24 04:41 Creatinine 0.6 mg/dL (0.5-0.9) 04/03/24 04:41 GFR Calculation Not Reportable 04/03/24 04:41 Glucose 131 mg/dL (65-115) H 04/03/24 04:41 Calculated Osmolality 292 mOsm/kg (285-295) 04/03/24 04:41 Lactic Acid 1.0 mmol/L (0.5-2.2) 04/01/24 20:35 Calcium 8.9 mg/dL (8.5-10.5) 04/03/24 04:41 Magnesium 2.1 mg/dL (1.7-2.3) 04/03/24 04:41 Total Bilirubin 0.4 mg/dL (0.15-1.2) 04/01/24 20:35 AST 18 U/L (0-32) 04/01/24 20:35 ALT 17 U/L (0-33) 04/01/24 20:35 Alkaline Phosphatase 69 U/L (35-105) 04/01/24 20:35 C-Reactive Protein 10.3 mg/L (0.0-4.9) H 04/01/24 20:35 Total Protein 7.0 g/dL (6.6-8.7) 04/01/24 20:35 Albumin 3.9 g/dL (3.5-5.2) 04/01/24 20:35 Globulin 3.1 g/dL (1.3-4.6) 04/01/24 20:35 Urine Color Yellow (Yellow) 04/01/24 20:25 Urine Appearance Clear (CLEAR) 04/01/24 20:25 Urine pH 6.5 (5-7) 04/01/24 20:25 Ur Specific [place] 1.007 (1.005-1.030) 04/01/24 20:25 Urine Protein Trace (Negative) A 04/01/24 20:25 Urine Glucose (UA) Negative (Normal) 04/01/24 20: Urine Ketones Negative (Negative) 04/01/24 20:25 Urine Blood 1+ (Negative) A 04/01/24 20: Urine Nitrate Negative (Negative) 04/01/24 20: Urine Bilirubin Negative (Negative) 04/01/24 20: Urine Urobilinogen 1.0 mg/dL (Negative) 04/01/24 20:25 Ur Leukocyte Esterase 1+ (Negative) A 04/01/24 20: Urine RBC 0-2 /hpf (0-2) 04/01/24 20:25 Urine WBC 11-20 /hpf (0-5) H 04/01/24 20:25 Ur Squamous Epith Cells 6-10 /hpf (0-5) 04/01/24 20:25 Amorphous Sediment Not Reportable 04/01/24 20:25 Urine Bacteria None seen /hpf (NONE) 04/01/24 20:25 Hyaline Casts 0.81 /lpf 04/01/24 20:25 Coronavirus (PCR) Negative (Negative) 04/02/24 00:05 Influenza A (PCR) Negative (Negative) 04/02/24 00:05 Influenza Type B (PCR) Negative (Negative) 04/02/24 00:05 RSV (PCR) Negative (Negative) 04/02/24 00:05 Vitals Last Vital Signs Temp 97.7 F 04/03/24 07:54 Pulse 65 04/03/24 07:54 Resp 16 04/03/24 07:54 BP 128/79 04/03/24 07:54 Pulse Ox 95 04/03/24 07:54 O2 Del Method Room Air 04/03/24 07:54 O2 Flow Rate 3 04/03/24 07:32 Discharge Plan Discharge Patient Disposition: Home Condition: Stable Prescriptions: New prednisone 20 mg Tablet 40 mg PO DAILY 5 Days Qty: 10 0RF meropenem 500 mg Recon Soln 500 mg IVP Q8H 7 Days Qty: 21 0RF Lasix 40 mg tablet 40 mg PO DAILY PRN (Reason: edema) Qty: 30 0RF Continued ascorbic acid (vitamin C) 1,000 mg capsule 1 g PO QAM albuterol sulfate 2.5 mg /3 mL (0.083 %) solution for nebulization 2.5 mg INHALATION Q4H PRN (Reason: Shortness Of Breath) Qty: 90 0RF diclofenac sodium 50 mg tablet,delayed release (DR/EC) 50 mg PO DAILY@12 Qty: 60 2RF clonazepam 0.5 mg tablet 0.5 mg PO BID PRN (Reason: Anxiety) 30 Days Qty: 60 3RF atenolol 50 mg tablet See Rx Instructions .ROUTE .COMPLEX Qty: 180 0RF Dose Instruction: Take 1 tablet by mouth twice daily Rx Instructions: Take 1 tablet by mouth twice daily pantoprazole 40 mg tablet,delayed release (DR/EC) 40 mg PO BID Qty: 60 2RF acetaminophen 500 mg Tablet 1,000 mg PO Q6H PRN (Reason: Pain) dicyclomine 20 mg tablet 20 mg PO QID PRN (Reason: spasticity) albuterol sulfate 90 mcg/actuation HFA aerosol inhaler 2 puff inhalation Q6H PRN (Reason: Shortness Of Breath) Rajitri Aerosphere 160-9-4.8 mcg/actuation HFA aerosol inhaler 2 inh inhalation BID Qty: 5.9 4RF Discharge Orders: Discharge Order (Routine); Ordered 04/03/24 Ordered By: Danilo Whittaker Other Ambulatory Orders: Miscellaneous Procedure (ONCE) Timeframe: [id number] Location: None Selected Ordered By: Danilo Whittaker Referrals: Outpatient Infusion Center [Other] (You should be receiving a call from the Infusion Center to come in on 04/09/24 to have your PICC line removed after completion of your IV antibiotics. If you do not receive a call from them on Friday, please call them and inquire about your appointment date/time. ) [facility] [Outside] ([facility] is the [facility] that is providing your IV antibiotic. Should you have any issues or concerns, you should reach out to them. You will have specific contact information as to who your case finisher/coordinator is delivered with your antibiotic kit. Please look for it there. ) Dolly Peralta MD [Primary Care Provider] - (We have notified your physician's clinic of the need for a follow-up appointment to be scheduled. If you have not heard from them within the next 2 business days, please call them directly. SENT REFERRAL FOR HOSPITAL FOLLOW UP) Discharge Diet: Advance as tolerated and Usual diet Discharge Activity: Resume usual activity and Increase activity as tolerated Patient Instructions: Furosemide (By mouth), Prednisone (By mouth), Meropenem (By injection) (Merrem IV, Novaplus Meropenem, Novaplus..., Urinary Tract Infection in Women (DC), Hypoxia (GEN), Opioid Safety Activity Restrictions/Additional Instructions: 1. Take medications as prescribed. 2. Follow-up with primary provider within 1 week. 3. Follow-up after completion of IV antibiotics for removal of PICC line. 4. Return precautions discussed. Discharge Attestations Time Spent in Discharge Care*: greater than 30 min Quality Metrics Clinical Quality Measures [ No reported AMI, CVA or VTE this stay] Coding Level of Care Code Acute Code for Chg Fwd Diagnoses COPD with exacerbation J44.1 Complicated UTI (urinary tract infection) N39.0 Hypoxia R09.02 Elevated d-dimer R79.89 Peripheral edema R60.0
--- NOTE | 2024-04-03 15:47 | PC.NURSE ---
Discharge took longer because needed to demonstrate ATB IV and next dose was at 1500.
== END 2024-04-03 15:45 | disposition home or self-care (01) ==
LOC: ER 23:05 → MEDSURG 23:22
PROVIDERS: Admitting Provider Internal Medicine; Emergency Provider Emergency Medicine; PCP Family Medicine; Visit Provider Internal Medicine
DX: J44.1 Chronic obstructive pulmonary disease with (acute) exacerbation (principal); N39.0 Urinary tract infection, site not specified; R79.89 Other specified abnormal findings of blood chemistry; R60.0 Localized edema; J96.11 Chronic respiratory failure with hypoxia; I11.0 Hypertensive heart disease with heart failure; I50.9 Heart failure, unspecified; Z99.81 Dependence on supplemental oxygen; I48.91 Unspecified atrial fibrillation
CPT/HCPCS: 0241U; 36415; 36569; 71045; 71275; 80048; 80053; 81001; 83605; 83735; 85025; 85378; 86140; 93970; 94640; 94664; 96372; 96374; 96375; 96376; 99285; C1751; G0378; J1650; J1940; J2185; J2919; J7512; J7626

== ENCOUNTER 2024-04-04 14:27 | Emergency (ER) | payer MEDICARE, SELFPAY ==
[2024-04-04 14:34] VITALS: BP 131/85; PULSE 65; RESP 17; TEMP 36.7; O2SAT 96; BMI 28.2
--- NOTE | 2024-04-04 15:52 | ED_ITS ---
HPI - Wound/Laceration General: Chief Complaint: Wound/Laceration Stated Complaint: picc dressing change Time Seen by Provider: 04/04/24 15:51 History of Present Illness: 78-year-old female comes in today with c oncern for dressing change of the midline. The dressing is rolled up on her and exposing the insertion site. Patient also was having difficulty with accessing the site. Nursing was able to access the site in triage and flush it. Site is clean without any signs of redn ess or purulent drainage. Related Data Home Medications Medication Instructions Recorded Confirmed ascorbic acid (vitamin C) 1,000 mg 1 g PO QAM 12/12/22 04/02/24 capsule acetaminophen 500 mg tablet 1,000 mg PO Q6H PRN Pain 04/15/23 04/02/24 albuterol sulfate 90 mcg/actuation 2 puff inhalation Q6H PRN 03/10/24 04/02/24 aerosol inhaler Shortness Of Breath dicyclomine 20 mg tablet 20 mg PO QID PRN spasticity 03/10/24 04/02/24 Previous Rx's Medication Instructions Recorded albuterol sulfate 2.5 mg/3 mL 2.5 mg (3 mL) inhalation Q4H PRN 05/29/22 (0.083 %) solution for nebulization Shortness Of Breath #90 mL diclofenac sodium 50 mg 50 mg PO DAILY@12 #60 tabs 01/06/24 tablet,delayed release budesonide 160 mcg-glycopyr 9 2 inh inhalation BID #5.9 grams 03/11/24 mcg-formot 4.8 mcg/actuation HFA inhaler (Breztri Aerosphere) clonazepam 0.5 mg tablet 0.5 mg PO BID PRN Anxiety 30 days 03/24/24 #60 tabs atenolol 50 mg tablet See Rx Instructions .Route 03/25/24 .COMPLEX #180 tabs pantoprazole 40 mg tablet,delayed 40 mg PO BID #60 tabs 03/26/24 release furosemide 40 mg tablet (Lasix) 40 mg PO DAILY PRN edema #30 tabs 04/03/24 meropenem 500 mg intravenous 500 mg IVP Q8H 7 days #21 ea 04/03/24 solution prednisone 20 mg tablet 40 mg (2 x 20 mg) PO DAILY 5 days 04/03/24 #10 tabs Allergies Allergy/AdvReac Type Severity Reaction Status Date / Time cefuroxime Allergy Intermediate Shortness Verified 03/22/24 10:24 of breath, lightheadedness fluticasone furoate Allergy Intermediate Unknown Verified 03/22/24 10:24 [From Trelegy Ellipta] umeclidinium Allergy Intermediate Unknown Verified 03/22/24 10:24 [From Trelegy Ellipta] vilanterol Allergy Intermediate Unknown Verified 03/22/24 10:24 [From Trelegy Ellipta] methenamine Allergy Mild ALGY-Difficulty Verified 03/22/24 10:24 Breathing cephalexin Allergy ALGY-Difficulty Verified 03/22/24 10:24 Breathing clindamycin Allergy ADR-Gastrointestinal Verified 03/22/24 10:24 Upset codeine Allergy ALGY-Rash Verified 03/22/24 10:24 levofloxacin [From Levaquin] Allergy ALGY-Difficulty Verified 03/22/24 10:24 Breathing nitrofurantoin Allergy ALGY-Difficulty Verified 03/22/24 10:24 [From Macrobid] Breathing Cyqbavi-XIP-ZjM Reductase Allergy ALGY-Joint Verified 03/22/24 10:24 Inhibitor Pain [Mnchhjc-Jkt-Khs Reductase Inhibitor] Sulfa (Sulfonamide Allergy ALGY-Difficulty Verified 03/22/24 10:24 Antibiotics) Breathing fosfomycin AdvReac Intermediate ADR-Gastrointestinal Verified 03/22/24 10:24 Upset lisinopril AdvReac Mild cough Verified 03/22/24 10:24 losartan AdvReac Mild diarrhea Verified 03/22/24 10:24 amoxicillin [From Augmentin] AdvReac SHORT OF Verified 03/22/24 10:24 BREATH clavulanic acid AdvReac SHORT OF Verified 03/22/24 10:24 [From Augmentin] BREATH erythromycin AdvReac Severe ALGY-Difficulty Uncoded 03/10/24 08:58 Breathing Review of Systems General: Reports: 10 or more systems reviewed and unremarkable except in HPI and below PFSH ED PFSH: Medical History CHF (congestive heart failure) Hypertension Thoracic aortic aneurysm COPD exacerbation Allergies Situational anxiety Panic attack due to exceptional stress SAMRA (generalized anxiety disorder) COPD exacerbation Abdominal pain of unknown cause Enrolled in chronic care management Cellulitis of fifth toe of right foot Corns of multiple toes Nocturnal leg cramps Thyroid nodule Tinea of perianal region Loose bowel movements Oral pharyngeal candidiasis Chronic respiratory failure with hypoxia Pulmonary nodule Nocturnal hypoxia Perineal irritation Acute cystitis Salivary calculus has had surgery in the past Constipation Anxiety and depression Oxygen dependent ASVD (arteriosclerotic vascular disease) Afib Osteoarthritis of hip COPD (chronic obstructive pulmonary disease) Chronic gastritis H/O deep venous thrombosis Surgical History H/O colonoscopy 2016 Dr. French H/O esophagogastroduodenoscopy 2016 Dr. French Hx of cholecystectomy History of hysterectomy total H/O right knee surgery Family History Sister Anesthesia complication Son Anesthesia complication Grandmother Heart disease Mother , at age 73 Aneurysm Father , age 73 Cancer stomach Denies family history of Bleeding disorder Social History Smoking and tobacco/nicotine status: never used tobacco/nicotine Quit status (tobacco/nicotine): has quit using Year quit tobacco: 2009 - 1PPD x 48 Years Second hand smoke exposure: No Alcohol intake: never Substance/Drug Use: never Caregiver/support person: Yes Lives independently: Yes Household members: significant other Housing: House Marital status: / service: No Current occupational status: retired Do you think of yourself as: Straight/Heterosexual Current gender identity: Female Special shawna needs: No Agree to transfusion: Yes Female Reproductive History: Para: 4 Physical Exam Const: COMMON NORMALS: alert HENMT: COMMON NORMALS: normocephalic HEAD & SCALP: normocephalic Neck/C-Spine: COMMON NORMALS: full ROM Resp: COMMON NORMALS: normal respiratory effort Cardio: COMMON NORMALS: regular rate RATE: regular rate Back/Pelvis: COMMON NORMALS: thoracic and lumbar spine normal to inspection Extremity: COMMON NORMALS: full ROM Neuro: SENSORIUM/ORIENTATION: Yes alert Skin: COMMON NORMALS: turgor normal NARRATIVE SKIN EXAM: No redness or drainage noted to the midline insertion site. No surrounding erythema to the midline insertion site of the right upper arm. GENERAL SKIN EXAM: turgor normal Course Vital Signs: Vital signs: Vital Signs Temperature 98.0 F 04/04/24 14:34 Pulse Rate 65 04/04/24 14:34 Respiratory Rate 17 04/04/24 14:34 Blood Pressure 131/85 04/04/24 14:34 Pulse Oximetry 96 04/04/24 14:34 Oxygen Delivery Me thod Nasal Cannula 04/04/24 14:34 Oxygen Flow Rate 3 04/04/24 14:34 MDM - Wound/Laceration Medical Decision Making Patient comes in today for concerns of midline not working effectively. On exam patient appears nontoxic. Patient has a midline inserted to her right upper extremity. The dressing has came off. Insertion site is clean without signs of redness. Nursing was able to flush the midline without difficulty. Differential diagnosis includes displaced midline, need for dressing change, need for IV peripheral IV for antibiotics. Midline dressing was changed. Nursing was able to access the site and withdraw blood and flush. Recommended continued care at home. Patient reported understanding agreed to plan. No radiology studies performed this visit Discharge Plan Discharge Condition: Stable Prescriptions: No Action ascorbic acid (vitamin C) 1,000 mg capsule 1 g PO QAM albuterol sulfate 2.5 mg /3 mL (0.083 %) solution for nebulization 2.5 mg INHALATION Q4H PRN (Reason: Shortness Of Breath) Qty: 90 0RF diclofenac sodium 50 mg tablet,delayed release (DR/EC) 50 mg PO DAILY@12 Qty: 60 2RF clonazepam 0.5 mg tablet 0.5 mg PO BID PRN (Reason: Anxiety) 30 Days Qty: 60 3RF atenolol 50 mg tablet See Rx Instructions .ROUTE .COMPLEX Qty: 180 0RF Dose Instruction: Take 1 tablet by mouth twice daily Rx Instructions: Take 1 tablet by mouth twice daily pantoprazole 40 mg tablet,delayed release (DR/EC) 40 mg PO BID Qty: 60 2RF acetaminophen 500 mg Tablet 1,000 mg PO Q6H PRN (Reason: Pain) dicyclomine 20 mg tablet 20 mg PO QID PRN (Reason: spasticity) albuterol sulfate 90 mcg/actuation HFA aerosol inhaler 2 puff inhalation Q6H PRN (Reason: Shortness Of Breath) Breztri Aerosphere 160-9-4.8 mcg/actuation HFA aerosol inhaler 2 inh inhalation BID Qty: 5.9 4RF prednisone 20 mg Tablet 40 mg PO DAILY 5 Days Qty: 10 0RF meropenem 500 mg Recon Soln 500 mg IVP Q8H 7 Days Qty: 21 0RF Lasix 40 mg tablet 40 mg PO DAILY PRN (Reason: edema) Qty: 30 0RF Referrals: Dolly Peralta MD [Primary Care Provider] - Coding Level of Care Code ED Assistant Attorney General for Wale Serrano
[2024-04-04 16:47] VITALS: BP 133/79; PULSE 58; O2SAT 96
--- NOTE | 2024-04-04 16:49 | PC.NURSE ---
PICC LINE DRESSING CHANGED BY SANDRA QUIROZHEAD CUSTODIAN.
== END 2024-04-04 16:56 | disposition home or self-care (01) ==
PROVIDERS: Emergency Provider Nurse Practitioner Family; PCP Family Medicine
DX: Z48.00 Encounter for change or removal of nonsurgical wound dressing (principal)
CPT/HCPCS: 99282

== ENCOUNTER → 2024-04-05 11:28 | Day surgery (SDC) | payer MEDICARE, SELFPAY ==
[2024-04-05 12:09] VITALS: BMI 28.2
--- NOTE | 2024-04-05 12:28 | PC.NURSE ---
1200- Pt here for leaking PICC line. Drsing changed last night by the ED. Drsg pulled up at the bottom a little, but not to expose the line. I put tape to hold this down. Flushed line x3 with NS flush without any difficulty and no leaking. Instructed pt and spouse to call cancer tx infusion center for any other difficulties
== END ==
PROVIDERS: PCP Family Medicine; Visit Provider Nurse Practitioner Family
DX: Z95.828 Presence of other vascular implants and grafts (principal)
CPT/HCPCS: 99212

== ENCOUNTER → 2024-04-13 09:56 | Outpatient (BNVA) | payer MEDICARE, SELFPAY | PROVIDERS: PCP Family Medicine; Visit Provider Nurse Practitioner Family | DX: N39.0 Urinary tract infection, site not specified (principal); R53.1 Weakness | CPT/HCPCS: 80053; 81000; 85025 ==

== ENCOUNTER 2024-04-15 15:44 | Emergency (ER) | payer MEDICARE, SELFPAY ==
[2024-04-15 16:26] VITALS: BP 113/72; PULSE 60; RESP 17; TEMP 36.7; O2SAT 90; BMI 28.2
[2024-04-15 18:37] LABS: Basophils # 0.1 10^3/uL (0.0-0.1); Basophils % 0.5 %; Eosinophils # 0.2 10^3/uL (0.0-0.8); Eosinophils % 2.4 %; Hematocrit 47.7 % (36-47); Lymphocytes # 2.3 10^3/uL (0.8-4.8); Lymphocytes % 24.1 %; Mean Corpuscular HGB Conc 31.2 g/dL (30-55); Mean Corpuscular Hemoglobin 29.8 pg (27-33); Mean Corpuscular Volume 95.4 fl (85-98); Mean Platelet Volume 9.6 fL (7.4-10.4); Monocytes # 0.6 10^3/uL (0.2-0.9); Monocytes % 6.3 %; Neutrophils # 6.36 10^3/uL (1.8-7.7); Neutrophils % 66.4 %; Nucleated Red Blood Cells % 0 %; Platelet Count 158 10^3/cmm (157-399); Red Cell Distribution Width 13.4 % (12.1-15.1); White Blood Count 9.58 10^3/uL (3.29-11.43)
[2024-04-15 19:07] LABS: Alanine Aminotransferase 19 U/L (0-33); Albumin Level 3.7 g/dL (3.5-5.2); Alkaline Phosphatase 67 U/L (35-105); Aspartate Amino Transferase 17 U/L (0-32); Blood Urea Nitrogen 18 mg/dL (8-23); Calcium 8.7 mg/dL (8.5-10.5); Carbon Dioxide 23 mmol/L (22-29); Chloride 105 mmol/L (98-107); Globulin 2.6 g/dL (1.3-4.6); Glucose 96 mg/dL (65-115); Lipase 29 U/L (13-60); Osmolality Calculated 290 mOsm/kg (285-295); Sodium 139 mmol/L (136-145); Total Bilirubin 0.4 mg/dL (0.15-1.2); Total Protein 6.3 g/dL (6.6-8.7)
[2024-04-15 19:09] LABS: Anion Gap 15.2 (5-19); Potassium 4.2 mmol/L (3.5-5.1)
== END 2024-04-15 21:02 | disposition left against medical advice (07) ==
PROVIDERS: Emergency Medicine; Emergency Provider Family Medicine; PCP Family Medicine
DX: Z53.21 Procedure and treatment not carried out due to patient leaving prior to being seen by health care provider (principal)
CPT/HCPCS: 36415; 80053; 83690; 85025

== ENCOUNTER → 2024-04-29 09:45 | Outpatient (BNVA) | payer MEDICARE, SELFPAY | PROVIDERS: PCP Nurse Practitioner Family; Visit Provider Nurse Practitioner Family | DX: N39.0 Urinary tract infection, site not specified (principal) | CPT/HCPCS: 81000 ==

== ENCOUNTER → 2024-05-03 10:47 | Outpatient (BNVA) | payer MEDICARE, SELFPAY | PROVIDERS: PCP Nurse Practitioner Family; Referring Provider Nurse Practitioner Family; Visit Provider Surgery | DX: R10.13 Epigastric pain (principal); R14.0 Abdominal distension (gaseous) | CPT/HCPCS: 99214 ==

== ENCOUNTER → 2024-05-04 13:11 | Outpatient (BNVA) | payer MEDICARE, SELFPAY | PROVIDERS: PCP Nurse Practitioner Family; Visit Provider Surgery | DX: R10.13 Epigastric pain (principal) | CPT/HCPCS: 86003; 86008 ==

== ENCOUNTER → 2024-05-05 09:53 | Outpatient (BNVA) | payer MEDICARE, SELFPAY | PROVIDERS: PCP Nurse Practitioner Family; Visit Provider Internal Medicine Cardiovascular Disease | DX: I11.0 Hypertensive heart disease with heart failure (principal); I50.32 Chronic diastolic (congestive) heart failure; I48.0 Paroxysmal atrial fibrillation; I71.20 Thoracic aortic aneurysm, without rupture, unspecified; Z87.891 Personal history of nicotine dependence | CPT/HCPCS: 99214 ==

== ENCOUNTER 2024-06-02 07:19 | Day surgery (SDC) | payer MEDICARE, SELFPAY ==
[2024-06-02 07:37] VITALS: BP 152/89; PULSE 55; RESP 18; TEMP 36.2; O2SAT 94
[2024-06-02 07:39] VITALS: BMI 27.4
--- NOTE | 2024-06-02 08:02 | W.PM.OPSUD ---
Surgery/Procedure H&P Update DATE OF PROCEDURE: June 02, 2024 DATE H&P PERFORMED: 05/03/24 H&P UPDATE INFORMATION: I have reviewed H&P completed within last 30 days, I have examined patient prior to procedure and No changes to prior documentation PLANNED PROCEDURE: Operation Date: 06/02/24 08:30 Proposed Procedures p EGD [id number], R10.13(Not Applicable) - Rehan Santana, DO
--- NOTE | 2024-06-02 08:30 | ANES.PREANE2 ---
Pre-Anesthetic Assessment Height/Weight: Height 1.68 m Weight 77.111 kg Temp Pulse Resp BP Pulse Ox O2 Del Method O2 Flow Rate 97.2 F L 55 L 18 152/89 94 Nasal Cannula 3 06/02/24 07:37 06/02/24 07:37 06/02/24 07:37 06/02/24 07:37 06/02/24 07:37 06/02/24 07:37 06/02/24 07:37 Preop Diagnosis: bloating Operation Date: 06/02/24 08:30 Proposed Procedures p EGD 02645, R10.13(Not Applicable) - Rehan Santana DO Familial anesthetic complications: none Was Beta Fabio taken within 24 hours: Yes Was Clonidine taken within 24 hours: N/A Last intake: Intake Last Solid Date 06/01/24 Last Solid Time 19:30 Social Tobacco (previous smoker, quit 15 years ago) and No alcohol Exam alert and oriented x 3 Airway Mallampati: Class II Dentition: false History/ROS No significant history except as noted Pulmonary Chronic Obstructive Pulmonary Disease and Exertional Dyspnea wears 3l O2 at home CV/HEM Congestive Heart Failure and Hypertension blood clot in left leg 15 years ago None reported Hepatic None reported GI bloating Metabolic None reported Musc/skel None reported Neuropsych None reported Anesthetic Plan ASA status: 3 Anesthesia: Anesthesia Evaluation and MAC Risk of > 500 ml blood loss (7ml/kg in children): No Medications/Allergies Home Medications Medication Instructions Recorded Confirmed Last Taken Type albuterol sulfate 2.5 mg/3 mL 2.5 mg (3 mL) inhalation Q4H PRN 05/29/22 05/31/24 06/01/24 Rx (0.083 %) solution for nebulization Shortness Of Breath #90 mL ascorbic acid (vitamin C) 1,000 mg 1 g PO QAM 12/12/22 05/31/24 05/29/24 History capsule acetaminophen 500 mg tablet 1,000 mg PO Q6H PRN Pain 04/15/23 05/31/24 Unknown History diclofenac sodium 50 mg 50 mg PO DAILY@12 #60 tabs 01/06/24 05/31/24 06/02/24 Rx tablet,delayed release albuterol sulfate 90 mcg/actuation 2 puff inhalation Q6H PRN 03/10/24 05/31/24 06/01/24 History aerosol inhaler Shortness Of Breath dicyclomine 20 mg tablet 20 mg PO QID PRN spasticity 03/10/24 05/31/24 05/31/24 History budesonide 160 mcg-glycopyr 9 2 inh inhalation BID #5.9 grams 03/11/24 05/31/24 06/01/24 Rx mcg-formot 4.8 mcg/actuation HFA inhaler (Breztri Aerosphere) clonazepam 0.5 mg tablet 0.5 mg PO BID PRN Anxiety 30 days 03/24/24 06/02/24 06/01/24 Rx #60 tabs pantoprazole 40 mg tablet,delayed 40 mg PO BID #60 tabs 03/26/24 05/31/24 06/01/24 Rx release furosemide 40 mg tablet (Lasix) 40 mg PO DAILY PRN edema #30 tabs 04/03/24 06/02/24 Unknown Rx insepect and assess picc line #1 ea 04/05/24 05/19/24 04/05/24 Rx atenolol 50 mg tablet 50 mg PO BID 05/31/24 05/31/24 06/02/24 History biotin 5,000 mcg disintegrating 5,000 mcg PO DAILY 05/31/24 05/31/24 06/01/24 History tablet Allergies Allergy/AdvReac Type Severity Reaction Status Date / Time cefuroxime Allergy Intermediate Shortness Verified 05/31/24 10:50 of breath, lightheadedness fluticasone furoate Allergy Intermediate Unknown Verified 05/31/24 10:50 [From Trelegy Ellipta] umeclidinium Allergy Intermediate Unknown Verified 05/31/24 10:50 [From Trelegy Ellipta] vilanterol Allergy Intermediate Unknown Verified 05/31/24 10:50 [From Trelegy Ellipta] methenamine Allergy Mild ALGY-Difficulty Verified 05/31/24 10:50 Breathing cephalexin Allergy ALGY-Difficulty Verified 05/31/24 10:50 Breathing clindamycin Allergy ADR-Gastrointestinal Verified 05/31/24 10:50 Upset codeine Allergy ALGY-Rash Verified 05/31/24 10:50 levofloxacin [From Levaquin] Allergy ALGY-Difficulty Verified 05/31/24 10:50 Breathing nitrofurantoin Allergy ALGY-Difficulty Verified 05/31/24 10:50 [From Macrobid] Breathing Xedcheq-IAL-DkR Reductase Allergy ALGY-Joint Verified 05/31/24 10:50 Inhibitor Pain [Bnkvzwm-Vzt-Pfi Reductase Inhibitor] Sulfa (Sulfonamide Allergy ALGY-Difficulty Verified 05/31/24 10:50 Antibiotics) Breathing fosfomycin AdvReac Intermediate ADR-Gastrointestinal Verified 05/31/24 10:50 Upset lisinopril AdvReac Mild cough Verified 05/31/24 10:50 losartan AdvReac Mild diarrhea Verified 05/31/24 10:50 amoxicillin [From Augmentin] AdvReac SHORT OF Verified 05/31/24 10:50 BREATH clavulanic acid AdvReac SHORT OF Verified 05/31/24 10:50 [From Augmentin] BREATH erythromycin AdvReac Severe ALGY-Difficulty Uncoded 05/31/24 10:50 Breathing PFSH Anesthesia Medical History CHF (congestive heart failure) Hypertension Thoracic aortic aneurysm COPD exacerbation Allergies Situational anxiety Panic attack due to exceptional stress SAMRA (generalized anxiety disorder) COPD exacerbation Abdominal pain of unknown cause Enrolled in chronic care management Cellulitis of fifth toe of right foot Corns of multiple toes Nocturnal leg cramps Thyroid nodule Tinea of perianal region Loose bowel movements Oral pharyngeal candidiasis Chronic respiratory failure with hypoxia Pulmonary nodule Nocturnal hypoxia Perineal irritation Acute cystitis Salivary calculus has had surgery in the past Constipation Anxiety and depression Oxygen dependent ASVD (arteriosclerotic vascular disease) Afib Osteoarthritis of hip COPD (chronic obstructive pulmonary disease) Chronic gastritis H/O deep venous thrombosis Surgical History H/O colonoscopy 2016 Dr. French H/O esophagogastroduodenoscopy 2016 Dr. French Hx of cholecystectomy History of hysterectomy total H/O right knee surgery Family History Sister Anesthesia complication Son Anesthesia complication Grandmother Heart disease Mother , at age 73 Aneurysm Father , age 73 Cancer stomach Denies family history of Bleeding disorder Social History Smoking and tobacco/nicotine status: former use of tobacco/nicotine Quit status (tobacco/nicotine): has quit using Year quit tobacco: 2009 - 1PPD x 48 Years Second hand smoke exposure: No Alcohol intake: never Substance/Drug Use: never Caregiver/support person: Yes Lives independently: Yes Household members: significant other Housing: House Marital status: / service: No Current occupational status: retired Do you think of yourself as: Straight/Heterosexual Current gender identity: Female Special shawna needs: No Agree to transfusion: Yes Female Reproductive History Para: 4 Data Anesthesia Cardiac Studies: Echocardiogram 03/10/24 Echocardiogram Ultrasound 12/29/19
[2024-06-02 08:50] VITALS: BP 120/75; PULSE 60; RESP 15; TEMP 36.1; O2SAT 98
[2024-06-02 09:05] VITALS: BP 136/77; PULSE 58; RESP 16; O2SAT 96
[2024-06-02 09:37] VITALS: BP 147/76; PULSE 58; RESP 16; O2SAT 96
--- NOTE | 2024-06-02 09:50 | ANE.PACU2 ---
Inpatient post-anesthesia follow up: Airway intact: Yes Vital signs: Temperature 97 F Pulse Rate 58 Respiratory Rate 16 Blood Pressure 147/76 Pulse Oximetry 96 Oxygen Delivery Me thod Room Air Oxygen Flow Rate 3 Fraction of Inspir ed Oxygen Hydration adequate: Yes Nausea and vomiting: No Pain level: 1 Mental status: Baseline
== END 2024-06-02 09:55 | disposition home or self-care (01) ==
PROVIDERS: PCP Nurse Practitioner Family; Visit Provider Surgery
PROC: 0DJ08ZZ Inspection of Upper Intestinal Tract, Via Natural or Artificial Opening Endoscopic (ICD-10-PCS; CPT 43235; principal; 2024-06-02 08:30)
DX: R10.13 Epigastric pain (principal); R14.0 Abdominal distension (gaseous); I11.0 Hypertensive heart disease with heart failure; I50.9 Heart failure, unspecified; F41.1 Generalized anxiety disorder; J44.9 Chronic obstructive pulmonary disease, unspecified; I48.91 Unspecified atrial fibrillation; Z86.718 Personal history of other venous thrombosis and embolism
CPT/HCPCS: 43239; 88305; 88342; J2704; J3490

== ENCOUNTER → 2024-06-11 10:56 | Outpatient (BNVA) | payer MEDICARE, SELFPAY | PROVIDERS: PCP Nurse Practitioner Family; Visit Provider Surgery | DX: Z09 Encounter for follow-up examination after completed treatment for conditions other than malignant neoplasm (principal); R14.0 Abdominal distension (gaseous); K29.50 Unspecified chronic gastritis without bleeding; K59.00 Constipation, unspecified | CPT/HCPCS: 99214 ==

== ENCOUNTER → 2024-06-21 13:14 | Outpatient (BNVA) | payer MEDICARE, SELFPAY | PROVIDERS: PCP Nurse Practitioner Family; Visit Provider Nurse Practitioner Family | DX: N39.0 Urinary tract infection, site not specified (principal); M25.551 Pain in right hip | CPT/HCPCS: 73502; 81000 ==

== ENCOUNTER → 2024-07-02 11:39 | Outpatient (BNVA) | payer MEDICARE, SELFPAY | PROVIDERS: PCP Nurse Practitioner Family; Visit Provider Nurse Practitioner Family | DX: R35.0 Frequency of micturition (principal) | CPT/HCPCS: 81003; 87077; 87086; 87184 ==

== ENCOUNTER 2024-07-28 14:18 | Outpatient (CLI) | payer MEDICARE, SELFPAY ==
--- NOTE | 2024-07-28 14:30 | XR_ITS ---
WS: [id number] DEXA (DUAL ENERGY X-RAY ABSORPTIOMETRY) Bone mineral density was performed using a [employer] machine. HISTORY: Z13.820 - Encounter for screening for osteoporosis COMPARISON: 03/13/2018 Lumbar spine BMD (L1-L4): 1.116 g/cm2 T score: -0.5 Z score: 0.7 Total hip BMD: Left: 0.763 g/cm2. T score: -1.9 Z score: -0.5 Right: 0.762 g/cm2. T score: -1.9 Z score: -0.5 10 year probability of a major osteoporotic fracture is 11.9%. Compared to the prior study from 03/13/2018. Lumbar spine bone mineral density has decreased by 2.0%. Bilateral hips bone mineral density has decreased by 8.0%. XR/XR DEXA axial skeleton* 88948 IMPRESSION: OSTEOPENIA based upon the WHO classification for females. Significant decrease in bone mineral density within both the lumbar spine and h ips since the prior study.
== END 2024-07-28 14:19 | disposition home or self-care (01) ==
LOC: RAD 14:19
PROVIDERS: PCP Nurse Practitioner Family; Visit Provider Nurse Practitioner Family
DX: Z13.820 Encounter for screening for osteoporosis (principal); M85.80 Other specified disorders of bone density and structure, unspecified site
CPT/HCPCS: 77080

== ENCOUNTER → 2024-08-19 08:48 | Outpatient (BNVA) | payer MEDICARE, SELFPAY | PROVIDERS: PCP Nurse Practitioner Family; Visit Provider Nurse Practitioner Family | DX: I11.0 Hypertensive heart disease with heart failure (principal); I50.9 Heart failure, unspecified; I48.0 Paroxysmal atrial fibrillation; I71.20 Thoracic aortic aneurysm, without rupture, unspecified; K59.09 Other constipation; Z87.891 Personal history of nicotine dependence | CPT/HCPCS: 99213 ==

== ENCOUNTER 2024-09-03 12:19 | Emergency (ER) | payer MEDICARE, SELFPAY ==
[2024-09-03 12:20] VITALS: BP 121/70; PULSE 69; RESP 20; TEMP 36.4; O2SAT 96; BMI 28.8
--- NOTE | 2024-09-03 12:29 | ECG_ITS ---
[facility] Test Date: 2024-09-03 Pat Name: Mary Carmen Fuller Department: Room: Gender: Female Industrial Management Teacher: : 1945 Requested By: Oren Linares Order Number: [id number] Tamez MD: Willem Guadarrama M.D. Measurements Intervals [place] Rate: 65 P: 43 WI: 202 QRS: 12 QRSD: 85 T: 83 QT: 398 QTc: 415 Interpretive Statements SINUS RHYTHM WITH OCCASIONAL SUPRAVENTRICULAR PREMATURE COMPLEXES MINIMAL ST DEPRESSION [0.025+ mV ST DEPRESSION] Compared to ECG 03/10/2024 14:54:05 ST (T wave) deviation now present Electronically Signed On 09-04-2024 07:43:20 FINANCE ADMINISTRATOR by Willem Guadarrama M.D. [email or web address]
--- NOTE | 2024-09-03 12:40 | ECG_ITS ---
[facility] Test Date: 2024-09-03 Pat Name: Mary Carmen Fuller Department: Room: Gender: Female Director Metabolism: : 1945 Requested By: Oren Linares Order Number: [id number] Joi MD: Willem Guadarrama M.D. Measurements Intervals [place] Rate: 65 P: 108 NE: 208 QRS: -16 QRSD: 97 T: 79 QT: 407 QTc: 424 Interpretive Statements SINUS RHYTHM WITH OCCASIONAL SUPRAVENTRICULAR PREMATURE COMPLEXES Compared to ECG 09/03/2024 12:23:20 ST (T wave) deviation no longer present Electronically Signed On 09-04-2024 07:43:12 EDUCATION FINANCE PROCESSOR by Willem Guadarrama M.D. [email or web address] [id number]
--- NOTE | 2024-09-03 12:40 | XR_ITS ---
WS: [id number] Portable AP upright chest, 09/03/2024 Clinical Data: SOB Comparison: Portable chest, 04/02/2024 Findings: No nodules, masses or effusions are seen. The heart is enlarged. The pulmonary vascularity is not increased. No pneumonia or pneumothorax is seen. The aortic arch and descending thoracic aorta show tortuosity. The diaphragms are flattened. XR/XR chest 1V portable [id number] Impression: Cardiomegaly, atherosclerosis and hyperinflation.
[2024-09-03 12:49] LABS: Bilirubin Urine Negative (Negative); Blood Urine Negative (Negative); Glucose Urine UA Negative (Normal); Ketones Urine Negative (Negative); Leukocyte Esterase Urine Negative (Negative); Nitrate Urine Negative (Negative); Protein Urine Negative (Negative); Specific Gravity, Urine 1.004 (1.005-1.030); Urine Appearance Clear (CLEAR); Urine Color Yellow (Yellow); Urobilinogen Urine 0.2 mg/dL (Negative); pH Urine 6.5 (5-7)
[2024-09-03 13:03] LABS: Bacteria Urine TRACE /hpf; RBC Urine 0-4 /hpf (0-2); WBC Urine 0-4 /hpf (0-5)
[2024-09-03] MEDS: sodium chloride 0.9% 1,000 ML 999 ML IV (13:17)
[2024-09-03 14:26] VITALS: BP 118/63; PULSE 65; O2SAT 98
--- NOTE | 2024-09-03 14:43 | ECG_ITS ---
[facility] Test Date: 2024-09-03 Pat Name: Mary Carmen Fuller Department: Room: Gender: Female Time Recorder: : 1945 Requested By: Oren Linares Order Number: [id number] Tamez MD: Willem Guadarrama M.D. Measurements Intervals [place] Rate: 65 P: 0 IA: 0 QRS: 19 QRSD: 88 T: 81 QT: 412 QTc: 431 Interpretive Statements SUPRAVENTRICULAR RHYTHM WITH BASELINE ARTIFACT NONSPECIFIC ST & T-WAVE ABNORMALITY Compared to ECG 09/03/2024 12:45:34 T-wave abnormality now present Electronically Signed On 09-04-2024 08:15:42 TATTOO ARTIST by Willem Guadarrama M.D. [email or web address] [id number]
[2024-09-03 14:46] LABS: Basophils % 0.4 %; Eosinophils % 0.4 %; Lymphocytes # 0.7 10^3/uL (0.8-4.8); Lymphocytes % 10.1 %; Mean Corpuscular HGB Conc 31.3 g/dL (30-55); Mean Corpuscular Hemoglobin 29.7 pg (27-33); Mean Corpuscular Volume 94.9 fl (85-98); Mean Platelet Volume 10.1 fL (7.4-10.4); Monocytes # 0.1 10^3/uL (0.2-0.9); Monocytes % 1.1 %; Neutrophils # 6.42 10^3/uL (1.8-7.7); Neutrophils % 87.6 %; Nucleated Red Blood Cells % 0 %; Platelet Count 146 10^3/cmm (157-399); Red Blood Count 5.48 10^6/uL (3.85-5.65); Red Cell Distribution Width 12.5 % (12.1-15.1); White Blood Count 7.33 10^3/uL (3.29-11.43)
[2024-09-03 15:00] VITALS: BP 135/98; PULSE 66; O2SAT 91
[2024-09-03 15:15] LABS: Troponin(5th) Baseline 9 ng/L (0-10)
[2024-09-03 15:20] LABS: Alanine Aminotransferase 18 U/L (0-33); Albumin Level 3.9 g/dL (3.5-5.2); Alkaline Phosphatase 70 U/L (35-105); Anion Gap 11.5 (5-19); Aspartate Amino Transferase 18 U/L (0-32); Blood Urea Nitrogen 12 mg/dL (8-23); Calcium 9.2 mg/dL (8.5-10.5); Carbon Dioxide 30 mmol/L (22-29); Chloride 103 mmol/L (98-107); Creatinine Clr Calc Pharmacy 59.7848; Globulin 3.3 g/dL (1.3-4.6); Glucose 114 mg/dL (65-115); NT Pro B Type Natriuretic Pept 577 pg/mL (0-450); Osmolality Calculated 291 mOsm/kg (285-295); Potassium 4.5 mmol/L (3.5-5.1); Sodium 140 mmol/L (136-145); Total Bilirubin 0.3 mg/dL (0.15-1.2); Total Protein 7.2 g/dL (6.6-8.7)
--- NOTE | 2024-09-03 15:34 | ED_ITS ---
HPI - General Adult 2 General: Chief complaint: General Medical Stated complaint: sob Time Seen by Provider: 09/03/24 12:20 History of Present Illness: This patient is a 78-year-old white female who presents to the emergency department stating that she had an RSV vaccine shot on Friday and she is felt ill ever since then. She has generalized weakness. At 1 point she felt like passing out. No chest pain. She has chronic shortness of breath secondary to COPD. No change with that. She has not had a fever. No cough. Associated symptoms: Reports dyspnea and malaise Related Data Home Medications ?Medication ?Instructions ?Recorded ?Confirmed ascorbic acid (vitamin C) 1,000 mg 1 g PO QAM 12/12/22 09/03/24 capsule acetaminophen 500 mg tablet 1,000 mg PO Q6H PRN Pain 1 09/03/24 Previous Rx's ?Medication ?Instructions ?Recorded clonazepam 0.5 mg tablet 0.5 mg PO BID PRN Anxiety 30 days 03/24/24 #60 tabs diclofenac sodium 50 mg 50 mg PO DAILY@12 #60 tabs 1 08/09/23 tablet,delayed release ipratropium 0.5 mg-albuterol 3 mg 3 ml inhalation Q4H PRN shortness 06/21/24 (2.5 mg base)/3 mL nebulization of breath or wheezing #180 mL soln albuterol sulfate 90 mcg/actuation 2 puff inhalation Q 6H PRN 08/12/24 aerosol inhaler Shortness Of Breath #8.5 gra ms amlodipine 5 mg tablet See Rx Instructions PO DAILY #120 08/20/24 tabs atenolol 50 mg tablet 50 mg PO BID #180 tabs 08/23 Allergies Allergy/AdvReac Type Severity Reaction Status Date / Time cefuroxime Allergy Intermediate Shortness Verified 08/19/24 08:57 of breath, lightheadedness fluticasone furoate (From Allergy Intermediate Unknown Verified 08/19/24 08:57 Trelegy Ellipta) umeclidinium (From Trelegy Allergy Intermediate Unknown Verified 08/19/24 08:57 Ellipta) vilanterol (From Trelegy Allergy Intermediate Unknown Verified 08/19/24 08:57 Ellipta) methenamine Allergy Mild ALGY-Difficulty Verified 08/19/24 08:57 Breathing cephalexin Allergy ALGY-Difficulty Verified 08/19/24 08:57 Breathing clindamycin Allergy ADR-Gastrointestinal Verified 08/19/24 08:57 Upset codeine Allergy ALGY-Rash Verified 08/19/24 08:57 levofloxacin (From Levaquin) Allergy ALGY-Difficulty Verified 08/19/24 08:57 Breathing nitrofurantoin (From Allergy ALGY-Difficulty Verified 08/19/24 08:57 Macrobid) Breathing Znvvlll-HLD-QsX Reductase Allergy ALGY-Joint Verified 08/19/24 08:57 Inhibitor (Afdasvv-Aeq-Dku Pain Reductase Inhibitor) Sulfa (Sulfonamide Allergy ALGY-Difficulty Verified 08/19/24 08:57 Antibiotics) Breathing fosfomycin AdvReac Intermediate ADR-Gastrointestinal Verified 08/19/24 08:57 Upset lisinopril AdvReac Mild cough Verified 08/19/24 08:57 losartan AdvReac Mild diarrhea Verified 08/19/24 08:57 amoxicillin (From Augmentin) AdvReac SHORT OF Verified 08/19/24 08:57 BREATH clavulanic acid (From AdvReac SHORT OF Verified 08/19/24 08:57 Augmentin) BREATH erythromycin AdvReac Severe ALGY-Difficulty Uncoded 08/19/24 08:57 Breathing Review of Systems 2 General: Reports: 10 or more systems reviewed and unremarkable except in HPI and below Const: Reports: fatigue and malaise Resp: Reports: dyspnea PFSH ED 2 PFSH: Medical History Constipation CHF (congestive heart failure) Hypertension Thoracic aortic aneurysm COPD exacerbation Allergies Situational anxiety Panic attack due to exceptional stress SAMRA (generalized anxiety disorder) COPD exacerbation Abdominal pain of unknown cause Enrolled in chronic care management Cellulitis of fifth toe of right foot Corns of multiple toes Nocturnal leg cramps Thyroid nodule Tinea of perianal region Loose bowel movements Oral pharyngeal candidiasis Chronic respiratory failure with hypoxia Pulmonary nodule Nocturnal hypoxia Perineal irritation Acute cystitis Salivary calculus has had surgery in the past Anxiety and depression Oxygen dependent ASVD (arteriosclerotic vascular disease) Afib Osteoarthritis of hip COPD (chronic obstructive pulmonary disease) Chronic gastritis H/O deep venous thrombosis Surgical History H/O colonoscopy 2015 Dr. French H/O esophagogastroduodenoscopy 2015 Dr. French Hx of cholecystectomy History of hysterectomy total H/O right knee surgery Family History Sister Anesthesia complication Son Anesthesia complication Grandmother Heart disease Mother , at age 73 Aneurysm Father , age 73 Cancer stomach Denies family history of Bleeding disorder Social History Smoking and tobacco/nicotine status: former use of tobacco/nicotine Quit status (tobacco/nicotine): has quit using Year quit tobacco: 2009 - 1PPD x 48 Years Second hand smoke exposure: No Alcohol intake: never Substance/Drug Use: never Caregiver/support person: Yes Lives independently: Yes Household members: significant other Housing: House Marital status: / service: No Current occupational status: retired Do you think of yourself as: Straight/Heterosexual Current gender identity: Female Special shawna needs: No Agree to transfusion: Yes Female Reproductive History: Para: 4 Physical Exam 2 Const: COMMON NORMALS: no acute distress, patient oriented x3 and no limitations GENERAL APPEARANCE: cooperative and comfortable HENMT: COMMON NORMALS: normocephalic, atraumatic, Normal nasal mucous membranes and turbinates present, moist oral mucous membranes and oropharynx normal HEAD & SCALP: normal to inspection, normocephalic and atraumatic F ROBERT & SINUS: normal facial exam NOSE: Normal nasal mucous membranes and turbinates present Eye: COMMON NORMALS: Equal, round and reactive pupils present, EOMs intact bilaterally and conjunctivae normal GENERAL EYE: appearance normal, both eyes and all related structures CONJUNCTIVA: Yes conjunctivae normal PUPIL: Yes Equal, round and reactive pupils present Neck/C-Spine: COMMON NORMALS: supple and no JVD Chest: COMMONS NORMALS: normal inspection of the chest Resp: COMMON NORMALS: normal respiratory effort and clear to auscultation bilaterally AUSCULTATION: clear to auscultation bilaterally Cardio: COMMON NORMALS: no JVD, regular rate, regular rhythm, No gallops present (Cardio), No murmurs present (Cardio) and No rub (Cardio) RATE: r egular rate RHYTHM: regular rhythm GI: COMMON NORMALS: Normal to inspection, nondistended, normoactive bowel sounds present, Soft to palpation and non-tender AUSCULTATION: Yes normoactive bowel sounds PALPATION: Yes Soft to palpation : COMMON NORMALS: Yes no CVA tenderness BLADDER/KIDNEY EXAM: Yes no CVA tenderness Back/Pelvis: COMMON NORMALS: no CVA tenderness and thoracic and lumbar spine normal to inspection Extremity: COMMON NORMALS: normal to inspection Neuro: COMMON NORMALS: patient oriented x3 and CN's II-XII intact bilaterally Psych: COMMON NORMALS: mental status grossly normal, Normal thought process present and cooperative THOUGHT PROCESS: Normal thought process present Skin: COMMON NORMALS: no rashes or lesions noted, turgor normal and no jaundice GENERAL SKIN EXAM: no rashes or lesions noted and turgor normal Course 2 Vital Signs: Vital signs: Vital Signs Temperature 97.6 F 09/03/24 12:20 Pulse Rate 71 09/03/24 16:16 Respiratory Rate 20 H 09/03/24 12:20 Blood Pressure 118/68 09/03/24 16:16 Pulse Oximetry 97 09/03/24 16:16 Oxygen Delivery Me thod Nasal Cannula 09/03/24 15:00 Oxygen Flow Rate 3 09/03/24 15:00 MDM - General Adult Medical Decision Making EKG revealed sinus rhythm with no ST segment abnormalities. Chest x-ray was normal. CBC normal. CMP was normal. Urinalysis normal. Appears patient has had an adverse reaction to the RSV vaccine. Recommended she push fluids get some rest. This should run its course. Follow-up with primary care physician next week if this is not resolved. She was discharged in stable condition. Lab Data 09/03/24 14:32 09/03/24 14:32 Radiology Impressions Chest X-Ray 09/03/24 12:40 Impression: Cardiomegaly, atherosclerosis and hyperinflation. Laboratory Results WBC 7.33 10^3/uL (3.29-11.43) 09/03/24 14:32 RBC 5.48 10^6/uL (3.85-5.65) 09/03/24 14:32 Hgb 16.30 g/dL (11.27-16.99) 09/03/24 14:32 Hct 52.0 % (36-47) H 09/03/24 14:32 MCV 94.9 fl (85-98) 09/03/24 14:32 MCH 29.7 pg (27-33) 09/03/24 14:32 MCHC 31.3 g/dL (30-55) 09/03/24 14:32 RDW 12.5 % (12.1-15.1) 09/03/24 14:32 Plt Count 146 10^3/cmm (157-399) L 09/03/24 14:32 MPV 10.1 fL (7.4-10.4) 09/03/24 14:32 Neut % (Auto) 87.6 % 09/03/24 14:32 Lymph % (Auto) 10.1 % 09/03/24 14:32 [place] % (Auto) 1.1 % 09/03/24 14:32 Eos % (Auto) 0.4 % 09/03/24 14:32 Baso % (Auto) 0.4 % 09/03/24 14:32 Neut # (Auto) 6.42 10^3/uL (1.8-7.7) 09/03/24 14:32 Lymph # (Auto) 0.7 10^3/uL (0.8-4.8) L 09/03/24 14:32 [place] # (Auto) 0.1 10^3/uL (0.2-0.9) L 09/03/24 14:32 Eos # (Auto) 0.0 10^3/uL (0.0-0.8) 09/03/24 14:32 Baso # (Auto) 0.0 10^3/uL (0.0-0.1) 09/03/24 14:32 Nucleated RBC % (auto) 0 % 09/03/24 14:32 Nucleated RBCs # 0.0 /100WBC 09/03/24 14:32 Sodium 140 mmol/L (136-145) 09/03/24 14:32 Potassium 4.5 mmol/L (3.5-5.1) 09/03/24 14:32 Chloride 103 mmol/L (98-107) 09/03/24 14:32 Carbon Dioxide 30 mmol/L (22-29) H 09/03/24 14:32 Anion Gap 11.5 (5-19) 09/03/24 14:32 BUN 12 mg/dL (8-23) 09/03/24 14:32 Creatinine 0.6 mg/dL (0.5-0.9) 09/03/24 14:32 GFR Calculation Not Reportable 09/03/24 14:32 Glucose 114 mg/dL (65-115) 09/03/24 14:32 Calculated Osmolality 291 mOsm/kg (285-295) 09/03/24 14:32 Calcium 9.2 mg/dL (8.5-10.5) 09/03/24 14:32 Total Bilirubin 0.3 mg/dL (0.15-1.2) 09/03/24 14:32 AST 18 U/L (0-32) 09/03/24 14:32 ALT 18 U/L (0-33) 09/03/24 14:32 Alkaline Phosphatase 70 U/L (35-105) 09/03/24 14:32 Troponin T Baseline 9 ng/L (0-10) 09/03/24 14:32 NT-Pro-B Natriuret Pep 577 pg/mL (0-450) H 09/03/24 14:32 Total Protein 7.2 g/dL (6.6-8.7) 09/03/24 14:32 Albumin 3.9 g/dL (3.5-5.2) 09/03/24 14:32 Globulin 3.3 g/dL (1.3-4.6) 09/03/24 14:32 Urine Color Yellow (Yellow) 09/03/24 12:37 Urine Appearance Clear (CLEAR) 09/03/24 12:37 Urine pH 6.5 (5-7) 09/03/24 12:37 Ur Specific [place] 1.004 (1.005-1.030) L 09/03/24 12:37 Urine Protein Negative (Negative) 09/03/24 12:37 Urine Glucose (UA) Negative (Normal) 09/03/24 12:37 Urine Ketones Negative (Negative) 09/03/24 12:37 Urine Blood Negative (Negative) 09/03/24 12:37 Urine Nitrate Negative (Negative) 09/03/24 12:37 Urine Bilirubin Negative (Negative) 09/03/24 12:37 Urine Urobilinogen 0.2 mg/dL (Negative) 09/03/24 12:37 Ur Leukocyte Esterase Negative (Negative) 09/03/24 12:37 Urine RBC 0-4 /hpf (0-2) H 09/03/24 12:37 Urine WBC 0-4 /hpf (0-5) H 09/03/24 12:37 Ur Squamous Epith Cells 5-10 /hpf (0-5) H 09/03/24 12:37 Amorphous Sediment Not Reportable 09/03/24 12:37 Urine Bacteria Trace /hpf (NONE) 09/03/24 12:37 All radiology interpretation(s) finalized by discharge Discharge Plan Discharge Patient Disposition: Home Clinical Impression: Vaccination side effects Qualifiers: Encounter type: initial encounter Qualified Code(s): T50.Z95A - Adverse effect of other vaccines and biological substances, initial encounter Condition: Stable Prescriptions: No Action ipratropium-albuterol 0.5 mg-3 mg(2.5 mg base)/3 mL solution for nebulization 3 ml inhalation Q4H PRN (Reason: shortness of breath or wheezing) Qty: 180 2RF ascorbic acid (vitamin C) 1,000 mg capsule 1 g PO QAM clonazepam 0.5 mg tablet 0.5 mg PO BID PRN (Reason: Anxiety) 30 Days Qty: 60 3RF diclofenac sodium 50 mg tablet,delayed release (DR/EC) 50 mg PO DAILY@12 Qty: 60 2RF albuterol sulfate 90 mcg/actuation HFA aerosol inhaler 2 puff inhalation Q6H PRN (Reason: Shortness Of Breath) Qty: 8.5 5RF amlodipine 5 mg tablet See Rx Instructions PO DAILY Qty: 120 2RF Rx Instructions: 5mg in the AM, 2.5 in PM orally daily; DOSE CHANGE atenolol 50 mg tablet 50 mg PO BID Qty: 180 1RF Rx Instructions: Take 1 tablet by mouth twice daily acetaminophen 500 mg Tablet 1,000 mg PO Q6H PRN (Reason: Pain) Discharge Orders: Discharge ED (Routine); Ordered 09/03/24 Ordered By: Oren Linares Referrals: Sudha Johnson FNP-C [Primary Care Provider] - Activity Restrictions/Additional Instructions: Follow-up with your primary care provider next week for recheck if symptoms have not resolved. Print Language: Greek Coding Level of Care Code ED Transcription Typist for Wale Serrano
[2024-09-03 16:16] VITALS: BP 118/68; PULSE 71; O2SAT 97
== END 2024-09-03 16:30 | disposition home or self-care (01) ==
PROVIDERS: Emergency Provider Emergency Medicine; PCP Nurse Practitioner Family
DX: R06.02 Shortness of breath (principal); T50.Z95A Adverse effect of other vaccines and biological substances, initial encounter; Z87.891 Personal history of nicotine dependence; Z99.81 Dependence on supplemental oxygen; I11.0 Hypertensive heart disease with heart failure; I50.9 Heart failure, unspecified
CPT/HCPCS: 36415; 71045; 80053; 81001; 83880; 84484; 85025; 93005; 99285; J7030

== ENCOUNTER 2024-09-23 06:00 | Outpatient (CLI) | payer MEDICARE, SELFPAY | END 2024-09-23 06:01 | disposition home or self-care (01) | PROVIDERS: PCP Family Medicine; Visit Provider Family Medicine | DX: R10.9 Unspecified abdominal pain (principal); G89.29 Other chronic pain | CPT/HCPCS: 82784; 83516; 86003; 86008 ==

== ENCOUNTER 2024-10-09 16:41 | Emergency (ER) | payer MEDICARE, SELFPAY ==
[2024-10-09] VITALS (9 sets, daily range): BP systolic 99–138; BP diastolic 57–89; PULSE 56–87; RESP 16–19; TEMP 35.6; O2SAT 93–98; BMI 29.2
--- NOTE | 2024-10-09 17:11 | W.ED.ABDPA2 ---
HPI - Abdominal Pain General: Chief Complaint: Abdominal Pain Stated Complaint: abd pain Time Seen by Provider: 10/09/24 16:56 Source: patient Mode of arrival: EMS Limitations: no limitations History of Present Illness: This patient comes to the emerged from today because she has had abdominal bloating and is a sensation of fullness. She states that these symptoms have been off and on with her for many months and she has had numerous previous evaluations. She states the current episode also caused her to be feeling distended and she felt like she could not breathe as well as she normally does although she has oxygen dependent COPD. She states she ate a meal of potato soup and hamburger last night and her symptoms seem to began and they have also been persistent today after a meal of breakfast and then lunch. She states she is also had 2 bowel movements today. She states she was up 4 times last night to urinate but denies any fevers or chills. She denies any change in her usual shortness of breath other than she relates that her abdominal distention seem to make it difficult to take a deep breath. She has had a prior cholecystectomy as well as a prior appendectomy and 2 previous C-sections. She apparently has been seen by general surgery and had an EGD. History of chronic constipation and was supposed to be on a regimen of MiraLAX. No recent antibiotic use, recent travel, exposure to infectious disease. Associated Symptoms: Denies diarrhea, dysuria, fever(s), hematochezia, hematemesis and melena Related Data Home Medications ?Medication ?Instructions ?Recorded ?Confirmed acetaminophen 500 mg tablet 1,000 mg PO Q6H PRN Pain 04/15/23 10/07/24 dicyclomine 20 mg tablet 20 mg PO BID 09/23/24 10/07/24 polyethylene glycol 3350 17 4 g PO DAILY 09/23/24 10/07/24 gram/dose oral powder (Miralax) pantoprazole 40 mg tablet,delayed 40 mg PO DAILY 10/07/24 10/07/24 release (Protonix) Previous Rx's ?Medication ?Instructions ?Recorded diclofenac sodium 50 mg 50 mg PO DAILY@12 #60 tabs 06/08/24 tablet,delayed release ipratropium 0.5 mg-albuterol 3 mg 3 ml inhalation Q4H PRN shortness 06/21/24 (2.5 mg base)/3 mL nebulization of breath or wheezing #180 mL soln albuterol sulfate 90 mcg/actuation 2 puff inhalation Q6H PRN 08/12/24 aerosol inhaler Shortness Of Breath #8.5 grams amlodipine 5 mg tablet See Rx Instructions PO DAILY #120 08/20/24 tabs atenolol 50 mg tablet 50 mg PO BID #180 tabs 08/23/24 benzonatate 100 mg capsule 100 mg PO TID PRN cough #30 caps 10/07/24 hyoscyamine sulfate 0.125 mg 0.125 mg PO TID PRN dyspepsia #30 10/09/24 tablet (Levsin) tabs Allergies Allergy/AdvReac Type Severity Reaction Status Date / Time cefuroxime Allergy Intermediate Shortness Verified 10/07/24 10:29 of breath, lightheadedness fluticasone furoate (From Allergy Intermediate Unknown Verified 10/07/24 10:29 Trelegy Ellipta) umeclidinium (From Trelegy Allergy Intermediate Unknown Verified 10/07/24 10:29 Ellipta) vilanterol (From Trelegy Allergy Intermediate Unknown Verified 10/07/24 10:29 Ellipta) methenamine Allergy Mild ALGY-Difficulty Verified 10/07/24 10:29 Breathing cephalexin Allergy ALGY-Difficulty Verified 10/07/24 10:29 Breathing clindamycin Allergy ADR-Gastrointestinal Verified 10/07/24 10:29 Upset codeine Allergy ALGY-Rash Verified 10/07/24 10:29 levofloxacin (From Levaquin) Allergy ALGY-Difficulty Verified 10/07/24 10:29 Breathing nitrofurantoin (From Allergy ALGY-Difficulty Verified 10/07/24 10:29 Macrobid) Breathing Jsrlzdm-CNN-IpN Reductase Allergy ALGY-Joint Verified 10/07/24 10:29 Inhibitor (Eluvgrk-Lgx-Vcz Pain Reductase Inhibitor) Sulfa (Sulfonamide Allergy ALGY-Difficulty Verified 10/07/24 10:29 Antibiotics) Breathing fosfomycin AdvReac Intermediate ADR-Gastrointestinal Verified 10/07/24 10:29 Upset lisinopril AdvReac Mild cough Verified 10/07/24 10:29 losartan AdvReac Mild diarrhea Verified 10/07/24 10:29 amoxicillin (From Augmentin) AdvReac SHORT OF Verified 10/07/24 10:29 BREATH clavulanic acid (From AdvReac SHORT OF Verified 10/07/24 10:29 Augmentin) BREATH erythromycin AdvReac Severe ALGY-Difficulty Uncoded 10/07/24 10:29 Breathing Review of Systems Const: Denies: fever(s) Eyes: Denies: change in vision ENMT: Denies: throat pain, odynophagia, nasal discharge or nasal congestion Card: Denies: chest pain, palpitations, irregular heart rhythm or edema Resp: Denies: productive cough or non-productive cough GI: Reports: abdominal pain; Denies: hematemesis, diarrhea, hematochezia or melena : Denies: flank pain, difficulty voiding, dysuria or urinary frequency Musc: Denies: neck pain, back pain, extremity pain or extremity swelling Skin/Breast: Denies: rash Neuro: Denies: headache(s), numbness in extremities or weakness in extremities [place]/Lymph: Denies: easy bruising or easy bleeding PFSH ED PFSH: Medical History Constipation CHF (congestive heart failure) Hypertension Thoracic aortic aneurysm Allergies Situational anxiety SAMRA (generalized anxiety disorder) COPD exacerbation Abdominal pain of unknown cause Enrolled in chronic care management Thyroid nodule Chronic respiratory failure with hypoxia Pulmonary nodule Nocturnal hypoxia Salivary calculus has had surgery in the past Anxiety and depression Oxygen dependent ASVD (arteriosclerotic vascular disease) Afib Osteoarthritis of hip COPD (chronic obstructive pulmonary disease) Chronic gastritis H/O deep venous thrombosis Surgical History H/O colonoscopy 2015 Dr. French H/O esophagogastroduodenoscopy 2016 Dr. French Hx of cholecystectomy History of hysterectomy total H/O right knee surgery Family History Sister Anesthesia complication Son Anesthesia complication Grandmother Heart disease Mother , at age 73 Aneurysm Father , age 73 Cancer stomach Denies family history of Bleeding disorder Social History Smoking and tobacco/nicotine status: former use of tobacco/nicotine (1 PPD smoker for 48 years quit 2009) Quit status (tobacco/nicotine): has quit using Year quit tobacco: 2009 - 1PPD x 48 Years Second hand smoke exposure: No Alcohol intake: never Substance/Drug Use: never Caregiver/support person: Yes Lives independently: Yes Household members: significant other Housing: House Marital status: / service: No Current occupational status: retired Do you think of yourself as: Straight/Heterosexual Current gender identity: Female Special shawna needs: No Agree to transfusion: Yes Female Reproductive History: Para: 4 Physical Exam Narrative: EXAM NARRATIVE: She appears to be comfortable. She becomes little anxious when he starts talking about her symptoms. She answers questions in a goal-directed fashion. Const: COMMON NORMALS: no acute distress, patient oriented x3 and alert GENERAL APPEARANCE: cooperative NUTRITIONAL APPEARANCE: obese HENMT: COMMON NORMALS: atraumatic, Normal nasal mucous membranes and turbinates present, moist oral mucous membranes and oropharynx normal HEAD & SCALP: atraumatic NOSE: Normal nasal mucous membranes and turbinates present Eye: COMMON NORMALS: Equal, round and reactive pupils present, EOMs intact bilaterally and conjunctivae normal CONJUNCTIVA: Yes conjunctivae normal PUPIL: Yes Equal, round and reactive pupils present Neck/C-Spine: COMMON NORMALS: no JVD and Thyroid normal THYROID: Thyroid normal Chest: COMMONS NORMALS: normal inspection of the chest and normal palpation of entire chest wall Resp: COMMON NORMALS: normal respiratory effort, No retractions, No use of accessory muscles and clear to auscultation bilaterally EFFORT & INSPECTION: Yes able to speak in complete sentences AUSCULTATION: clear to auscultation bilaterally Cardio: COMMON NORMALS: no JVD, regular rate, regular rhythm, No murmurs present (Cardio) and Peripheral pulses 2+ throughout RATE: regular rate RHYTHM: regular rhythm PERIPHERAL PULSES: Peripheral pulses 2+ throughout GI: COMMON NORMALS: Soft to palpation and No hepatosplenomegaly present PALPATION: Yes Soft to palpation and Yes No hepatosplenomegaly present OTHER: Slightly protuberant abdomen which is soft to palpation without any rebound or guarding. She has normal active bowel sounds. She has no hyperresonance to percussion. Back/Pelvis: COMMON NORMALS: thoracic and lumbar spine normal to inspection, no thoracic nor lumbar tenderness and thoraco-lumbar ROM normal Extremity: COMMON NORMALS: normal to inspection, full ROM, no calf tenderness and no pedal edema Neuro: COMMON NORMALS: patient oriented x3, moves all extremities, no focal motor deficits and no sensory deficits noted SENSORIUM/ORIENTATION: Yes alert Psych: COMMON NORMALS: mental status grossly normal Skin: COMMON NORMALS: no rashes or lesions noted and turgor normal GENERAL SKIN EXAM: no rashes or lesions noted and turgor normal Course Reevaluation(s): Reevaluation #1: Patient was reevaluated. She states she feels much better. She states that the pills seem to make a difference for her. Reexamination reveals soft abdomen without any guarding or rebound or significant tenderness. I discussed the fact that she does not have any evidence of a bowel obstruction etc. at this time and some of her symptoms may in fact be related to her diet as it seems to be exacerbated with some of the fried foods she tends to eat. She states she is keeping up with the MiraLAX as previously prescribed. She did ask about her schedule CT for aneurysm follow-up on Friday and given our findings tonight that her aneurysm appeared to be stable on the CT scan I told her that she could cancel it and then follow-up with her ordering physician regarding the next interval for surveillance. She stable at this time to be discharged. Discussed plan of care and return precautions with both she and her family who are now present. Time: 20:12 Vital Signs: Vital signs: Vital Signs Temperature 96.1 F L 10/09/24 16:41 Pulse Rate 72 10/09/24 19:00 Respiratory Rate 16 10/09/24 18:30 Blood Pressure 133/89 10/09/24 19:00 Pulse Oximetry 96 10/09/24 19:00 Oxygen Delivery Me thod Nasal Cannula 10/09/24 19:00 Oxygen Flow Rate 3 10/09/24 16:45 MDM - Abdominal Pain Medical Decision Making This patient presents as noted in history of present illness. She has a history of chronic abdominal pain and transit issues etc. as noted in her previous records. This current presentation seems to be still with past history. Her clinical exam does not reveal any evidence of a surgical abdomen however we will go ahead and proceed with a workup to ensure that there is no evidence of bowel obstruction or other acute process at this time. Evaluation of electrocardiogram and serial troponins were also included to ensure that there was no occult ACS or other conditions masquerading as her current symptoms. Electrocardiogram was stable without any dynamic changes and serial troponins are also unremarkable. Imaging of her abdomen and pelvis revealed a stable abdominal aortic aneurysm unchanged in diameter. Other characteristic change of that great vessel. She did have fluid-filled bowel but no evidence of bowel obstruction or other concerning surgical finding at this time. Her urinalysis did show some bacteria but she had epithelial cells and did not have any symptoms or other findings that would suggest this is an acutely infected urinary tract so therefore no treatment at this time will and can allow cultures to dictate any subsequent treatment. She received IV fluids monitoring as well as a antispasmodic. The latter of which seemed to control her symptoms quite well. There is no evidence that continued emergency department workup and/or admission are indicated at this time given the lack of any surgical abdomen, ACS, or other concerning findings. Her symptoms are well-controlled and she desired to be discharged from the emergency department. She will follow-up with her physician regarding ongoing surveillance of her aneurysm as previously arranged. Medical Records I reviewed the patient's medical records. Lab Data I reviewed the patient's lab results. 10/09/24 16:45 10/09/24 16:45 Labs/Radiology: Radiology Impressions Abdomen/Pelvis CT 10/09/24 17:19 IMPRESSION: 1. Multiple fluid-filled loops of small bowel, nonspecific finding but may be seen with enteritis. 2. Colonic diverticulosis without CT evidence of acute diverticulitis. 3. Partially visualized intramural hematoma involving descending thoracic and upper abdominal aorta, not significantly changed from prior. 4. Stable aneurysmal dilatation of abdominal aorta. COMMENTS: Consistent with the [employer]'s Incidental Findings Committee white paper (J Am Jason Radiol 2018): Any incidental renal lesion less than 1 cm or classified as too small to characterize, or any incidental cystic renal lesion characterized as simple-appearing, is likely benign. No follow-up imaging is recommended for these lesions per consensus recommendations based on imaging criteria. Laboratory Results WBC 7.07 10^3/uL (3.29-11.43) 10/09/24 16:45 RBC 4.86 10^6/uL (3.85-5.65) 10/09/24 16:45 Hgb 14.60 g/dL (11.27-16.99) 10/09/24 16:45 Hct 46.0 % (36-47) 10/09/24 16:45 MCV 94.7 fl (85-98) 10/09/24 16:45 MCH 30.0 pg (27-33) 10/09/24 16:45 MCHC 31.7 g/dL (30-55) 10/09/24 16:45 RDW 12.8 % (12.1-15.1) 10/09/24 16:45 Plt Count 169 10^3/cmm (157-399) 10/09/24 16:45 MPV 10.0 fL (7.4-10.4) 10/09/24 16:45 Neut % (Auto) 58.4 % 10/09/24 16:45 Lymph % (Auto) 27.9 % 10/09/24 16:45 [place] % (Auto) 9.5 % 10/09/24 16:45 Eos % (Auto) 3.7 % 10/09/24 16:45 Baso % (Auto) 0.4 % 10/09/24 16:45 Neut # (Auto) 4.13 10^3/uL (1.8-7.7) 10/09/24 16:45 Lymph # (Auto) 2.0 10^3/uL (0.8-4.8) 10/09/24 16:45 [place] # (Auto) 0.7 10^3/uL (0.2-0.9) 10/09/24 16:45 Eos # (Auto) 0.3 10^3/uL (0.0-0.8) 10/09/24 16:45 Baso # (Auto) 0.0 10^3/uL (0.0-0.1) 10/09/24 16:45 Nucleated RBC % (auto) 0 % 10/09/24 16:45 Nucleated RBCs # 0.0 /100WBC 10/09/24 16:45 Sodium 142 mmol/L (136-145) 10/09/24 16:45 Potassium 4.0 mmol/L (3.5-5.1) 10/09/24 16:45 Chloride 103 mmol/L (98-107) 10/09/24 16:45 Carbon Dioxide 29 mmol/L (22-29) 10/09/24 16:45 Anion Gap 14.0 (5-19) 10/09/24 16:45 BUN 12 mg/dL (8-23) 10/09/24 16:45 Creatinine 0.6 mg/dL (0.5-0.9) 10/09/24 16:45 GFR Calculation Not Reportable 10/09/24 16:45 Glucose 107 mg/dL (65-115) 10/09/24 16:45 Calculated Osmolality 294 mOsm/kg (285-295) 10/09/24 16:45 Calcium 9.0 mg/dL (8.5-10.5) 10/09/24 16:45 Total Bilirubin 0.6 mg/dL (0.15-1.2) 10/09/24 16:45 AST 14 U/L (0-32) 10/09/24 16:45 ALT 11 U/L (0-33) 10/09/24 16:45 Alkaline Phosphatase 72 U/L (35-105) 10/09/24 16:45 Troponin T Baseline 11 ng/L (0-10) H 10/09/24 16:45 Troponin T 120 Minute 9.90 ng/L (0-10) 10/09/24 18:26 Delta Troponin T -1.10 ABS# (0-10) L 10/09/24 18:26 Total Protein 6.2 g/dL (6.6-8.7) L 10/09/24 16:45 Albumin 3.8 g/dL (3.5-5.2) 10/09/24 16:45 Globulin 2.4 g/dL (1.3-4.6) 10/09/24 16:45 Lipase 31 U/L (13-60) 10/09/24 16:45 TSH 0.83 uIU/mL (0.27-4.20) 10/09/24 16:45 Urine Color Yellow (Yellow) 10/09/24 18:00 Urine Appearance Clear (CLEAR) 10/09/24 18:00 Urine pH 6 (5-7) 10/09/24 18:00 Ur Specific [place] 1.010 (1.005-1.030) 10/09/24 18:00 Urine Protein Neg (Negative) 10/09/24 18:00 Urine Glucose (UA) Norm (Normal) 10/09/24 18:00 Urine Ketones Negative (Negative) 10/09/24 18:00 Urine Blood Neg (Negative) 10/09/24 18:00 Urine Nitrate Negative (Negative) 10/09/24 18:00 Urine Bilirubin 1+ (Negative) H 10/09/24 18:00 Urine Urobilinogen 4 mg/dL (Negative) H 10/09/24 18:00 Ur Leukocyte Esterase 1+ (Negative) H 10/09/24 18:00 Urine RBC 0-2 /hpf (0-2) 10/09/24 18:00 Urine WBC 11-20 /hpf (0-5) H 10/09/24 18:00 Ur Squamous Epith Cells 6-10 /hpf (0-5) 10/09/24 18:00 Amorphous Sediment Not Reportable 10/09/24 18:00 Urine Bacteria None seen /hpf (NONE) 10/09/24 18:00 Hyaline Casts 1.65 /lpf 10/09/24 18:00 All radiology interpretation(s) finalized by discharge EKG Data EKG 1: I personally reviewed and interpreted this EKG as follows: Interpretation: Contemporaneous review of EKG reveals ventricular rate of 60 bpm. Normal IA interval, QRS duration, corrected QT interval. Normal axis. Nonspecific T wave inversions V45 and 6. No other acute changes at this time. EKG 2: I personally reviewed and interpreted this EKG as follows: Interpretation: Second EKG this emergency department visit revealed ventricular rate of 72 bpm with a normal IA interval. Normal QRS duration, corrected QT interval normal axis. Occasional atrial premature contractions noted. No acute ST-T wave changes and no dynamic changes noted. Discharge Plan Discharge Patient Disposition: Home Clinical Impression: Abdominal pain, chronic, generalized, Aortic aneurysm Condition: Stable Prescriptions: New hyoscyamine sulfate [Levsin] 0.125 mg tablet 0.125 mg PO TID PRN (Reason: dyspepsia) Qty: 30 3RF No Action ipratropium-albuterol 0.5 mg-3 mg(2.5 mg base)/3 mL solution for nebulization 3 ml inhalation Q4H PRN (Reason: shortness of breath or wheezing) Qty: 180 2RF dicyclomine 20 mg tablet 20 mg PO BID polyethylene glycol 3350 [Miralax] 17 gram/dose powder 4 g PO DAILY benzonatate 100 mg capsule 100 mg PO TID PRN (Reason: cough) Qty: 30 0RF pantoprazole [Protonix] 40 mg tablet,delayed release (DR/EC) 40 mg PO DAILY diclofenac sodium 50 mg tablet,delayed release (DR/EC) 50 mg PO DAILY@12 Qty: 60 2RF albuterol sulfate 90 mcg/actuation HFA aerosol inhaler 2 puff inhalation Q6H PRN (Reason: Shortness Of Breath) Qty: 8.5 5RF amlodipine 5 mg tablet See Rx Instructions PO DAILY Qty: 120 2RF Rx Instructions: 5mg in the AM, 2.5 in PM orally daily; DOSE CHANGE atenolol 50 mg tablet 50 mg PO BID Qty: 180 1RF Rx Instructions: Take 1 tablet by mouth twice daily acetaminophen 500 mg Tablet 1,000 mg PO Q6H PRN (Reason: Pain) Discharge Orders: Discharge ED (Routine); Ordered 10/09/24 Ordered By: Brad Wilson Referrals: Nola Agarwal MD [Primary Care Provider] - Discharge Diet: Advance as tolerated and Low Fat Discharge Activity: Increase activity as tolerated Patient Instructions: Abdominal Pain (ED), Opioid Safety, Pain Management Activity Restrictions/Additional Instructions: As we discussed your evaluation this evening did not reveal any serious cause of your symptoms. We think that there may be some food related causation in your abdominal pain and bloating and gas and we recommend starting a food diary to help determine which foods seem to be associated with increasing symptoms and avoid those foods. We have also prescribed a medication to help with any bloating or gas or cramping to use as needed. We als discussed that your aneurysm appears to be unchanged and stable so you should discuss with your physician on Friday regarding future testing for that condition. If you develop any new or worsening symptoms you are welcome to return to the emergency department anytime. Print Language: Welsh Coding Level of Care Code ED Metallurgical Laboratory Assistant for Wale Serrano
--- NOTE | 2024-10-09 17:19 | CTR_ITS ---
PROCEDURE INFORMATION: Exam: CT Abdomen And Pelvis With Contrast Exam date and time: 10/09/2024 6:10 PM Age: 79 years old Clinical indication: Abdominal pain; Generalized; Prior surgery; Surgery date: 6+ months; Surgery type: Gb. Partial hysterectomy; C/O diffuse abd pain; Additional info: Gen abd pain TECHNIQUE: Imaging protocol: Computed tomography of the abdomen and pelvis with contrast. Radiation optimization: All CT scans at this facility use at least one of these dose optimization techniques: automated exposure control; mA and/or kV adjustment per patient size (includes targeted exams where dose is matched to clinical indication); or iterative reconstruction. Contrast material: OMNI 350; Contrast volume: 100 ml; Contrast route: INTRAVENOUS (IV); COMPARISON: CT abdomen pelvis w con* [id number] 12/30/2023 10:02 AM RADIATION DOSE METRICS: Total DLP (mGy-cm): 508.71 FINDINGS: Lungs: Unremarkable. Liver: Normal. No mass. Gallbladder and biliary ducts: Gallbladder is surgically absent. Pancreas: Normal. No ductal dilation. Spleen: Normal. No splenomegaly. Adrenal glands: Normal. No mass. Kidneys and ureters: No hydronephrosis or obstructing calculi. Stable appearance of exophytic simple appearing left lower pole of right kidney cyst. Additional subcentimeter bilateral renal hypodensities. These are not completely characterized but are likely benign cysts. In the absence of risk factors, no further workup is recommended. Stomach and bowel: Fluid-filled nondilated loops of small bowel. Moderate colonic stool burden. Colonic diverticulosis. Appendix: No evidence of appendicitis. Intraperitoneal space: Unremarkable. No free air. No significant fluid collection. Vasculature: Partially visualized intramural hematoma involving descending thoracic and upper abdominal aorta, not significantly changed in comparison to prior study. Aneurysmal dilatation of the abdominal aorta measuring up to 3.8 cm, unchanged. Diffuse atherosclerosis. Lymph nodes: Unremarkable. No enlarged lymph nodes. Urinary bladder: Urinary bladder is partially decompressed. Reproductive: Changes of prior partial hysterectomy. Bones/joints: Unremarkable. No acute fracture. Soft tissues: Unremarkable. CT/CT abdomen pelvis w con* [id number] IMPRESSION: 1. Multiple fluid-filled loops of small bowel, nonspecific finding but may be seen with enteritis. 2. Colonic diverticulosis without CT evidence of acute diverticulitis. 3. Partially visualized intramural hematoma involving descending thoracic and upper abdominal aorta, not significantly changed from prior. 4. Stable aneurysmal dilatation of abdominal aorta. COMMENTS: Consistent with the [employer]'s Incidental Findings Committee white paper (J Am Jason Radiol 2018): Any incidental renal lesion less than 1 cm or classified as too small to characterize, or any incidental cystic renal lesion characterized as simple-appearing, is likely benign. No follow-up imaging is recommended for these lesions per consensus recommendations based on imaging criteria.
[2024-10-09 17:28] LABS: Basophils % 0.4 %; Eosinophils # 0.3 10^3/uL (0.0-0.8); Eosinophils % 3.7 %; Lymphocytes % 27.9 %; Mean Corpuscular HGB Conc 31.7 g/dL (30-55); Mean Corpuscular Volume 94.7 fl (85-98); Monocytes # 0.7 10^3/uL (0.2-0.9); Monocytes % 9.5 %; Neutrophils # 4.13 10^3/uL (1.8-7.7); Neutrophils % 58.4 %; Nucleated Red Blood Cells % 0 %; Platelet Count 169 10^3/cmm (157-399); Red Blood Count 4.86 10^6/uL (3.85-5.65); Red Cell Distribution Width 12.8 % (12.1-15.1); White Blood Count 7.07 10^3/uL (3.29-11.43)
--- NOTE | 2024-10-09 17:30 | ECG_ITS ---
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 Measurements Intervals [place] Rate: 60 P: 101 [place]: 202 QRS: 1 QRSD: 92 T: 85 QT: 393 QTc: 396 Interpretive Statements SINUS RHYTHM NONSPECIFIC T-WAVE ABNORMALITY Compared to ECG 09/03/2024 14:43:59 Supraventricular rhythm no longer present T-wave abnormality still present Electronically Signed On 10-09-2024 18:10:23 CDT by Willem Guadarrama M.D. [email or web address]
[2024-10-09] MEDS: famotidine 20 mg/2 mL INJ 40 MG IVP (17:34)
[2024-10-09 17:46] LABS: Troponin(5th) Baseline 11 ng/L (0-10)
[2024-10-09 17:55] LABS: Alanine Aminotransferase 11 U/L (0-33); Albumin Level 3.8 g/dL (3.5-5.2); Alkaline Phosphatase 72 U/L (35-105); Aspartate Amino Transferase 14 U/L (0-32); Blood Urea Nitrogen 12 mg/dL (8-23); Carbon Dioxide 29 mmol/L (22-29); Chloride 103 mmol/L (98-107); Globulin 2.4 g/dL (1.3-4.6); Glucose 107 mg/dL (65-115); Lipase 31 U/L (13-60); Osmolality Calculated 294 mOsm/kg (285-295); Sodium 142 mmol/L (136-145); Thyroid Stimulating Hormone 0.83 uIU/mL (0.27-4.20); Total Bilirubin 0.6 mg/dL (0.15-1.2); Total Protein 6.2 g/dL (6.6-8.7)
[2024-10-09] MEDS: iohexol 350 mg/mL 500 mL Btl (per mL) IV (18:11)
[2024-10-09 18:15] LABS: Add Urine Microscopic? YES; Bilirubin Urine 1+ (Negative); Blood Urine Neg (Negative); Glucose Urine UA Norm (Normal); Ketones Urine Negative (Negative); Leukocyte Esterase Urine 1+ (Negative); Nitrate Urine Negative (Negative); Protein Urine Neg (Negative); Urine Appearance Clear (CLEAR); Urine Color Yellow (Yellow); Urobilinogen Urine 4 mg/dL (Negative); pH Urine 6 (5-7)
[2024-10-09 18:19] LABS: Bacteria Urine None Seen /hpf; Hyaline Casts Urine 1.65 /lpf; RBC Urine 0-2 /hpf (0-2)
--- NOTE | 2024-10-09 19:00 | ECG_ITS ---
[facility] Test Date: 2024-10-09 Pat Name: Mary Carmen Fuller Department: Room: Gender: Female Nurse Coordinator: : 1945 Requested By: Brad Wilson Order Number: [id number] Joi MD: GYPSY DUDLEY Measurements Intervals [place] Rate: 72 P: 81 [place]: 205 QRS: 13 QRSD: 94 T: 71 QT: 396 QTc: 435 Interpretive Statements SINUS RHYTHM WITH FREQUENT SUPRAVENTRICULAR PREMATURE COMPLEXES NONSPECIFIC T-WAVE ABNORMALITY ABNORMAL RHYTHM ECG Compared to ECG 10/09/2024 17:30:59 No significant changes Electronically Signed On 10-10-2024 22:06:08 CDT by GYPSY DUDLEY [email or web address]
[2024-10-09] MEDS: hyoscyamine ODT 0.125 mg Tablet 0.25 MG PO (19:08)
== END 2024-10-09 20:35 | disposition home or self-care (01) ==
PROVIDERS: Emergency Provider Emergency Medicine; PCP Family Medicine
DX: R10.84 Generalized abdominal pain (principal); I71.40 Abdominal aortic aneurysm, without rupture, unspecified; J44.9 Chronic obstructive pulmonary disease, unspecified; I11.0 Hypertensive heart disease with heart failure; I50.9 Heart failure, unspecified
CPT/HCPCS: 74177; 80053; 81001; 83690; 84443; 84484; 85025; 93005; 96374; 99285; J3490; J9999

== ENCOUNTER → 2024-10-19 11:32 | Outpatient (BNVA) | payer MEDICARE, SELFPAY | PROVIDERS: PCP Family Medicine; Visit Provider Nurse Practitioner Family | DX: R39.9 Unspecified symptoms and signs involving the genitourinary system (principal); N39.0 Urinary tract infection, site not specified | CPT/HCPCS: 81000; 87086 ==

== ENCOUNTER → 2024-11-11 10:54 | Outpatient (BNVA) | payer MEDICARE, SELFPAY | PROVIDERS: PCP Family Medicine; Visit Provider Internal Medicine Cardiovascular Disease | DX: I11.0 Hypertensive heart disease with heart failure (principal); I50.32 Chronic diastolic (congestive) heart failure; I71.20 Thoracic aortic aneurysm, without rupture, unspecified; I48.0 Paroxysmal atrial fibrillation | CPT/HCPCS: 99214 ==

== ENCOUNTER → 2024-11-24 11:22 | Outpatient (BNVA) | payer MEDICARE, SELFPAY | PROVIDERS: PCP Family Medicine; Visit Provider Nurse Practitioner Family | DX: R39.9 Unspecified symptoms and signs involving the genitourinary system (principal) | CPT/HCPCS: 81000 ==

== ENCOUNTER 2024-12-31 09:47 | Outpatient (CLI) | payer MEDICARE, SELFPAY ==
--- NOTE | 2024-12-31 10:00 | CT_ITS ---
WS: [id number] LDCT LUNG CANCER SCREENING HISTORY: Z87.891 - Personal history of nicotine dependence TECHNIQUE: Axial imaging performed from the apices to 1 cm below the costophrenic angles. Coronal and sagittal reformats are submitted with axial MIP series. All CT scans at [facility] use at least one of these dose optimization techniques: automated exposure control; mA and/or kV adjustment per patient size (includes targeted exams where dose is matched to clinical indication); or iterative reconstruction. DLP: 62.61 mGy.cm DIvol: Mean CTDIvol: 1.20 (mGy) COMPARISON: 04/02/2024 and 12/30/2023 Diagnostic quality: Satisfactory Lungs: Advanced centrilobular emphysema. Biapical pleural thickening and scarring. Linear scar LEFT upper lobe adjacent to the mediastinum. No pulmonary nodule or mass. No endobronchial lesions. Heart: Normal size heart with no pericardial effusion.. Moderate coronary artery calcification. Other findings: Mild aneurysmal dilatation ascending aorta to 4.7 cm. Atherosclerotic plaques of the descending aorta. At the GE junction aorta measures 4.4 cm. No pathologically enlarged lymph nodes. No adrenal mass. Cortical scarring upper pole RIGHT kidney. Prior cholecystectomy. Increased thoracic kyphosis. CT/CT lung screening [id number] IMPRESSION: LUNG-RADS: 1S-Negative with Significant Findings FOLLOW UP: 12 Month: Continue annual screening with LDCT OTHER FINDINGS (S MODIFIER): Reidentified is mild dilatation of ascending aorta . Ascending aortic aneurysm 4.7 cm. Ectatic thoracic aorta.
== END 2024-12-31 09:48 | disposition home or self-care (01) ==
PROVIDERS: PCP Family Medicine; Visit Provider Family Medicine
DX: Z12.2 Encounter for screening for malignant neoplasm of respiratory organs (principal); Z87.891 Personal history of nicotine dependence; J43.2 Centrilobular emphysema; J98.4 Other disorders of lung; I25.10 Atherosclerotic heart disease of native coronary artery without angina pectoris; N28.89 Other specified disorders of kidney and ureter; Z90.49 Acquired absence of other specified parts of digestive tract; M40.294 Other kyphosis, thoracic region; I71.21 Aneurysm of the ascending aorta, without rupture
CPT/HCPCS: 71271

== ENCOUNTER → 2025-02-24 11:35 | Outpatient (BNVA) | payer MEDICARE, SELFPAY | PROVIDERS: PCP Family Medicine; Visit Provider Nurse Practitioner Family | DX: R00.2 Palpitations (principal); I71.20 Thoracic aortic aneurysm, without rupture, unspecified; R51.9 Headache, unspecified; K57.90 Diverticulosis of intestine, part unspecified, without perforation or abscess without bleeding; Z87.891 Personal history of nicotine dependence; I11.0 Hypertensive heart disease with heart failure; I50.32 Chronic diastolic (congestive) heart failure; I10 Essential (primary) hypertension; I71.43 Infrarenal abdominal aortic aneurysm, without rupture; I71.9 Aortic aneurysm of unspecified site, without rupture | CPT/HCPCS: 93005; 99214 ==

== ENCOUNTER 2025-03-09 09:50 | Outpatient (CLI) | payer MEDICARE, SELFPAY ==
--- NOTE | 2025-03-09 09:45 | CTR_ITS ---
PROCEDURE INFORMATION: Exam: CTA Chest With Contrast CTA Abdomen and Pelvis With Contrast Exam date and time: 03/09/2025 11:13 AM Age: 79 years old Clinical indication: Cardiovascular condition or disease; Aortic aneurysm; Without rupture; Arterial aneurysm; Abdominal; Prior surgery; Surgery date: 6+ months; Surgery type: Hyst, gb; Additional info: Ascending aneurysm, descending aneurysm, and aaa TECHNIQUE: Imaging protocol: Computed tomographic angiography of the chest with contrast. Exam focused on the arteries. Computed tomographic angiography of the abdomen and pelvis with contrast. Exam focused on the arteries. 3D rendering (Not supervised by radiologist): MIP and/or 3D reconstructed images were created by the technologist. Radiation optimization: All CT scans at this facility use at least one of these dose optimization techniques: automated exposure control; mA and/or kV adjustment per patient size (includes targeted exams where dose is matched to clinical indication); or iterative reconstruction. Contrast material: OMNI 350; Contrast volume: 100 ml; Contrast route: INTRAVENOUS (IV); COMPARISON: CT abdomen pelvis w con* [id number] 10/09/2024 6:10 PM RADIATION DOSE METRICS: Total DLP (mGy-cm): 1023.3 FINDINGS: VASCULATURE: Pulmonary arteries: Normal. No pulmonary emboli. Aorta: Ascending aortic aneurysm measuring up to approximately 4.6 cm. 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 3.4 x 3.3 cm infrarenal abdominal aortic aneurysm. No evidence of rupture. Moderate aortoiliac atherosclerotic disease. Moderate mural thrombus in the abdominal aorta. Celiac trunk and mesenteric arteries: No occlusion or significant stenosis. Renal arteries: No occlusion or significant stenosis. Right iliac arteries: No occlusion or significant stenosis. Left iliac arteries: No occlusion or significant stenosis. CHEST: Lungs: Unremarkable. No consolidation. No masses. Pleural spaces: Unremarkable. No pneumothorax. No pleural effusion. Heart: Unremarkable. No cardiomegaly. No pericardial effusion. ABDOMEN AND PELVIS: Liver: No mass. Gallbladder and biliary ducts: Unremarkable. No calcified stones. No ductal dilation. Pancreas: Unremarkable. No mass. No ductal dilation. Spleen: Unremarkable. No splenomegaly. Adrenal glands: Unremarkable. No mass. Kidneys and ureters: 2.1 cm hypoattenuating right renal lesion which does not meet CT criteria for a simple cyst. Stomach and bowel: Colonic diverticulosis is present without diverticulitis. Bowel has normal caliber. Appendix: No evidence of appendicitis. Intraperitoneal space: Unremarkable. No free air. No significant fluid collection. Urinary bladder: Unremarkable. No mass. Reproductive: Uterus is surgically absent. No evidence of adnexal mass. Lymph nodes: Unremarkable. No enlarged lymph nodes. Bones/joints: Unremarkable. No acute fracture. Soft tissues: Unremarkable. CT/CT [facility] [id number] IMPRESSION: 1. Ascending aortic aneurysm measuring up to approximately 4.6 cm. 2. 3.4 x 3.3 cm infrarenal abdominal aortic aneurysm. No evidence of rupture. 3. No evidence of acute intrathoracic process. 4. No evidence of acute abdominal or pelvic process. 5. Indeterminate right renal lesion. Follow-up nonemergent renal ultrasound is recommended to exclude solid mass. COMMENTS: Consistent with the [employer] [employer]'s Incidental Findings Committee white paper (J Am Jason Radiol 2018): Any incidental renal lesion less than 1 cm or classified as too small to characterize, or any incidental cystic renal lesion characterized as simple-appearing, is likely benign. No follow-up imaging is recommended for these lesions per consensus recommendations based on imaging criteria.
[2025-03-09] MEDS: iohexol 350 mg/mL 500 mL Btl (per mL) IV (11:33)
== END 2025-03-09 09:51 | disposition home or self-care (01) ==
LOC: RAD 09:54
PROVIDERS: PCP Family Medicine; Visit Provider Nurse Practitioner Family
DX: I71.43 Infrarenal abdominal aortic aneurysm, without rupture (principal); I71.20 Thoracic aortic aneurysm, without rupture, unspecified; I71.9 Aortic aneurysm of unspecified site, without rupture; I71.21 Aneurysm of the ascending aorta, without rupture; I70.8 Atherosclerosis of other arteries; I74.09 Other arterial embolism and thrombosis of abdominal aorta; R93.421 Abnormal radiologic findings on diagnostic imaging of right kidney; K57.30 Diverticulosis of large intestine without perforation or abscess without bleeding
CPT/HCPCS: 71275; 74174; 82565

== ENCOUNTER 2025-04-04 09:17 | Outpatient (CLI) | payer MEDICARE, SELFPAY ==
--- NOTE | 2025-04-04 09:20 | MM_ITS ---
WS: [id number] BILATERAL SCREENING DIGITAL TOMOSYNTHESIS MAMMOGRAM WITH CAD HISTORY: Z12.39 - Encounter for other screening for malignant neop... COMPARISON: 04/01/2024, 03/31/2023, 03/01/2022 Bilateral CC and MLO views with tomosynthesis and synthetic mammography submitted. Computer aided detection analyzed. Breast composition: There are scattered areas of fibroglandular density. No suspicious masses, microcalcifications or architectural distortion. Well- circumscribed round mass in the anterior LEFT breast measures 5 x 5 x 5 mm and has been stable over multiple prior years. Benign calcifications in each breast. MM/MM scr BI tomosynthesis [id number] IMPRESSION: BI-RADS: 2 - Benign. FOLLOW UP: 1 Year Follow-up
== END 2025-04-04 09:18 | disposition home or self-care (01) ==
LOC: RAD 09:18
PROVIDERS: PCP Family Medicine; Visit Provider Family Medicine
DX: Z12.31 Encounter for screening mammogram for malignant neoplasm of breast (principal); R92.323 Mammographic fibroglandular density, bilateral breasts; R92.1 Mammographic calcification found on diagnostic imaging of breast; N63.20 Unspecified lump in the left breast, unspecified quadrant
CPT/HCPCS: 77063; 77067

== ENCOUNTER 2025-04-22 09:31 | Outpatient (CLI) | payer MEDICARE, SELFPAY ==
--- NOTE | 2025-04-22 08:30 | USCV_ITS ---
Mary Carmen Fuller Age: 79 Gender: F : 1945 Exam Date: 04/22/2025 10:37 Ordering Phys: Haven Dixon NP Technologist: Donte Leslie Exam Location[place] [facility] [place] Indication: sob BP: 133 / 89 HR: 55 Rhythm: Sinus Technical Quality: Adequate MEASUREMENTS (Male / Female) Normal Values 2D ECHO LV Diastolic Diameter PLAX 4.7 cm 4.2 - 5.9 / 3.9 - 5.3 cm IVS Diastolic Thickness 0.9 cm 0.6 - 1.0 / 0.6 - 0.9 cm IVS Systolic Thickness 1.5 cm LVPW Diastolic Thickness 1.0 cm 0.6 - 1.0 / 0.6 - 0.9 cm LVPW Systolic Thickness 1.7 cm LVOT Diameter 2.0 cm LV Ejection Fraction 2D Teich 73.7 % LV Ejection Fraction MOD 4C 63.1 % LV Ejection Fraction MOD 2C 72.0 % LV Ejection Fraction 2C AL 71.6 % LA Diameter 3.5 cm RA Systolic Volume 4C AL 42.3 ml RA Systolic Volume 4C MOD 42.1 ml LA Sys Volume AL 47.6 cm cubed LA Sys Volume Index AL 26.0 cm cubed/m squared Aorta at Sinotubular Diameter 3.5 cm IVC Diameter 1.6 cm M-MODE LA Ao Ratio MM 1.6 AV Cusp Separation MM 1.3 cm DOPPLER AV Peak Velocity 153.0 cm/s LVOT Peak Velocity 99.0 cm/s AV Area Cont Eq vti 1.9 cm squared AV Area Cont Eq pk 2.1 cm squared MV Peak Velocity 100.0 cm/s MV Area PHT 4.3 cm squared Mitral E to A Ratio 0.9 TV Peak Velocity 311.3 cm/s TR Peak Velocity 343.0 cm/s TR Peak Gradient 47.1 mmHg TR Mean Velocity 250.0 cm/s TR Mean Gradient 28.5 mmHg TR Velocity Time Integral 106.8 cm PV Peak Velocity 83.0 cm/s RV Ejection Time 0.3 s FINDINGS Left Ventricle Normal left ventricular size, systolic function and wall thickness with no regional wall motion abnormality. Left ventricular ejection fraction is 63%. Normal left ventricular diastolic function. Right Ventricle Normal right ventricular size and systolic function. Right Atrium Normal right atrial size. Left Atrium Normal left atrial size. IA Septum Normal appearance of the interatrial septum. Mitral Valve Normal mitral valve structure. No mitral valve stenosis. Mild mitral regurgitation. Aortic Valve No aortic valve stenosis. Mild aortic valve regurgitation. Aortic valve not well visualized. Tricuspid Valve Normal tricuspid valve structure. No tricuspid valve stenosis. Mild tricuspid valve regurgitation. Moderate pulmonary hypertension, RVSP 50 mmHg. Pulmonic Valve Normal pulmonic valve structure. No pulmonic valve stenosis. Mild regurgitation. Pericardium No pericardial effusion. Aorta Normal diameter of the aortic root and ascending thoracic aorta. IVC Normal IVC diameter. CONCLUSIONS Normal left ventricular size, systolic function and wall thickness with ejection fraction of 63%. Normal right ventricular size and systolic function. Mild mitral valve regurgitation Mild aortic valve regurgitation Mild tricuspid valve regurgitation Moderate pulmonary hypertension, RVSP 50 mmHg. Jerrod Ortiz MD, FACC (Electronically Signed) Final Date: 23 April 2025 19:31 S
== END 2025-04-22 09:32 | disposition home or self-care (01) ==
LOC: RAD 09:33
PROVIDERS: PCP Family Medicine; Visit Provider Nurse Practitioner Family
DX: I50.32 Chronic diastolic (congestive) heart failure (principal); I36.1 Nonrheumatic tricuspid (valve) insufficiency; I35.1 Nonrheumatic aortic (valve) insufficiency; I10 Essential (primary) hypertension; I37.1 Nonrheumatic pulmonary valve insufficiency; I34.0 Nonrheumatic mitral (valve) insufficiency
CPT/HCPCS: 93306

== ENCOUNTER → 2025-05-17 09:44 | Outpatient (BNVA) | payer MEDICARE, SELFPAY | PROVIDERS: PCP Family Medicine; Referring Provider Family Medicine; Visit Provider Internal Medicine | DX: J43.9 Emphysema, unspecified (principal); Z99.81 Dependence on supplemental oxygen; Z87.891 Personal history of nicotine dependence; J44.9 Chronic obstructive pulmonary disease, unspecified | CPT/HCPCS: 99214; Q3014 ==

== ENCOUNTER → 2025-05-19 13:37 | Outpatient (BNVA) | payer MEDICARE, SELFPAY | PROVIDERS: PCP Family Medicine; Referring Provider Nurse Practitioner Family; Visit Provider Nurse Practitioner Women's Health | DX: R30.0 Dysuria (principal) | CPT/HCPCS: 84315 ==

== ENCOUNTER 2025-07-06 10:07 | Outpatient (CLI) | payer MEDICARE, SELFPAY ==
[2025-07-06 10:54] VITALS: PULSE 67; RESP 18; O2SAT 91
== END 2025-07-06 10:08 | disposition home or self-care (01) ==
LOC: RT 10:13
PROVIDERS: PCP Family Medicine; Visit Provider Internal Medicine
DX: J44.9 Chronic obstructive pulmonary disease, unspecified (principal); J98.8 Other specified respiratory disorders
CPT/HCPCS: J7613